=== PATIENT | male | born 1965 | race Caucasian/White ===

== ENCOUNTER 2017-03-01 12:35 | Inpatient (IN) | payer MEDICAID, OTHER ==
[~2017-03-01] VITALS: Ht 175.3 cm; Wt 88.2 kg
[~2017-03-01 12:35] MED LIST: ATOR10TA84 PO; DIVA250T25 PO; GABA-531 PO; PANT40TA25 PO; PARO20TA24 PO
[2017-03-01 13:52] LABS: BASOPHILS % (AUTO) 0.2 % (0.0-2.0); EOSINOPHILS % (AUTO) 0.4 % (1.0-6.0); HEMATOCRIT 42.4 % (41-53); HEMOGLOBIN 14.6 g/dL (13.5-17.5); LYMPHOCYTES # (AUTO) 1.6 K/uL (1.0-4.8); MEAN CORPUSCULAR HEMOGLOBIN 31.4 pg (26.0-34.0); MEAN CORPUSCULAR HGB CONC 34.4 G/dL (31.0-37.0); MEAN CORPUSCULAR VOLUME 91 fL (80-100); MONOCYTES % (AUTO) 6.2 % (2.0-9.0); NEUTROPHILS # (AUTO) 13.4 K/uL (1.8-7.7); NEUTROPHILS % (AUTO) 83.2 % (40.0-70.0); PLATELET COUNT (AUTO) 265 K/uL (150-450); RED BLOOD CELL COUNT(AUTO) 4.64 MIL/uL (4.50-5.90); RED CELL DISTRIBUTION WIDTH 15.1 % (11.5-14.5); WHITE BLOOD COUNT (AUTO) 16.1 K/uL (4.5-11.0)
[2017-03-01 13:55] LABS: ANION GAP 11 mmol/L (8-16); CALCIUM, TOTAL 9.6 mg/dL (8.8-10.5); CARBON DIOXIDE 24 mmol/L (22-29); CHLORIDE 102 mmol/L (98-107); CREATININE 0.81 mg/dL (0.60-1.30); GLOMERULAR FILTR. RATE CALC > 60 mL/min (>60); SODIUM SERUM 137 mmol/L (136-145); UREA NITROGEN, BLOOD 9 mg/dL (7-18)
[2017-03-01 14:01] LABS: ALANINE AMINOTRANSFERASE 73 U/L (12-78); ALBUMIN 3.4 g/dL (3.4-5.0); ASPARTATE AMINOTRANSFERASE 59 U/L (15-37); BILIRUBIN,TOTAL 0.4 mg/dL (0.1-1.0); TOTAL PROTEIN, SERUM 7.3 g/dL (6.4-8.2)
[2017-03-01 14:02] LABS: VALPROIC ACID < 3 mcg/mL (50-100)
[2017-03-01] MEDS ORDERED: LORazepam 2 MG TABLET PO ONE (15:15)
[2017-03-01] MEDS ORDERED: CYANOCOBALAMIN 1,000 MCG/ML VIAL IM ONE (15:30)
[2017-03-01] MEDS ORDERED: LOPERAMIDE HCL 2 MG CAPSULE PO PRN (15:30)
[2017-03-01] MEDS ORDERED: GuaiFENesin/D-METHORPHAN [SUGAR-FREE] 200-20MG/10 ML SYRUP UDCUP PO PRN (15:30)
[2017-03-01] MEDS: THIAMINE HCL 100 MG TABLET PO SCH (16:20)
[2017-03-01] MEDS: HydrOXYzine PAMOATE 50 MG CAPSULE PO PRN (17:23)
[2017-03-01] MEDS: LORazepam 2 MG TABLET PO PRN ×2 (17:23→22:38)
[2017-03-01 17:24] VITALS: BP 127/57
[2017-03-01 17:33] VITALS: BP 127/57
[2017-03-01 18:24] VITALS: BP 125/64
[2017-03-01] MEDS ORDERED: PNEUMOCOCCAL VACCINE POLYVALENT 0.5 ML VIAL [PPSV23] IM ONE (18:45)
[2017-03-01 19:24] VITALS: BP 120/66
[2017-03-01 20:24] VITALS: BP 125/75
[2017-03-01 21:18] VITALS: BP 121/68
[2017-03-01] MEDS: ATORVASTATIN CALCIUM 10 MG TABLET PO SCH (22:35)
[2017-03-02] VITALS (8 sets, daily range): BP systolic 124–140; BP diastolic 70–83
[2017-03-02] MEDS: PANTOPRAZOLE SODIUM 40 MG DR TABLET PO SCH (08:15)
[2017-03-02] MEDS: FOLIC ACID 1 MG TABLET PO SCH (08:16)
[2017-03-02] MEDS: THIAMINE HCL 100 MG TABLET PO SCH ×2 (08:16→16:24)
[2017-03-02] MEDS: LORazepam 2 MG TABLET PO SCH ×4 (08:16→21:05)
[2017-03-02] MEDS: MULTIVITAMINS WITH MINERALS, THERAPEUTIC TABLET PO SCH (08:16)
[2017-03-02] MEDS: NAPROXEN 500 MG TABLET PO SCH ×2 (08:16→16:23)
[2017-03-02] MEDS: NICOTINE 21 MG/24 HOUR PATCH TD SCH ×2 (08:19→08:22)
[2017-03-02 08:31] LABS: CHOL/HDL RATIO 1.8 (4.2-7.3)
[2017-03-02] MEDS ORDERED: GABA-533 PO (12:54)
[2017-03-02] MEDS ORDERED: DIVA500T35 PO (12:54)
[2017-03-02] MEDS: GABAPENTIN 400 MG CAPSULE PO SCH ×2 (13:00→16:24)
[2017-03-02] MEDS: DIVALPROEX SODIUM 500 MG DR TABLET PO SCH (16:24)
[2017-03-02] MEDS: ATORVASTATIN CALCIUM 10 MG TABLET PO SCH (20:13)
[2017-03-02] MEDS: MIRTAZAPINE 15 MG TABLET PO SCH (21:13)
[2017-03-03] MEDS: LORazepam 2 MG TABLET PO PRN ×4 (00:52→19:21)
[2017-03-03 04:25] VITALS: BP 145/80
[2017-03-03] MEDS: NAPROXEN 500 MG TABLET PO SCH ×2 (06:46→16:19)
[2017-03-03] MEDS: NICOTINE 21 MG/24 HOUR PATCH TD SCH (08:23)
[2017-03-03] MEDS: MULTIVITAMINS WITH MINERALS, THERAPEUTIC TABLET PO SCH (08:23)
[2017-03-03] MEDS: DIVALPROEX SODIUM 500 MG DR TABLET PO SCH ×2 (08:23→16:19)
[2017-03-03] MEDS: FOLIC ACID 1 MG TABLET PO SCH (08:24)
[2017-03-03] MEDS: PANTOPRAZOLE SODIUM 40 MG DR TABLET PO SCH (08:24)
[2017-03-03] MEDS: LORazepam 2 MG TABLET PO SCH ×4 (08:24→21:37)
[2017-03-03] MEDS: THIAMINE HCL 100 MG TABLET PO SCH ×2 (08:24→16:19)
[2017-03-03] MEDS: GABAPENTIN 400 MG CAPSULE PO SCH ×3 (08:24→16:19)
[2017-03-03 08:45] VITALS: BP 137/85
[2017-03-03 08:49] VITALS: BP 137/85
[2017-03-03 16:00] VITALS: BP 137/89
[2017-03-03] MEDS: HydrOXYzine PAMOATE 50 MG CAPSULE PO PRN (19:21)
[2017-03-03] MEDS: ATORVASTATIN CALCIUM 10 MG TABLET PO SCH (21:37)
[2017-03-03] MEDS: MIRTAZAPINE 15 MG TABLET PO SCH (21:37)
[2017-03-04 00:45] VITALS: BP 120/77
[2017-03-04] MEDS: LORazepam 2 MG TABLET PO PRN (01:54)
[2017-03-04] MEDS ORDERED: ACETAMINOPHEN 325 MG TABLET PO PRN (05:45)
[2017-03-04 05:50] VITALS: BP 120/70
[2017-03-04] MEDS: NAPROXEN 500 MG TABLET PO SCH ×2 (06:53→16:33)
[2017-03-04] MEDS: LORazepam 1 MG TABLET PO SCH ×4 (08:00→20:22)
[2017-03-04] MEDS: GABAPENTIN 400 MG CAPSULE PO SCH ×3 (08:00→16:33)
[2017-03-04] MEDS: FOLIC ACID 1 MG TABLET PO SCH (08:00)
[2017-03-04] MEDS: MULTIVITAMINS WITH MINERALS, THERAPEUTIC TABLET PO SCH (08:00)
[2017-03-04] MEDS: PANTOPRAZOLE SODIUM 40 MG DR TABLET PO SCH (08:00)
[2017-03-04] MEDS: THIAMINE HCL 100 MG TABLET PO SCH ×2 (08:01→16:33)
[2017-03-04] MEDS: DIVALPROEX SODIUM 500 MG DR TABLET PO SCH ×2 (08:01→16:33)
[2017-03-04] MEDS: NICOTINE 21 MG/24 HOUR PATCH TD SCH (08:01)
[2017-03-04 09:23] VITALS: BP 130/87
[2017-03-04 09:24] VITALS: BP 130/87
[2017-03-04] MEDS: LORazepam 1 MG TABLET PO PRN ×3 (10:28→19:08)
[2017-03-04 16:14] VITALS: BP 135/88
[2017-03-04 17:30] VITALS: BP 126/75
[2017-03-04] MEDS: ATORVASTATIN CALCIUM 10 MG TABLET PO SCH (20:22)
[2017-03-04] MEDS: MIRTAZAPINE 15 MG TABLET PO SCH (20:22)
[2017-03-05 00:09] VITALS: BP 140/77
[2017-03-05] MEDS: LORazepam 1 MG TABLET PO PRN ×2 (00:11→05:08)
[2017-03-05 05:04] VITALS: BP 130/90
[2017-03-05] MEDS: NAPROXEN 500 MG TABLET PO SCH (06:46)
[2017-03-05] MEDS ORDERED: LORazepam 1 MG TABLET PO PRN (07:00)
[2017-03-05 07:35] LABS: BASOPHILS % (AUTO) 0.4 % (0.0-2.0); EOSINOPHILS % (AUTO) 2.3 % (1.0-6.0); HEMATOCRIT 39.9 % (41-53); HEMOGLOBIN 13.7 g/dL (13.5-17.5); LYMPHOCYTES # (AUTO) 1.6 K/uL (1.0-4.8); LYMPHOCYTES % (AUTO) 19.1 % (22.0-44.0); MEAN CORPUSCULAR HEMOGLOBIN 31.8 pg (26.0-34.0); MEAN CORPUSCULAR HGB CONC 34.4 G/dL (31.0-37.0); MEAN CORPUSCULAR VOLUME 92 fL (80-100); MONOCYTES # (AUTO) 0.7 K/uL (0.1-1.0); MONOCYTES % (AUTO) 7.9 % (2.0-9.0); NEUTROPHILS # (AUTO) 5.9 K/uL (1.8-7.7); NEUTROPHILS % (AUTO) 70.3 % (40.0-70.0); PLATELET COUNT (AUTO) 295 K/uL (150-450); RED BLOOD CELL COUNT(AUTO) 4.32 MIL/uL (4.50-5.90); RED CELL DISTRIBUTION WIDTH 15.6 % (11.5-14.5); WHITE BLOOD COUNT (AUTO) 8.5 K/uL (4.5-11.0)
[2017-03-05] MEDS: GABAPENTIN 400 MG CAPSULE PO SCH ×2 (08:27→12:24)
[2017-03-05] MEDS: NICOTINE 21 MG/24 HOUR PATCH TD SCH (08:27)
[2017-03-05] MEDS: DIVALPROEX SODIUM 500 MG DR TABLET PO SCH (08:27)
[2017-03-05] MEDS: MULTIVITAMINS WITH MINERALS, THERAPEUTIC TABLET PO SCH (08:27)
[2017-03-05] MEDS: FOLIC ACID 1 MG TABLET PO SCH (08:28)
[2017-03-05] MEDS: PANTOPRAZOLE SODIUM 40 MG DR TABLET PO SCH (08:28)
[2017-03-05] MEDS: THIAMINE HCL 100 MG TABLET PO SCH (08:28)
[2017-03-05 08:37] VITALS: BP 133/85
[2017-03-05] MEDS ORDERED: MIRT15 PO (11:42)
[2017-03-05] MEDS ORDERED: THIA100 PO (11:42)
[2017-03-05] MEDS ORDERED: FOLI1 PO (11:42)
[2017-03-05] MEDS ORDERED: MULT-71 PO (11:42)
[2017-03-05] MEDS ORDERED: NAPR-58 PO (11:42)
== END 2017-03-05 14:29 | disposition home or self-care (01) | DRG 750 ==
LOC: EMS 12:36 → B3A 15:57 → B2S 03-02 12:41
PROVIDERS: ADMIT Psychiatry & Neurology Psychiatry; ATTEND Psychiatry & Neurology Psychiatry
PROC: HZ2ZZZZ Detoxification Services for Substance Abuse Treatment (ICD-10-PCS; principal; 2017-03-01)
DX: F25.0 Schizoaffective disorder, bipolar type (principal); F15.20 Other stimulant dependence, uncomplicated; R45.851 Suicidal ideations; F10.229 Alcohol dependence with intoxication, unspecified; Y90.7 Blood alcohol level of 200-239 mg/100 ml; Z23 Encounter for immunization; M54.9 Dorsalgia, unspecified; Z59.0 Homelessness; Z88.0 Allergy status to penicillin; M19.90 Unspecified osteoarthritis, unspecified site; M41.9 Scoliosis, unspecified; Z72.0 Tobacco use; D72.829 Elevated white blood cell count, unspecified
CPT/HCPCS: 90471; 96372; 99285; G0480; J3420

== ENCOUNTER 2017-03-17 01:41 | Inpatient (IN) | payer MEDICAID, OTHER ==
[~2017-03-17] VITALS: Ht 172.7 cm; Wt 87.1 kg
[~2017-03-17 01:41] MED LIST changes: +BACL10TA PO; +BUPR-93 PO; +BUPR100T5 PO; +CARB100 PO; +CITA20TA9 PO; +CITA40TA14 PO; +DIPH25 PO; +DIVA500T35 PO; +DIVA500T52 PO; +FISH1CAP49 PO; +FOLI1 PO; +GABA-533 PO; +HYDR-4031 PO; +IBUP-1547 PO; +METO50 PO; +METR500 PO; +MIRT15 PO; +MULT-71 PO; +MUPI1OIN4 NS; +NAPR-58 PO; +NAPR500T3 PO; +NOCURR; +OMEP20 PO; +QUET200T PO; +QUET400T PO; +SERT50TA12 PO; +THERAGRAN M1 TA1; +THIA100 PO; +TRAZ-144 PO; +TRAZ-147 PO; +TRAZ150T85 PO; +VIST50 PO
[2017-03-17 03:04] LABS: EOSINOPHILS % (AUTO) 0.9 % (1.0-6.0); HEMATOCRIT 38.5 % (41-53); HEMOGLOBIN 13.5 g/dL (13.5-17.5); LYMPHOCYTES % (AUTO) 21.3 % (22.0-44.0); MEAN CORPUSCULAR HEMOGLOBIN 31.9 pg (26.0-34.0); MEAN CORPUSCULAR HGB CONC 35.2 G/dL (31.0-37.0); MEAN CORPUSCULAR VOLUME 91 fL (80-100); MONOCYTES # (AUTO) 0.9 K/uL (0.1-1.0); MONOCYTES % (AUTO) 9.5 % (2.0-9.0); NEUTROPHILS # (AUTO) 6.2 K/uL (1.8-7.7); NEUTROPHILS % (AUTO) 67.3 % (40.0-70.0); PLATELET COUNT (AUTO) 364 K/uL (150-450); RED BLOOD CELL COUNT(AUTO) 4.24 MIL/uL (4.50-5.90); RED CELL DISTRIBUTION WIDTH 15.6 % (11.5-14.5); WHITE BLOOD COUNT (AUTO) 9.2 K/uL (4.5-11.0)
[2017-03-17 03:15] LABS: ANION GAP 10 mmol/L (8-16); CARBON DIOXIDE 24 mmol/L (22-29); CHLORIDE 96 mmol/L (98-107); CREATININE 0.67 mg/dL (0.60-1.30); GLOMERULAR FILTR. RATE CALC > 60 mL/min (>60); POTASSIUM 3.7 mmol/L (3.5-5.1); SODIUM SERUM 130 mmol/L (136-145); UREA NITROGEN, BLOOD 5 mg/dL (7-18)
[2017-03-17 03:22] LABS: ALANINE AMINOTRANSFERASE 20 U/L (12-78); ALBUMIN 3.4 g/dL (3.4-5.0); ASPARTATE AMINOTRANSFERASE 21 U/L (15-37); BILIRUBIN,TOTAL 0.2 mg/dL (0.1-1.0); TOTAL PROTEIN, SERUM 7.1 g/dL (6.4-8.2)
[2017-03-17] MEDS: LORazepam 2 MG TABLET PO PRN ×4 (04:40→18:00)
[2017-03-17 05:17] VITALS: BP 120/70
[2017-03-17 10:04] VITALS: BP 126/63
[2017-03-17] MEDS: HALOPERIDOL 5 MG TABLET PO PRN ×2 (13:57→18:00)
[2017-03-17] MEDS: DIVALPROEX SODIUM 500 MG DR TABLET PO SCH (16:10)
[2017-03-17] MEDS: GABAPENTIN 400 MG CAPSULE PO SCH (16:10)
[2017-03-17 17:05] VITALS: BP 121/81
[2017-03-17] MEDS: ZOLPIDEM TARTRATE 10 MG TABLET PO PRN (22:01)
[2017-03-17] MEDS: SERTRALINE HCL 50 MG TABLET PO SCH (22:01)
[2017-03-18 00:25] VITALS: BP 133/75
[2017-03-18] MEDS: LORazepam 2 MG TABLET PO PRN ×4 (00:33→16:40)
[2017-03-18 05:30] VITALS: BP 125/69
[2017-03-18 08:00] VITALS: BP 117/61
[2017-03-18] MEDS: DIVALPROEX SODIUM 500 MG DR TABLET PO SCH ×2 (08:02→16:28)
[2017-03-18] MEDS: GABAPENTIN 400 MG CAPSULE PO SCH ×3 (08:02→16:28)
[2017-03-18 09:08] LABS: APPEARANCE,URINE CLEAR (CLEAR); GLUCOSE, URINE (UA) NEGATIVE (NEGATIVE); KETONES,URINE NEGATIVE (NEGATIVE); LEUKOCYTE ESTERASE ,URINE NEGATIVE (NEGATIVE); OCCULT BLOOD,URINE NEGATIVE (NEGATIVE); PH,URINE 6.5 (5.0-8.0); PROTEIN,URINE NEGATIVE (NEGATIVE)
[2017-03-18 09:29] LABS: ADD UA MICROSCOPIC NO
[2017-03-18] MEDS: NICOTINE 21 MG/24 HOUR PATCH TD SCH (13:15)
[2017-03-18 16:30] VITALS: BP 145/87
[2017-03-18] MEDS: SERTRALINE HCL 50 MG TABLET PO SCH (20:38)
[2017-03-18] MEDS: ZOLPIDEM TARTRATE 10 MG TABLET PO PRN (20:38)
[2017-03-18] MEDS: HALOPERIDOL 5 MG TABLET PO PRN (22:26)
[2017-03-19] MEDS: LORazepam 2 MG TABLET PO PRN ×2 (05:06→09:10)
[2017-03-19 05:16] VITALS: BP 116/84
[2017-03-19 07:19] LABS: CHOL/HDL RATIO 3.5 (4.2-7.3)
[2017-03-19] MEDS: GABAPENTIN 400 MG CAPSULE PO SCH ×2 (08:13→12:39)
[2017-03-19] MEDS: DIVALPROEX SODIUM 500 MG DR TABLET PO SCH (08:13)
[2017-03-19] MEDS: NICOTINE 21 MG/24 HOUR PATCH TD SCH (08:13)
[2017-03-19 08:26] VITALS: BP 120/81
[2017-03-19] MEDS: HALOPERIDOL 5 MG TABLET PO PRN (09:10)
== END 2017-03-19 15:15 | disposition home or self-care (01) | DRG 750 ==
LOC: EMS 01:45 → 3EI 04:14
PROVIDERS: ADMIT Psychiatry & Neurology Psychiatry; ATTEND Psychiatry & Neurology Psychiatry
DX: F25.0 Schizoaffective disorder, bipolar type (principal); E87.1 Hypo-osmolality and hyponatremia; F15.20 Other stimulant dependence, uncomplicated; F22 Delusional disorders; M41.9 Scoliosis, unspecified; R45.851 Suicidal ideations; I10 Essential (primary) hypertension; F10.20 Alcohol dependence, uncomplicated; D64.9 Anemia, unspecified; K21.9 Gastro-esophageal reflux disease without esophagitis; F41.9 Anxiety disorder, unspecified; F17.210 Nicotine dependence, cigarettes, uncomplicated; D72.828 Other elevated white blood cell count; F32.9 Major depressive disorder, single episode, unspecified; Y90.6 Blood alcohol level of 120-199 mg/100 ml; Z79.899 Other long term (current) drug therapy; Z82.49 Family history of ischemic heart disease and other diseases of the circulatory system; Z80.3 Family history of malignant neoplasm of breast; Z88.0 Allergy status to penicillin
CPT/HCPCS: 80307; 87081; 99285; G0480

== ENCOUNTER 2018-02-01 07:42 | Inpatient (IN) | payer MEDICAID, OTHER ==
[~2018-02-01] VITALS: Ht 172.7 cm; Wt 89.6 kg
[~2018-02-01 07:42] MED LIST changes: -ATOR10TA84 PO; -BACL10TA PO; -BUPR-93 PO; -BUPR100T5 PO; -CARB100 PO; -CITA20TA9 PO; -CITA40TA14 PO; -DIPH25 PO; -DIVA250T25 PO; -DIVA500T52 PO; -FISH1CAP49 PO; -FOLI1 PO; -GABA-531 PO; -HYDR-4031 PO; -IBUP-1547 PO; -METO50 PO; -METR500 PO; -MIRT15 PO; -MULT-71 PO; -MUPI1OIN4 NS; -NAPR-58 PO; -NAPR500T3 PO; -NOCURR; -OMEP20 PO; -PANT40TA25 PO; -PARO20TA24 PO; -QUET200T PO; -QUET400T PO; -THERAGRAN M1 TA1; -THIA100 PO; -TRAZ-144 PO; -TRAZ-147 PO; -TRAZ150T85 PO; -VIST50 PO
[2018-02-01] MEDS ORDERED: GABA-531 PO (08:00)
[2018-02-01] MEDS ORDERED: NAPR-58 PO (08:00)
[2018-02-01 08:50] LABS: EOSINOPHILS % (AUTO) 0.2 % (1.0-6.0); HEMATOCRIT 38.3 % (41-53); HEMOGLOBIN 13.5 g/dL (13.5-17.5); LYMPHOCYTES # (AUTO) 1.7 K/uL (1.0-4.8); LYMPHOCYTES % (AUTO) 12.8 % (22.0-44.0); MEAN CORPUSCULAR HEMOGLOBIN 31.6 pg (26.0-34.0); MEAN CORPUSCULAR HGB CONC 35.2 G/dL (31.0-37.0); MEAN CORPUSCULAR VOLUME 90 fL (80-100); MONOCYTES # (AUTO) 0.9 K/uL (0.1-1.0); MONOCYTES % (AUTO) 6.9 % (2.0-9.0); NEUTROPHILS # (AUTO) 10.6 K/uL (1.8-7.7); NEUTROPHILS % (AUTO) 79.1 % (40.0-70.0); PLATELET COUNT (AUTO) 301 K/uL (150-450); RED BLOOD CELL COUNT(AUTO) 4.26 MIL/uL (4.50-5.90); RED CELL DISTRIBUTION WIDTH 14.3 % (11.5-14.5)
[2018-02-01] MEDS ORDERED: LORazepam 1 MG TABLET PO ONE ×2 (09:00→12:15)
[2018-02-01 09:12] LABS: AMPHET/METH SCREEN,URINE POSITIVE (NEGATIVE); BARBITURATE SCREEN, URINE NEGATIVE (NEGATIVE); BENZODIAZEPINES SCREEN,URINE POSITIVE (NEGATIVE); CANNABINOID SCREEN,URINE NEGATIVE (NEGATIVE); COCAINE SCREEN,URINE NEGATIVE (NEGATIVE); METHADONE SCREEN, URINE NEGATIVE (NEGATIVE); OPIATE SCREEN,URINE NEGATIVE (NEGATIVE)
[2018-02-01 09:20] LABS: PHENCYCLIDINE SCREEN,URINE NEGATIVE (NEGATIVE)
[2018-02-01 09:27] LABS: ANION GAP 13 mmol/L (8-16); CARBON DIOXIDE 23 mmol/L (22-29); CHLORIDE 104 mmol/L (98-107); CREATININE 0.77 mg/dL (0.60-1.30); GLOMERULAR FILTR. RATE CALC > 60 mL/min (>60); GLUCOSE,RANDOM 78 mg/dL (70-110); POTASSIUM 3.9 mmol/L (3.5-5.1); SODIUM SERUM 140 mmol/L (136-145); UREA NITROGEN, BLOOD 9 mg/dL (7-18)
[2018-02-01 09:38] LABS: ALANINE AMINOTRANSFERASE 102 U/L (12-78); ALBUMIN 3.3 g/dL (3.4-5.0); ALKALINE PHOSPHATASE 91 U/L (46-116); ASPARTATE AMINOTRANSFERASE 76 U/L (15-37); BILIRUBIN,TOTAL 0.1 mg/dL (0.1-1.0); TOTAL PROTEIN, SERUM 7.2 g/dL (6.4-8.2)
[2018-02-01 13:00] VITALS: BP 145/89
[2018-02-01] MEDS: LORazepam 2 MG TABLET PO PRN ×2 (14:12→20:03)
[2018-02-01 14:17] VITALS: BP 147/91
[2018-02-01] MEDS: GABAPENTIN 300 MG CAPSULE PO SCH ×2 (14:50→20:03)
[2018-02-01] MEDS: MULTIVITAMINS WITH MINERALS, THERAPEUTIC TABLET PO SCH (14:50)
[2018-02-01] MEDS: NICOTINE 21 MG/24 HOUR PATCH TD SCH (14:51)
[2018-02-01 15:00] VITALS: BP 140/89
[2018-02-01 16:00] VITALS: BP 127/74
[2018-02-01 16:10] VITALS: BP 127/74
[2018-02-01 20:00] VITALS: BP 127/83
[2018-02-01] MEDS: ATORVASTATIN CALCIUM 20 MG TABLET PO SCH (20:03)
[2018-02-01] MEDS: NAPROXEN 500 MG TABLET PO SCH (21:36)
[2018-02-02 00:30] VITALS: BP 130/75
[2018-02-02 04:31] VITALS: BP 138/86
[2018-02-02] MEDS: LORazepam 2 MG TABLET PO PRN (06:09)
[2018-02-02] MEDS: NAPROXEN 500 MG TABLET PO SCH ×2 (07:09→16:24)
[2018-02-02 08:00] VITALS: BP 112/68
[2018-02-02 08:33] LABS: BASOPHILS % (AUTO) 0.7 % (0.0-2.0); EOSINOPHILS % (AUTO) 4.7 % (1.0-6.0); HEMATOCRIT 38.8 % (41-53); HEMOGLOBIN 13.6 g/dL (13.5-17.5); LYMPHOCYTES # (AUTO) 1.6 K/uL (1.0-4.8); LYMPHOCYTES % (AUTO) 15.8 % (22.0-44.0); MEAN CORPUSCULAR HEMOGLOBIN 31.9 pg (26.0-34.0); MEAN CORPUSCULAR HGB CONC 35.1 G/dL (31.0-37.0); MEAN CORPUSCULAR VOLUME 91 fL (80-100); MONOCYTES % (AUTO) 9.6 % (2.0-9.0); NEUTROPHILS % (AUTO) 69.2 % (40.0-70.0); PLATELET COUNT (AUTO) 287 K/uL (150-450); RED BLOOD CELL COUNT(AUTO) 4.27 MIL/uL (4.50-5.90); RED CELL DISTRIBUTION WIDTH 14.3 % (11.5-14.5)
[2018-02-02] MEDS: FOLIC ACID 1 MG TABLET PO SCH (09:08)
[2018-02-02] MEDS: MULTIVITAMINS, THERAPEUTIC TABLET PO SCH (09:08)
[2018-02-02] MEDS: GABAPENTIN 300 MG CAPSULE PO SCH ×3 (09:08→16:23)
[2018-02-02] MEDS: NICOTINE 21 MG/24 HOUR PATCH TD SCH (09:08)
[2018-02-02] MEDS: MULTIVITAMINS WITH MINERALS, THERAPEUTIC TABLET PO SCH (09:08)
[2018-02-02] MEDS: THIAMINE HCL 100 MG TABLET PO SCH (09:08)
[2018-02-02] MEDS: LORazepam 2 MG TABLET PO SCH ×4 (09:09→20:08)
[2018-02-02 09:12] LABS: CHOL/HDL RATIO 4.6 (4.2-7.3)
[2018-02-02] MEDS: SERTRALINE HCL 50 MG TABLET PO SCH (10:14)
[2018-02-02 12:55] VITALS: BP 123/88
[2018-02-02 16:00] VITALS: BP 140/88
[2018-02-02 16:11] VITALS: BP 140/88
[2018-02-02] MEDS: ATORVASTATIN CALCIUM 20 MG TABLET PO SCH (20:08)
[2018-02-02] MEDS: OLANZapine 10 MG TABLET PO SCH (20:09)
[2018-02-03 03:11] VITALS: BP 125/90
[2018-02-03] MEDS: LORazepam 2 MG TABLET PO PRN (05:38)
[2018-02-03] MEDS: NICOTINE POLACRILEX 4 MG LOZENGE PO PRN ×4 (05:38→20:16)
[2018-02-03] MEDS: NAPROXEN 500 MG TABLET PO SCH ×2 (06:38→16:13)
[2018-02-03 08:22] VITALS: BP 138/80
[2018-02-03] MEDS: GABAPENTIN 300 MG CAPSULE PO SCH ×3 (08:36→16:13)
[2018-02-03] MEDS: MULTIVITAMINS, THERAPEUTIC TABLET PO SCH (08:36)
[2018-02-03] MEDS: SERTRALINE HCL 50 MG TABLET PO SCH (08:36)
[2018-02-03] MEDS: FOLIC ACID 1 MG TABLET PO SCH (08:36)
[2018-02-03] MEDS: LORazepam 2 MG TABLET PO SCH ×4 (08:36→20:13)
[2018-02-03] MEDS: NICOTINE 21 MG/24 HOUR PATCH TD SCH (08:37)
[2018-02-03] MEDS: THIAMINE HCL 100 MG TABLET PO SCH (08:37)
[2018-02-03 12:20] VITALS: BP 116/71
[2018-02-03 16:44] VITALS: BP 136/79
[2018-02-03] MEDS: OLANZapine 10 MG TABLET PO SCH (20:13)
[2018-02-03] MEDS: ATORVASTATIN CALCIUM 20 MG TABLET PO SCH (20:13)
[2018-02-03] MEDS: TraZODone HCL 50 MG TABLET PO PRN (20:57)
[2018-02-04 04:30] VITALS: BP 138/98
[2018-02-04 04:32] VITALS: BP 136/98
[2018-02-04] MEDS: LORazepam 2 MG TABLET PO PRN (04:32)
[2018-02-04] MEDS: NICOTINE POLACRILEX 4 MG LOZENGE PO PRN ×4 (04:32→21:39)
[2018-02-04] MEDS: NAPROXEN 500 MG TABLET PO SCH ×2 (06:48→16:23)
[2018-02-04] MEDS ORDERED: LORazepam 1 MG TABLET PO PRN (07:00)
[2018-02-04] MEDS: SERTRALINE HCL 50 MG TABLET PO SCH (08:03)
[2018-02-04] MEDS: NICOTINE 21 MG/24 HOUR PATCH TD SCH (08:03)
[2018-02-04] MEDS: THIAMINE HCL 100 MG TABLET PO SCH (08:04)
[2018-02-04] MEDS: GABAPENTIN 300 MG CAPSULE PO SCH ×3 (08:04→16:23)
[2018-02-04] MEDS: FOLIC ACID 1 MG TABLET PO SCH (08:04)
[2018-02-04] MEDS: MULTIVITAMINS, THERAPEUTIC TABLET PO SCH (08:04)
[2018-02-04] MEDS: LORazepam 1 MG TABLET PO SCH ×4 (08:07→20:36)
[2018-02-04 09:24] VITALS: BP 128/93
[2018-02-04 14:25] VITALS: BP 116/68
[2018-02-04 17:00] VITALS: BP 115/79
[2018-02-04] MEDS: OLANZapine 10 MG TABLET PO SCH (20:36)
[2018-02-04] MEDS: ATORVASTATIN CALCIUM 20 MG TABLET PO SCH (20:36)
[2018-02-04] MEDS: TraZODone HCL 50 MG TABLET PO PRN (20:41)
[2018-02-05 01:29] VITALS: BP 121/82
[2018-02-05 04:44] VITALS: BP 122/78
[2018-02-05] MEDS: NICOTINE POLACRILEX 4 MG LOZENGE PO PRN ×4 (04:48→18:12)
[2018-02-05] MEDS: NAPROXEN 500 MG TABLET PO SCH ×2 (06:32→16:33)
[2018-02-05 08:18] VITALS: BP 120/81
[2018-02-05 08:19] VITALS: BP 120/81
[2018-02-05] MEDS: LORazepam 1 MG TABLET PO PRN ×4 (08:58→22:34)
[2018-02-05] MEDS: GABAPENTIN 300 MG CAPSULE PO SCH ×3 (08:58→16:33)
[2018-02-05] MEDS: MULTIVITAMINS, THERAPEUTIC TABLET PO SCH (08:58)
[2018-02-05] MEDS: SERTRALINE HCL 50 MG TABLET PO SCH (08:58)
[2018-02-05] MEDS: FOLIC ACID 1 MG TABLET PO SCH (08:58)
[2018-02-05] MEDS: THIAMINE HCL 100 MG TABLET PO SCH (08:58)
[2018-02-05] MEDS: NICOTINE 21 MG/24 HOUR PATCH TD SCH (08:59)
[2018-02-05] MEDS ORDERED: ACETAMINOPHEN 325 MG TABLET PO PRN (10:00)
[2018-02-05 16:00] VITALS: BP 124/75
[2018-02-05] MEDS: OLANZapine 10 MG TABLET PO SCH (20:18)
[2018-02-05] MEDS: ATORVASTATIN CALCIUM 20 MG TABLET PO SCH (20:18)
[2018-02-06 02:00] VITALS: BP 123/79
[2018-02-06] MEDS: NICOTINE POLACRILEX 4 MG LOZENGE PO PRN ×3 (05:49→18:05)
[2018-02-06] MEDS: LORazepam 1 MG TABLET PO PRN (05:49)
[2018-02-06] MEDS: NAPROXEN 500 MG TABLET PO SCH ×2 (06:22→16:57)
[2018-02-06 08:21] VITALS: BP 111/68
[2018-02-06] MEDS: MULTIVITAMINS, THERAPEUTIC TABLET PO SCH (08:33)
[2018-02-06] MEDS: SERTRALINE HCL 50 MG TABLET PO SCH (08:33)
[2018-02-06] MEDS: GABAPENTIN 300 MG CAPSULE PO SCH ×3 (08:33→16:57)
[2018-02-06] MEDS: FOLIC ACID 1 MG TABLET PO SCH (08:33)
[2018-02-06] MEDS: THIAMINE HCL 100 MG TABLET PO SCH (08:33)
[2018-02-06] MEDS: NICOTINE 21 MG/24 HOUR PATCH TD SCH (08:34)
[2018-02-06 16:07] VITALS: BP 125/75
[2018-02-06] MEDS: HydrOXYzine PAMOATE 50 MG CAPSULE PO PRN (18:40)
[2018-02-06] MEDS: OLANZapine 10 MG TABLET PO SCH (20:10)
[2018-02-06] MEDS: ATORVASTATIN CALCIUM 20 MG TABLET PO SCH (20:10)
[2018-02-06] MEDS: TraZODone HCL 50 MG TABLET PO PRN (21:04)
[2018-02-07 06:21] VITALS: BP 137/84
[2018-02-07] MEDS: NAPROXEN 500 MG TABLET PO SCH ×2 (07:10→17:21)
[2018-02-07 07:53] VITALS: BP 112/73
[2018-02-07 08:02] VITALS: BP 112/73
[2018-02-07] MEDS: GABAPENTIN 300 MG CAPSULE PO SCH ×3 (09:14→17:21)
[2018-02-07] MEDS: SERTRALINE HCL 50 MG TABLET PO SCH (09:15)
[2018-02-07] MEDS: THIAMINE HCL 100 MG TABLET PO SCH (09:15)
[2018-02-07] MEDS: MULTIVITAMINS, THERAPEUTIC TABLET PO SCH (09:15)
[2018-02-07] MEDS: NICOTINE 21 MG/24 HOUR PATCH TD SCH (09:16)
[2018-02-07] MEDS: FOLIC ACID 1 MG TABLET PO SCH (09:16)
[2018-02-07] MEDS: NICOTINE POLACRILEX 4 MG LOZENGE PO PRN ×2 (11:02→15:10)
[2018-02-07] MEDS: HydrOXYzine PAMOATE 50 MG CAPSULE PO PRN ×2 (15:57→21:26)
[2018-02-07 16:02] VITALS: BP 124/87
[2018-02-07] MEDS: ATORVASTATIN CALCIUM 20 MG TABLET PO SCH (21:23)
[2018-02-07] MEDS: OLANZapine 10 MG TABLET PO SCH (21:23)
[2018-02-07 22:09] VITALS: BP 117/85
[2018-02-07] MEDS: IBUPROFEN 600 MG TABLET PO PRN (22:09)
[2018-02-08 05:36] VITALS: BP 119/85
[2018-02-08] MEDS: NAPROXEN 500 MG TABLET PO SCH (07:04)
[2018-02-08] MEDS: NICOTINE POLACRILEX 4 MG LOZENGE PO PRN ×2 (07:05→11:14)
[2018-02-08] MEDS: HydrOXYzine PAMOATE 50 MG CAPSULE PO PRN (07:05)
[2018-02-08 08:02] VITALS: BP 123/79
[2018-02-08] MEDS: THIAMINE HCL 100 MG TABLET PO SCH (08:09)
[2018-02-08] MEDS: NICOTINE 21 MG/24 HOUR PATCH TD SCH (08:09)
[2018-02-08] MEDS: GABAPENTIN 300 MG CAPSULE PO SCH ×2 (08:09→12:21)
[2018-02-08] MEDS: FOLIC ACID 1 MG TABLET PO SCH (08:09)
[2018-02-08] MEDS: MULTIVITAMINS, THERAPEUTIC TABLET PO SCH (08:09)
[2018-02-08] MEDS: SERTRALINE HCL 50 MG TABLET PO SCH (08:09)
[2018-02-08] MEDS ORDERED: OLAN10TA3 PO (10:01)
[2018-02-08] MEDS ORDERED: NICO-704 TD (10:01)
[2018-02-08] MEDS ORDERED: OLAN10TA20 PO (10:49)
[2018-02-08] MEDS ORDERED: SERT50TA12 PO (10:49)
[2018-02-08] MEDS: IBUPROFEN 600 MG TABLET PO PRN (13:06)
== END 2018-02-08 14:01 | disposition home or self-care (01) | DRG 750 ==
LOC: EMS 07:43 → B2S 11:38
DX: F25.1 Schizoaffective disorder, depressive type (principal); R45.851 Suicidal ideations; F15.20 Other stimulant dependence, uncomplicated; M41.9 Scoliosis, unspecified; Z59.0 Homelessness; G62.9 Polyneuropathy, unspecified; F41.0 Panic disorder [episodic paroxysmal anxiety]; G89.29 Other chronic pain; K21.9 Gastro-esophageal reflux disease without esophagitis; M19.90 Unspecified osteoarthritis, unspecified site; F10.20 Alcohol dependence, uncomplicated; E78.5 Hyperlipidemia, unspecified; Y90.5 Blood alcohol level of 100-119 mg/100 ml; D35.00 Benign neoplasm of unspecified adrenal gland; M54.9 Dorsalgia, unspecified; F17.210 Nicotine dependence, cigarettes, uncomplicated; F41.9 Anxiety disorder, unspecified; L40.9 Psoriasis, unspecified; Z76.5 Malingerer [conscious simulation]; Z79.899 Other long term (current) drug therapy; Z88.0 Allergy status to penicillin; Z83.3 Family history of diabetes mellitus; Z82.49 Family history of ischemic heart disease and other diseases of the circulatory system; Z82.3 Family history of stroke; Z80.9 Family history of malignant neoplasm, unspecified; Z71.6 Tobacco abuse counseling; Z71.51 Drug abuse counseling and surveillance of drug abuser; Z71.41 Alcohol abuse counseling and surveillance of alcoholic
CPT/HCPCS: 99285; G0480

== ENCOUNTER 2018-08-27 20:11 | Inpatient (IN) | payer MEDICAID, OTHER ==
[~2018-08-27] VITALS: Ht 177.8 cm; Wt 87.0 kg
[~2018-08-27 20:11] MED LIST changes: -DIVA500T35 PO; +GABA-531 PO; -GABA-533 PO; +NAPR-58 PO; +NICO-704 TD; +OLAN10TA20 PO; +OLAN10TA3 PO
[2018-08-27] MEDS ORDERED: OXCA300T29 PO (21:07)
[2018-08-27] MEDS ORDERED: DIVA-78 PO (21:07)
[2018-08-27] MEDS ORDERED: HYDR50CA10 PO (21:07)
[2018-08-27] MEDS ORDERED: SERT100T12 PO (21:07)
[2018-08-27] MEDS ORDERED: LORA1TAB3 PO (21:07)
[2018-08-27 21:27] LABS: BASOPHILS % (AUTO) 0.7 % (0.0-2.0); EOSINOPHILS % (AUTO) 1.3 % (1.0-6.0); HEMATOCRIT 43.1 % (41-53); HEMOGLOBIN 14.7 g/dL (13.5-17.5); LYMPHOCYTES # (AUTO) 1.9 K/uL (1.0-4.8); LYMPHOCYTES % (AUTO) 14.3 % (22.0-44.0); MEAN CORPUSCULAR HEMOGLOBIN 32.3 pg (26.0-34.0); MEAN CORPUSCULAR HGB CONC 34.2 G/dL (31.0-37.0); MEAN CORPUSCULAR VOLUME 95 fL (80-100); MONOCYTES # (AUTO) 0.8 K/uL (0.1-1.0); MONOCYTES % (AUTO) 6.3 % (2.0-9.0); NEUTROPHILS # (AUTO) 10.3 K/uL (1.8-7.7); NEUTROPHILS % (AUTO) 77.4 % (40.0-70.0); PLATELET COUNT (AUTO) 376 K/uL (150-450); RED BLOOD CELL COUNT(AUTO) 4.56 MIL/uL (4.50-5.90); RED CELL DISTRIBUTION WIDTH 14.6 % (11.5-14.5)
[2018-08-27 21:44] LABS: ANION GAP 11 mmol/L (8-16); CALCIUM, TOTAL 9.3 mg/dL (8.8-10.5); CARBON DIOXIDE 25 mmol/L (22-29); CHLORIDE 103 mmol/L (98-107); CREATININE 0.78 mg/dL (0.60-1.30); GLOMERULAR FILTR. RATE CALC > 60 mL/min (>60); GLUCOSE,RANDOM 94 mg/dL (70-110); POTASSIUM 3.7 mmol/L (3.5-5.1); SODIUM SERUM 139 mmol/L (136-145); UREA NITROGEN, BLOOD 15 mg/dL (7-18)
[2018-08-27 21:50] LABS: ALANINE AMINOTRANSFERASE 28 U/L (12-78); ALBUMIN 3.5 g/dL (3.4-5.0); ALKALINE PHOSPHATASE 110 U/L (46-116); ASPARTATE AMINOTRANSFERASE 46 U/L (15-37); BILIRUBIN,TOTAL 0.2 mg/dL (0.1-1.0); TOTAL PROTEIN, SERUM 7.3 g/dL (6.4-8.2)
[2018-08-27 21:59] LABS: AMPHET/METH SCREEN,URINE NEGATIVE (NEGATIVE); BARBITURATE SCREEN, URINE NEGATIVE (NEGATIVE); BENZODIAZEPINES SCREEN,URINE POSITIVE (NEGATIVE); CANNABINOID SCREEN,URINE NEGATIVE (NEGATIVE); COCAINE SCREEN,URINE NEGATIVE (NEGATIVE); METHADONE SCREEN, URINE NEGATIVE (NEGATIVE); OPIATE SCREEN,URINE NEGATIVE (NEGATIVE)
[2018-08-27 22:00] LABS: PHENCYCLIDINE SCREEN,URINE NEGATIVE (NEGATIVE)
[2018-08-27 22:04] LABS: VALPROIC ACID < 3 mcg/mL (50-100)
[2018-08-27] MEDS ORDERED: DiphenhydrAMINE HCL 50 MG/ML VIAL IM ONE (22:15)
[2018-08-27] MEDS ORDERED: LORazepam 2 MG/ML VIAL IM ONE (22:15)
[2018-08-27] MEDS ORDERED: HALOPERIDOL LACTATE 5 MG/ML VIAL IM ONE (22:15)
[2018-08-28] VITALS (9 sets, daily range): BP systolic 121–142; BP diastolic 73–93
[2018-08-28] MEDS ORDERED: ZOLPIDEM TARTRATE 10 MG TABLET PO PRN (01:00)
[2018-08-28] MEDS ORDERED: HALOPERIDOL 5 MG TABLET PO PRN (01:00)
[2018-08-28 01:58] LABS: APPEARANCE,URINE CLEAR (CLEAR); BILIRUBIN,URINE NEGATIVE (NEGATIVE); GLUCOSE, URINE (UA) NEGATIVE (NEGATIVE); KETONES,URINE NEGATIVE (NEGATIVE); LEUKOCYTE ESTERASE ,URINE NEGATIVE (NEGATIVE); NITRATE,URINE NEGATIVE (NEGATIVE); OCCULT BLOOD,URINE NEGATIVE (NEGATIVE); PH,URINE 5.5 (5.0-8.0); PROTEIN,URINE NEGATIVE (NEGATIVE); UROBILINOGEN,URINE 0.2 mg/dL (<=1.0)
[2018-08-28] MEDS: LORazepam 2 MG TABLET PO PRN ×4 (06:54→22:13)
[2018-08-28] MEDS ORDERED: CYANOCOBALAMIN 1,000 MCG/ML VIAL IM ONE (08:30)
[2018-08-28] MEDS ORDERED: LOPERAMIDE HCL 2 MG CAPSULE PO PRN ×2 (08:30→10:15)
[2018-08-28] MEDS ORDERED: GuaiFENesin/D-METHORPHAN [SUGAR-FREE] 200-20MG/10 ML SYRUP UDCUP PO PRN ×2 (08:30→10:15)
[2018-08-28] MEDS ORDERED: HydrOXYzine PAMOATE 50 MG CAPSULE PO PRN (08:30)
[2018-08-28] MEDS: FOLIC ACID 1 MG TABLET PO SCH (09:53)
[2018-08-28] MEDS: MULTIVITAMINS WITH MINERALS, THERAPEUTIC TABLET PO SCH (09:53)
[2018-08-28] MEDS: THIAMINE HCL 100 MG TABLET PO SCH ×2 (09:53→15:56)
[2018-08-28] MEDS ORDERED: CloNIDine HCL 0.1 MG TABLET PO PRN (10:15)
[2018-08-28] MEDS ORDERED: MAG HYDROX/AL HYDROX/SIMETH ES 30 ML SUSPENSION UDCUP PO PRN (10:15)
[2018-08-28] MEDS ORDERED: NICOTINE 14 MG/24 HOUR PATCH TD PRN (10:15)
[2018-08-28] MEDS ORDERED: PETROLATUM,WHITE 71 GM JELLY TP PRN (10:15)
[2018-08-28] MEDS ORDERED: ACETAMINOPHEN 325 MG TABLET PO PRN (10:15)
[2018-08-28] MEDS ORDERED: DOCUSATE SODIUM 100 MG CAPSULE PO PRN (10:15)
[2018-08-28] MEDS ORDERED: ALBUTEROL SULFATE HFA 90 MCG/PUFF 8 GM INHALER IH PRN (10:15)
[2018-08-28] MEDS ORDERED: GABAPENTIN 300 MG CAPSULE PO SCH (10:15)
[2018-08-28] MEDS ORDERED: MAGNESIUM HYDROXIDE SUSPENSION 30 ML UDCUP PO PRN (10:15)
[2018-08-28] MEDS ORDERED: ONDANSETRON HCL 4 MG TABLET PO PRN (10:15)
[2018-08-28] MEDS: IBUPROFEN 400 MG TABLET PO PRN (10:21)
[2018-08-28] MEDS: SERTRALINE HCL 100 MG TABLET PO SCH (10:22)
[2018-08-28] MEDS: GABAPENTIN 300 MG CAPSULE PO SCH ×2 (12:07→15:56)
[2018-08-28] MEDS: NICOTINE 21 MG/24 HOUR PATCH TD SCH (12:13)
[2018-08-29] VITALS (7 sets, daily range): BP systolic 122–135; BP diastolic 74–88
[2018-08-29] MEDS: IBUPROFEN 400 MG TABLET PO PRN (03:54)
[2018-08-29] MEDS: LORazepam 2 MG TABLET PO PRN (05:05)
[2018-08-29] MEDS ORDERED: LORazepam 2 MG TABLET PO PRN (07:00)
[2018-08-29 07:52] LABS: CHOL/HDL RATIO 3.3 (4.2-7.3); THYROID STIMULATING HORMONE 1.38 uIU/mL (0.36-3.74)
[2018-08-29] MEDS: MULTIVITAMINS WITH MINERALS, THERAPEUTIC TABLET PO SCH (08:01)
[2018-08-29] MEDS: THIAMINE HCL 100 MG TABLET PO SCH ×2 (08:02→16:42)
[2018-08-29] MEDS: GABAPENTIN 300 MG CAPSULE PO SCH ×3 (08:02→16:41)
[2018-08-29] MEDS: FOLIC ACID 1 MG TABLET PO SCH (08:02)
[2018-08-29] MEDS: SERTRALINE HCL 100 MG TABLET PO SCH (08:08)
[2018-08-29] MEDS: NICOTINE 21 MG/24 HOUR PATCH TD SCH (08:39)
[2018-08-29] MEDS: LORazepam 2 MG TABLET PO SCH ×4 (09:37→20:33)
[2018-08-30 00:35] VITALS: BP 121/80
[2018-08-30] MEDS: IBUPROFEN 400 MG TABLET PO PRN (00:37)
[2018-08-30] MEDS: LORazepam 2 MG TABLET PO PRN (06:17)
[2018-08-30 06:35] LABS: BASOPHILS % (AUTO) 0.8 % (0.0-2.0); EOSINOPHILS % (AUTO) 2.8 % (1.0-6.0); HEMATOCRIT 41.9 % (41-53); HEMOGLOBIN 14.3 g/dL (13.5-17.5); LYMPHOCYTES # (AUTO) 1.5 K/uL (1.0-4.8); LYMPHOCYTES % (AUTO) 18.4 % (22.0-44.0); MEAN CORPUSCULAR HEMOGLOBIN 32.7 pg (26.0-34.0); MEAN CORPUSCULAR HGB CONC 34.1 G/dL (31.0-37.0); MEAN CORPUSCULAR VOLUME 96 fL (80-100); MONOCYTES # (AUTO) 0.7 K/uL (0.1-1.0); NEUTROPHILS # (AUTO) 5.8 K/uL (1.8-7.7); PLATELET COUNT (AUTO) 323 K/uL (150-450); RED BLOOD CELL COUNT(AUTO) 4.37 MIL/uL (4.50-5.90)
[2018-08-30] MEDS ORDERED: ACETAMINOPHEN 325 MG TABLET ONE (07:07)
[2018-08-30] MEDS ORDERED: IBUPROFEN 400 MG TABLET PO PRN ×2 (07:30→10:15)
[2018-08-30] MEDS: NICOTINE 21 MG/24 HOUR PATCH TD SCH (09:15)
[2018-08-30] MEDS: FOLIC ACID 1 MG TABLET PO SCH (09:15)
[2018-08-30] MEDS: MULTIVITAMINS WITH MINERALS, THERAPEUTIC TABLET PO SCH (09:15)
[2018-08-30] MEDS: SERTRALINE HCL 100 MG TABLET PO SCH (09:16)
[2018-08-30] MEDS: LORazepam 2 MG TABLET PO SCH ×4 (09:16→20:53)
[2018-08-30] MEDS: GABAPENTIN 300 MG CAPSULE PO SCH ×3 (09:16→16:25)
[2018-08-30] MEDS: THIAMINE HCL 100 MG TABLET PO SCH ×2 (09:16→16:25)
[2018-08-30] MEDS ORDERED: ACETAMINOPHEN 325 MG TABLET PO PRN (10:15)
[2018-08-30] MEDS ORDERED: ACETAMINOPHEN 500 MG TABLET PO PRN (13:00)
[2018-08-30] MEDS: IBUPROFEN 600 MG TABLET PO PRN ×2 (13:30→19:13)
[2018-08-31 02:40] VITALS: BP 139/79
[2018-08-31] MEDS: IBUPROFEN 600 MG TABLET PO PRN (02:45)
[2018-08-31] MEDS: LORazepam 2 MG TABLET PO PRN (02:45)
[2018-08-31] MEDS ORDERED: LORazepam 1 MG TABLET PO PRN (07:00)
[2018-08-31] MEDS: MULTIVITAMINS WITH MINERALS, THERAPEUTIC TABLET PO SCH (08:26)
[2018-08-31] MEDS: FOLIC ACID 1 MG TABLET PO SCH (08:26)
[2018-08-31] MEDS: GABAPENTIN 300 MG CAPSULE PO SCH ×3 (08:27→16:02)
[2018-08-31] MEDS: THIAMINE HCL 100 MG TABLET PO SCH ×2 (08:27→16:02)
[2018-08-31] MEDS: NICOTINE 21 MG/24 HOUR PATCH TD SCH (08:29)
[2018-08-31] MEDS: SERTRALINE HCL 100 MG TABLET PO SCH (08:29)
[2018-08-31 08:32] VITALS: BP 132/69
[2018-08-31] MEDS: LORazepam 1 MG TABLET PO SCH ×3 (09:21→16:02)
[2018-09-01] MEDS ORDERED: LORazepam 1 MG TABLET PO PRN (07:00)
== END 2018-08-31 17:30 | disposition home or self-care (01) | DRG 751 ==
LOC: EMS 20:13 → 3EI 08-28 02:00
DX: F33.2 Major depressive disorder, recurrent severe without psychotic features (principal); M41.9 Scoliosis, unspecified; E11.9 Type 2 diabetes mellitus without complications; D72.829 Elevated white blood cell count, unspecified; F10.20 Alcohol dependence, uncomplicated; F17.210 Nicotine dependence, cigarettes, uncomplicated; F12.10 Cannabis abuse, uncomplicated; G40.909 Epilepsy, unspecified, not intractable, without status epilepticus; I10 Essential (primary) hypertension; J44.9 Chronic obstructive pulmonary disease, unspecified; K21.9 Gastro-esophageal reflux disease without esophagitis; M54.9 Dorsalgia, unspecified; M19.90 Unspecified osteoarthritis, unspecified site; Y90.6 Blood alcohol level of 120-199 mg/100 ml; Z59.0 Homelessness; Z79.899 Other long term (current) drug therapy; Z91.5 Personal history of self-harm; Z88.0 Allergy status to penicillin; Z71.6 Tobacco abuse counseling; Z71.51 Drug abuse counseling and surveillance of drug abuser
CPT/HCPCS: 83036; 84443; 96372; G0480; J1200; J1630; J2060; J3420

== ENCOUNTER 2019-01-29 16:34 | Inpatient (IN) | payer MEDICAID, OTHER ==
[~2019-01-29] VITALS: Ht 172.7 cm; Wt 93.0 kg
[~2019-01-29 16:34] MED LIST changes: -NAPR-58 PO; -NICO-704 TD; -OLAN10TA20 PO; -OLAN10TA3 PO; +SERT100T12 PO; -SERT50TA12 PO
[2019-01-29] MEDS ORDERED: ESCI20TA PO (17:12)
[2019-01-29 18:03] LABS: BASOPHILS % (AUTO) 0.7 % (0.0-2.0); EOSINOPHILS % (AUTO) 3.3 % (1.0-6.0); HEMATOCRIT 40.2 % (41-53); HEMOGLOBIN 13.6 g/dL (13.5-17.5); LYMPHOCYTES # (AUTO) 1.7 K/uL (1.0-4.8); LYMPHOCYTES % (AUTO) 14.8 % (22.0-44.0); MEAN CORPUSCULAR HEMOGLOBIN 32.1 pg (26.0-34.0); MEAN CORPUSCULAR HGB CONC 33.8 G/dL (31.0-37.0); MEAN CORPUSCULAR VOLUME 95 fL (80-100); MONOCYTES % (AUTO) 8.4 % (2.0-9.0); NEUTROPHILS # (AUTO) 8.4 K/uL (1.8-7.7); NEUTROPHILS % (AUTO) 72.8 % (40.0-70.0); PLATELET COUNT (AUTO) 293 K/uL (150-450); RED BLOOD CELL COUNT(AUTO) 4.22 MIL/uL (4.50-5.90); RED CELL DISTRIBUTION WIDTH 13.7 % (11.5-14.5)
[2019-01-29 18:14] LABS: ANION GAP 16 mmol/L (8-16); CARBON DIOXIDE 19 mmol/L (22-29); CHLORIDE 103 mmol/L (98-107); CREATININE 0.83 mg/dL (0.60-1.30); GLOMERULAR FILTR. RATE CALC > 60 mL/min (>60); GLUCOSE,RANDOM 90 mg/dL (70-110); POTASSIUM 3.8 mmol/L (3.5-5.1); SODIUM SERUM 138 mmol/L (136-145); UREA NITROGEN, BLOOD 17 mg/dL (7-18)
[2019-01-29 18:21] LABS: ALANINE AMINOTRANSFERASE 55 U/L (12-78); ALBUMIN 3.7 g/dL (3.4-5.0); ALKALINE PHOSPHATASE 75 U/L (46-116); ASPARTATE AMINOTRANSFERASE 100 U/L (15-37); BILIRUBIN,TOTAL 0.3 mg/dL (0.1-1.0); TOTAL PROTEIN, SERUM 6.9 g/dL (6.4-8.2)
[2019-01-29] MEDS ORDERED: LORazepam 2 MG/ML VIAL ONE (20:13)
[2019-01-29] MEDS ORDERED: DiphenhydrAMINE HCL 50 MG/ML VIAL ONE (20:14)
[2019-01-29] MEDS ORDERED: HALOPERIDOL LACTATE 5 MG/ML VIAL ONE (20:14)
[2019-01-29] MEDS ORDERED: ZOLPIDEM TARTRATE 10 MG TABLET PO PRN (20:45)
[2019-01-29] MEDS ORDERED: HALOPERIDOL 5 MG TABLET PO PRN (20:45)
[2019-01-30 05:38] LABS: CHOL/HDL RATIO 2.6 (4.2-7.3); CHOLESTEROL 103 mg/dL (131-200); FREE T4 (FREE THYROXINE) 1.36 ng/dL (0.76-1.46); HDL CHOLESTEROL 40 mg/dL (40-60); LDL CHOL (CALC.) 45 mg/dL (0-130); THYROID STIMULATING HORMONE 0.71 uIU/mL (0.36-3.74); TRIGLYCERIDES 89 mg/dL (15-150)
[2019-01-30 13:55] VITALS: BP 138/90
[2019-01-30] MEDS ORDERED: ALBUTEROL SULFATE HFA 90 MCG/PUFF 8 GM INHALER IH PRN (14:45)
[2019-01-30] MEDS ORDERED: DOCUSATE SODIUM 100 MG CAPSULE PO PRN (14:45)
[2019-01-30] MEDS ORDERED: LOPERAMIDE HCL 2 MG CAPSULE PO PRN (14:45)
[2019-01-30] MEDS ORDERED: MAG HYDROX/AL HYDROX/SIMETH ES 30 ML SUSPENSION UDCUP PO PRN (14:45)
[2019-01-30] MEDS ORDERED: GuaiFENesin/D-METHORPHAN [SUGAR-FREE] 200-20MG/10 ML SYRUP UDCUP PO PRN (14:45)
[2019-01-30] MEDS ORDERED: ACETAMINOPHEN 325 MG TABLET PO PRN (14:45)
[2019-01-30] MEDS ORDERED: CloNIDine HCL 0.1 MG TABLET PO PRN (14:45)
[2019-01-30] MEDS ORDERED: PETROLATUM,WHITE 28 GM JELLY TP PRN (14:45)
[2019-01-30] MEDS ORDERED: ONDANSETRON HCL 4 MG TABLET PO PRN (14:45)
[2019-01-30] MEDS ORDERED: MAGNESIUM HYDROXIDE SUSPENSION 30 ML UDCUP PO PRN (14:45)
[2019-01-30 15:00] VITALS: BP 134/74
[2019-01-30 16:00] VITALS: BP 136/86
[2019-01-30 17:00] VITALS: BP 123/76
[2019-01-30 21:00] VITALS: BP 121/68
[2019-01-31] VITALS (9 sets, daily range): BP systolic 118–126; BP diastolic 64–80
[2019-01-31] MEDS: LORazepam 2 MG TABLET PO PRN ×2 (09:41→15:52)
[2019-01-31] MEDS ORDERED: LORazepam 2 MG TABLET PO PRN (10:45)
[2019-01-31] MEDS: GABAPENTIN 400 MG CAPSULE PO SCH ×2 (13:20→16:26)
[2019-01-31] MEDS: SERTRALINE HCL 100 MG TABLET PO SCH (20:38)
[2019-02-01] MEDS: LORazepam 2 MG TABLET PO PRN (07:11)
[2019-02-01 08:11] VITALS: BP 142/74
[2019-02-01 08:12] LABS: BASOPHILS % (AUTO) 0.9 % (0.0-2.0); EOSINOPHILS % (AUTO) 5.5 % (1.0-6.0); HEMATOCRIT 43.8 % (41-53); LYMPHOCYTES # (AUTO) 1.3 K/uL (1.0-4.8); LYMPHOCYTES % (AUTO) 16.3 % (22.0-44.0); MEAN CORPUSCULAR HEMOGLOBIN 32.4 pg (26.0-34.0); MEAN CORPUSCULAR HGB CONC 34.1 G/dL (31.0-37.0); MEAN CORPUSCULAR VOLUME 95 fL (80-100); MONOCYTES # (AUTO) 0.7 K/uL (0.1-1.0); MONOCYTES % (AUTO) 8.8 % (2.0-9.0); NEUTROPHILS # (AUTO) 5.4 K/uL (1.8-7.7); NEUTROPHILS % (AUTO) 68.5 % (40.0-70.0); PLATELET COUNT (AUTO) 312 K/uL (150-450); RED BLOOD CELL COUNT(AUTO) 4.62 MIL/uL (4.50-5.90); RED CELL DISTRIBUTION WIDTH 13.4 % (11.5-14.5)
[2019-02-01] MEDS: GABAPENTIN 400 MG CAPSULE PO SCH ×3 (08:17→16:05)
[2019-02-01] MEDS: LORazepam 2 MG TABLET PO SCH ×4 (08:17→20:30)
[2019-02-01 08:45] LABS: HEMOGLOBIN A1C 4.8 % (4.5-6.2)
[2019-02-01 09:11] LABS: ALANINE AMINOTRANSFERASE 69 U/L (12-78); ALBUMIN 3.1 g/dL (3.4-5.0); ALKALINE PHOSPHATASE 87 U/L (46-116); ANION GAP 8 mmol/L (8-16); ASPARTATE AMINOTRANSFERASE 68 U/L (15-37); BILIRUBIN,TOTAL 0.3 mg/dL (0.1-1.0); CALCIUM, TOTAL 9.2 mg/dL (8.8-10.5); CARBON DIOXIDE 27 mmol/L (22-29); CHLORIDE 105 mmol/L (98-107); CHOL/HDL RATIO 2.6 (4.2-7.3); CHOLESTEROL 108 mg/dL (131-200); CREATININE 0.81 mg/dL (0.60-1.30); GLOMERULAR FILTR. RATE CALC > 60 mL/min (>60); GLUCOSE,RANDOM 90 mg/dL (70-110); HDL CHOLESTEROL 42 mg/dL (40-60); LDL CHOL (CALC.) 47 mg/dL (0-130); POTASSIUM 4.4 mmol/L (3.5-5.1); SODIUM SERUM 140 mmol/L (136-145); THYROID STIMULATING HORMONE 0.27 uIU/mL (0.36-3.74); TOTAL PROTEIN, SERUM 6.9 g/dL (6.4-8.2); TRIGLYCERIDES 97 mg/dL (15-150)
[2019-02-01 09:29] LABS: UREA NITROGEN, BLOOD 11 mg/dL (7-18)
[2019-02-01 10:00] VITALS: BP 112/72
[2019-02-01] MEDS: IBUPROFEN 400 MG TABLET PO PRN (12:54)
[2019-02-01 14:04] VITALS: BP 129/76
[2019-02-01 16:12] VITALS: BP 124/72
[2019-02-01] MEDS: ATORVASTATIN CALCIUM 20 MG TABLET PO SCH (20:30)
[2019-02-01] MEDS: SERTRALINE HCL 100 MG TABLET PO SCH (20:31)
[2019-02-02 06:03] VITALS: BP 137/65
[2019-02-02] MEDS: LORazepam 2 MG TABLET PO SCH ×4 (07:56→20:00)
[2019-02-02] MEDS: GABAPENTIN 400 MG CAPSULE PO SCH ×3 (07:56→16:47)
[2019-02-02 08:00] VITALS: BP 131/87
[2019-02-02 08:06] VITALS: BP 131/87
[2019-02-02] MEDS: IBUPROFEN 400 MG TABLET PO PRN (10:28)
[2019-02-02] MEDS: NICOTINE 14 MG/24 HOUR PATCH TD PRN (10:29)
[2019-02-02] MEDS: LORazepam 2 MG TABLET PO PRN (10:29)
[2019-02-02 16:08] VITALS: BP 118/74
[2019-02-02] MEDS: ATORVASTATIN CALCIUM 20 MG TABLET PO SCH (20:00)
[2019-02-02] MEDS: SERTRALINE HCL 100 MG TABLET PO SCH (20:00)
[2019-02-03] MEDS: LORazepam 2 MG TABLET PO PRN ×3 (00:07→19:08)
[2019-02-03 00:15] VITALS: BP 112/70
[2019-02-03] MEDS ORDERED: LORazepam 1 MG TABLET PO PRN (07:00)
[2019-02-03 07:54] LABS: AMPHET/METH SCREEN,URINE NEGATIVE (NEGATIVE); BARBITURATE SCREEN, URINE NEGATIVE (NEGATIVE); BENZODIAZEPINES SCREEN,URINE POSITIVE (NEGATIVE); CANNABINOID SCREEN,URINE NEGATIVE (NEGATIVE); COCAINE SCREEN,URINE NEGATIVE (NEGATIVE); METHADONE SCREEN, URINE NEGATIVE (NEGATIVE); OPIATE SCREEN,URINE NEGATIVE (NEGATIVE)
[2019-02-03 07:57] LABS: PHENCYCLIDINE SCREEN,URINE NEGATIVE (NEGATIVE)
[2019-02-03 08:08] LABS: APPEARANCE,URINE CLEAR (CLEAR); BILIRUBIN,URINE NEGATIVE (NEGATIVE); GLUCOSE, URINE (UA) NEGATIVE (NEGATIVE); KETONES,URINE NEGATIVE (NEGATIVE); LEUKOCYTE ESTERASE ,URINE NEGATIVE (NEGATIVE); NITRATE,URINE NEGATIVE (NEGATIVE); OCCULT BLOOD,URINE NEGATIVE (NEGATIVE); PH,URINE 7.5 (5.0-8.0); PROTEIN,URINE NEGATIVE (NEGATIVE); UROBILINOGEN,URINE 0.2 mg/dL (<=1.0)
[2019-02-03 08:41] VITALS: BP 121/82
[2019-02-03] MEDS: LORazepam 1 MG TABLET PO SCH ×4 (09:09→21:11)
[2019-02-03] MEDS: GABAPENTIN 400 MG CAPSULE PO SCH ×3 (09:10→16:18)
[2019-02-03] MEDS: NICOTINE 14 MG/24 HOUR PATCH TD PRN (09:17)
[2019-02-03 16:00] VITALS: BP 118/78
[2019-02-03 16:14] VITALS: BP 118/73
[2019-02-03] MEDS: ATORVASTATIN CALCIUM 20 MG TABLET PO SCH (21:11)
[2019-02-03] MEDS: SERTRALINE HCL 100 MG TABLET PO SCH (21:11)
[2019-02-04 00:32] VITALS: BP 120/81
[2019-02-04] MEDS: LORazepam 2 MG TABLET PO PRN ×3 (05:52→14:12)
[2019-02-04] MEDS: IBUPROFEN 400 MG TABLET PO PRN (06:36)
[2019-02-04] MEDS ORDERED: LORazepam 1 MG TABLET PO PRN (07:00)
[2019-02-04] MEDS: GABAPENTIN 400 MG CAPSULE PO SCH ×3 (08:08→16:41)
[2019-02-04] MEDS: NICOTINE 14 MG/24 HOUR PATCH TD PRN (08:09)
[2019-02-04 08:24] VITALS: BP 127/78
[2019-02-04 16:00] VITALS: BP 113/74
[2019-02-04 16:25] VITALS: BP 113/74
[2019-02-04] MEDS: ATORVASTATIN CALCIUM 20 MG TABLET PO SCH (20:33)
[2019-02-04] MEDS: SERTRALINE HCL 100 MG TABLET PO SCH (20:33)
[2019-02-05] VITALS (7 sets, daily range): BP systolic 111–133; BP diastolic 63–85
[2019-02-05] MEDS: LORazepam 2 MG TABLET PO PRN ×3 (04:46→14:46)
[2019-02-05] MEDS: IBUPROFEN 400 MG TABLET PO PRN (06:32)
[2019-02-05] MEDS: GABAPENTIN 400 MG CAPSULE PO SCH ×3 (08:26→16:48)
[2019-02-05] MEDS: NICOTINE 14 MG/24 HOUR PATCH TD PRN (08:35)
[2019-02-05] MEDS: BuPROPion HCL XL 150 MG ER TABLET PO SCH (10:08)
[2019-02-05] MEDS: NAPROXEN 500 MG TABLET PO PRN (12:29)
[2019-02-05] MEDS: SERTRALINE HCL 100 MG TABLET PO SCH (20:22)
[2019-02-05] MEDS: ATORVASTATIN CALCIUM 20 MG TABLET PO SCH (20:22)
[2019-02-06] VITALS: BP 113/64
[2019-02-06 00:04] VITALS: BP 130/81
[2019-02-06] MEDS: LORazepam 2 MG TABLET PO PRN ×4 (00:04→19:14)
[2019-02-06 08:19] VITALS: BP 117/70
[2019-02-06] MEDS: GABAPENTIN 400 MG CAPSULE PO SCH ×3 (08:22→16:24)
[2019-02-06] MEDS: BuPROPion HCL XL 150 MG ER TABLET PO SCH (08:22)
[2019-02-06] MEDS: NICOTINE 14 MG/24 HOUR PATCH TD PRN (08:23)
[2019-02-06] MEDS: NAPROXEN 500 MG TABLET PO PRN ×2 (08:24→16:25)
[2019-02-06] MEDS: MAGNESIUM SULFATE 454 GM BOX TP SCH ×3 (09:00→10:57)
[2019-02-06 09:24] VITALS: BP 115/70
[2019-02-06 16:07] VITALS: BP 124/70
[2019-02-06 17:25] VITALS: BP 123/70
[2019-02-06] MEDS: SERTRALINE HCL 100 MG TABLET PO SCH (20:25)
[2019-02-06] MEDS: ATORVASTATIN CALCIUM 20 MG TABLET PO SCH (20:25)
[2019-02-07 06:12] VITALS: BP 125/87
[2019-02-07] MEDS: LORazepam 2 MG TABLET PO PRN ×3 (06:22→16:35)
[2019-02-07] MEDS: NAPROXEN 500 MG TABLET PO PRN ×2 (06:22→16:34)
[2019-02-07 08:05] VITALS: BP 120/79
[2019-02-07] MEDS: GABAPENTIN 400 MG CAPSULE PO SCH ×3 (08:34→16:09)
[2019-02-07] MEDS: BuPROPion HCL XL 150 MG ER TABLET PO SCH (08:34)
[2019-02-07] MEDS: MAGNESIUM SULFATE 454 GM BOX TP SCH (09:00)
[2019-02-07 16:21] VITALS: BP 138/86
[2019-02-07] MEDS: ATORVASTATIN CALCIUM 20 MG TABLET PO SCH (20:04)
[2019-02-07] MEDS: SERTRALINE HCL 100 MG TABLET PO SCH (20:04)
[2019-02-08 01:01] VITALS: BP 126/70
[2019-02-08] MEDS: LORazepam 2 MG TABLET PO PRN ×4 (01:04→17:36)
[2019-02-08] MEDS: NAPROXEN 500 MG TABLET PO PRN (06:38)
[2019-02-08 08:06] VITALS: BP 116/71
[2019-02-08] MEDS: GABAPENTIN 400 MG CAPSULE PO SCH ×3 (08:15→16:21)
[2019-02-08] MEDS: BuPROPion HCL XL 150 MG ER TABLET PO SCH (08:15)
[2019-02-08] MEDS: MAGNESIUM SULFATE 454 GM BOX TP SCH (08:17)
[2019-02-08] MEDS: NICOTINE 14 MG/24 HOUR PATCH TD PRN (08:36)
[2019-02-08 16:06] VITALS: BP 120/72
[2019-02-08] MEDS: ATORVASTATIN CALCIUM 20 MG TABLET PO SCH (20:06)
[2019-02-08] MEDS: SERTRALINE HCL 100 MG TABLET PO SCH (20:06)
[2019-02-09 05:33] VITALS: BP 118/62
[2019-02-09] MEDS: NAPROXEN 500 MG TABLET PO PRN (05:33)
[2019-02-09] MEDS: LORazepam 2 MG TABLET PO PRN ×2 (05:33→11:51)
[2019-02-09 08:12] VITALS: BP 126/85
[2019-02-09] MEDS: NICOTINE 14 MG/24 HOUR PATCH TD PRN (08:19)
[2019-02-09] MEDS: GABAPENTIN 400 MG CAPSULE PO SCH ×3 (08:19→16:16)
[2019-02-09] MEDS: BuPROPion HCL XL 150 MG ER TABLET PO SCH (08:19)
[2019-02-09] MEDS: MAGNESIUM SULFATE 454 GM BOX TP SCH (08:22)
[2019-02-09] MEDS ORDERED: SERT100T12 PO (14:40)
[2019-02-09] MEDS ORDERED: GABA-533 PO (14:40)
[2019-02-09] MEDS ORDERED: ATOR20TA86 PO (14:41)
[2019-02-09] MEDS ORDERED: BUPR-93 PO (14:41)
[2019-02-09 16:14] VITALS: BP 120/73
== END 2019-02-09 16:40 | disposition home or self-care (01) | DRG 750 ==
LOC: EMS 16:36 → B3A 01-30 11:45 → B2X 01-30 14:11
PROVIDERS: ADMIT Psychiatry & Neurology Psychiatry; ATTEND Psychiatry & Neurology Psychiatry
DX: F25.1 Schizoaffective disorder, depressive type (principal); R56.9 Unspecified convulsions; R45.851 Suicidal ideations; E11.9 Type 2 diabetes mellitus without complications; M41.9 Scoliosis, unspecified; Z59.0 Homelessness; F10.229 Alcohol dependence with intoxication, unspecified; D72.829 Elevated white blood cell count, unspecified; F12.90 Cannabis use, unspecified, uncomplicated; F17.210 Nicotine dependence, cigarettes, uncomplicated; Y90.6 Blood alcohol level of 120-199 mg/100 ml; F19.10 Other psychoactive substance abuse, uncomplicated; M19.90 Unspecified osteoarthritis, unspecified site; J44.9 Chronic obstructive pulmonary disease, unspecified; K21.9 Gastro-esophageal reflux disease without esophagitis; F15.90 Other stimulant use, unspecified, uncomplicated; I10 Essential (primary) hypertension; M54.9 Dorsalgia, unspecified; R45.87 Impulsiveness; R41.843 Psychomotor deficit; Z71.6 Tobacco abuse counseling; Z71.41 Alcohol abuse counseling and surveillance of alcoholic; Z71.51 Drug abuse counseling and surveillance of drug abuser; Z81.8 Family history of other mental and behavioral disorders; Z91.14 Patient's other noncompliance with medication regimen; Z88.0 Allergy status to penicillin; Z91.5 Personal history of self-harm
CPT/HCPCS: 80307; 83036; 84439; 84443; G0480; J1200; J1630; J2060

== ENCOUNTER 2019-03-09 13:36 | Inpatient (IN) | payer MEDICAID, OTHER ==
[~2019-03-09] VITALS: Ht 172.7 cm; Wt 91.9 kg
[~2019-03-09 13:36] MED LIST changes: +ATOR20TA86 PO; +BUPR-93 PO; -GABA-531 PO; +GABA-533 PO
[2019-03-09] MEDS ORDERED: ESCI10TA PO (13:46)
[2019-03-09 15:53] LABS: BASOPHILS % (AUTO) 0.8 % (0.0-2.0); EOSINOPHILS % (AUTO) 4.2 % (1.0-6.0); HEMATOCRIT 40.6 % (41-53); HEMOGLOBIN 13.7 g/dL (13.5-17.5); LYMPHOCYTES # (AUTO) 1.7 K/uL (1.0-4.8); LYMPHOCYTES % (AUTO) 22.6 % (22.0-44.0); MEAN CORPUSCULAR HEMOGLOBIN 31.8 pg (26.0-34.0); MEAN CORPUSCULAR HGB CONC 33.6 G/dL (31.0-37.0); MEAN CORPUSCULAR VOLUME 95 fL (80-100); MONOCYTES # (AUTO) 0.7 K/uL (0.1-1.0); MONOCYTES % (AUTO) 9.1 % (2.0-9.0); NEUTROPHILS # (AUTO) 4.9 K/uL (1.8-7.7); NEUTROPHILS % (AUTO) 63.3 % (40.0-70.0); PLATELET COUNT (AUTO) 255 K/uL (150-450); RED BLOOD CELL COUNT(AUTO) 4.29 MIL/uL (4.50-5.90); RED CELL DISTRIBUTION WIDTH 13.2 % (11.5-14.5)
[2019-03-09 16:02] LABS: ANION GAP 9 mmol/L (8-16); CALCIUM, TOTAL 9.5 mg/dL (8.8-10.5); CARBON DIOXIDE 24 mmol/L (22-29); CHLORIDE 100 mmol/L (98-107); CREATININE 0.81 mg/dL (0.60-1.30); GLOMERULAR FILTR. RATE CALC > 60 mL/min (>60); GLUCOSE,RANDOM 80 mg/dL (70-110); POTASSIUM 4.3 mmol/L (3.5-5.1); SODIUM SERUM 133 mmol/L (136-145); UREA NITROGEN, BLOOD 14 mg/dL (7-18)
[2019-03-09 16:08] LABS: ALANINE AMINOTRANSFERASE 26 U/L (12-78); ALBUMIN 3.6 g/dL (3.4-5.0); ALKALINE PHOSPHATASE 88 U/L (46-116); ASPARTATE AMINOTRANSFERASE 38 U/L (15-37); BILIRUBIN,TOTAL 0.3 mg/dL (0.1-1.0); TOTAL PROTEIN, SERUM 6.7 g/dL (6.4-8.2)
[2019-03-09] MEDS ORDERED: ZOLPIDEM TARTRATE 10 MG TABLET PO PRN (18:15)
[2019-03-09] MEDS ORDERED: LORazepam 2 MG TABLET PO PRN (18:15)
[2019-03-09 23:09] LABS: AMPHET/METH SCREEN,URINE POSITIVE (NEGATIVE); BARBITURATE SCREEN, URINE NEGATIVE (NEGATIVE); BENZODIAZEPINES SCREEN,URINE NEGATIVE (NEGATIVE); CANNABINOID SCREEN,URINE POSITIVE (NEGATIVE); COCAINE SCREEN,URINE NEGATIVE (NEGATIVE); METHADONE SCREEN, URINE NEGATIVE (NEGATIVE); OPIATE SCREEN,URINE NEGATIVE (NEGATIVE)
[2019-03-09 23:10] LABS: PHENCYCLIDINE SCREEN,URINE NEGATIVE (NEGATIVE)
[2019-03-10] VITALS (9 sets, daily range): BP systolic 111–139; BP diastolic 67–82
[2019-03-10] MEDS ORDERED: LORazepam 2 MG TABLET PO PRN (07:00)
[2019-03-10] MEDS ORDERED: CYANOCOBALAMIN 1,000 MCG/ML VIAL IM ONE (09:00)
[2019-03-10] MEDS: FOLIC ACID 1 MG TABLET PO SCH (09:30)
[2019-03-10] MEDS: THIAMINE HCL 100 MG TABLET PO SCH ×2 (09:30→16:39)
[2019-03-10] MEDS: LORazepam 2 MG TABLET PO SCH ×4 (09:31→20:37)
[2019-03-10] MEDS ORDERED: ALBUTEROL SULFATE HFA 90 MCG/PUFF 8 GM INHALER IH PRN (11:30)
[2019-03-10] MEDS ORDERED: GuaiFENesin/D-METHORPHAN [SUGAR-FREE] 200-20MG/10 ML SYRUP UDCUP PO PRN (11:30)
[2019-03-10] MEDS ORDERED: LOPERAMIDE HCL 2 MG CAPSULE PO PRN (11:30)
[2019-03-10] MEDS ORDERED: MAGNESIUM HYDROXIDE SUSPENSION 30 ML UDCUP PO PRN (11:30)
[2019-03-10] MEDS ORDERED: DOCUSATE SODIUM 100 MG CAPSULE PO PRN (11:30)
[2019-03-10] MEDS ORDERED: MAG HYDROX/AL HYDROX/SIMETH ES 30 ML SUSPENSION UDCUP PO PRN (11:30)
[2019-03-10] MEDS ORDERED: ONDANSETRON HCL 4 MG TABLET PO PRN (11:30)
[2019-03-10] MEDS ORDERED: PETROLATUM,WHITE 28 GM JELLY TP PRN (11:30)
[2019-03-10] MEDS ORDERED: CloNIDine HCL 0.1 MG TABLET PO PRN (11:30)
[2019-03-10] MEDS ORDERED: NICOTINE 14 MG/24 HOUR PATCH TD PRN (11:30)
[2019-03-10] MEDS ORDERED: ACETAMINOPHEN 325 MG TABLET PO PRN (11:30)
[2019-03-10] MEDS: GABAPENTIN 400 MG CAPSULE PO SCH (16:39)
[2019-03-11] VITALS (7 sets, daily range): BP systolic 114–136; BP diastolic 74–88
[2019-03-11 06:18] LABS: BASOPHILS % (AUTO) 1.1 % (0.0-2.0); EOSINOPHILS % (AUTO) 2.3 % (1.0-6.0); HEMATOCRIT 45.5 % (41-53); HEMOGLOBIN 15.3 g/dL (13.5-17.5); LYMPHOCYTES # (AUTO) 1.3 K/uL (1.0-4.8); LYMPHOCYTES % (AUTO) 20.9 % (22.0-44.0); MEAN CORPUSCULAR HEMOGLOBIN 32.1 pg (26.0-34.0); MEAN CORPUSCULAR HGB CONC 33.7 G/dL (31.0-37.0); MEAN CORPUSCULAR VOLUME 96 fL (80-100); MONOCYTES # (AUTO) 0.7 K/uL (0.1-1.0); NEUTROPHILS # (AUTO) 4.2 K/uL (1.8-7.7); NEUTROPHILS % (AUTO) 64.7 % (40.0-70.0); PLATELET COUNT (AUTO) 274 K/uL (150-450); RED BLOOD CELL COUNT(AUTO) 4.76 MIL/uL (4.50-5.90); RED CELL DISTRIBUTION WIDTH 13.6 % (11.5-14.5)
[2019-03-11 06:46] LABS: ALANINE AMINOTRANSFERASE 36 U/L (12-78); ALBUMIN 3.4 g/dL (3.4-5.0); ALKALINE PHOSPHATASE 84 U/L (46-116); ANION GAP 9 mmol/L (8-16); ASPARTATE AMINOTRANSFERASE 29 U/L (15-37); BILIRUBIN,TOTAL 0.3 mg/dL (0.1-1.0); CARBON DIOXIDE 27 mmol/L (22-29); CHLORIDE 103 mmol/L (98-107); CHOL/HDL RATIO 3.5 (4.2-7.3); CHOLESTEROL 166 mg/dL (131-200); CREATININE 0.74 mg/dL (0.60-1.30); GLOMERULAR FILTR. RATE CALC > 60 mL/min (>60); GLUCOSE,RANDOM 84 mg/dL (70-110); HDL CHOLESTEROL 47 mg/dL (40-60); LDL CHOL (CALC.) 97 mg/dL (0-130); POTASSIUM 4.9 mmol/L (3.5-5.1); SODIUM SERUM 139 mmol/L (136-145); THYROID STIMULATING HORMONE 0.22 uIU/mL (0.36-3.74); TOTAL PROTEIN, SERUM 6.5 g/dL (6.4-8.2); TRIGLYCERIDES 112 mg/dL (15-150); UREA NITROGEN, BLOOD 15 mg/dL (7-18)
[2019-03-11 07:38] LABS: HEMOGLOBIN A1C 5.3 % (4.5-6.2)
[2019-03-11] MEDS: THIAMINE HCL 100 MG TABLET PO SCH ×2 (08:56→17:00)
[2019-03-11] MEDS: BuPROPion HCL XL 150 MG ER TABLET PO SCH (08:56)
[2019-03-11] MEDS: FOLIC ACID 1 MG TABLET PO SCH (08:56)
[2019-03-11] MEDS: LORazepam 2 MG TABLET PO SCH ×4 (08:56→20:52)
[2019-03-11] MEDS: GABAPENTIN 400 MG CAPSULE PO SCH ×3 (08:56→17:00)
[2019-03-11] MEDS: SERTRALINE HCL 100 MG TABLET PO SCH (08:57)
[2019-03-11] MEDS ORDERED: LORazepam 2 MG/ML VIAL IM ONE (09:30)
[2019-03-11] MEDS ORDERED: DiphenhydrAMINE HCL 50 MG/ML VIAL IM ONE (09:30)
[2019-03-11] MEDS ORDERED: HALOPERIDOL LACTATE 5 MG/ML VIAL IM ONE (09:30)
[2019-03-12 06:00] VITALS: BP 125/81
[2019-03-12] MEDS ORDERED: LORazepam 1 MG TABLET PO PRN (07:00)
[2019-03-12] MEDS: SERTRALINE HCL 100 MG TABLET PO SCH (08:53)
[2019-03-12] MEDS: GABAPENTIN 400 MG CAPSULE PO SCH ×3 (08:53→16:10)
[2019-03-12] MEDS: FOLIC ACID 1 MG TABLET PO SCH (08:54)
[2019-03-12] MEDS: NICOTINE 14 MG/24 HOUR PATCH TD SCH (08:54)
[2019-03-12] MEDS: BuPROPion HCL XL 150 MG ER TABLET PO SCH (08:54)
[2019-03-12] MEDS: THIAMINE HCL 100 MG TABLET PO SCH ×2 (08:54→16:10)
[2019-03-12] MEDS: LORazepam 1 MG TABLET PO SCH ×4 (08:57→20:52)
[2019-03-12 09:53] VITALS: BP 120/73
[2019-03-12] MEDS: LORazepam 2 MG TABLET PO PRN (09:53)
[2019-03-12] MEDS: IBUPROFEN 400 MG TABLET PO PRN (09:53)
[2019-03-12 11:29] VITALS: BP 121/78
[2019-03-12 16:00] VITALS: BP 119/70
[2019-03-13 06:07] VITALS: BP 125/64
[2019-03-13] MEDS: LORazepam 1 MG TABLET PO PRN ×3 (06:08→14:15)
[2019-03-13] MEDS: GABAPENTIN 400 MG CAPSULE PO SCH ×3 (08:16→16:05)
[2019-03-13] MEDS: FOLIC ACID 1 MG TABLET PO SCH (08:16)
[2019-03-13] MEDS: BuPROPion HCL XL 150 MG ER TABLET PO SCH (08:17)
[2019-03-13] MEDS: THIAMINE HCL 100 MG TABLET PO SCH ×2 (08:17→16:05)
[2019-03-13] MEDS: SERTRALINE HCL 100 MG TABLET PO SCH (08:17)
[2019-03-13] MEDS: NICOTINE 14 MG/24 HOUR PATCH TD SCH (08:48)
[2019-03-13 09:43] VITALS: BP_SYST 114; BP_SYST 119; BP_DIAS 71; BP_DIAS 78
[2019-03-13 16:00] VITALS: BP 110/66
[2019-03-13] MEDS: LORazepam 2 MG TABLET PO PRN (16:15)
[2019-03-14] MEDS: LORazepam 1 MG TABLET PO PRN (05:57)
[2019-03-14] MEDS: IBUPROFEN 400 MG TABLET PO PRN (06:33)
[2019-03-14] MEDS: GABAPENTIN 400 MG CAPSULE PO SCH ×3 (08:05→16:28)
[2019-03-14] MEDS: BuPROPion HCL XL 150 MG ER TABLET PO SCH (08:05)
[2019-03-14] MEDS: LORazepam 2 MG TABLET PO PRN ×3 (08:06→19:39)
[2019-03-14] MEDS: FOLIC ACID 1 MG TABLET PO SCH (08:06)
[2019-03-14] MEDS: THIAMINE HCL 100 MG TABLET PO SCH ×2 (08:06→16:28)
[2019-03-14] MEDS: SERTRALINE HCL 100 MG TABLET PO SCH (08:06)
[2019-03-14] MEDS: NICOTINE 14 MG/24 HOUR PATCH TD SCH (08:13)
[2019-03-14 09:33] VITALS: BP 118/66
[2019-03-14 09:35] VITALS: BP 118/68
[2019-03-14 16:54] VITALS: BP 113/67
[2019-03-14 16:55] VITALS: BP 113/67
[2019-03-15] MEDS: LORazepam 2 MG TABLET PO PRN ×3 (01:00→11:13)
[2019-03-15] MEDS: IBUPROFEN 400 MG TABLET PO PRN (04:45)
[2019-03-15] MEDS ORDERED: SERT100T12 PO (06:31)
[2019-03-15] MEDS: THIAMINE HCL 100 MG TABLET PO SCH (08:06)
[2019-03-15] MEDS: GABAPENTIN 400 MG CAPSULE PO SCH ×2 (08:06→12:33)
[2019-03-15] MEDS: BuPROPion HCL XL 150 MG ER TABLET PO SCH (08:06)
[2019-03-15] MEDS: SERTRALINE HCL 100 MG TABLET PO SCH (08:07)
[2019-03-15] MEDS: FOLIC ACID 1 MG TABLET PO SCH (08:07)
[2019-03-15] MEDS: NICOTINE 14 MG/24 HOUR PATCH TD SCH (08:07)
[2019-03-15 09:19] VITALS: BP 106/66
[2019-03-15 10:19] VITALS: BP 119/64
== END 2019-03-15 13:30 | disposition home or self-care (01) | DRG 750 ==
LOC: EMS 13:38 → 3EX 03-10 09:49 → EMS 03-10 10:57
PROVIDERS: ATTEND Psychiatry & Neurology Psychiatry
DX: F25.1 Schizoaffective disorder, depressive type (principal); R56.9 Unspecified convulsions; F15.20 Other stimulant dependence, uncomplicated; E11.9 Type 2 diabetes mellitus without complications; M41.9 Scoliosis, unspecified; R45.851 Suicidal ideations; F41.9 Anxiety disorder, unspecified; I10 Essential (primary) hypertension; J44.9 Chronic obstructive pulmonary disease, unspecified; K21.9 Gastro-esophageal reflux disease without esophagitis; M19.90 Unspecified osteoarthritis, unspecified site; F17.210 Nicotine dependence, cigarettes, uncomplicated; F12.90 Cannabis use, unspecified, uncomplicated; F10.129 Alcohol abuse with intoxication, unspecified; Z59.0 Homelessness; Z81.8 Family history of other mental and behavioral disorders; Z88.0 Allergy status to penicillin; Z91.5 Personal history of self-harm
CPT/HCPCS: 83036; 84439; 84443; 87081; 96372; G0378; G0480; J1200; J1630; J2060; J3420

== ENCOUNTER 2019-05-31 05:22 | Inpatient (IN) | payer MEDICAID, OTHER ==
[2019-05-31] VITALS (7 sets, daily range): BP systolic 120–139; BP diastolic 72–89
[~2019-05-31] VITALS: Ht 175.3 cm; Wt 89.0 kg
[~2019-05-31 05:22] MED LIST changes: -ATOR20TA86 PO; +BENZ0.5T44 PO; +BUSP10TA23 PO; +MELA5TAB3 PO; +NEOM1OIN8 TP; +TRAZ-220 PO; +ZIPR40CA2 PO
[2019-05-31 06:52] LABS: BASOPHILS % (AUTO) 0.8 % (0.0-2.0); EOSINOPHILS % (AUTO) 1.2 % (1.0-6.0); HEMATOCRIT 38.8 % (41-53); HEMOGLOBIN 12.9 g/dL (13.5-17.5); LYMPHOCYTES # (AUTO) 1.2 K/uL (1.0-4.8); MEAN CORPUSCULAR HEMOGLOBIN 31.9 pg (26.0-34.0); MEAN CORPUSCULAR HGB CONC 33.3 G/dL (31.0-37.0); MEAN CORPUSCULAR VOLUME 96 fL (80-100); MONOCYTES # (AUTO) 0.9 K/uL (0.1-1.0); MONOCYTES % (AUTO) 8.3 % (2.0-9.0); NEUTROPHILS # (AUTO) 8.3 K/uL (1.8-7.7); NEUTROPHILS % (AUTO) 78.7 % (40.0-70.0); PLATELET COUNT (AUTO) 280 K/uL (150-450); RED BLOOD CELL COUNT(AUTO) 4.05 MIL/uL (4.50-5.90); RED CELL DISTRIBUTION WIDTH 15.6 % (11.5-14.5)
[2019-05-31 07:02] LABS: ANION GAP 12 mmol/L (8-16); CALCIUM, TOTAL 8.9 mg/dL (8.8-10.5); CARBON DIOXIDE 22 mmol/L (22-29); CHLORIDE 104 mmol/L (98-107); CREATININE 0.81 mg/dL (0.60-1.30); GLOMERULAR FILTR. RATE CALC > 60 mL/min (>60); GLUCOSE,RANDOM 73 mg/dL (70-110); SODIUM SERUM 138 mmol/L (136-145); UREA NITROGEN, BLOOD 9 mg/dL (7-18)
[2019-05-31 07:08] LABS: ALANINE AMINOTRANSFERASE 34 U/L (12-78); ALBUMIN 2.9 g/dL (3.4-5.0); ALKALINE PHOSPHATASE 84 U/L (46-116); ASPARTATE AMINOTRANSFERASE 26 U/L (15-37); BILIRUBIN,TOTAL 0.2 mg/dL (0.1-1.0); TOTAL PROTEIN, SERUM 6.4 g/dL (6.4-8.2)
[2019-05-31 08:59] LABS: AMPHET/METH SCREEN,URINE POSITIVE (NEGATIVE); BARBITURATE SCREEN, URINE NEGATIVE (NEGATIVE); BENZODIAZEPINES SCREEN,URINE POSITIVE (NEGATIVE); CANNABINOID SCREEN,URINE NEGATIVE (NEGATIVE); COCAINE SCREEN,URINE NEGATIVE (NEGATIVE); METHADONE SCREEN, URINE NEGATIVE (NEGATIVE); OPIATE SCREEN,URINE NEGATIVE (NEGATIVE)
[2019-05-31] MEDS ORDERED: HydrOXYzine PAMOATE 50 MG CAPSULE PO PRN (09:00)
[2019-05-31] MEDS ORDERED: HALOPERIDOL 5 MG TABLET PO PRN (09:00)
[2019-05-31] MEDS ORDERED: CYANOCOBALAMIN 1,000 MCG/ML VIAL IM ONE (09:00)
[2019-05-31] MEDS ORDERED: GuaiFENesin/D-METHORPHAN [SUGAR-FREE] 200-20MG/10 ML SYRUP UDCUP PO PRN ×2 (09:00→10:00)
[2019-05-31] MEDS ORDERED: LOPERAMIDE HCL 2 MG CAPSULE PO PRN ×2 (09:00→10:00)
[2019-05-31 09:01] LABS: PHENCYCLIDINE SCREEN,URINE NEGATIVE (NEGATIVE)
[2019-05-31] MEDS: LORazepam 2 MG TABLET PO PRN ×3 (09:26→21:00)
[2019-05-31] MEDS: MULTIVITAMINS WITH MINERALS, THERAPEUTIC TABLET PO SCH (09:38)
[2019-05-31] MEDS: FOLIC ACID 1 MG TABLET PO SCH (09:39)
[2019-05-31] MEDS: THIAMINE HCL 100 MG TABLET PO SCH ×2 (09:39→16:21)
[2019-05-31] MEDS ORDERED: CloNIDine HCL 0.1 MG TABLET PO PRN (10:00)
[2019-05-31] MEDS ORDERED: MAGNESIUM HYDROXIDE SUSPENSION 30 ML UDCUP PO PRN (10:00)
[2019-05-31] MEDS ORDERED: ACETAMINOPHEN 325 MG TABLET PO PRN (10:00)
[2019-05-31] MEDS ORDERED: MAG HYDROX/AL HYDROX/SIMETH ES 30 ML SUSPENSION UDCUP PO PRN (10:00)
[2019-05-31] MEDS ORDERED: DOCUSATE SODIUM 100 MG CAPSULE PO PRN (10:00)
[2019-05-31] MEDS ORDERED: ONDANSETRON HCL 4 MG TABLET PO PRN (10:00)
[2019-05-31] MEDS ORDERED: PETROLATUM,WHITE 28 GM JELLY TP PRN (10:00)
[2019-05-31] MEDS ORDERED: ALBUTEROL SULFATE HFA 90 MCG/PUFF 8 GM INHALER IH PRN (10:00)
[2019-05-31] MEDS: SERTRALINE HCL 100 MG TABLET PO SCH (12:10)
[2019-05-31] MEDS: BuPROPion HCL XL 150 MG ER TABLET PO SCH (12:11)
[2019-05-31] MEDS: BusPIRone HCL 10 MG TABLET PO SCH ×2 (13:24→16:23)
[2019-05-31] MEDS: GABAPENTIN 400 MG CAPSULE PO SCH ×2 (13:25→16:21)
[2019-05-31] MEDS: BENZTROPINE MESYLATE 0.5 MG TABLET PO SCH (16:21)
[2019-05-31] MEDS: ZIPRASIDONE HCL 40 MG CAPSULE PO SCH (19:53)
[2019-05-31] MEDS: TraZODone HCL 100 MG TABLET PO SCH (21:00)
[2019-06-01 02:00] VITALS: BP 128/67
[2019-06-01] MEDS: LORazepam 2 MG TABLET PO PRN ×2 (02:21→06:40)
[2019-06-01] MEDS: IBUPROFEN 400 MG TABLET PO PRN ×2 (02:22→13:08)
[2019-06-01 06:00] VITALS: BP 136/79
[2019-06-01] MEDS: ZIPRASIDONE HCL 40 MG CAPSULE PO SCH ×2 (06:56→17:32)
[2019-06-01 08:00] VITALS: BP 121/71
[2019-06-01] MEDS: THIAMINE HCL 100 MG TABLET PO SCH ×2 (08:48→16:04)
[2019-06-01] MEDS: BuPROPion HCL XL 150 MG ER TABLET PO SCH (08:48)
[2019-06-01] MEDS: SERTRALINE HCL 100 MG TABLET PO SCH (08:48)
[2019-06-01] MEDS: BENZTROPINE MESYLATE 0.5 MG TABLET PO SCH ×2 (08:48→16:04)
[2019-06-01] MEDS: FOLIC ACID 1 MG TABLET PO SCH (08:48)
[2019-06-01] MEDS: BusPIRone HCL 10 MG TABLET PO SCH ×3 (08:48→16:04)
[2019-06-01] MEDS: GABAPENTIN 400 MG CAPSULE PO SCH ×3 (08:48→16:04)
[2019-06-01] MEDS: LORazepam 2 MG TABLET PO SCH ×4 (08:50→22:07)
[2019-06-01] MEDS: MULTIVITAMINS WITH MINERALS, THERAPEUTIC TABLET PO SCH (08:50)
[2019-06-01] MEDS: NICOTINE 14 MG/24 HOUR PATCH TD PRN (09:23)
[2019-06-01 10:00] VITALS: BP 130/74
[2019-06-01 20:40] VITALS: BP 111/73
[2019-06-01] MEDS: TraZODone HCL 100 MG TABLET PO SCH (21:00)
[2019-06-02 04:24] VITALS: BP 136/97
[2019-06-02] MEDS: LORazepam 2 MG TABLET PO PRN (05:44)
[2019-06-02] MEDS: IBUPROFEN 400 MG TABLET PO PRN (05:44)
[2019-06-02] MEDS: ZIPRASIDONE HCL 40 MG CAPSULE PO SCH ×2 (06:38→16:30)
[2019-06-02] MEDS: LORazepam 2 MG TABLET PO SCH ×4 (08:00→20:16)
[2019-06-02] MEDS: GABAPENTIN 400 MG CAPSULE PO SCH ×3 (08:01→16:30)
[2019-06-02] MEDS: BusPIRone HCL 10 MG TABLET PO SCH ×3 (08:01→16:30)
[2019-06-02] MEDS: BENZTROPINE MESYLATE 0.5 MG TABLET PO SCH ×2 (08:01→16:30)
[2019-06-02] MEDS: BuPROPion HCL XL 150 MG ER TABLET PO SCH (08:01)
[2019-06-02] MEDS: MULTIVITAMINS WITH MINERALS, THERAPEUTIC TABLET PO SCH (08:01)
[2019-06-02] MEDS: FOLIC ACID 1 MG TABLET PO SCH (08:01)
[2019-06-02] MEDS: NICOTINE 14 MG/24 HOUR PATCH TD PRN (08:04)
[2019-06-02] MEDS: SERTRALINE HCL 100 MG TABLET PO SCH (08:31)
[2019-06-02] MEDS: THIAMINE HCL 100 MG TABLET PO SCH ×2 (08:31→16:30)
[2019-06-02 08:40] VITALS: BP 137/77
[2019-06-02 08:42] VITALS: BP 137/77
[2019-06-02 16:30] VITALS: BP 135/90
[2019-06-02 18:49] VITALS: BP 130/84
[2019-06-02] MEDS: TraZODone HCL 100 MG TABLET PO SCH (20:16)
[2019-06-03 03:10] VITALS: BP 133/89
[2019-06-03] MEDS: IBUPROFEN 400 MG TABLET PO PRN (03:10)
[2019-06-03] MEDS: LORazepam 2 MG TABLET PO PRN (03:10)
[2019-06-03] MEDS: ZIPRASIDONE HCL 40 MG CAPSULE PO SCH ×2 (06:56→16:18)
[2019-06-03] MEDS: FOLIC ACID 1 MG TABLET PO SCH (07:50)
[2019-06-03] MEDS: MULTIVITAMINS WITH MINERALS, THERAPEUTIC TABLET PO SCH (07:50)
[2019-06-03] MEDS: GABAPENTIN 400 MG CAPSULE PO SCH ×3 (07:50→16:17)
[2019-06-03] MEDS: LORazepam 1 MG TABLET PO SCH ×4 (07:50→20:30)
[2019-06-03] MEDS: BuPROPion HCL XL 150 MG ER TABLET PO SCH (07:50)
[2019-06-03] MEDS: SERTRALINE HCL 100 MG TABLET PO SCH (07:50)
[2019-06-03] MEDS: THIAMINE HCL 100 MG TABLET PO SCH ×2 (07:50→16:18)
[2019-06-03] MEDS: BENZTROPINE MESYLATE 0.5 MG TABLET PO SCH ×2 (07:51→16:18)
[2019-06-03] MEDS: BusPIRone HCL 10 MG TABLET PO SCH ×3 (07:51→16:17)
[2019-06-03] MEDS: NICOTINE 14 MG/24 HOUR PATCH TD PRN (07:55)
[2019-06-03 09:31] VITALS: BP 126/96
[2019-06-03] MEDS: LORazepam 1 MG TABLET PO PRN (09:35)
[2019-06-03 09:58] VITALS: BP 125/90
[2019-06-03 18:00] VITALS: BP 134/86
[2019-06-03 18:47] VITALS: BP 137/92
[2019-06-03] MEDS: TraZODone HCL 100 MG TABLET PO SCH (20:30)
[2019-06-04] MEDS: IBUPROFEN 400 MG TABLET PO PRN ×2 (02:43→13:13)
[2019-06-04] MEDS: LORazepam 1 MG TABLET PO PRN ×4 (02:43→17:48)
[2019-06-04 02:57] VITALS: BP 121/68
[2019-06-04 03:02] VITALS: BP 121/68
[2019-06-04] MEDS: ZIPRASIDONE HCL 40 MG CAPSULE PO SCH ×2 (06:47→16:49)
[2019-06-04] MEDS: FOLIC ACID 1 MG TABLET PO SCH (08:04)
[2019-06-04] MEDS: MULTIVITAMINS WITH MINERALS, THERAPEUTIC TABLET PO SCH (08:04)
[2019-06-04] MEDS: BuPROPion HCL XL 150 MG ER TABLET PO SCH (08:04)
[2019-06-04] MEDS: THIAMINE HCL 100 MG TABLET PO SCH ×2 (08:04→16:49)
[2019-06-04] MEDS: GABAPENTIN 400 MG CAPSULE PO SCH ×3 (08:04→16:49)
[2019-06-04] MEDS: SERTRALINE HCL 100 MG TABLET PO SCH (08:05)
[2019-06-04] MEDS: BENZTROPINE MESYLATE 0.5 MG TABLET PO SCH ×2 (08:05→16:49)
[2019-06-04] MEDS: BusPIRone HCL 10 MG TABLET PO SCH ×3 (08:05→16:49)
[2019-06-04] MEDS: NICOTINE 14 MG/24 HOUR PATCH TD PRN (09:37)
[2019-06-04 10:01] VITALS: BP 115/60
[2019-06-04 10:10] VITALS: BP 115/76
[2019-06-04] MEDS ORDERED: THIA100T67 PO (12:53)
[2019-06-04] MEDS ORDERED: FOLI1 PO (12:53)
[2019-06-04] MEDS ORDERED: MULT-1239 PO (12:53)
[2019-06-04 19:00] VITALS: BP 129/76
[2019-06-04 19:32] VITALS: BP 129/76
[2019-06-04] MEDS: TraZODone HCL 100 MG TABLET PO SCH (20:39)
[2019-06-05 01:45] VITALS: BP 126/79
[2019-06-05] MEDS: LORazepam 1 MG TABLET PO PRN ×2 (01:55→06:41)
[2019-06-05] MEDS: IBUPROFEN 400 MG TABLET PO PRN (01:55)
[2019-06-05] MEDS: ZIPRASIDONE HCL 40 MG CAPSULE PO SCH (06:43)
[2019-06-05 09:00] VITALS: BP 122/72
[2019-06-05] MEDS: BusPIRone HCL 10 MG TABLET PO SCH (09:00)
[2019-06-05] MEDS: NICOTINE 14 MG/24 HOUR PATCH TD PRN (09:00)
[2019-06-05] MEDS: FOLIC ACID 1 MG TABLET PO SCH (09:00)
[2019-06-05] MEDS: GABAPENTIN 400 MG CAPSULE PO SCH (09:00)
[2019-06-05] MEDS: THIAMINE HCL 100 MG TABLET PO SCH (09:00)
[2019-06-05] MEDS: MULTIVITAMINS WITH MINERALS, THERAPEUTIC TABLET PO SCH (09:00)
[2019-06-05] MEDS: BuPROPion HCL XL 150 MG ER TABLET PO SCH (09:00)
[2019-06-05] MEDS: SERTRALINE HCL 100 MG TABLET PO SCH (09:00)
[2019-06-05] MEDS: BENZTROPINE MESYLATE 0.5 MG TABLET PO SCH (09:00)
[2019-06-05] MEDS ORDERED: NICO-703 TD (09:47)
[2019-06-05 10:49] VITALS: BP 118/58
== END 2019-06-05 10:30 | disposition home or self-care (01) | DRG 750 ==
LOC: EMS 05:22 → 3EI 09:50
PROVIDERS: ADMIT Psychiatry & Neurology Child & Adolescent Psychiatry; ATTEND Psychiatry & Neurology Child & Adolescent Psychiatry
DX: F25.1 Schizoaffective disorder, depressive type (principal); G40.909 Epilepsy, unspecified, not intractable, without status epilepticus; R45.851 Suicidal ideations; D64.9 Anemia, unspecified; F41.9 Anxiety disorder, unspecified; J44.9 Chronic obstructive pulmonary disease, unspecified; F15.10 Other stimulant abuse, uncomplicated; F10.239 Alcohol dependence with withdrawal, unspecified; K21.9 Gastro-esophageal reflux disease without esophagitis; F12.90 Cannabis use, unspecified, uncomplicated; F17.210 Nicotine dependence, cigarettes, uncomplicated; F32.9 Major depressive disorder, single episode, unspecified; Z59.0 Homelessness; Z79.899 Other long term (current) drug therapy; Z71.41 Alcohol abuse counseling and surveillance of alcoholic; Z71.6 Tobacco abuse counseling
CPT/HCPCS: G0480; J3420

== ENCOUNTER 2019-06-09 18:25 | Emergency (ER) | payer MEDICAID, OTHER ==
[~2019-06-09] VITALS: Ht 175.3 cm; Wt 90.9 kg
[~2019-06-09 18:25] MED LIST changes: +FOLI1 PO; -MELA5TAB3 PO; -NEOM1OIN8 TP; +NICO-703 TD
[2019-06-09 19:05] VITALS: BP 120/76
== END 2019-06-09 19:40 | disposition home or self-care (01) ==
LOC: EMS 18:27
DX: F31.9 Bipolar disorder, unspecified (principal); F20.9 Schizophrenia, unspecified; K21.9 Gastro-esophageal reflux disease without esophagitis; F12.90 Cannabis use, unspecified, uncomplicated; F15.90 Other stimulant use, unspecified, uncomplicated; F17.210 Nicotine dependence, cigarettes, uncomplicated; Z76.5 Malingerer [conscious simulation]; Z79.899 Other long term (current) drug therapy
CPT/HCPCS: 99406

== ENCOUNTER 2019-06-13 08:14 | Emergency (ER) | payer OTHER ==
[~2019-06-13] VITALS: Ht 175.3 cm; Wt 95.5 kg
[2019-06-13] MEDS ORDERED: NAPR-1025 PO (09:41)
[2019-06-13] MEDS ORDERED: KETOROLAC TROMETHAMINE 30 MG/ML VIAL IVP ONE (09:45)
[2019-06-13] MEDS ORDERED: SULFAMETHOX/TRIMETH DS 800-160 MG/TABLET PO ONE (09:45)
[2019-06-13] MEDS ORDERED: LIDOCAINE 1%/EPI 1:200,000/PF 10 ML VIAL INJ ONE (09:45)
[2019-06-13] MEDS ORDERED: CeFAZolin 2 GM/DEXTROSE 50 ML IV ONE (09:45)
[2019-06-13] MEDS ORDERED: KETOROLAC TROMETHAMINE 60 MG/2 ML VIAL IM ONE (10:30)
[2019-06-13 10:41] LABS: BASOPHILS % (AUTO) 0.6 % (0.0-2.0); EOSINOPHILS % (AUTO) 1.6 % (1.0-6.0); HEMATOCRIT 36.6 % (41-53); HEMOGLOBIN 12.5 g/dL (13.5-17.5); LYMPHOCYTES # (AUTO) 1.3 K/uL (1.0-4.8); LYMPHOCYTES % (AUTO) 9.9 % (22.0-44.0); MEAN CORPUSCULAR HGB CONC 34.1 G/dL (31.0-37.0); MEAN CORPUSCULAR VOLUME 94 fL (80-100); MONOCYTES # (AUTO) 0.9 K/uL (0.1-1.0); MONOCYTES % (AUTO) 6.7 % (2.0-9.0); NEUTROPHILS # (AUTO) 10.9 K/uL (1.8-7.7); NEUTROPHILS % (AUTO) 81.2 % (40.0-70.0); PLATELET COUNT (AUTO) 303 K/uL (150-450); RED CELL DISTRIBUTION WIDTH 15.8 % (11.5-14.5)
[2019-06-13 10:51] LABS: ANION GAP 10 mmol/L (8-16); CALCIUM, TOTAL 9.4 mg/dL (8.8-10.5); CARBON DIOXIDE 24 mmol/L (22-29); CHLORIDE 105 mmol/L (98-107); CREATININE 0.85 mg/dL (0.60-1.30); GLOMERULAR FILTR. RATE CALC > 60 mL/min (>60); GLUCOSE,RANDOM 96 mg/dL (70-110); POTASSIUM 3.9 mmol/L (3.5-5.1); SODIUM SERUM 139 mmol/L (136-145); UREA NITROGEN, BLOOD 12 mg/dL (7-18)
[2019-06-13 10:57] LABS: ALANINE AMINOTRANSFERASE 8 U/L (12-78); ALBUMIN 3.4 g/dL (3.4-5.0); ALKALINE PHOSPHATASE 77 U/L (46-116); ASPARTATE AMINOTRANSFERASE 12 U/L (15-37); BILIRUBIN,TOTAL 0.3 mg/dL (0.1-1.0)
[2019-06-13 11:00] LABS: LACTIC ACID 0.8 mmol/L (0.4-2.0)
[2019-06-13 11:06] LABS: B-TYPE NATRIURETIC PEPTIDE 52 pg/mL (0-100)
[2019-06-13 14:00] VITALS: BP 119/79
== END 2019-06-13 14:48 | disposition home or self-care (01) ==
LOC: EMS 08:17
DX: L02.412 Cutaneous abscess of left axilla (principal); L73.2 Hidradenitis suppurativa; G40.909 Epilepsy, unspecified, not intractable, without status epilepticus; K21.9 Gastro-esophageal reflux disease without esophagitis; F10.20 Alcohol dependence, uncomplicated; F31.9 Bipolar disorder, unspecified; F20.9 Schizophrenia, unspecified; F12.90 Cannabis use, unspecified, uncomplicated; Z98.890 Other specified postprocedural states; Z79.899 Other long term (current) drug therapy
CPT/HCPCS: 10060; 36415; 80053; 83605; 83880; 85025; 87040; 96372; 99284; J0690 ×2; J1885; J3490

== ENCOUNTER 2020-04-29 02:47 | Inpatient (IN) | payer MEDICAID, OTHER ==
[~2020-04-29] VITALS: Ht 167.6 cm; Wt 98.9 kg
[2020-04-29] VITALS (7 sets, daily range): BP systolic 100–142; BP diastolic 67–82
[~2020-04-29 02:47] MED LIST changes: +FOLI-130 PO; -FOLI1 PO; +GABA-1201 PO; -GABA-533 PO; +NAPR-1025 PO; -TRAZ-220 PO; +TRAZ-257 PO
[2020-04-29 03:25] LABS: BASOPHILS % (AUTO) 0.5 % (0.0-2.0); EOSINOPHILS % (AUTO) 5.5 % (1.0-6.0); HEMATOCRIT 39.9 % (41-53); HEMOGLOBIN 13.3 g/dL (13.5-17.5); LYMPHOCYTES # (AUTO) 1.8 K/uL (1.0-4.8); LYMPHOCYTES % (AUTO) 21.2 % (22.0-44.0); MEAN CORPUSCULAR HEMOGLOBIN 31.7 pg (26.0-34.0); MEAN CORPUSCULAR HGB CONC 33.3 G/dL (31.0-37.0); MEAN CORPUSCULAR VOLUME 95 fL (80-100); MONOCYTES # (AUTO) 0.9 K/uL (0.1-1.0); MONOCYTES % (AUTO) 10.5 % (2.0-9.0); NEUTROPHILS # (AUTO) 5.4 K/uL (1.8-7.7); NEUTROPHILS % (AUTO) 62.3 % (40.0-70.0); PLATELET COUNT (AUTO) 340 K/uL (150-450); RED CELL DISTRIBUTION WIDTH 13.6 % (11.5-14.5)
[2020-04-29 03:30] LABS: ANION GAP 11 mmol/L (8-16); CALCIUM, TOTAL 9.5 mg/dL (8.8-10.5); CARBON DIOXIDE 24 mmol/L (22-29); CHLORIDE 101 mmol/L (98-107); GLOMERULAR FILTR. RATE CALC > 60 mL/min (>60); GLUCOSE,RANDOM 89 mg/dL (70-110); POTASSIUM 3.9 mmol/L (3.5-5.1); SODIUM SERUM 136 mmol/L (136-145); UREA NITROGEN, BLOOD 6 mg/dL (7-18)
[2020-04-29 03:36] LABS: ALANINE AMINOTRANSFERASE 28 U/L (12-78); ALBUMIN 3.8 g/dL (3.4-5.0); ALKALINE PHOSPHATASE 41 U/L (46-116); ASPARTATE AMINOTRANSFERASE 27 U/L (15-37); BILIRUBIN,TOTAL 0.2 mg/dL (0.1-1.0); TOTAL PROTEIN, SERUM 7.1 g/dL (6.4-8.2)
[2020-04-29 03:37] LABS: SALICYLATE 4.5 mg/dL (2.8-20.0)
[2020-04-29 03:38] LABS: ACETAMINOPHEN < 2 mcg/mL (10-30)
[2020-04-29 07:44] LABS: AMPHET/METH SCREEN,URINE POSITIVE (NEGATIVE); BARBITURATE SCREEN, URINE NEGATIVE (NEGATIVE); BENZODIAZEPINES SCREEN,URINE NEGATIVE (NEGATIVE); CANNABINOID SCREEN,URINE NEGATIVE (NEGATIVE); COCAINE SCREEN,URINE NEGATIVE (NEGATIVE); METHADONE SCREEN, URINE NEGATIVE (NEGATIVE); OPIATE SCREEN,URINE NEGATIVE (NEGATIVE)
[2020-04-29 07:45] LABS: PHENCYCLIDINE SCREEN,URINE NEGATIVE (NEGATIVE)
[2020-04-29] MEDS ORDERED: ZOLPIDEM TARTRATE 10 MG TABLET PO PRN (09:15)
[2020-04-29] MEDS ORDERED: HALOPERIDOL 5 MG TABLET PO PRN (09:15)
[2020-04-29] MEDS ORDERED: CYANOCOBALAMIN 1,000 MCG/ML VIAL IM ONE (09:15)
[2020-04-29] MEDS ORDERED: SODIUM CHLORIDE 0.9% 1,000 ML IV ONE (10:00)
[2020-04-29] MEDS: ChlordiazePOXIDE HCL 25 MG CAPSULE PO PRN ×3 (10:08→16:18)
[2020-04-29 10:17] LABS: APPEARANCE,URINE CLEAR (CLEAR); BILIRUBIN,URINE NEGATIVE (NEGATIVE); GLUCOSE, URINE (UA) NEGATIVE (NEGATIVE); KETONES,URINE NEGATIVE (NEGATIVE); LEUKOCYTE ESTERASE ,URINE NEGATIVE (NEGATIVE); NITRATE,URINE NEGATIVE (NEGATIVE); OCCULT BLOOD,URINE NEGATIVE (NEGATIVE); PH,URINE 6.5 (5.0-8.0); PROTEIN,URINE NEGATIVE (NEGATIVE); UROBILINOGEN,URINE 0.2 mg/dL (<=1.0)
[2020-04-29 10:18] LABS: BACTERIA,URINE None Seen /HPF (None Seen); RBC,URINE None Seen /HPF (0-2); WBC,URINE None Seen /HPF (0-5)
[2020-04-29] MEDS: BuPROPion HCL XL 150 MG ER TABLET PO SCH (14:29)
[2020-04-29] MEDS: SERTRALINE HCL 100 MG TABLET PO SCH (14:29)
[2020-04-29] MEDS: THIAMINE 100 MG TABLET PO SCH (15:57)
[2020-04-29] MEDS: GABAPENTIN 300 MG CAPSULE PO SCH (15:57)
[2020-04-29] MEDS: BusPIRone HCL 10 MG TABLET PO SCH (16:00)
[2020-04-29] MEDS: ZIPRASIDONE HCL 40 MG CAPSULE PO SCH (17:43)
[2020-04-30] MEDS: ZIPRASIDONE HCL 40 MG CAPSULE PO SCH ×2 (07:09→16:45)
[2020-04-30] MEDS: ChlordiazePOXIDE HCL 25 MG CAPSULE PO PRN (07:10)
[2020-04-30 07:35] LABS: CHOL/HDL RATIO 2.6 (4.2-7.3)
[2020-04-30] MEDS ORDERED: PETROLATUM,WHITE 28 GM JELLY TP PRN (08:15)
[2020-04-30] MEDS ORDERED: CloNIDine HCL 0.1 MG TABLET PO PRN (08:15)
[2020-04-30] MEDS ORDERED: DOCUSATE SODIUM 100 MG CAPSULE PO PRN (08:15)
[2020-04-30] MEDS ORDERED: MAG HYDROX/AL HYDROX/SIMETH ES 30 ML SUSPENSION UDCUP PO PRN (08:15)
[2020-04-30] MEDS ORDERED: ACETAMINOPHEN 325 MG TABLET PO PRN (08:15)
[2020-04-30] MEDS ORDERED: ALBUTEROL SULFATE HFA 90 MCG/PUFF 8 GM INHALER IH PRN (08:15)
[2020-04-30] MEDS ORDERED: ONDANSETRON HCL 4 MG TABLET PO PRN (08:15)
[2020-04-30] MEDS ORDERED: GuaiFENesin/D-METHORPHAN [SUGAR-FREE] 200-20MG/10 ML SYRUP UDCUP PO PRN (08:15)
[2020-04-30] MEDS ORDERED: MAGNESIUM HYDROXIDE SUSPENSION 30 ML UDCUP PO PRN (08:15)
[2020-04-30] MEDS ORDERED: LOPERAMIDE HCL 2 MG CAPSULE PO PRN (08:15)
[2020-04-30 08:26] VITALS: BP 138/72
[2020-04-30 08:27] VITALS: BP 138/72
[2020-04-30] MEDS: SERTRALINE HCL 100 MG TABLET PO SCH (08:48)
[2020-04-30] MEDS: ChlordiazePOXIDE HCL 25 MG CAPSULE PO SCH ×4 (08:49→20:01)
[2020-04-30] MEDS: MULTIVITAMINS WITH MINERALS, THERAPEUTIC TABLET PO SCH (08:49)
[2020-04-30] MEDS: THIAMINE 100 MG TABLET PO SCH ×2 (08:49→16:45)
[2020-04-30] MEDS: GABAPENTIN 300 MG CAPSULE PO SCH ×3 (08:50→16:45)
[2020-04-30] MEDS: BuPROPion HCL XL 150 MG ER TABLET PO SCH (08:50)
[2020-04-30] MEDS: BusPIRone HCL 10 MG TABLET PO SCH ×3 (08:50→16:45)
[2020-04-30] MEDS: FOLIC ACID 1 MG TABLET PO SCH (08:50)
[2020-04-30] MEDS ORDERED: FOLIC ACID 1 MG TABLET PO SCH (09:00)
[2020-04-30 12:15] VITALS: BP 108/73
[2020-04-30 16:55] VITALS: BP 126/85
[2020-05-01] MEDS: ChlordiazePOXIDE HCL 25 MG CAPSULE PO PRN (06:30)
[2020-05-01] MEDS: ZIPRASIDONE HCL 40 MG CAPSULE PO SCH ×2 (06:55→17:44)
[2020-05-01 08:00] VITALS: BP 125/72
[2020-05-01 08:05] VITALS: BP 125/72
[2020-05-01] MEDS: MULTIVITAMINS WITH MINERALS, THERAPEUTIC TABLET PO SCH (08:14)
[2020-05-01] MEDS: GABAPENTIN 300 MG CAPSULE PO SCH ×3 (08:14→16:33)
[2020-05-01] MEDS: ChlordiazePOXIDE HCL 25 MG CAPSULE PO SCH ×5 (08:14→20:29)
[2020-05-01] MEDS: BuPROPion HCL XL 150 MG ER TABLET PO SCH (08:15)
[2020-05-01] MEDS: BusPIRone HCL 10 MG TABLET PO SCH ×3 (08:15→16:33)
[2020-05-01] MEDS: FOLIC ACID 1 MG TABLET PO SCH (08:15)
[2020-05-01] MEDS: THIAMINE 100 MG TABLET PO SCH ×2 (08:15→16:33)
[2020-05-01] MEDS: SERTRALINE HCL 100 MG TABLET PO SCH (08:15)
[2020-05-01 16:00] VITALS: BP 121/69
[2020-05-01 16:01] VITALS: BP 121/69
[2020-05-02] MEDS: ChlordiazePOXIDE HCL 25 MG CAPSULE PO PRN (06:56)
[2020-05-02] MEDS: ZIPRASIDONE HCL 40 MG CAPSULE PO SCH ×2 (06:57→17:41)
[2020-05-02] MEDS ORDERED: ChlordiazePOXIDE HCL 10 MG CAPSULE PO PRN (07:00)
[2020-05-02 08:10] VITALS: BP 122/71
[2020-05-02] MEDS: SERTRALINE HCL 100 MG TABLET PO SCH (08:52)
[2020-05-02] MEDS: GABAPENTIN 300 MG CAPSULE PO SCH ×3 (08:52→16:17)
[2020-05-02] MEDS: THIAMINE 100 MG TABLET PO SCH ×2 (08:52→16:18)
[2020-05-02] MEDS: BuPROPion HCL XL 150 MG ER TABLET PO SCH (08:52)
[2020-05-02] MEDS: BusPIRone HCL 10 MG TABLET PO SCH ×3 (08:52→16:18)
[2020-05-02] MEDS: FOLIC ACID 1 MG TABLET PO SCH (08:52)
[2020-05-02] MEDS: MULTIVITAMINS WITH MINERALS, THERAPEUTIC TABLET PO SCH (08:52)
[2020-05-02] MEDS: ChlordiazePOXIDE HCL 10 MG CAPSULE PO SCH ×5 (08:57→20:31)
[2020-05-02] MEDS: NICOTINE 14 MG/24 HOUR PATCH TD PRN (09:20)
[2020-05-02 16:25] VITALS: BP 108/71
[2020-05-02 16:35] VITALS: BP 108/71
[2020-05-03 00:48] VITALS: BP 111/52
[2020-05-03 00:50] VITALS: BP 111/52
[2020-05-03] MEDS: ZIPRASIDONE HCL 40 MG CAPSULE PO SCH ×2 (07:00→16:07)
[2020-05-03] MEDS: BusPIRone HCL 10 MG TABLET PO SCH ×3 (08:05→16:07)
[2020-05-03] MEDS: ChlordiazePOXIDE HCL 10 MG CAPSULE PO PRN ×2 (08:05→17:58)
[2020-05-03] MEDS: FOLIC ACID 1 MG TABLET PO SCH (08:05)
[2020-05-03] MEDS: THIAMINE 100 MG TABLET PO SCH ×2 (08:05→16:07)
[2020-05-03] MEDS: GABAPENTIN 300 MG CAPSULE PO SCH ×3 (08:05→16:07)
[2020-05-03] MEDS: MULTIVITAMINS WITH MINERALS, THERAPEUTIC TABLET PO SCH (08:05)
[2020-05-03] MEDS: SERTRALINE HCL 100 MG TABLET PO SCH (08:05)
[2020-05-03] MEDS: BuPROPion HCL XL 150 MG ER TABLET PO SCH (08:06)
[2020-05-03 10:58] VITALS: BP 147/83
[2020-05-03 17:59] VITALS: BP 122/75
[2020-05-04 05:15] VITALS: BP 122/60
[2020-05-04] MEDS: IBUPROFEN 400 MG TABLET PO PRN (05:48)
[2020-05-04] MEDS: ZIPRASIDONE HCL 40 MG CAPSULE PO SCH ×2 (06:52→16:45)
[2020-05-04] MEDS: GABAPENTIN 300 MG CAPSULE PO SCH ×3 (08:05→16:45)
[2020-05-04] MEDS: FOLIC ACID 1 MG TABLET PO SCH (08:05)
[2020-05-04] MEDS: THIAMINE 100 MG TABLET PO SCH ×2 (08:05→16:45)
[2020-05-04] MEDS: MULTIVITAMINS WITH MINERALS, THERAPEUTIC TABLET PO SCH (08:05)
[2020-05-04] MEDS: SERTRALINE HCL 100 MG TABLET PO SCH (08:05)
[2020-05-04] MEDS: BuPROPion HCL XL 150 MG ER TABLET PO SCH (08:05)
[2020-05-04 08:49] VITALS: BP 116/70
[2020-05-04] MEDS: BusPIRone HCL 10 MG TABLET PO SCH ×3 (09:04→16:45)
[2020-05-04 16:46] VITALS: BP 122/67
[2020-05-05] MEDS: NICOTINE 14 MG/24 HOUR PATCH TD PRN (06:48)
[2020-05-05] MEDS: ZIPRASIDONE HCL 40 MG CAPSULE PO SCH ×2 (06:51→16:44)
[2020-05-05 09:00] VITALS: BP 120/65
[2020-05-05] MEDS: SERTRALINE HCL 100 MG TABLET PO SCH (09:15)
[2020-05-05] MEDS: THIAMINE 100 MG TABLET PO SCH ×2 (09:15→16:45)
[2020-05-05] MEDS: BusPIRone HCL 10 MG TABLET PO SCH ×3 (09:15→16:44)
[2020-05-05] MEDS: BuPROPion HCL XL 150 MG ER TABLET PO SCH (09:15)
[2020-05-05] MEDS: MULTIVITAMINS WITH MINERALS, THERAPEUTIC TABLET PO SCH (09:15)
[2020-05-05] MEDS: GABAPENTIN 300 MG CAPSULE PO SCH ×3 (09:15→16:44)
[2020-05-05] MEDS: FOLIC ACID 1 MG TABLET PO SCH (09:15)
[2020-05-05 16:40] VITALS: BP 130/82
[2020-05-06] MEDS: ZIPRASIDONE HCL 40 MG CAPSULE PO SCH ×2 (06:47→16:28)
[2020-05-06] MEDS: FOLIC ACID 1 MG TABLET PO SCH (08:27)
[2020-05-06] MEDS: SERTRALINE HCL 100 MG TABLET PO SCH (08:27)
[2020-05-06] MEDS: BuPROPion HCL XL 150 MG ER TABLET PO SCH (08:27)
[2020-05-06] MEDS: BusPIRone HCL 10 MG TABLET PO SCH ×3 (08:27→16:28)
[2020-05-06] MEDS: GABAPENTIN 300 MG CAPSULE PO SCH ×3 (08:28→16:29)
[2020-05-06] MEDS: MULTIVITAMINS WITH MINERALS, THERAPEUTIC TABLET PO SCH (08:28)
[2020-05-06] MEDS: THIAMINE 100 MG TABLET PO SCH ×2 (08:28→16:29)
[2020-05-06] MEDS: NICOTINE 14 MG/24 HOUR PATCH TD PRN (08:30)
[2020-05-06 10:05] VITALS: BP 131/73
[2020-05-07] MEDS: ZIPRASIDONE HCL 40 MG CAPSULE PO SCH ×2 (06:56→17:41)
[2020-05-07 08:40] VITALS: BP 146/77
[2020-05-07] MEDS: THIAMINE 100 MG TABLET PO SCH ×2 (09:02→16:34)
[2020-05-07] MEDS: BusPIRone HCL 10 MG TABLET PO SCH ×3 (09:02→16:34)
[2020-05-07] MEDS: BuPROPion HCL XL 150 MG ER TABLET PO SCH (09:02)
[2020-05-07] MEDS: GABAPENTIN 300 MG CAPSULE PO SCH ×3 (09:02→16:34)
[2020-05-07] MEDS: MULTIVITAMINS WITH MINERALS, THERAPEUTIC TABLET PO SCH (09:02)
[2020-05-07] MEDS: FOLIC ACID 1 MG TABLET PO SCH (09:02)
[2020-05-07] MEDS: SERTRALINE HCL 100 MG TABLET PO SCH (09:02)
[2020-05-07] MEDS: NICOTINE 14 MG/24 HOUR PATCH TD PRN (09:24)
[2020-05-07 16:00] VITALS: BP 108/61
[2020-05-08] MEDS: ZIPRASIDONE HCL 40 MG CAPSULE PO SCH ×2 (06:55→16:38)
[2020-05-08] MEDS: BuPROPion HCL XL 150 MG ER TABLET PO SCH (08:08)
[2020-05-08] MEDS: MULTIVITAMINS WITH MINERALS, THERAPEUTIC TABLET PO SCH (08:08)
[2020-05-08] MEDS: GABAPENTIN 300 MG CAPSULE PO SCH ×3 (08:08→16:38)
[2020-05-08] MEDS: SERTRALINE HCL 100 MG TABLET PO SCH (08:08)
[2020-05-08] MEDS: THIAMINE 100 MG TABLET PO SCH ×2 (08:08→16:38)
[2020-05-08] MEDS: BusPIRone HCL 10 MG TABLET PO SCH ×3 (08:08→16:38)
[2020-05-08] MEDS: FOLIC ACID 1 MG TABLET PO SCH (08:08)
[2020-05-08 08:42] VITALS: BP 126/78
[2020-05-08] MEDS: NICOTINE 14 MG/24 HOUR PATCH TD PRN (09:48)
[2020-05-08 16:48] VITALS: BP 108/71
[2020-05-08 17:57] VITALS: BP 116/76
[2020-05-09] MEDS: ZIPRASIDONE HCL 40 MG CAPSULE PO SCH ×2 (06:57→16:33)
[2020-05-09 08:00] VITALS: BP 133/80
[2020-05-09] MEDS: FOLIC ACID 1 MG TABLET PO SCH (08:22)
[2020-05-09] MEDS: MULTIVITAMINS WITH MINERALS, THERAPEUTIC TABLET PO SCH (08:22)
[2020-05-09] MEDS: GABAPENTIN 300 MG CAPSULE PO SCH ×3 (08:22→16:34)
[2020-05-09] MEDS: BusPIRone HCL 10 MG TABLET PO SCH ×3 (08:22→16:34)
[2020-05-09] MEDS: SERTRALINE HCL 100 MG TABLET PO SCH (08:22)
[2020-05-09] MEDS: THIAMINE 100 MG TABLET PO SCH ×2 (08:22→16:34)
[2020-05-09] MEDS: BuPROPion HCL XL 150 MG ER TABLET PO SCH (08:22)
[2020-05-09] MEDS: NICOTINE 14 MG/24 HOUR PATCH TD PRN (12:16)
[2020-05-09 17:02] VITALS: BP 124/81
[2020-05-09] MEDS: IBUPROFEN 400 MG TABLET PO PRN (18:10)
[2020-05-10] MEDS: ZIPRASIDONE HCL 40 MG CAPSULE PO SCH ×2 (06:55→17:02)
[2020-05-10] MEDS: GABAPENTIN 300 MG CAPSULE PO SCH ×3 (08:01→15:52)
[2020-05-10] MEDS: BusPIRone HCL 10 MG TABLET PO SCH ×3 (08:01→15:52)
[2020-05-10] MEDS: MULTIVITAMINS WITH MINERALS, THERAPEUTIC TABLET PO SCH (08:02)
[2020-05-10] MEDS: BuPROPion HCL XL 150 MG ER TABLET PO SCH (08:02)
[2020-05-10] MEDS: SERTRALINE HCL 100 MG TABLET PO SCH (08:02)
[2020-05-10 08:04] VITALS: BP 136/72
[2020-05-10] MEDS: IBUPROFEN 400 MG TABLET PO PRN ×2 (08:04→16:04)
[2020-05-10 08:22] VITALS: BP 136/72
[2020-05-10] MEDS: NICOTINE 14 MG/24 HOUR PATCH TD PRN (09:02)
[2020-05-10 16:04] VITALS: BP 131/76
[2020-05-11] MEDS: ZIPRASIDONE HCL 40 MG CAPSULE PO SCH (06:58)
[2020-05-11 07:00] VITALS: BP 115/69
[2020-05-11] MEDS: IBUPROFEN 400 MG TABLET PO PRN (07:03)
[2020-05-11 08:02] VITALS: BP 134/81
[2020-05-11] MEDS: BusPIRone HCL 10 MG TABLET PO SCH (08:26)
[2020-05-11] MEDS: SERTRALINE HCL 100 MG TABLET PO SCH (08:26)
[2020-05-11] MEDS: GABAPENTIN 300 MG CAPSULE PO SCH (08:26)
[2020-05-11] MEDS: BuPROPion HCL XL 150 MG ER TABLET PO SCH (08:26)
[2020-05-11] MEDS: MULTIVITAMINS WITH MINERALS, THERAPEUTIC TABLET PO SCH (08:26)
[2020-05-11] MEDS: NICOTINE 14 MG/24 HOUR PATCH TD PRN (09:05)
== END 2020-05-11 10:30 | disposition home or self-care (01) | DRG 753 ==
LOC: EMS 02:47 → 3EC 09:07
PROVIDERS: ADMIT Psychiatry & Neurology Child & Adolescent Psychiatry; ATTEND Psychiatry & Neurology Child & Adolescent Psychiatry
DX: F31.4 Bipolar disorder, current episode depressed, severe, without psychotic features (principal); R45.851 Suicidal ideations; Z59.0 Homelessness; K21.9 Gastro-esophageal reflux disease without esophagitis; D64.9 Anemia, unspecified; F12.90 Cannabis use, unspecified, uncomplicated; F41.9 Anxiety disorder, unspecified; F17.200 Nicotine dependence, unspecified, uncomplicated; R56.9 Unspecified convulsions; S02.30XA Fracture of orbital floor, unspecified side, initial encounter for closed fracture; Z91.19 Patient's noncompliance with other medical treatment and regimen; Y90.8 Blood alcohol level of 240 mg/100 ml or more; F10.10 Alcohol abuse, uncomplicated; F19.10 Other psychoactive substance abuse, uncomplicated; X58.XXXA Exposure to other specified factors, initial encounter; Y93.89 Activity, other specified; Y92.89 Other specified places as the place of occurrence of the external cause; Y99.8 Other external cause status
CPT/HCPCS: 83036; G0480; G0481; J3420; J7030

== ENCOUNTER 2020-05-12 02:59 | Inpatient (IN) | payer MEDICAID, OTHER ==
[~2020-05-12] VITALS: Ht 175.3 cm; Wt 98.1 kg
[~2020-05-12 02:59] MED LIST changes: -BENZ0.5T44 PO; -FOLI-130 PO; -NAPR-1025 PO; -NICO-703 TD; -TRAZ-257 PO
[2020-05-12] MEDS ORDERED: OLANZapine 5 MG TABLET PO PRN (04:30)
[2020-05-12] MEDS ORDERED: ZOLPIDEM TARTRATE 10 MG TABLET PO PRN (04:30)
[2020-05-12 04:43] LABS: BASOPHILS % (AUTO) 0.8 % (0.0-2.0); EOSINOPHILS % (AUTO) 1.3 % (1.0-6.0); HEMATOCRIT 39.1 % (41-53); HEMOGLOBIN 13.4 g/dL (13.5-17.5); LYMPHOCYTES # (AUTO) 1.3 K/uL (1.0-4.8); LYMPHOCYTES % (AUTO) 12.4 % (22.0-44.0); MEAN CORPUSCULAR HEMOGLOBIN 31.7 pg (26.0-34.0); MEAN CORPUSCULAR HGB CONC 34.3 G/dL (31.0-37.0); MEAN CORPUSCULAR VOLUME 92 fL (80-100); MONOCYTES # (AUTO) 1.3 K/uL (0.1-1.0); NEUTROPHILS % (AUTO) 73.5 % (40.0-70.0); PLATELET COUNT (AUTO) 341 K/uL (150-450); RED BLOOD CELL COUNT(AUTO) 4.23 MIL/uL (4.50-5.90); RED CELL DISTRIBUTION WIDTH 13.5 % (11.5-14.5)
[2020-05-12 04:47] LABS: ANION GAP 8 mmol/L (8-16); CALCIUM, TOTAL 9.7 mg/dL (8.8-10.5); CARBON DIOXIDE 23 mmol/L (22-29); CHLORIDE 101 mmol/L (98-107); CREATININE 0.98 mg/dL (0.60-1.30); GLOMERULAR FILTR. RATE CALC > 60 mL/min (>60); GLUCOSE,RANDOM 102 mg/dL (70-110); POTASSIUM 3.9 mmol/L (3.5-5.1); SODIUM SERUM 132 mmol/L (136-145); UREA NITROGEN, BLOOD 8 mg/dL (7-18)
[2020-05-12 04:53] LABS: ALANINE AMINOTRANSFERASE 36 U/L (12-78); ALBUMIN 3.6 g/dL (3.4-5.0); ALKALINE PHOSPHATASE 51 U/L (46-116); ASPARTATE AMINOTRANSFERASE 30 U/L (15-37); BILIRUBIN,TOTAL 0.3 mg/dL (0.1-1.0); TOTAL PROTEIN, SERUM 7.3 g/dL (6.4-8.2)
[2020-05-12] MEDS: LORazepam 2 MG TABLET PO PRN ×2 (06:36→13:04)
[2020-05-12] MEDS ORDERED: ACETAMINOPHEN 325 MG TABLET PO PRN (08:15)
[2020-05-12] MEDS ORDERED: MAG HYDROX/AL HYDROX/SIMETH ES 30 ML SUSPENSION UDCUP PO PRN (08:15)
[2020-05-12] MEDS ORDERED: IBUPROFEN 400 MG TABLET PO PRN (08:15)
[2020-05-12] MEDS ORDERED: GuaiFENesin/D-METHORPHAN [SUGAR-FREE] 200-20MG/10 ML SYRUP UDCUP PO PRN (08:15)
[2020-05-12] MEDS ORDERED: NICOTINE 14 MG/24 HOUR PATCH TD PRN (08:15)
[2020-05-12] MEDS ORDERED: ONDANSETRON HCL 4 MG TABLET PO PRN (08:15)
[2020-05-12] MEDS ORDERED: ALBUTEROL SULFATE HFA 90 MCG/PUFF 8 GM INHALER IH PRN (08:15)
[2020-05-12] MEDS ORDERED: CloNIDine HCL 0.1 MG TABLET PO PRN (08:15)
[2020-05-12] MEDS ORDERED: DOCUSATE SODIUM 100 MG CAPSULE PO PRN (08:15)
[2020-05-12] MEDS ORDERED: PETROLATUM,WHITE 28 GM JELLY TP PRN (08:15)
[2020-05-12] MEDS ORDERED: MAGNESIUM HYDROXIDE SUSPENSION 30 ML UDCUP PO PRN (08:15)
[2020-05-12] MEDS ORDERED: LOPERAMIDE HCL 2 MG CAPSULE PO PRN (08:15)
[2020-05-12] MEDS ORDERED: GABAPENTIN 400 MG CAPSULE PO SCH (09:00)
[2020-05-12] MEDS: GABAPENTIN 300 MG CAPSULE PO SCH ×3 (09:14→16:12)
[2020-05-12 09:50] VITALS: BP 127/71
[2020-05-12 13:07] VITALS: BP 115/78
[2020-05-12 16:09] VITALS: BP 127/83
[2020-05-12] MEDS: ZIPRASIDONE HCL 40 MG CAPSULE PO SCH (16:12)
[2020-05-12] MEDS: BusPIRone HCL 10 MG TABLET PO SCH (16:12)
[2020-05-13] MEDS: LORazepam 2 MG TABLET PO PRN ×3 (03:12→13:35)
[2020-05-13 03:17] VITALS: BP 121/68
[2020-05-13] MEDS: ZIPRASIDONE HCL 40 MG CAPSULE PO SCH ×2 (06:13→16:10)
[2020-05-13] MEDS: GABAPENTIN 300 MG CAPSULE PO SCH ×3 (08:17→16:10)
[2020-05-13] MEDS: BusPIRone HCL 10 MG TABLET PO SCH ×3 (08:17→16:10)
[2020-05-13 08:41] LABS: CHOL/HDL RATIO 9.6 (4.2-7.3); CHOLESTEROL 289 mg/dL (131-200); HDL CHOLESTEROL 30 mg/dL (40-60); TRIGLYCERIDES 512 mg/dL (15-150)
[2020-05-13 08:44] VITALS: BP 132/69
[2020-05-13] MEDS ORDERED: SERTRALINE HCL 100 MG TABLET PO SCH (09:00)
[2020-05-13] MEDS ORDERED: NICOTINE 14 MG/24 HOUR PATCH TD SCH (09:00)
[2020-05-13] MEDS ORDERED: BuPROPion HCL XL 150 MG ER TABLET PO SCH (09:00)
[2020-05-13 16:12] VITALS: BP 132/63
[2020-05-14] MEDS ORDERED: GABA-1181 PO (20:02)
== END 2020-05-13 17:15 | disposition home or self-care (01) | DRG 750 ==
LOC: EMS 02:59 → B2S 04:30
PROVIDERS: ADMIT Psychiatry & Neurology Child & Adolescent Psychiatry; ATTEND Psychiatry & Neurology Child & Adolescent Psychiatry
DX: F25.1 Schizoaffective disorder, depressive type (principal); E78.5 Hyperlipidemia, unspecified; E87.1 Hypo-osmolality and hyponatremia; F12.90 Cannabis use, unspecified, uncomplicated; F17.210 Nicotine dependence, cigarettes, uncomplicated; G40.909 Epilepsy, unspecified, not intractable, without status epilepticus; J44.9 Chronic obstructive pulmonary disease, unspecified; K21.9 Gastro-esophageal reflux disease without esophagitis; M19.90 Unspecified osteoarthritis, unspecified site; M41.9 Scoliosis, unspecified; R45.851 Suicidal ideations; Z91.5 Personal history of self-harm
CPT/HCPCS: 87081; G0480

== ENCOUNTER 2020-05-14 18:41 | Emergency (ER) | payer MEDICAID, OTHER ==
[~2020-05-14] VITALS: Ht 175.3 cm; Wt 100.9 kg
[2020-05-14 19:51] LABS: BASOPHILS % (AUTO) 0.8 % (0.0-2.0); EOSINOPHILS % (AUTO) 0.8 % (1.0-6.0); HEMATOCRIT 40.9 % (41-53); HEMOGLOBIN 13.7 g/dL (13.5-17.5); LYMPHOCYTES # (AUTO) 1.8 K/uL (1.0-4.8); LYMPHOCYTES % (AUTO) 12.6 % (22.0-44.0); MEAN CORPUSCULAR HEMOGLOBIN 31.5 pg (26.0-34.0); MEAN CORPUSCULAR HGB CONC 33.6 G/dL (31.0-37.0); MEAN CORPUSCULAR VOLUME 94 fL (80-100); MONOCYTES # (AUTO) 1.2 K/uL (0.1-1.0); MONOCYTES % (AUTO) 8.3 % (2.0-9.0); NEUTROPHILS # (AUTO) 10.9 K/uL (1.8-7.7); NEUTROPHILS % (AUTO) 77.5 % (40.0-70.0); RED BLOOD CELL COUNT(AUTO) 4.35 MIL/uL (4.50-5.90); RED CELL DISTRIBUTION WIDTH 13.6 % (11.5-14.5)
[2020-05-14 19:55] LABS: AMPHET/METH SCREEN,URINE POSITIVE (NEGATIVE); BARBITURATE SCREEN, URINE NEGATIVE (NEGATIVE); BENZODIAZEPINES SCREEN,URINE POSITIVE (NEGATIVE); CANNABINOID SCREEN,URINE NEGATIVE (NEGATIVE); COCAINE SCREEN,URINE NEGATIVE (NEGATIVE); METHADONE SCREEN, URINE NEGATIVE (NEGATIVE); OPIATE SCREEN,URINE NEGATIVE (NEGATIVE)
[2020-05-14 19:56] LABS: PHENCYCLIDINE SCREEN,URINE NEGATIVE (NEGATIVE)
[2020-05-14 19:57] LABS: ANION GAP 13 mmol/L (8-16); CALCIUM, TOTAL 9.8 mg/dL (8.8-10.5); CARBON DIOXIDE 21 mmol/L (22-29); CHLORIDE 101 mmol/L (98-107); GLOMERULAR FILTR. RATE CALC > 60 mL/min (>60); GLUCOSE,RANDOM 97 mg/dL (70-110); SODIUM SERUM 135 mmol/L (136-145); UREA NITROGEN, BLOOD 9 mg/dL (7-18)
[2020-05-14] MEDS ORDERED: GABAPENTIN 100 MG CAPSULE PO ONE (20:00)
[2020-05-14] MEDS ORDERED: GABA-1181 PO (20:02)
[2020-05-14 20:03] LABS: ALANINE AMINOTRANSFERASE 44 U/L (12-78); ALKALINE PHOSPHATASE 73 U/L (46-116); ASPARTATE AMINOTRANSFERASE 35 U/L (15-37); BILIRUBIN,TOTAL 0.3 mg/dL (0.1-1.0)
[2020-05-14 20:10] LABS: PLATELET COUNT (AUTO) 379 K/uL (150-450)
[2020-05-14 20:11] LABS: PLATELET MORPHOLOGY COMMENT GIANT PLTS PRESENT
[2020-05-14 20:17] VITALS: BP 143/89
== END 2020-05-14 20:28 | disposition home or self-care (01) ==
LOC: EMS 18:41
DX: F20.9 Schizophrenia, unspecified (principal); F41.9 Anxiety disorder, unspecified; F31.9 Bipolar disorder, unspecified; K21.9 Gastro-esophageal reflux disease without esophagitis; F17.210 Nicotine dependence, cigarettes, uncomplicated; F12.90 Cannabis use, unspecified, uncomplicated; F19.90 Other psychoactive substance use, unspecified, uncomplicated; Z79.899 Other long term (current) drug therapy
CPT/HCPCS: 36415; 80053; 80307; 85025; 99284; G0480

== ENCOUNTER 2020-05-15 04:09 | Emergency (ER) | payer OTHER ==
[~2020-05-15] VITALS: Ht 170.2 cm; Wt 100.0 kg
[~2020-05-15 04:09] MED LIST changes: +GABA-1181 PO
[2020-05-15 05:48] LABS: AMPHET/METH SCREEN,URINE POSITIVE (NEGATIVE); BARBITURATE SCREEN, URINE NEGATIVE (NEGATIVE); BENZODIAZEPINES SCREEN,URINE NEGATIVE (NEGATIVE); CANNABINOID SCREEN,URINE NEGATIVE (NEGATIVE); COCAINE SCREEN,URINE NEGATIVE (NEGATIVE); METHADONE SCREEN, URINE NEGATIVE (NEGATIVE); OPIATE SCREEN,URINE NEGATIVE (NEGATIVE)
[2020-05-15 05:48] LABS: BASOPHILS % (AUTO) 0.7 % (0.0-2.0); EOSINOPHILS % (AUTO) 0.7 % (1.0-6.0); HEMATOCRIT 38.5 % (41-53); HEMOGLOBIN 13.4 g/dL (13.5-17.5); LYMPHOCYTES # (AUTO) 2.3 K/uL (1.0-4.8); LYMPHOCYTES % (AUTO) 15.4 % (22.0-44.0); MEAN CORPUSCULAR HEMOGLOBIN 32.4 pg (26.0-34.0); MEAN CORPUSCULAR HGB CONC 34.9 G/dL (31.0-37.0); MEAN CORPUSCULAR VOLUME 93 fL (80-100); MONOCYTES # (AUTO) 1.7 K/uL (0.1-1.0); MONOCYTES % (AUTO) 11.1 % (2.0-9.0); NEUTROPHILS # (AUTO) 10.8 K/uL (1.8-7.7); NEUTROPHILS % (AUTO) 72.1 % (40.0-70.0); PLATELET COUNT (AUTO) 368 K/uL (150-450); RED BLOOD CELL COUNT(AUTO) 4.14 MIL/uL (4.50-5.90); RED CELL DISTRIBUTION WIDTH 13.8 % (11.5-14.5)
[2020-05-15 05:51] LABS: PHENCYCLIDINE SCREEN,URINE NEGATIVE (NEGATIVE)
[2020-05-15 05:58] LABS: ANION GAP 17 mmol/L (8-16); CALCIUM, TOTAL 9.6 mg/dL (8.8-10.5); CARBON DIOXIDE 19 mmol/L (22-29); CHLORIDE 102 mmol/L (98-107); CREATININE 1.07 mg/dL (0.60-1.30); GLOMERULAR FILTR. RATE CALC > 60 mL/min (>60); GLUCOSE,RANDOM 79 mg/dL (70-110); POTASSIUM 3.9 mmol/L (3.5-5.1); SODIUM SERUM 138 mmol/L (136-145); UREA NITROGEN, BLOOD 12 mg/dL (7-18)
[2020-05-15 06:04] LABS: ALANINE AMINOTRANSFERASE 43 U/L (12-78); ALBUMIN 4.1 g/dL (3.4-5.0); ALKALINE PHOSPHATASE 76 U/L (46-116); ASPARTATE AMINOTRANSFERASE 46 U/L (15-37); BILIRUBIN,TOTAL 0.3 mg/dL (0.1-1.0); TOTAL PROTEIN, SERUM 8.3 g/dL (6.4-8.2)
[2020-05-15] MEDS ORDERED: ACETAMINOPHEN 325 MG TABLET PO ONE (06:45)
[2020-05-15] MEDS ORDERED: LORazepam 1 MG TABLET PO ONE ×2 (07:00→09:30)
[2020-05-15 11:24] VITALS: BP 126/68
== END 2020-05-15 11:37 | disposition home or self-care (01) ==
LOC: EMS 04:09
DX: F25.9 Schizoaffective disorder, unspecified (principal); F32.9 Major depressive disorder, single episode, unspecified; F10.129 Alcohol abuse with intoxication, unspecified; K21.9 Gastro-esophageal reflux disease without esophagitis; F12.90 Cannabis use, unspecified, uncomplicated; F19.90 Other psychoactive substance use, unspecified, uncomplicated; Y90.5 Blood alcohol level of 100-119 mg/100 ml
CPT/HCPCS: 36415; 80053; 80307; 85025; 99285; G0480

== ENCOUNTER 2020-05-16 03:10 | Inpatient (IN) | payer MEDICAID, OTHER ==
[2020-05-16] VITALS (15 sets, daily range): BP systolic 122–142; BP diastolic 7–79
[~2020-05-16] VITALS: Ht 170.2 cm; Wt 97.6 kg
[~2020-05-16 03:10] MED LIST changes: -GABA-1201 PO
[2020-05-16 03:35] LABS: BASOPHILS % (AUTO) 0.8 % (0.0-2.0); EOSINOPHILS % (AUTO) 1.8 % (1.0-6.0); HEMOGLOBIN 13.3 g/dL (13.5-17.5); LYMPHOCYTES # (AUTO) 2.4 K/uL (1.0-4.8); LYMPHOCYTES % (AUTO) 20.7 % (22.0-44.0); MEAN CORPUSCULAR HGB CONC 34.1 G/dL (31.0-37.0); MEAN CORPUSCULAR VOLUME 94 fL (80-100); MONOCYTES # (AUTO) 1.3 K/uL (0.1-1.0); MONOCYTES % (AUTO) 10.9 % (2.0-9.0); NEUTROPHILS # (AUTO) 7.7 K/uL (1.8-7.7); NEUTROPHILS % (AUTO) 65.8 % (40.0-70.0); PLATELET COUNT (AUTO) 378 K/uL (150-450); RED BLOOD CELL COUNT(AUTO) 4.15 MIL/uL (4.50-5.90); RED CELL DISTRIBUTION WIDTH 13.7 % (11.5-14.5)
[2020-05-16 03:45] LABS: ANION GAP 15 mmol/L (8-16); CALCIUM, TOTAL 9.5 mg/dL (8.8-10.5); CARBON DIOXIDE 20 mmol/L (22-29); CHLORIDE 102 mmol/L (98-107); CREATININE 1.19 mg/dL (0.60-1.30); GLOMERULAR FILTR. RATE CALC > 60 mL/min (>60); GLUCOSE,RANDOM 98 mg/dL (70-110); POTASSIUM 3.9 mmol/L (3.5-5.1); SODIUM SERUM 137 mmol/L (136-145); UREA NITROGEN, BLOOD 10 mg/dL (7-18)
[2020-05-16 03:50] LABS: ALANINE AMINOTRANSFERASE 41 U/L (12-78); ALBUMIN 3.8 g/dL (3.4-5.0); ALKALINE PHOSPHATASE 85 U/L (46-116); ASPARTATE AMINOTRANSFERASE 47 U/L (15-37); BILIRUBIN,TOTAL 0.3 mg/dL (0.1-1.0); TOTAL PROTEIN, SERUM 7.7 g/dL (6.4-8.2)
[2020-05-16] MEDS ORDERED: ACETAMINOPHEN 500 MG TABLET PO ONE (05:30)
[2020-05-16] MEDS ORDERED: LORazepam 2 MG TABLET PO PRN (06:30)
[2020-05-16] MEDS ORDERED: HALOPERIDOL 5 MG TABLET PO PRN (06:30)
[2020-05-16] MEDS ORDERED: MAG HYDROX/AL HYDROX/SIMETH ES 30 ML SUSPENSION UDCUP PO PRN (07:30)
[2020-05-16] MEDS ORDERED: DOCUSATE SODIUM 100 MG CAPSULE PO PRN (07:30)
[2020-05-16] MEDS ORDERED: CloNIDine HCL 0.1 MG TABLET PO PRN (07:30)
[2020-05-16] MEDS ORDERED: ONDANSETRON HCL 4 MG TABLET PO PRN (07:30)
[2020-05-16] MEDS ORDERED: GuaiFENesin/D-METHORPHAN [SUGAR-FREE] 200-20MG/10 ML SYRUP UDCUP PO PRN ×2 (07:30→10:45)
[2020-05-16] MEDS ORDERED: MAGNESIUM HYDROXIDE SUSPENSION 30 ML UDCUP PO PRN (07:30)
[2020-05-16] MEDS ORDERED: PETROLATUM,WHITE 28 GM JELLY TP PRN (07:30)
[2020-05-16] MEDS ORDERED: ALBUTEROL SULFATE HFA 90 MCG/PUFF 8 GM INHALER IH PRN (07:30)
[2020-05-16] MEDS ORDERED: LOPERAMIDE HCL 2 MG CAPSULE PO PRN ×2 (07:30→10:45)
[2020-05-16] MEDS: BuPROPion HCL XL 150 MG ER TABLET PO SCH (10:22)
[2020-05-16] MEDS: SERTRALINE HCL 100 MG TABLET PO SCH (10:22)
[2020-05-16] MEDS ORDERED: CYANOCOBALAMIN 1,000 MCG/ML VIAL IM ONE (10:45)
[2020-05-16] MEDS ORDERED: HydrOXYzine PAMOATE 50 MG CAPSULE PO PRN (10:45)
[2020-05-16] MEDS: MULTIVITAMINS WITH MINERALS, THERAPEUTIC TABLET PO SCH (11:06)
[2020-05-16] MEDS: THIAMINE 100 MG TABLET PO SCH ×2 (11:06→16:07)
[2020-05-16] MEDS: FOLIC ACID 1 MG TABLET PO SCH (11:06)
[2020-05-16] MEDS: ChlordiazePOXIDE HCL 25 MG CAPSULE PO PRN ×2 (11:07→16:08)
[2020-05-16] MEDS: BusPIRone HCL 10 MG TABLET PO SCH ×2 (12:35→16:07)
[2020-05-16] MEDS: GABAPENTIN 300 MG CAPSULE PO SCH ×2 (12:35→16:07)
[2020-05-16] MEDS ORDERED: GABAPENTIN 300 MG CAPSULE PO SCH (13:00)
[2020-05-16] MEDS: ZIPRASIDONE HCL 40 MG CAPSULE PO SCH (16:07)
[2020-05-17 00:30] VITALS: BP 138/76
[2020-05-17] MEDS: ChlordiazePOXIDE HCL 25 MG CAPSULE PO PRN ×2 (01:28→06:49)
[2020-05-17 01:31] VITALS: BP 128/68
[2020-05-17] MEDS: ZIPRASIDONE HCL 40 MG CAPSULE PO SCH ×2 (06:48→16:11)
[2020-05-17 08:19] VITALS: BP 123/66
[2020-05-17 08:40] LABS: CHOL/HDL RATIO 6.6 (4.2-7.3); CHOLESTEROL 232 mg/dL (131-200); HDL CHOLESTEROL 35 mg/dL (40-60); TRIGLYCERIDES 412 mg/dL (15-150)
[2020-05-17] MEDS: MULTIVITAMINS WITH MINERALS, THERAPEUTIC TABLET PO SCH (08:40)
[2020-05-17] MEDS: BusPIRone HCL 10 MG TABLET PO SCH ×3 (08:40→16:11)
[2020-05-17] MEDS: ChlordiazePOXIDE HCL 25 MG CAPSULE PO SCH ×4 (08:41→19:55)
[2020-05-17] MEDS: FOLIC ACID 1 MG TABLET PO SCH (08:41)
[2020-05-17] MEDS: SERTRALINE HCL 100 MG TABLET PO SCH (08:41)
[2020-05-17] MEDS: BuPROPion HCL XL 150 MG ER TABLET PO SCH (08:41)
[2020-05-17] MEDS: GABAPENTIN 300 MG CAPSULE PO SCH ×3 (08:41→16:15)
[2020-05-17] MEDS: THIAMINE 100 MG TABLET PO SCH ×2 (08:42→16:18)
[2020-05-17 09:13] VITALS: BP 123/66
[2020-05-17] MEDS: IBUPROFEN 400 MG TABLET PO PRN ×2 (10:16→18:09)
[2020-05-17] MEDS: NICOTINE 14 MG/24 HOUR PATCH TD PRN (11:31)
[2020-05-17] MEDS: ACETAMINOPHEN 325 MG TABLET PO PRN (15:31)
[2020-05-17 16:22] VITALS: BP 131/73
[2020-05-17 16:33] VITALS: BP 131/73
[2020-05-18 02:03] VITALS: BP 123/76
[2020-05-18 02:06] VITALS: BP 123/76
[2020-05-18] MEDS: IBUPROFEN 400 MG TABLET PO PRN ×3 (02:19→17:06)
[2020-05-18] MEDS: ChlordiazePOXIDE HCL 25 MG CAPSULE PO PRN ×4 (02:20→17:20)
[2020-05-18 05:30] VITALS: BP 110/71
[2020-05-18] MEDS: ACETAMINOPHEN 325 MG TABLET PO PRN ×2 (05:36→22:56)
[2020-05-18] MEDS: ZIPRASIDONE HCL 40 MG CAPSULE PO SCH ×2 (06:48→16:13)
[2020-05-18 08:15] VITALS: BP 136/70
[2020-05-18] MEDS: THIAMINE 100 MG TABLET PO SCH ×2 (09:31→16:13)
[2020-05-18] MEDS: SERTRALINE HCL 100 MG TABLET PO SCH (09:32)
[2020-05-18] MEDS: MULTIVITAMINS WITH MINERALS, THERAPEUTIC TABLET PO SCH (09:32)
[2020-05-18] MEDS: GABAPENTIN 300 MG CAPSULE PO SCH ×3 (09:32→16:12)
[2020-05-18] MEDS: BuPROPion HCL XL 150 MG ER TABLET PO SCH (09:32)
[2020-05-18] MEDS: ChlordiazePOXIDE HCL 25 MG CAPSULE PO SCH ×4 (09:32→20:01)
[2020-05-18] MEDS: BusPIRone HCL 10 MG TABLET PO SCH ×3 (09:32→17:06)
[2020-05-18] MEDS: FOLIC ACID 1 MG TABLET PO SCH (09:32)
[2020-05-18 13:13] VITALS: BP 125/78
[2020-05-18 16:00] VITALS: BP 139/86
[2020-05-18] MEDS: ZOLPIDEM TARTRATE 10 MG TABLET PO PRN (23:59)
[2020-05-19] MEDS: ChlordiazePOXIDE HCL 25 MG CAPSULE PO PRN ×3 (00:06→06:54)
[2020-05-19 00:20] VITALS: BP 124/75
[2020-05-19 02:07] VITALS: BP 124/75
[2020-05-19] MEDS: IBUPROFEN 400 MG TABLET PO PRN ×2 (03:16→13:41)
[2020-05-19] MEDS: ZIPRASIDONE HCL 40 MG CAPSULE PO SCH ×2 (07:03→16:11)
[2020-05-19] MEDS: BusPIRone HCL 10 MG TABLET PO SCH ×3 (08:39→16:11)
[2020-05-19] MEDS: SERTRALINE HCL 100 MG TABLET PO SCH (08:39)
[2020-05-19] MEDS: THIAMINE 100 MG TABLET PO SCH ×2 (08:39→16:11)
[2020-05-19] MEDS: MULTIVITAMINS WITH MINERALS, THERAPEUTIC TABLET PO SCH (08:39)
[2020-05-19] MEDS: GABAPENTIN 300 MG CAPSULE PO SCH ×3 (08:39→16:11)
[2020-05-19] MEDS: ChlordiazePOXIDE HCL 10 MG CAPSULE PO SCH ×4 (08:39→20:54)
[2020-05-19] MEDS: BuPROPion HCL XL 150 MG ER TABLET PO SCH (08:39)
[2020-05-19] MEDS: FOLIC ACID 1 MG TABLET PO SCH (08:39)
[2020-05-19 08:56] VITALS: BP 119/90
[2020-05-19] MEDS: ChlordiazePOXIDE HCL 10 MG CAPSULE PO PRN (10:53)
[2020-05-19 14:56] VITALS: BP 112/68
[2020-05-19 16:19] VITALS: BP 127/90
[2020-05-19] MEDS: ACETAMINOPHEN 325 MG TABLET PO PRN (16:22)
[2020-05-19 19:12] VITALS: BP 127/90
[2020-05-20 03:30] VITALS: BP 116/67
[2020-05-20] MEDS: ChlordiazePOXIDE HCL 10 MG CAPSULE PO PRN ×4 (03:34→16:38)
[2020-05-20] MEDS: IBUPROFEN 400 MG TABLET PO PRN ×2 (03:35→17:35)
[2020-05-20 03:58] VITALS: BP 116/67
[2020-05-20] MEDS: ZIPRASIDONE HCL 40 MG CAPSULE PO SCH ×2 (06:10→16:37)
[2020-05-20] MEDS: THIAMINE 100 MG TABLET PO SCH ×2 (08:32→16:38)
[2020-05-20] MEDS: FOLIC ACID 1 MG TABLET PO SCH (08:32)
[2020-05-20] MEDS: GABAPENTIN 300 MG CAPSULE PO SCH ×3 (08:32→16:37)
[2020-05-20] MEDS: BusPIRone HCL 10 MG TABLET PO SCH ×3 (08:33→16:37)
[2020-05-20] MEDS: MULTIVITAMINS WITH MINERALS, THERAPEUTIC TABLET PO SCH (08:33)
[2020-05-20] MEDS: BuPROPion HCL XL 150 MG ER TABLET PO SCH (08:33)
[2020-05-20] MEDS: SERTRALINE HCL 100 MG TABLET PO SCH (08:33)
[2020-05-20] MEDS: NICOTINE 14 MG/24 HOUR PATCH TD PRN (08:36)
[2020-05-20 08:53] VITALS: BP 146/74
[2020-05-20 14:53] VITALS: BP 137/82
[2020-05-20 16:00] VITALS: BP 128/65
[2020-05-20 16:32] VITALS: BP 128/65
[2020-05-21 00:57] VITALS: BP 134/81
[2020-05-21 01:20] VITALS: BP 126/72
[2020-05-21] MEDS: ChlordiazePOXIDE HCL 10 MG CAPSULE PO PRN (01:26)
[2020-05-21 05:00] VITALS: BP 132/76
[2020-05-21] MEDS ORDERED: PNEUMOCOCCAL VACCINE POLYVALENT 0.5 ML VIAL [PPSV23] IM ONE (05:00)
[2020-05-21] MEDS: IBUPROFEN 400 MG TABLET PO PRN ×2 (05:12→17:12)
[2020-05-21] MEDS: ZIPRASIDONE HCL 40 MG CAPSULE PO SCH ×2 (07:00→17:10)
[2020-05-21] MEDS: MULTIVITAMINS WITH MINERALS, THERAPEUTIC TABLET PO SCH (08:19)
[2020-05-21] MEDS: SERTRALINE HCL 100 MG TABLET PO SCH (08:19)
[2020-05-21] MEDS: GABAPENTIN 300 MG CAPSULE PO SCH ×3 (08:19→17:10)
[2020-05-21] MEDS: BusPIRone HCL 10 MG TABLET PO SCH ×3 (08:19→17:10)
[2020-05-21] MEDS: BuPROPion HCL XL 150 MG ER TABLET PO SCH (08:19)
[2020-05-21] MEDS: THIAMINE 100 MG TABLET PO SCH ×2 (08:19→17:10)
[2020-05-21] MEDS: FOLIC ACID 1 MG TABLET PO SCH (08:19)
[2020-05-21] MEDS: NICOTINE 14 MG/24 HOUR PATCH TD PRN (08:22)
[2020-05-21] MEDS: ACETAMINOPHEN 325 MG TABLET PO PRN ×2 (09:41→17:56)
[2020-05-21 10:47] VITALS: BP 140/79
[2020-05-21 17:58] VITALS: BP 127/78
[2020-05-21] MEDS: ZOLPIDEM TARTRATE 10 MG TABLET PO PRN (21:30)
[2020-05-22 01:28] VITALS: BP 134/64
[2020-05-22 04:35] VITALS: BP 138/68
[2020-05-22] MEDS: IBUPROFEN 400 MG TABLET PO PRN (04:39)
[2020-05-22] MEDS: ZIPRASIDONE HCL 40 MG CAPSULE PO SCH (06:07)
[2020-05-22] MEDS: GABAPENTIN 300 MG CAPSULE PO SCH ×2 (09:15→12:28)
[2020-05-22] MEDS: BusPIRone HCL 10 MG TABLET PO SCH ×2 (09:15→12:28)
[2020-05-22] MEDS: FOLIC ACID 1 MG TABLET PO SCH (09:15)
[2020-05-22] MEDS: BuPROPion HCL XL 150 MG ER TABLET PO SCH (09:15)
[2020-05-22] MEDS: THIAMINE 100 MG TABLET PO SCH (09:15)
[2020-05-22] MEDS: MULTIVITAMINS WITH MINERALS, THERAPEUTIC TABLET PO SCH (09:15)
[2020-05-22] MEDS: SERTRALINE HCL 100 MG TABLET PO SCH (09:15)
[2020-05-22] MEDS: NICOTINE 14 MG/24 HOUR PATCH TD PRN (09:17)
[2020-05-22 09:36] VITALS: BP 136/87
[2020-05-22 10:29] LABS: GLUCOMETER DEV NAME(LOC) BV2S.; GLUCOSE,POINT OF CARE 86 MG/DL (70-110)
== END 2020-05-22 15:30 | disposition home or self-care (01) | DRG 750 ==
LOC: EMS 03:10 → B2S 06:16
PROVIDERS: ADMIT Psychiatry & Neurology Child & Adolescent Psychiatry; ATTEND Psychiatry & Neurology Child & Adolescent Psychiatry
DX: F25.1 Schizoaffective disorder, depressive type (principal); R45.851 Suicidal ideations; M41.9 Scoliosis, unspecified; M19.90 Unspecified osteoarthritis, unspecified site; K21.9 Gastro-esophageal reflux disease without esophagitis; J44.9 Chronic obstructive pulmonary disease, unspecified; G40.909 Epilepsy, unspecified, not intractable, without status epilepticus; F17.200 Nicotine dependence, unspecified, uncomplicated; F10.129 Alcohol abuse with intoxication, unspecified; E78.5 Hyperlipidemia, unspecified; Y90.7 Blood alcohol level of 200-239 mg/100 ml; Z59.0 Homelessness; Z91.5 Personal history of self-harm; E11.9 Type 2 diabetes mellitus without complications; D64.9 Anemia, unspecified; F12.90 Cannabis use, unspecified, uncomplicated
CPT/HCPCS: 87081; G0480; J3420

== ENCOUNTER 2020-06-07 18:07 | Inpatient (IN) | payer MEDICAID, OTHER ==
[~2020-06-07] VITALS: Ht 175.3 cm; Wt 97.5 kg
[2020-06-07 21:38] LABS: BASOPHILS % (AUTO) 0.9 % (0.0-2.0); EOSINOPHILS % (AUTO) 2.1 % (1.0-6.0); HEMOGLOBIN 14.5 g/dL (13.5-17.5); LYMPHOCYTES # (AUTO) 1.5 K/uL (1.0-4.8); LYMPHOCYTES % (AUTO) 15.4 % (22.0-44.0); MEAN CORPUSCULAR HEMOGLOBIN 32.7 pg (26.0-34.0); MEAN CORPUSCULAR HGB CONC 34.5 G/dL (31.0-37.0); MEAN CORPUSCULAR VOLUME 95 fL (80-100); MONOCYTES # (AUTO) 0.8 K/uL (0.1-1.0); MONOCYTES % (AUTO) 7.9 % (2.0-9.0); NEUTROPHILS # (AUTO) 7.1 K/uL (1.8-7.7); NEUTROPHILS % (AUTO) 73.7 % (40.0-70.0); PLATELET COUNT (AUTO) 305 K/uL (150-450); RED BLOOD CELL COUNT(AUTO) 4.42 MIL/uL (4.50-5.90); RED CELL DISTRIBUTION WIDTH 14.3 % (11.5-14.5)
[2020-06-07 21:48] LABS: ANION GAP 10 mmol/L (8-16); CALCIUM, TOTAL 10.1 mg/dL (8.8-10.5); CARBON DIOXIDE 26 mmol/L (22-29); CHLORIDE 103 mmol/L (98-107); CREATININE 0.91 mg/dL (0.60-1.30); GLOMERULAR FILTR. RATE CALC > 60 mL/min (>60); GLUCOSE,RANDOM 94 mg/dL (70-110); SODIUM SERUM 139 mmol/L (136-145); UREA NITROGEN, BLOOD 9 mg/dL (7-18)
[2020-06-07 21:54] LABS: ALANINE AMINOTRANSFERASE 31 U/L (12-78); ALBUMIN 3.7 g/dL (3.4-5.0); ALKALINE PHOSPHATASE 72 U/L (46-116); ASPARTATE AMINOTRANSFERASE 30 U/L (15-37); BILIRUBIN,TOTAL 0.2 mg/dL (0.1-1.0); TOTAL PROTEIN, SERUM 6.7 g/dL (6.4-8.2)
[2020-06-07 21:55] LABS: SALICYLATE 2.8 mg/dL (2.8-20.0)
[2020-06-07 22:13] LABS: ACETAMINOPHEN < 2 mcg/mL (10-30)
[2020-06-07 22:20] LABS: AMPHET/METH SCREEN,URINE NEGATIVE (NEGATIVE); BARBITURATE SCREEN, URINE NEGATIVE (NEGATIVE); BENZODIAZEPINES SCREEN,URINE NEGATIVE (NEGATIVE); CANNABINOID SCREEN,URINE NEGATIVE (NEGATIVE); COCAINE SCREEN,URINE NEGATIVE (NEGATIVE); METHADONE SCREEN, URINE NEGATIVE (NEGATIVE); OPIATE SCREEN,URINE NEGATIVE (NEGATIVE); PHENCYCLIDINE SCREEN,URINE NEGATIVE (NEGATIVE)
[2020-06-08] MEDS ORDERED: LORazepam 2 MG/ML VIAL IM ONE (02:00)
[2020-06-08 05:27] LABS: COVID AG,FIA SOURCE NASOPHARYNGEAL
[2020-06-08] MEDS: LORazepam 2 MG TABLET PO PRN ×4 (09:02→22:05)
[2020-06-08 09:25] VITALS: BP 132/72
[2020-06-08] MEDS ORDERED: NICOTINE 14 MG/24 HOUR PATCH TD PRN ×2 (09:30→16:15)
[2020-06-08] MEDS: BusPIRone HCL 10 MG TABLET PO SCH ×2 (13:48→16:09)
[2020-06-08] MEDS: GABAPENTIN 300 MG CAPSULE PO SCH ×2 (13:48→16:09)
[2020-06-08] MEDS: ZIPRASIDONE HCL 40 MG CAPSULE PO SCH (16:09)
[2020-06-08] MEDS ORDERED: DOCUSATE SODIUM 100 MG CAPSULE PO PRN (16:15)
[2020-06-08] MEDS ORDERED: LOPERAMIDE HCL 2 MG CAPSULE PO PRN (16:15)
[2020-06-08] MEDS ORDERED: CloNIDine HCL 0.1 MG TABLET PO PRN (16:15)
[2020-06-08] MEDS ORDERED: MAG HYDROX/AL HYDROX/SIMETH ES 30 ML SUSPENSION UDCUP PO PRN (16:15)
[2020-06-08] MEDS ORDERED: ACETAMINOPHEN 325 MG TABLET PO PRN (16:15)
[2020-06-08] MEDS ORDERED: ONDANSETRON HCL 4 MG TABLET PO PRN (16:15)
[2020-06-08] MEDS ORDERED: PETROLATUM,WHITE 28 GM JELLY TP PRN (16:15)
[2020-06-08] MEDS ORDERED: IBUPROFEN 400 MG TABLET PO PRN (16:15)
[2020-06-08] MEDS ORDERED: MAGNESIUM HYDROXIDE SUSPENSION 30 ML UDCUP PO PRN (16:15)
[2020-06-08] MEDS ORDERED: GuaiFENesin/D-METHORPHAN [SUGAR-FREE] 200-20MG/10 ML SYRUP UDCUP PO PRN (16:15)
[2020-06-08] MEDS ORDERED: ALBUTEROL SULFATE HFA 90 MCG/PUFF 8 GM INHALER IH PRN (16:15)
[2020-06-08 16:22] VITALS: BP 137/83
[2020-06-08] MEDS: ZOLPIDEM TARTRATE 10 MG TABLET PO PRN (20:38)
[2020-06-09] MEDS: HALOPERIDOL 5 MG TABLET PO PRN ×3 (02:56→20:29)
[2020-06-09] MEDS: LORazepam 2 MG TABLET PO PRN ×4 (03:09→20:29)
[2020-06-09 04:55] VITALS: BP 135/79
[2020-06-09 05:40] VITALS: BP 128/76
[2020-06-09] MEDS ORDERED: DiphenhydrAMINE HCL 50 MG/ML VIAL ONE (05:59)
[2020-06-09] MEDS ORDERED: HALOPERIDOL LACTATE 5 MG/ML VIAL ONE (05:59)
[2020-06-09] MEDS ORDERED: HALOPERIDOL LACTATE 5 MG/ML VIAL IM ONE (06:15)
[2020-06-09] MEDS ORDERED: DiphenhydrAMINE HCL 50 MG/ML VIAL IM ONE (06:15)
[2020-06-09] MEDS: ZIPRASIDONE HCL 40 MG CAPSULE PO SCH ×2 (07:00→16:07)
[2020-06-09 08:38] VITALS: BP 128/84
[2020-06-09] MEDS: SERTRALINE HCL 100 MG TABLET PO SCH (09:01)
[2020-06-09] MEDS: BuPROPion HCL XL 150 MG ER TABLET PO SCH (09:01)
[2020-06-09] MEDS: BusPIRone HCL 10 MG TABLET PO SCH ×3 (09:01→16:07)
[2020-06-09] MEDS: GABAPENTIN 300 MG CAPSULE PO SCH ×3 (09:02→16:07)
[2020-06-09 16:15] VITALS: BP 128/91
[2020-06-09] MEDS: ZOLPIDEM TARTRATE 10 MG TABLET PO PRN (23:39)
[2020-06-10 00:12] VITALS: BP 130/83
[2020-06-10] MEDS: LORazepam 2 MG TABLET PO PRN ×2 (01:07→08:28)
[2020-06-10] MEDS: ZIPRASIDONE HCL 40 MG CAPSULE PO SCH (06:49)
[2020-06-10 08:15] LABS: EOSINOPHILS % (AUTO) 3.5 % (1.0-6.0); HEMATOCRIT 43.4 % (41-53); HEMOGLOBIN 15.1 g/dL (13.5-17.5); LYMPHOCYTES # (AUTO) 1.8 K/uL (1.0-4.8); MEAN CORPUSCULAR HEMOGLOBIN 33.3 pg (26.0-34.0); MEAN CORPUSCULAR HGB CONC 34.7 G/dL (31.0-37.0); MEAN CORPUSCULAR VOLUME 96 fL (80-100); MONOCYTES # (AUTO) 0.9 K/uL (0.1-1.0); MONOCYTES % (AUTO) 10.7 % (2.0-9.0); NEUTROPHILS # (AUTO) 5.6 K/uL (1.8-7.7); NEUTROPHILS % (AUTO) 63.8 % (40.0-70.0); PLATELET COUNT (AUTO) 266 K/uL (150-450); RED BLOOD CELL COUNT(AUTO) 4.52 MIL/uL (4.50-5.90); RED CELL DISTRIBUTION WIDTH 14.6 % (11.5-14.5)
[2020-06-10] MEDS: BusPIRone HCL 10 MG TABLET PO SCH ×2 (08:28→12:02)
[2020-06-10] MEDS: BuPROPion HCL XL 150 MG ER TABLET PO SCH (08:28)
[2020-06-10] MEDS: SERTRALINE HCL 100 MG TABLET PO SCH (08:29)
[2020-06-10] MEDS: GABAPENTIN 300 MG CAPSULE PO SCH ×2 (08:29→12:02)
[2020-06-10 08:33] LABS: HEMOGLOBIN A1C 5.1 % (3.8-5.6)
[2020-06-10 08:41] LABS: ALANINE AMINOTRANSFERASE 43 U/L (12-78); ALBUMIN 3.3 g/dL (3.4-5.0); ALKALINE PHOSPHATASE 56 U/L (46-116); ANION GAP 8 mmol/L (8-16); ASPARTATE AMINOTRANSFERASE 35 U/L (15-37); BILIRUBIN,TOTAL 0.3 mg/dL (0.1-1.0); CALCIUM, TOTAL 9.2 mg/dL (8.8-10.5); CARBON DIOXIDE 26 mmol/L (22-29); CHLORIDE 103 mmol/L (98-107); CREATININE 0.94 mg/dL (0.60-1.30); GLOMERULAR FILTR. RATE CALC > 60 mL/min (>60); GLUCOSE,RANDOM 88 mg/dL (70-110); POTASSIUM 4.1 mmol/L (3.5-5.1); SODIUM SERUM 137 mmol/L (136-145); TOTAL PROTEIN, SERUM 6.3 g/dL (6.4-8.2); UREA NITROGEN, BLOOD 13 mg/dL (7-18)
[2020-06-10 09:00] VITALS: BP 139/82
== END 2020-06-10 13:00 | disposition home or self-care (01) | DRG 750 ==
LOC: EMS 18:07 → B3A 06-08 04:59 → UNDOADMIN 06-08 04:59 → B3A 06-08 08:29
PROVIDERS: ADMIT Psychiatry & Neurology Child & Adolescent Psychiatry; ATTEND Psychiatry & Neurology Child & Adolescent Psychiatry
DX: F25.0 Schizoaffective disorder, bipolar type (principal); E11.9 Type 2 diabetes mellitus without complications; F10.239 Alcohol dependence with withdrawal, unspecified; F17.200 Nicotine dependence, unspecified, uncomplicated; F19.90 Other psychoactive substance use, unspecified, uncomplicated; G40.909 Epilepsy, unspecified, not intractable, without status epilepticus; I10 Essential (primary) hypertension; J44.9 Chronic obstructive pulmonary disease, unspecified; K21.9 Gastro-esophageal reflux disease without esophagitis; M41.9 Scoliosis, unspecified; T50.911A Poisoning by multiple unspecified drugs, medicaments and biological substances, accidental (unintentional), initial encounter; Y92.89 Other specified places as the place of occurrence of the external cause
CPT/HCPCS: 83036; 86592; 87426; 93005; G0480; G0481; J1200; J1630; J2060

== ENCOUNTER 2020-06-18 01:31 | Inpatient (IN) | payer MEDICAID, OTHER ==
[~2020-06-18] VITALS: Ht 170.2 cm; Wt 95.8 kg
[2020-06-18 01:58] LABS: GLUCOSE,POINT OF CARE 94 MG/DL (70-110)
[2020-06-18 02:17] LABS: BASOPHILS % (AUTO) 0.9 % (0.0-2.0); EOSINOPHILS % (AUTO) 1.5 % (1.0-6.0); HEMATOCRIT 37.4 % (41-53); HEMOGLOBIN 12.7 g/dL (13.5-17.5); LYMPHOCYTES # (AUTO) 1.8 K/uL (1.0-4.8); LYMPHOCYTES % (AUTO) 15.3 % (22.0-44.0); MEAN CORPUSCULAR HEMOGLOBIN 32.8 pg (26.0-34.0); MEAN CORPUSCULAR HGB CONC 33.9 G/dL (31.0-37.0); MEAN CORPUSCULAR VOLUME 97 fL (80-100); MONOCYTES # (AUTO) 1.3 K/uL (0.1-1.0); MONOCYTES % (AUTO) 10.4 % (2.0-9.0); NEUTROPHILS # (AUTO) 8.7 K/uL (1.8-7.7); NEUTROPHILS % (AUTO) 71.9 % (40.0-70.0); PLATELET COUNT (AUTO) 326 K/uL (150-450); RED BLOOD CELL COUNT(AUTO) 3.86 MIL/uL (4.50-5.90); RED CELL DISTRIBUTION WIDTH 15.1 % (11.5-14.5)
[2020-06-18 02:22] LABS: ANION GAP 10 mmol/L (8-16); CALCIUM, TOTAL 9.3 mg/dL (8.8-10.5); CARBON DIOXIDE 25 mmol/L (22-29); CHLORIDE 108 mmol/L (98-107); CREATININE 0.93 mg/dL (0.60-1.30); GLOMERULAR FILTR. RATE CALC > 60 mL/min (>60); GLUCOSE,RANDOM 90 mg/dL (70-110); SODIUM SERUM 143 mmol/L (136-145); UREA NITROGEN, BLOOD 5 mg/dL (7-18)
[2020-06-18 02:27] LABS: ALANINE AMINOTRANSFERASE 27 U/L (12-78); ALBUMIN 3.3 g/dL (3.4-5.0); ALKALINE PHOSPHATASE 84 U/L (46-116); ASPARTATE AMINOTRANSFERASE 39 U/L (15-37); BILIRUBIN,TOTAL 0.1 mg/dL (0.1-1.0); TOTAL PROTEIN, SERUM 6.4 g/dL (6.4-8.2)
[2020-06-18] MEDS ORDERED: ChlordiazePOXIDE HCL 25 MG CAPSULE PO PRN (11:15)
[2020-06-18 12:14] LABS: COVID AG,FIA SOURCE NASAL SWAB
[2020-06-18] MEDS ORDERED: LORazepam 2 MG TABLET PO PRN (16:30)
[2020-06-18] MEDS ORDERED: IBUPROFEN 400 MG TABLET PO PRN (17:45)
[2020-06-18] MEDS ORDERED: ACETAMINOPHEN 325 MG TABLET PO PRN (17:45)
[2020-06-18] MEDS ORDERED: GuaiFENesin/D-METHORPHAN [SUGAR-FREE] 200-20MG/10 ML SYRUP UDCUP PO PRN (17:45)
[2020-06-18] MEDS ORDERED: ALBUTEROL SULFATE HFA 90 MCG/PUFF 8 GM INHALER IH PRN (17:45)
[2020-06-18] MEDS ORDERED: DOCUSATE SODIUM 100 MG CAPSULE PO PRN (17:45)
[2020-06-18] MEDS ORDERED: ONDANSETRON HCL 4 MG TABLET PO PRN (17:45)
[2020-06-18] MEDS ORDERED: PETROLATUM,WHITE 28 GM JELLY TP PRN (17:45)
[2020-06-18] MEDS ORDERED: CloNIDine HCL 0.1 MG TABLET PO PRN (17:45)
[2020-06-18] MEDS ORDERED: MAGNESIUM HYDROXIDE SUSPENSION 30 ML UDCUP PO PRN (17:45)
[2020-06-18 18:10] VITALS: BP 159/60
[2020-06-18] MEDS: ChlordiazePOXIDE HCL 25 MG CAPSULE PO PRN ×2 (18:21→20:33)
[2020-06-18] MEDS: LOPERAMIDE HCL 2 MG CAPSULE PO PRN (18:38)
[2020-06-18 18:46] VITALS: BP 161/80
[2020-06-18 20:10] VITALS: BP 150/89
[2020-06-18] MEDS: ZOLPIDEM TARTRATE 10 MG TABLET PO PRN (20:33)
[2020-06-18 21:02] VITALS: BP 150/89
[2020-06-18 21:10] VITALS: BP 148/90
[2020-06-19] VITALS (9 sets, daily range): BP systolic 126–141; BP diastolic 70–102
[2020-06-19] MEDS: ChlordiazePOXIDE HCL 25 MG CAPSULE PO PRN ×3 (00:37→23:05)
[2020-06-19] MEDS: LOPERAMIDE HCL 2 MG CAPSULE PO PRN ×2 (06:57→23:04)
[2020-06-19] MEDS ORDERED: ChlordiazePOXIDE HCL 25 MG CAPSULE PO PRN (07:00)
[2020-06-19] MEDS ORDERED: ChlordiazePOXIDE HCL 25 MG CAPSULE PO SCH (09:00)
[2020-06-19] MEDS: BusPIRone HCL 10 MG TABLET PO SCH ×3 (09:29→16:23)
[2020-06-19] MEDS: GABAPENTIN 300 MG CAPSULE PO SCH ×3 (09:31→16:23)
[2020-06-19] MEDS: BuPROPion HCL XL 150 MG ER TABLET PO SCH (09:31)
[2020-06-19] MEDS: SERTRALINE HCL 100 MG TABLET PO SCH (09:31)
[2020-06-19] MEDS: ChlordiazePOXIDE HCL 25 MG CAPSULE PO SCH ×4 (09:31→20:27)
[2020-06-19] MEDS ORDERED: DiphenhydrAMINE HCL 50 MG/ML VIAL ONE (14:30)
[2020-06-19] MEDS ORDERED: DiphenhydrAMINE HCL 50 MG/ML VIAL IM ONE (14:30)
[2020-06-19] MEDS ORDERED: ChlorproMAZINE HCL 50 MG/2 ML AMP IM ONE (14:30)
[2020-06-19] MEDS ORDERED: ChlorproMAZINE HCL 50 MG/2 ML AMP ONE (14:30)
[2020-06-19] MEDS: NICOTINE 14 MG/24 HOUR PATCH TD PRN (14:40)
[2020-06-19] MEDS: ZIPRASIDONE HCL 40 MG CAPSULE PO SCH (16:23)
[2020-06-19] MEDS: ZOLPIDEM TARTRATE 10 MG TABLET PO PRN (20:27)
[2020-06-20 00:11] VITALS: BP 124/78
[2020-06-20] MEDS: MAG HYDROX/AL HYDROX/SIMETH ES 30 ML SUSPENSION UDCUP PO PRN (01:04)
[2020-06-20] MEDS: ChlordiazePOXIDE HCL 25 MG CAPSULE PO PRN ×3 (01:21→06:52)
[2020-06-20] MEDS: NAPROXEN 500 MG TABLET PO PRN ×2 (06:52→17:35)
[2020-06-20] MEDS: ZIPRASIDONE HCL 40 MG CAPSULE PO SCH ×2 (06:52→16:01)
[2020-06-20 08:24] VITALS: BP 144/87
[2020-06-20] MEDS: SERTRALINE HCL 100 MG TABLET PO SCH (08:29)
[2020-06-20] MEDS: BuPROPion HCL XL 150 MG ER TABLET PO SCH (08:29)
[2020-06-20] MEDS: GABAPENTIN 300 MG CAPSULE PO SCH ×3 (08:29→16:01)
[2020-06-20] MEDS: LOPERAMIDE HCL 2 MG CAPSULE PO PRN (08:29)
[2020-06-20] MEDS: ChlordiazePOXIDE HCL 25 MG CAPSULE PO SCH ×4 (08:29→20:57)
[2020-06-20] MEDS: BusPIRone HCL 10 MG TABLET PO SCH ×3 (08:30→16:01)
[2020-06-20] MEDS: HALOPERIDOL 5 MG TABLET PO PRN (16:01)
[2020-06-20 16:16] VITALS: BP 140/72
[2020-06-20 16:18] VITALS: BP 140/72
[2020-06-21] MEDS: ChlordiazePOXIDE HCL 25 MG CAPSULE PO PRN ×2 (00:52→05:54)
[2020-06-21] MEDS: ZOLPIDEM TARTRATE 10 MG TABLET PO PRN ×2 (01:07→21:24)
[2020-06-21 01:29] VITALS: BP 136/75
[2020-06-21] MEDS: NAPROXEN 500 MG TABLET PO PRN (05:54)
[2020-06-21] MEDS: ZIPRASIDONE HCL 40 MG CAPSULE PO SCH ×2 (06:09→16:06)
[2020-06-21] MEDS ORDERED: ChlordiazePOXIDE HCL 10 MG CAPSULE PO PRN (07:00)
[2020-06-21 08:36] VITALS: BP 119/79
[2020-06-21] MEDS: BuPROPion HCL XL 150 MG ER TABLET PO SCH (08:52)
[2020-06-21] MEDS: SERTRALINE HCL 100 MG TABLET PO SCH (08:52)
[2020-06-21] MEDS: BusPIRone HCL 10 MG TABLET PO SCH ×3 (08:53→16:06)
[2020-06-21] MEDS: ChlordiazePOXIDE HCL 10 MG CAPSULE PO SCH ×4 (08:53→20:13)
[2020-06-21] MEDS: GABAPENTIN 300 MG CAPSULE PO SCH ×3 (08:53→16:06)
[2020-06-21] MEDS ORDERED: ChlordiazePOXIDE HCL 10 MG CAPSULE PO SCH (09:00)
[2020-06-21] MEDS ORDERED: ASPIRIN 81 MG CHEWABLE TABLET PO SCH (09:00)
[2020-06-21 09:02] VITALS: BP 128/77
[2020-06-21] MEDS: MAG HYDROX/AL HYDROX/SIMETH ES 30 ML SUSPENSION UDCUP PO PRN (09:09)
[2020-06-21] MEDS: ASPIRIN 325 MG TABLET PO SCH (09:17)
[2020-06-21] MEDS: LOPERAMIDE HCL 2 MG CAPSULE PO PRN ×3 (10:07→14:40)
[2020-06-21 16:17] VITALS: BP 132/88
[2020-06-22 00:36] VITALS: BP 130/84
[2020-06-22 00:40] VITALS: BP 130/84
[2020-06-22] MEDS: HALOPERIDOL 5 MG TABLET PO PRN (00:44)
[2020-06-22] MEDS: ChlordiazePOXIDE HCL 10 MG CAPSULE PO PRN ×6 (00:45→20:30)
[2020-06-22] MEDS: ZIPRASIDONE HCL 40 MG CAPSULE PO SCH ×2 (06:39→16:14)
[2020-06-22] MEDS ORDERED: ChlordiazePOXIDE HCL 10 MG CAPSULE PO PRN (07:00)
[2020-06-22] MEDS: ASPIRIN 325 MG TABLET PO SCH (08:00)
[2020-06-22] MEDS: SERTRALINE HCL 100 MG TABLET PO SCH (08:01)
[2020-06-22] MEDS: GABAPENTIN 300 MG CAPSULE PO SCH ×3 (08:01→16:14)
[2020-06-22] MEDS: BusPIRone HCL 10 MG TABLET PO SCH ×3 (08:01→16:14)
[2020-06-22] MEDS: BuPROPion HCL XL 150 MG ER TABLET PO SCH (08:01)
[2020-06-22] MEDS: NICOTINE 14 MG/24 HOUR PATCH TD PRN (08:02)
[2020-06-22 10:29] VITALS: BP 127/92
[2020-06-22] MEDS: NAPROXEN 500 MG TABLET PO PRN (10:29)
[2020-06-22] MEDS ORDERED: HydrOXYzine PAMOATE 50 MG CAPSULE PO SCH (21:00)
[2020-06-23 00:51] VITALS: BP 147/87
[2020-06-23] MEDS: ChlordiazePOXIDE HCL 10 MG CAPSULE PO PRN ×2 (00:58→06:47)
[2020-06-23 08:00] VITALS: BP 139/88
[2020-06-23] MEDS: NAPROXEN 500 MG TABLET PO PRN (08:25)
[2020-06-23] MEDS: SERTRALINE HCL 100 MG TABLET PO SCH (09:36)
[2020-06-23] MEDS: NICOTINE 14 MG/24 HOUR PATCH TD PRN (09:36)
[2020-06-23] MEDS: GABAPENTIN 300 MG CAPSULE PO SCH ×3 (09:39→16:09)
[2020-06-23] MEDS: BusPIRone HCL 10 MG TABLET PO SCH ×3 (09:40→16:09)
[2020-06-23] MEDS: BuPROPion HCL XL 150 MG ER TABLET PO SCH (09:40)
[2020-06-23] MEDS: ASPIRIN 325 MG TABLET PO SCH (09:41)
[2020-06-23] MEDS: MAG HYDROX/AL HYDROX/SIMETH ES 30 ML SUSPENSION UDCUP PO PRN (10:23)
[2020-06-23] MEDS: ZIPRASIDONE HCL 40 MG CAPSULE PO SCH (16:09)
[2020-06-23] MEDS ORDERED: ASPI-989 PO (16:55)
[2020-06-23] MEDS ORDERED: HYDR50CA9 PO (16:55)
== END 2020-06-23 17:39 | disposition home or self-care (01) | DRG 750 ==
LOC: EMS 01:31 → B2S 15:47 → B3A 06-19 19:26
PROVIDERS: ADMIT Psychiatry & Neurology Child & Adolescent Psychiatry; ATTEND Psychiatry & Neurology Child & Adolescent Psychiatry
DX: F25.0 Schizoaffective disorder, bipolar type (principal); R45.851 Suicidal ideations; K21.9 Gastro-esophageal reflux disease without esophagitis; G40.909 Epilepsy, unspecified, not intractable, without status epilepticus; D64.9 Anemia, unspecified; D72.829 Elevated white blood cell count, unspecified; Y90.6 Blood alcohol level of 120-199 mg/100 ml; Z20.828 Contact with and (suspected) exposure to other viral communicable diseases; F10.129 Alcohol abuse with intoxication, unspecified; F41.9 Anxiety disorder, unspecified; Z87.891 Personal history of nicotine dependence; Z91.14 Patient's other noncompliance with medication regimen
CPT/HCPCS: 87426; G0480; J1200; J3230

== ENCOUNTER 2021-01-28 18:49 | Inpatient (IN) | payer MEDICAID, OTHER ==
[~2021-01-28] VITALS: Ht 175.3 cm; Wt 91.3 kg
[~2021-01-28 18:49] MED LIST changes: +ASPI-989 PO; +OXCA300T57 PO; -SERT100T12 PO; +TAMS-13 PO; -ZIPR40CA2 PO
[2021-01-28 19:45] LABS: BASOPHILS % (AUTO) 0.4 % (0.0-2.0); EOSINOPHILS % (AUTO) 1.7 % (1.0-6.0); HEMATOCRIT 41.8 % (41-53); HEMOGLOBIN 14.3 g/dL (13.5-17.5); LYMPHOCYTES # (AUTO) 0.9 K/uL (1.0-4.8); MEAN CORPUSCULAR HGB CONC 34.2 G/dL (31.0-37.0); MEAN CORPUSCULAR VOLUME 97 fL (80-100); MONOCYTES # (AUTO) 0.8 K/uL (0.1-1.0); MONOCYTES % (AUTO) 9.5 % (2.0-9.0); NEUTROPHILS # (AUTO) 6.9 K/uL (1.8-7.7); NEUTROPHILS % (AUTO) 78.4 % (40.0-70.0); PLATELET COUNT (AUTO) 321 K/uL (150-450); RED BLOOD CELL COUNT(AUTO) 4.32 MIL/uL (4.50-5.90); RED CELL DISTRIBUTION WIDTH 14.2 % (11.5-14.5)
[2021-01-28 19:53] LABS: ANION GAP 11 mmol/L (8-16); CALCIUM, TOTAL 9.6 mg/dL (8.8-10.5); CARBON DIOXIDE 25 mmol/L (22-29); CHLORIDE 102 mmol/L (98-107); CREATININE 0.84 mg/dL (0.60-1.30); GLOMERULAR FILTR. RATE CALC > 60 mL/min (>60); GLUCOSE,RANDOM 105 mg/dL (70-110); POTASSIUM 3.8 mmol/L (3.5-5.1); SODIUM SERUM 138 mmol/L (136-145); UREA NITROGEN, BLOOD 7 mg/dL (7-18)
[2021-01-28 19:59] LABS: ALANINE AMINOTRANSFERASE 33 U/L (12-78); ALBUMIN 3.3 g/dL (3.4-5.0); ALKALINE PHOSPHATASE 79 U/L (46-116); ASPARTATE AMINOTRANSFERASE 26 U/L (15-37); BILIRUBIN,TOTAL 0.4 mg/dL (0.1-1.0); TOTAL PROTEIN, SERUM 6.5 g/dL (6.4-8.2)
[2021-01-28 20:08] LABS: COVID AG,FIA SOURCE NASOPHARYNGEAL
[2021-01-28 20:12] LABS: AMPHET/METH SCREEN,URINE POSITIVE (NEGATIVE); BARBITURATE SCREEN, URINE NEGATIVE (NEGATIVE); BENZODIAZEPINES SCREEN,URINE NEGATIVE (NEGATIVE); CANNABINOID SCREEN,URINE POSITIVE (NEGATIVE); COCAINE SCREEN,URINE NEGATIVE (NEGATIVE); METHADONE SCREEN, URINE NEGATIVE (NEGATIVE); OPIATE SCREEN,URINE NEGATIVE (NEGATIVE)
[2021-01-28 20:14] LABS: PHENCYCLIDINE SCREEN,URINE NEGATIVE (NEGATIVE)
[2021-01-28] MEDS ORDERED: IBUPROFEN 600 MG TABLET ONE (20:59)
[2021-01-28] MEDS ORDERED: ChlordiazePOXIDE HCL 25 MG CAPSULE PO ONE (21:00)
[2021-01-28] MEDS ORDERED: IBUPROFEN 600 MG TABLET PO ONE (21:00)
[2021-01-28] MEDS: LORazepam 2 MG TABLET PO PRN (21:04)
[2021-01-28] MEDS ORDERED: NICOTINE 21 MG/24 HOUR PATCH TD ONE (22:15)
[2021-01-29 00:33] VITALS: BP 143/96
[2021-01-29] MEDS: LORazepam 2 MG TABLET PO PRN ×4 (03:08→19:10)
[2021-01-29 08:23] LABS: CHOL/HDL RATIO 2.3 (4.2-7.3)
[2021-01-29] MEDS: TAMSULOSIN HCL 0.4 MG CAPSULE PO SCH (08:32)
[2021-01-29] MEDS: FOLIC ACID 1 MG TABLET PO SCH (08:33)
[2021-01-29] MEDS: GABAPENTIN 300 MG CAPSULE PO SCH ×3 (08:33→16:59)
[2021-01-29] MEDS ORDERED: NICOTINE 14 MG/24 HOUR PATCH TD ONE (09:00)
[2021-01-29] MEDS ORDERED: ASPIRIN 325 MG TABLET PO ONE (09:00)
[2021-01-29 09:10] VITALS: BP 152/93
[2021-01-29] MEDS ORDERED: ONDANSETRON HCL 4 MG TABLET PO PRN (10:15)
[2021-01-29] MEDS ORDERED: ALBUTEROL SULFATE HFA 90 MCG/PUFF 8 GM INHALER IH PRN (10:15)
[2021-01-29] MEDS ORDERED: LOPERAMIDE HCL 2 MG CAPSULE PO PRN (10:15)
[2021-01-29] MEDS ORDERED: MAG HYDROX/AL HYDROX/SIMETH ES 30 ML SUSPENSION UDCUP PO PRN (10:15)
[2021-01-29] MEDS ORDERED: MAGNESIUM HYDROXIDE SUSPENSION 30 ML UDCUP PO PRN (10:15)
[2021-01-29] MEDS ORDERED: CloNIDine HCL 0.1 MG TABLET PO PRN (10:15)
[2021-01-29] MEDS ORDERED: PETROLATUM,WHITE 28 GM JELLY TP PRN (10:15)
[2021-01-29] MEDS ORDERED: ACETAMINOPHEN 325 MG TABLET PO PRN (10:15)
[2021-01-29] MEDS ORDERED: GuaiFENesin/D-METHORPHAN [SUGAR-FREE] 200-20MG/10 ML SYRUP UDCUP PO PRN (10:15)
[2021-01-29] MEDS ORDERED: DOCUSATE SODIUM 100 MG CAPSULE PO PRN (10:15)
[2021-01-29] MEDS: BuPROPion HCL XL 150 MG ER TABLET PO SCH (12:57)
[2021-01-29] MEDS: BusPIRone HCL 10 MG TABLET PO SCH ×2 (12:57→16:59)
[2021-01-29] MEDS: IBUPROFEN 400 MG TABLET PO PRN (13:16)
[2021-01-29 13:40] VITALS: BP 140/75
[2021-01-29 16:08] VITALS: BP 147/82
[2021-01-29] MEDS: HALOPERIDOL 5 MG TABLET PO PRN (17:17)
[2021-01-30] MEDS: LORazepam 2 MG TABLET PO PRN ×3 (03:07→18:01)
[2021-01-30 05:43] VITALS: BP 111/71
[2021-01-30 07:26] LABS: FREE T4 (FREE THYROXINE) 0.63 ng/dL (0.76-1.46)
[2021-01-30 08:29] VITALS: BP 151/84
[2021-01-30] MEDS ORDERED: TAMSULOSIN HCL 0.4 MG CAPSULE PO SCH (09:00)
[2021-01-30] MEDS: TAMSULOSIN HCL 0.4 MG CAPSULE PO SCH (09:55)
[2021-01-30] MEDS: GABAPENTIN 300 MG CAPSULE PO SCH ×3 (09:56→16:46)
[2021-01-30] MEDS: FOLIC ACID 1 MG TABLET PO SCH (09:56)
[2021-01-30] MEDS: BusPIRone HCL 10 MG TABLET PO SCH ×3 (09:56→16:46)
[2021-01-30] MEDS: BuPROPion HCL XL 150 MG ER TABLET PO SCH (09:56)
[2021-01-30] MEDS: NICOTINE 14 MG/24 HOUR PATCH TD PRN (13:13)
[2021-01-30 16:30] VITALS: BP 132/82
[2021-01-30] MEDS: HALOPERIDOL 5 MG TABLET PO PRN (17:27)
[2021-01-30] MEDS: ZOLPIDEM TARTRATE 10 MG TABLET PO PRN (21:06)
[2021-01-31] MEDS: LORazepam 2 MG TABLET PO PRN ×5 (00:18→22:57)
[2021-01-31] MEDS: IBUPROFEN 400 MG TABLET PO PRN ×2 (00:19→13:41)
[2021-01-31 01:45] VITALS: BP_SYST 105; BP_SYST 147; BP_DIAS 69; BP_DIAS 98
[2021-01-31] MEDS: FOLIC ACID 1 MG TABLET PO SCH ×2 (08:06→09:00)
[2021-01-31] MEDS: BuPROPion HCL XL 150 MG ER TABLET PO SCH ×2 (08:06→09:00)
[2021-01-31] MEDS: TAMSULOSIN HCL 0.4 MG CAPSULE PO SCH ×2 (08:06→09:00)
[2021-01-31] MEDS: HALOPERIDOL 5 MG TABLET PO PRN ×2 (08:06→16:27)
[2021-01-31] MEDS: GABAPENTIN 300 MG CAPSULE PO SCH ×4 (08:06→16:17)
[2021-01-31] MEDS: BusPIRone HCL 10 MG TABLET PO SCH ×4 (08:06→16:17)
[2021-01-31 08:21] VITALS: BP 139/99
[2021-01-31 16:10] VITALS: BP 140/82
[2021-02-01 00:06] VITALS: BP 135/91
[2021-02-01] MEDS: ZOLPIDEM TARTRATE 10 MG TABLET PO PRN (00:11)
[2021-02-01] MEDS: HALOPERIDOL 5 MG TABLET PO PRN ×3 (04:10→21:17)
[2021-02-01] MEDS: BusPIRone HCL 10 MG TABLET PO SCH ×3 (08:33→16:04)
[2021-02-01] MEDS: TAMSULOSIN HCL 0.4 MG CAPSULE PO SCH (08:33)
[2021-02-01] MEDS: FOLIC ACID 1 MG TABLET PO SCH (08:33)
[2021-02-01] MEDS: BuPROPion HCL XL 150 MG ER TABLET PO SCH (08:33)
[2021-02-01] MEDS: GABAPENTIN 300 MG CAPSULE PO SCH ×3 (08:33→16:04)
[2021-02-01 11:20] VITALS: BP 133/90
[2021-02-01] MEDS: LORazepam 2 MG TABLET PO PRN ×3 (11:21→21:17)
[2021-02-01] MEDS: IBUPROFEN 400 MG TABLET PO PRN (13:33)
[2021-02-01] MEDS: NICOTINE 14 MG/24 HOUR PATCH TD PRN (15:54)
[2021-02-01 16:13] VITALS: BP 141/73
[2021-02-02 00:36] VITALS: BP 134/79
[2021-02-02] MEDS: LORazepam 2 MG TABLET PO PRN ×4 (01:39→17:24)
[2021-02-02] MEDS: HALOPERIDOL 5 MG TABLET PO PRN ×5 (01:39→23:47)
[2021-02-02] MEDS: ZOLPIDEM TARTRATE 10 MG TABLET PO PRN ×2 (02:27→21:12)
[2021-02-02] MEDS: TAMSULOSIN HCL 0.4 MG CAPSULE PO SCH (08:00)
[2021-02-02] MEDS: FOLIC ACID 1 MG TABLET PO SCH (08:00)
[2021-02-02] MEDS: BuPROPion HCL XL 150 MG ER TABLET PO SCH (08:01)
[2021-02-02] MEDS: BusPIRone HCL 10 MG TABLET PO SCH ×3 (08:01→16:09)
[2021-02-02] MEDS: GABAPENTIN 300 MG CAPSULE PO SCH ×3 (08:01→16:09)
[2021-02-02 08:28] VITALS: BP 130/70
[2021-02-02 16:03] VITALS: BP 121/72
[2021-02-03] MEDS: NICOTINE 14 MG/24 HOUR PATCH TD PRN ×2 (00:46→14:04)
[2021-02-03 01:22] VITALS: BP 116/80
[2021-02-03] MEDS: LORazepam 2 MG TABLET PO PRN ×4 (01:39→19:30)
[2021-02-03] MEDS: IBUPROFEN 400 MG TABLET PO PRN (01:54)
[2021-02-03] MEDS: HALOPERIDOL 5 MG TABLET PO PRN ×4 (06:20→23:16)
[2021-02-03 08:15] LABS: APPEARANCE,URINE CLEAR (CLEAR); BILIRUBIN,URINE NEGATIVE (NEGATIVE); GLUCOSE, URINE (UA) NEGATIVE (NEGATIVE); KETONES,URINE NEGATIVE (NEGATIVE); LEUKOCYTE ESTERASE ,URINE NEGATIVE (NEGATIVE); NITRATE,URINE NEGATIVE (NEGATIVE); OCCULT BLOOD,URINE NEGATIVE (NEGATIVE); PROTEIN,URINE NEGATIVE (NEGATIVE); UROBILINOGEN,URINE 0.2 mg/dL (<=1.0)
[2021-02-03 08:25] VITALS: BP 141/75
[2021-02-03] MEDS: TAMSULOSIN HCL 0.4 MG CAPSULE PO SCH (08:25)
[2021-02-03] MEDS: BuPROPion HCL XL 150 MG ER TABLET PO SCH (08:26)
[2021-02-03] MEDS: BusPIRone HCL 10 MG TABLET PO SCH ×3 (08:26→16:12)
[2021-02-03] MEDS: FOLIC ACID 1 MG TABLET PO SCH (08:26)
[2021-02-03] MEDS: GABAPENTIN 300 MG CAPSULE PO SCH ×3 (08:26→16:13)
[2021-02-03 16:09] VITALS: BP 120/80
[2021-02-03] MEDS: ZOLPIDEM TARTRATE 10 MG TABLET PO PRN (20:40)
[2021-02-04] VITALS: BP 126/78
[2021-02-04] MEDS: LORazepam 2 MG TABLET PO PRN ×3 (06:53→20:51)
[2021-02-04 08:01] LABS: COVID AG,FIA SOURCE NASOPHARYNGEAL
[2021-02-04] MEDS: TAMSULOSIN HCL 0.4 MG CAPSULE PO SCH (08:04)
[2021-02-04] MEDS: GABAPENTIN 300 MG CAPSULE PO SCH ×3 (08:04→16:26)
[2021-02-04] MEDS: FOLIC ACID 1 MG TABLET PO SCH (08:04)
[2021-02-04] MEDS: BuPROPion HCL XL 150 MG ER TABLET PO SCH (08:07)
[2021-02-04] MEDS: BusPIRone HCL 10 MG TABLET PO SCH ×3 (08:10→16:26)
[2021-02-04 08:56] VITALS: BP 134/71
[2021-02-04] MEDS: HALOPERIDOL 5 MG TABLET PO PRN ×3 (10:35→20:52)
[2021-02-04] MEDS: NICOTINE 14 MG/24 HOUR PATCH TD PRN (15:02)
[2021-02-04 16:29] VITALS: BP 121/86
[2021-02-04] MEDS ORDERED: DiphenhydrAMINE HCL 25 MG CAPSULE PO SCH (21:00)
[2021-02-05 01:16] VITALS: BP 129/76
[2021-02-05] MEDS: ZOLPIDEM TARTRATE 10 MG TABLET PO PRN (01:18)
[2021-02-05] MEDS: LORazepam 2 MG TABLET PO PRN (06:38)
[2021-02-05 08:31] VITALS: BP 130/73
[2021-02-05] MEDS ORDERED: MULTIVITAMINS, THERAPEUTIC TABLET PO SCH (09:00)
[2021-02-05] MEDS ORDERED: THIAMINE 100 MG TABLET PO SCH (09:00)
[2021-02-05] MEDS: GABAPENTIN 300 MG CAPSULE PO SCH ×2 (09:42→12:26)
[2021-02-05] MEDS: BusPIRone HCL 10 MG TABLET PO SCH ×2 (09:42→12:26)
[2021-02-05] MEDS: FOLIC ACID 1 MG TABLET PO SCH (09:42)
[2021-02-05] MEDS: TAMSULOSIN HCL 0.4 MG CAPSULE PO SCH (09:42)
[2021-02-05] MEDS: BuPROPion HCL XL 150 MG ER TABLET PO SCH (09:43)
[2021-02-05] MEDS: HALOPERIDOL 5 MG TABLET PO PRN (10:56)
[2021-02-05] MEDS: IBUPROFEN 400 MG TABLET PO PRN (11:01)
[2021-02-05] MEDS: NICOTINE 14 MG/24 HOUR PATCH TD PRN (11:25)
== END 2021-02-05 13:59 | disposition home or self-care (01) | DRG 750 ==
LOC: EMS 18:49 → B2S 20:12
DX: F25.0 Schizoaffective disorder, bipolar type (principal); R45.851 Suicidal ideations; M41.9 Scoliosis, unspecified; K21.9 Gastro-esophageal reflux disease without esophagitis; F17.210 Nicotine dependence, cigarettes, uncomplicated; F12.90 Cannabis use, unspecified, uncomplicated; F10.20 Alcohol dependence, uncomplicated; F15.10 Other stimulant abuse, uncomplicated; J44.9 Chronic obstructive pulmonary disease, unspecified; N40.0 Benign prostatic hyperplasia without lower urinary tract symptoms; M19.90 Unspecified osteoarthritis, unspecified site; G40.909 Epilepsy, unspecified, not intractable, without status epilepticus; Z20.822 Contact with and (suspected) exposure to COVID-19
CPT/HCPCS: 80053; 80061; 81003; 83036; 84439; 84443; 85025; 87426; 99285; G0480

== ENCOUNTER 2021-02-06 16:08 | Inpatient (IN) | payer MEDICAID, OTHER ==
[~2021-02-06] VITALS: Ht 175.3 cm; Wt 90.0 kg
[~2021-02-06 16:08] MED LIST changes: -ASPI-989 PO; -OXCA300T57 PO
[2021-02-06 17:13] LABS: BASOPHILS % (AUTO) 0.3 % (0.0-2.0); EOSINOPHILS % (AUTO) 0.9 % (1.0-6.0); HEMATOCRIT 43.6 % (41-53); HEMOGLOBIN 14.8 g/dL (13.5-17.5); LYMPHOCYTES # (AUTO) 0.7 K/uL (1.0-4.8); LYMPHOCYTES % (AUTO) 6.2 % (22.0-44.0); MEAN CORPUSCULAR HEMOGLOBIN 32.3 pg (26.0-34.0); MEAN CORPUSCULAR HGB CONC 33.9 G/dL (31.0-37.0); MEAN CORPUSCULAR VOLUME 95 fL (80-100); MONOCYTES % (AUTO) 9.3 % (2.0-9.0); NEUTROPHILS # (AUTO) 9.1 K/uL (1.8-7.7); NEUTROPHILS % (AUTO) 83.3 % (40.0-70.0); PLATELET COUNT (AUTO) 311 K/uL (150-450); RED BLOOD CELL COUNT(AUTO) 4.57 MIL/uL (4.50-5.90); RED CELL DISTRIBUTION WIDTH 13.9 % (11.5-14.5)
[2021-02-06 17:25] LABS: ANION GAP 7 mmol/L (8-16); CALCIUM, TOTAL 9.5 mg/dL (8.8-10.5); CARBON DIOXIDE 26 mmol/L (22-29); CHLORIDE 102 mmol/L (98-107); CREATININE 0.82 mg/dL (0.60-1.30); GLOMERULAR FILTR. RATE CALC > 60 mL/min (>60); GLUCOSE,RANDOM 104 mg/dL (70-110); POTASSIUM 4.3 mmol/L (3.5-5.1); SODIUM SERUM 135 mmol/L (136-145); UREA NITROGEN, BLOOD 9 mg/dL (7-18)
[2021-02-06 17:31] LABS: ALANINE AMINOTRANSFERASE 30 U/L (12-78); ALBUMIN 3.6 g/dL (3.4-5.0); ALKALINE PHOSPHATASE 86 U/L (46-116); ASPARTATE AMINOTRANSFERASE 20 U/L (15-37); BILIRUBIN,TOTAL 0.3 mg/dL (0.1-1.0); TOTAL PROTEIN, SERUM 6.6 g/dL (6.4-8.2)
[2021-02-06 17:50] LABS: AMPHET/METH SCREEN,URINE NEGATIVE (NEGATIVE); BARBITURATE SCREEN, URINE NEGATIVE (NEGATIVE); BENZODIAZEPINES SCREEN,URINE NEGATIVE (NEGATIVE); CANNABINOID SCREEN,URINE NEGATIVE (NEGATIVE); COCAINE SCREEN,URINE NEGATIVE (NEGATIVE); METHADONE SCREEN, URINE NEGATIVE (NEGATIVE); OPIATE SCREEN,URINE NEGATIVE (NEGATIVE)
[2021-02-06 17:51] LABS: PHENCYCLIDINE SCREEN,URINE NEGATIVE (NEGATIVE)
[2021-02-06] MEDS ORDERED: LORazepam 1 MG TABLET PO ONE (18:30)
[2021-02-06] MEDS ORDERED: DiphenhydrAMINE HCL 25 MG CAPSULE PO ONE (18:30)
[2021-02-06] MEDS ORDERED: HALOPERIDOL 5 MG TABLET PO ONE (18:30)
[2021-02-06] MEDS ORDERED: IBUPROFEN 600 MG TABLET PO ONE (19:30)
[2021-02-06 19:42] LABS: COVID AG,FIA SOURCE NASOPHARYNGEAL
[2021-02-06 22:05] VITALS: BP 131/92
[2021-02-06] MEDS: LORazepam 2 MG TABLET PO PRN (23:02)
[2021-02-07] MEDS: ZOLPIDEM TARTRATE 10 MG TABLET PO PRN (00:34)
[2021-02-07 00:47] VITALS: BP 155/88
[2021-02-07] MEDS: NICOTINE 21 MG/24 HOUR PATCH TD SCH (07:56)
[2021-02-07] MEDS: QUEtiapine FUMARATE 100 MG TABLET PO PRN ×2 (07:56→20:05)
[2021-02-07] MEDS: LORazepam 2 MG TABLET PO PRN ×4 (07:56→22:41)
[2021-02-07 08:07] LABS: CHOL/HDL RATIO 5.2 (4.2-7.3)
[2021-02-07 08:10] VITALS: BP 140/72
[2021-02-07] MEDS ORDERED: BuPROPion HCL XL 150 MG ER TABLET PO SCH (09:15)
[2021-02-07] MEDS: BusPIRone HCL 10 MG TABLET PO SCH ×2 (11:26→16:32)
[2021-02-07] MEDS: GABAPENTIN 300 MG CAPSULE PO SCH ×2 (11:28→16:32)
[2021-02-07] MEDS ORDERED: GuaiFENesin/D-METHORPHAN [SUGAR-FREE] 200-20MG/10 ML SYRUP UDCUP PO PRN (14:15)
[2021-02-07] MEDS ORDERED: NICOTINE 14 MG/24 HOUR PATCH TD PRN (14:15)
[2021-02-07] MEDS ORDERED: CloNIDine HCL 0.1 MG TABLET PO PRN (14:15)
[2021-02-07] MEDS ORDERED: ONDANSETRON HCL 4 MG TABLET PO PRN (14:15)
[2021-02-07] MEDS ORDERED: ALBUTEROL SULFATE HFA 90 MCG/PUFF 8 GM INHALER IH PRN (14:15)
[2021-02-07] MEDS ORDERED: PETROLATUM,WHITE 28 GM JELLY TP PRN (14:15)
[2021-02-07] MEDS ORDERED: DOCUSATE SODIUM 100 MG CAPSULE PO PRN (14:15)
[2021-02-07] MEDS ORDERED: LOPERAMIDE HCL 2 MG CAPSULE PO PRN (14:15)
[2021-02-07] MEDS ORDERED: MAGNESIUM HYDROXIDE SUSPENSION 30 ML UDCUP PO PRN (14:15)
[2021-02-07] MEDS ORDERED: MAG HYDROX/AL HYDROX/SIMETH ES 30 ML SUSPENSION UDCUP PO PRN (14:15)
[2021-02-07] MEDS: IBUPROFEN 400 MG TABLET PO PRN (15:04)
[2021-02-07 16:19] VITALS: BP 113/68
[2021-02-08 06:22] VITALS: BP 141/80
[2021-02-08 08:10] VITALS: BP 138/92
[2021-02-08] MEDS: LORazepam 2 MG TABLET PO PRN ×4 (08:13→20:39)
[2021-02-08] MEDS: NICOTINE 21 MG/24 HOUR PATCH TD SCH (08:58)
[2021-02-08] MEDS: BuPROPion HCL XL 150 MG ER TABLET PO SCH (08:58)
[2021-02-08] MEDS: BusPIRone HCL 10 MG TABLET PO SCH ×3 (08:58→16:36)
[2021-02-08] MEDS: TAMSULOSIN HCL 0.4 MG CAPSULE PO SCH (08:58)
[2021-02-08] MEDS: GABAPENTIN 300 MG CAPSULE PO SCH ×3 (08:58→16:37)
[2021-02-08] MEDS: IBUPROFEN 400 MG TABLET PO PRN ×2 (09:35→17:56)
[2021-02-08 16:22] VITALS: BP 140/76
[2021-02-08] MEDS: QUEtiapine FUMARATE 100 MG TABLET PO PRN (19:29)
[2021-02-09 00:50] VITALS: BP 143/79
[2021-02-09] MEDS: ZOLPIDEM TARTRATE 10 MG TABLET PO PRN (01:29)
[2021-02-09] MEDS: NICOTINE 21 MG/24 HOUR PATCH TD SCH (08:06)
[2021-02-09] MEDS: BuPROPion HCL XL 150 MG ER TABLET PO SCH (08:06)
[2021-02-09] MEDS: BusPIRone HCL 10 MG TABLET PO SCH ×3 (08:06→16:14)
[2021-02-09] MEDS: TAMSULOSIN HCL 0.4 MG CAPSULE PO SCH (08:06)
[2021-02-09] MEDS: GABAPENTIN 300 MG CAPSULE PO SCH ×3 (08:06→16:14)
[2021-02-09] MEDS: LORazepam 2 MG TABLET PO PRN ×4 (08:08→21:53)
[2021-02-09 09:14] VITALS: BP 145/82
[2021-02-09] MEDS: IBUPROFEN 400 MG TABLET PO PRN (11:25)
[2021-02-09 16:06] VITALS: BP 124/79
[2021-02-09] MEDS: OLANZapine 5 MG TABLET PO PRN (16:14)
[2021-02-09] MEDS: ACETAMINOPHEN 325 MG TABLET PO PRN (17:56)
[2021-02-09] MEDS: IBUPROFEN 600 MG TABLET PO PRN (18:45)
[2021-02-10 00:50] VITALS: BP 122/78
[2021-02-10] MEDS: ZOLPIDEM TARTRATE 10 MG TABLET PO PRN ×2 (01:04→22:43)
[2021-02-10] MEDS: IBUPROFEN 600 MG TABLET PO PRN ×3 (01:05→13:13)
[2021-02-10 01:07] VITALS: BP 142/79
[2021-02-10 08:01] VITALS: BP 139/86
[2021-02-10] MEDS: TAMSULOSIN HCL 0.4 MG CAPSULE PO SCH (08:09)
[2021-02-10] MEDS: LORazepam 2 MG TABLET PO PRN ×3 (08:09→20:05)
[2021-02-10] MEDS: BuPROPion HCL XL 150 MG ER TABLET PO SCH (08:09)
[2021-02-10] MEDS: NICOTINE 21 MG/24 HOUR PATCH TD SCH (08:09)
[2021-02-10] MEDS: GABAPENTIN 300 MG CAPSULE PO SCH ×3 (08:09→16:40)
[2021-02-10] MEDS: BusPIRone HCL 10 MG TABLET PO SCH ×3 (08:09→16:40)
[2021-02-10 08:24] VITALS: BP 139/86
[2021-02-10 16:02] VITALS: BP 121/75
[2021-02-11 05:06] VITALS: BP 128/81
[2021-02-11] MEDS: LORazepam 2 MG TABLET PO PRN ×3 (05:54→18:21)
[2021-02-11] MEDS: IBUPROFEN 600 MG TABLET PO PRN ×3 (07:12→19:24)
[2021-02-11] MEDS: TAMSULOSIN HCL 0.4 MG CAPSULE PO SCH (08:10)
[2021-02-11] MEDS: BusPIRone HCL 10 MG TABLET PO SCH ×3 (08:10→16:15)
[2021-02-11] MEDS: NICOTINE 21 MG/24 HOUR PATCH TD SCH (08:10)
[2021-02-11] MEDS: GABAPENTIN 300 MG CAPSULE PO SCH ×3 (08:10→16:15)
[2021-02-11] MEDS: BuPROPion HCL XL 150 MG ER TABLET PO SCH (08:10)
[2021-02-11 08:25] VITALS: BP 121/69
[2021-02-11] MEDS ORDERED: HALOPERIDOL LACTATE 5 MG/ML VIAL IM ONE (16:15)
[2021-02-11] MEDS ORDERED: DiphenhydrAMINE HCL 50 MG/ML VIAL IM ONE (16:15)
[2021-02-11 16:17] VITALS: BP 120/74
[2021-02-11] MEDS: ZOLPIDEM TARTRATE 10 MG TABLET PO PRN (22:26)
[2021-02-12 01:26] VITALS: BP 130/85
[2021-02-12] MEDS: IBUPROFEN 600 MG TABLET PO PRN ×3 (01:34→15:13)
[2021-02-12] MEDS: LORazepam 2 MG TABLET PO PRN ×2 (01:34→07:57)
[2021-02-12] MEDS: BusPIRone HCL 10 MG TABLET PO SCH ×3 (07:56→17:01)
[2021-02-12] MEDS: GABAPENTIN 300 MG CAPSULE PO SCH ×3 (07:56→17:01)
[2021-02-12] MEDS: BuPROPion HCL XL 150 MG ER TABLET PO SCH (07:56)
[2021-02-12] MEDS: TAMSULOSIN HCL 0.4 MG CAPSULE PO SCH (07:56)
[2021-02-12] MEDS: NICOTINE 21 MG/24 HOUR PATCH TD SCH (07:57)
[2021-02-12] MEDS: OMEGA-3/DHA/EPA/FISH OIL 500 MG CAPSULE PO SCH (07:57)
[2021-02-12 08:25] VITALS: BP 126/75
[2021-02-12] MEDS: LORazepam 1 MG TABLET PO PRN ×2 (13:14→19:34)
[2021-02-12 16:03] VITALS: BP 129/78
[2021-02-12] MEDS: ACETAMINOPHEN 325 MG TABLET PO PRN (18:35)
[2021-02-12] MEDS: OLANZapine 5 MG TABLET PO PRN (20:13)
[2021-02-12] MEDS: ZOLPIDEM TARTRATE 10 MG TABLET PO PRN (21:02)
[2021-02-13 01:18] VITALS: BP 137/95
[2021-02-13] MEDS: LORazepam 1 MG TABLET PO PRN ×4 (01:22→19:35)
[2021-02-13] MEDS: IBUPROFEN 600 MG TABLET PO PRN ×3 (01:22→15:20)
[2021-02-13] MEDS: BusPIRone HCL 10 MG TABLET PO SCH ×3 (08:09→16:59)
[2021-02-13] MEDS: TAMSULOSIN HCL 0.4 MG CAPSULE PO SCH (08:09)
[2021-02-13] MEDS: OMEGA-3/DHA/EPA/FISH OIL 500 MG CAPSULE PO SCH (08:09)
[2021-02-13] MEDS: BuPROPion HCL XL 150 MG ER TABLET PO SCH (08:09)
[2021-02-13] MEDS: GABAPENTIN 300 MG CAPSULE PO SCH ×3 (08:09→16:59)
[2021-02-13] MEDS: NICOTINE 21 MG/24 HOUR PATCH TD SCH (08:10)
[2021-02-13 08:26] VITALS: BP 123/68
[2021-02-13] MEDS: TraMADol HCL 50 MG TABLET PO PRN (11:19)
[2021-02-13 16:05] VITALS: BP 134/85
[2021-02-13] MEDS: OLANZapine 5 MG TABLET PO PRN (21:47)
[2021-02-13] MEDS: ZOLPIDEM TARTRATE 10 MG TABLET PO PRN (21:48)
[2021-02-14 00:10] VITALS: BP 133/87
[2021-02-14] MEDS: IBUPROFEN 600 MG TABLET PO PRN ×2 (00:18→06:22)
[2021-02-14] MEDS: TraMADol HCL 50 MG TABLET PO PRN (04:11)
[2021-02-14] MEDS: LORazepam 1 MG TABLET PO PRN (04:11)
[2021-02-14 08:00] VITALS: BP 110/63
[2021-02-14] MEDS: BusPIRone HCL 10 MG TABLET PO SCH ×2 (08:05→12:42)
[2021-02-14] MEDS: TAMSULOSIN HCL 0.4 MG CAPSULE PO SCH (08:05)
[2021-02-14] MEDS: GABAPENTIN 300 MG CAPSULE PO SCH ×2 (08:05→12:42)
[2021-02-14] MEDS: NICOTINE 21 MG/24 HOUR PATCH TD SCH (08:05)
[2021-02-14] MEDS: BuPROPion HCL XL 150 MG ER TABLET PO SCH (08:05)
[2021-02-14] MEDS: OMEGA-3/DHA/EPA/FISH OIL 500 MG CAPSULE PO SCH (08:05)
[2021-02-14] MEDS ORDERED: BUPR-93 PO (10:40)
[2021-02-14] MEDS ORDERED: OMEG-135 PO (10:41)
[2021-02-14] MEDS ORDERED: OMEG-50 PO (10:43)
== END 2021-02-14 14:52 | disposition home or self-care (01) | DRG 750 ==
LOC: EMS 16:10 → B2S 18:49 → B3A 02-09 08:23
DX: F25.0 Schizoaffective disorder, bipolar type (principal); R45.851 Suicidal ideations; E87.1 Hypo-osmolality and hyponatremia; M41.9 Scoliosis, unspecified; G40.909 Epilepsy, unspecified, not intractable, without status epilepticus; F15.10 Other stimulant abuse, uncomplicated; K21.9 Gastro-esophageal reflux disease without esophagitis; F17.210 Nicotine dependence, cigarettes, uncomplicated; F12.90 Cannabis use, unspecified, uncomplicated; F10.239 Alcohol dependence with withdrawal, unspecified; J44.9 Chronic obstructive pulmonary disease, unspecified; N40.0 Benign prostatic hyperplasia without lower urinary tract symptoms; M19.90 Unspecified osteoarthritis, unspecified site; Z20.822 Contact with and (suspected) exposure to COVID-19
CPT/HCPCS: 80053; 80061; 85025; 87081; 99285; G0480; J1200; J1630

== ENCOUNTER 2021-02-20 08:42 | Emergency (ER) | payer MEDICAID ==
[~2021-02-20 08:42] MED LIST changes: +OMEG-50 PO
== END 2021-02-20 09:47 | disposition left against medical advice (07) ==
LOC: EMS 08:49
DX: F10.129 Alcohol abuse with intoxication, unspecified (principal); Z53.21 Procedure and treatment not carried out due to patient leaving prior to being seen by health care provider

== ENCOUNTER 2021-02-20 12:35 | Inpatient (IN) | payer MEDICAID, OTHER ==
[~2021-02-20] VITALS: Ht 175.3 cm; Wt 88.5 kg
[2021-02-20] MEDS ORDERED: HALOPERIDOL 5 MG TABLET PO ONE (14:30)
[2021-02-20] MEDS ORDERED: LORazepam 1 MG TABLET PO ONE (14:30)
[2021-02-20 15:28] LABS: ANION GAP 16 mmol/L (8-16); CARBON DIOXIDE 21 mmol/L (22-29); CHLORIDE 96 mmol/L (98-107); CREATININE 0.85 mg/dL (0.60-1.30); GLOMERULAR FILTR. RATE CALC > 60 mL/min (>60); GLUCOSE,RANDOM 79 mg/dL (70-110); SODIUM SERUM 133 mmol/L (136-145); UREA NITROGEN, BLOOD 5 mg/dL (7-18)
[2021-02-20 15:29] LABS: CALCIUM, TOTAL 10.7 mg/dL (8.8-10.5)
[2021-02-20 15:31] LABS: ALANINE AMINOTRANSFERASE 69 U/L (12-78); ALBUMIN 4.4 g/dL (3.4-5.0); ALKALINE PHOSPHATASE 126 U/L (46-116); ASPARTATE AMINOTRANSFERASE 79 U/L (15-37); BILIRUBIN,TOTAL 0.5 mg/dL (0.1-1.0); TOTAL PROTEIN, SERUM 7.9 g/dL (6.4-8.2)
[2021-02-20 15:32] LABS: BARBITURATE SCREEN, URINE NEGATIVE (NEGATIVE)
[2021-02-20 15:33] LABS: AMPHET/METH SCREEN,URINE POSITIVE (NEGATIVE); BENZODIAZEPINES SCREEN,URINE NEGATIVE (NEGATIVE); CANNABINOID SCREEN,URINE NEGATIVE (NEGATIVE); COCAINE SCREEN,URINE NEGATIVE (NEGATIVE); METHADONE SCREEN, URINE NEGATIVE (NEGATIVE); OPIATE SCREEN,URINE NEGATIVE (NEGATIVE); PHENCYCLIDINE SCREEN,URINE NEGATIVE (NEGATIVE)
[2021-02-20 15:50] LABS: BASOPHILS % (AUTO) 0.9 % (0.0-2.0); EOSINOPHILS % (AUTO) 0.8 % (1.0-6.0); HEMATOCRIT 44.9 % (41-53); HEMOGLOBIN 15.3 g/dL (13.5-17.5); LYMPHOCYTES # (AUTO) 1.7 K/uL (1.0-4.8); LYMPHOCYTES % (AUTO) 15.6 % (22.0-44.0); MEAN CORPUSCULAR HEMOGLOBIN 32.4 pg (26.0-34.0); MEAN CORPUSCULAR HGB CONC 34.1 G/dL (31.0-37.0); MEAN CORPUSCULAR VOLUME 95 fL (80-100); MONOCYTES # (AUTO) 0.8 K/uL (0.1-1.0); MONOCYTES % (AUTO) 7.1 % (2.0-9.0); NEUTROPHILS % (AUTO) 75.6 % (40.0-70.0); PLATELET COUNT (AUTO) 351 K/uL (150-450); RED BLOOD CELL COUNT(AUTO) 4.71 MIL/uL (4.50-5.90); RED CELL DISTRIBUTION WIDTH 13.9 % (11.5-14.5)
[2021-02-20 17:59] LABS: COVID AG,FIA SOURCE NASOPHARYNGEAL
[2021-02-20] MEDS: LORazepam 2 MG TABLET PO PRN (18:53)
[2021-02-21] VITALS (10 sets, daily range): BP systolic 128–157; BP diastolic 77–100
[2021-02-21] MEDS: LORazepam 2 MG TABLET PO PRN ×5 (01:52→21:26)
[2021-02-21] MEDS: HALOPERIDOL 5 MG TABLET PO PRN (06:01)
[2021-02-21] MEDS: ACETAMINOPHEN 325 MG TABLET PO PRN (07:04)
[2021-02-21] MEDS ORDERED: ALBUTEROL SULFATE HFA 90 MCG/PUFF 8 GM INHALER IH PRN (07:30)
[2021-02-21] MEDS ORDERED: GuaiFENesin/D-METHORPHAN [SUGAR-FREE] 200-20MG/10 ML SYRUP UDCUP PO PRN (07:30)
[2021-02-21] MEDS ORDERED: LOPERAMIDE HCL 2 MG CAPSULE PO PRN (07:30)
[2021-02-21] MEDS ORDERED: MAG HYDROX/AL HYDROX/SIMETH ES 30 ML SUSPENSION UDCUP PO PRN (07:30)
[2021-02-21] MEDS ORDERED: MAGNESIUM HYDROXIDE SUSPENSION 30 ML UDCUP PO PRN (07:30)
[2021-02-21] MEDS ORDERED: CloNIDine HCL 0.1 MG TABLET PO PRN (07:30)
[2021-02-21] MEDS ORDERED: ONDANSETRON HCL 4 MG TABLET PO PRN (07:30)
[2021-02-21] MEDS ORDERED: DOCUSATE SODIUM 100 MG CAPSULE PO PRN (07:30)
[2021-02-21] MEDS ORDERED: PETROLATUM,WHITE 28 GM JELLY TP PRN (07:30)
[2021-02-21] MEDS: TAMSULOSIN HCL 0.4 MG CAPSULE PO SCH (08:43)
[2021-02-21] MEDS: GABAPENTIN 300 MG CAPSULE PO SCH ×3 (08:43→16:36)
[2021-02-21] MEDS: IBUPROFEN 400 MG TABLET PO PRN (08:43)
[2021-02-21] MEDS: BusPIRone HCL 10 MG TABLET PO SCH (16:36)
[2021-02-22] VITALS (9 sets, daily range): BP systolic 132–148; BP diastolic 83–97
[2021-02-22] MEDS: IBUPROFEN 400 MG TABLET PO PRN (00:30)
[2021-02-22] MEDS: ACETAMINOPHEN 325 MG TABLET PO PRN (03:47)
[2021-02-22] MEDS: HALOPERIDOL 5 MG TABLET PO PRN ×2 (03:52→07:58)
[2021-02-22] MEDS: LORazepam 2 MG TABLET PO PRN ×3 (05:16→20:15)
[2021-02-22] MEDS: NICOTINE 14 MG/24 HOUR PATCH TD PRN (05:20)
[2021-02-22] MEDS: GABAPENTIN 300 MG CAPSULE PO SCH ×3 (07:57→16:42)
[2021-02-22] MEDS: BuPROPion HCL XL 150 MG ER TABLET PO SCH (07:58)
[2021-02-22] MEDS: BusPIRone HCL 10 MG TABLET PO SCH ×3 (07:58→16:42)
[2021-02-22] MEDS: TAMSULOSIN HCL 0.4 MG CAPSULE PO SCH (07:59)
[2021-02-22] MEDS ORDERED: QUEtiapine FUMARATE 100 MG TABLET PO PRN (18:15)
[2021-02-23 01:25] VITALS: BP 147/90
[2021-02-23 03:25] VITALS: BP 144/88
[2021-02-23] MEDS: LORazepam 2 MG TABLET PO PRN ×4 (03:49→20:01)
[2021-02-23] MEDS: IBUPROFEN 400 MG TABLET PO PRN ×2 (03:49→16:10)
[2021-02-23] MEDS: ACETAMINOPHEN 325 MG TABLET PO PRN (06:06)
[2021-02-23] MEDS: TAMSULOSIN HCL 0.4 MG CAPSULE PO SCH (08:09)
[2021-02-23] MEDS: BusPIRone HCL 10 MG TABLET PO SCH ×3 (08:09→17:05)
[2021-02-23] MEDS: BuPROPion HCL XL 150 MG ER TABLET PO SCH (08:09)
[2021-02-23] MEDS: GABAPENTIN 300 MG CAPSULE PO SCH ×3 (08:09→17:05)
[2021-02-23 08:50] VITALS: BP 140/97
[2021-02-23 09:25] VITALS: BP 140/97
[2021-02-23 16:00] VITALS: BP 133/80
[2021-02-23 16:08] VITALS: BP 133/80
[2021-02-23] MEDS: TraMADol HCL 50 MG TABLET PO PRN (19:05)
[2021-02-23] MEDS ORDERED: QUEtiapine FUMARATE 100 MG TABLET PO SCH (21:00)
[2021-02-24] MEDS: ZOLPIDEM TARTRATE 10 MG TABLET PO PRN (00:49)
[2021-02-24 00:53] VITALS: BP 145/98
[2021-02-24 04:50] VITALS: BP 148/84
[2021-02-24] MEDS: LORazepam 2 MG TABLET PO PRN ×3 (05:07→17:37)
[2021-02-24] MEDS: TraMADol HCL 50 MG TABLET PO PRN ×2 (07:07→19:05)
[2021-02-24] MEDS: GABAPENTIN 300 MG CAPSULE PO SCH ×3 (08:07→16:09)
[2021-02-24] MEDS: BusPIRone HCL 10 MG TABLET PO SCH ×3 (08:07→16:09)
[2021-02-24] MEDS: BuPROPion HCL XL 150 MG ER TABLET PO SCH (08:07)
[2021-02-24] MEDS: TAMSULOSIN HCL 0.4 MG CAPSULE PO SCH (08:07)
[2021-02-24] MEDS: NICOTINE 14 MG/24 HOUR PATCH TD PRN (08:08)
[2021-02-24 08:20] VITALS: BP 145/94
[2021-02-24 09:43] VITALS: BP 145/94
[2021-02-24] MEDS: ARIPiprazole 10 MG TABLET PO SCH (10:00)
[2021-02-24] MEDS: IBUPROFEN 400 MG TABLET PO PRN (13:29)
[2021-02-24 16:43] VITALS: BP 135/89
[2021-02-24] MEDS: HydrOXYzine PAMOATE 50 MG CAPSULE PO SCH (20:25)
[2021-02-25] MEDS: LORazepam 2 MG TABLET PO PRN ×2 (01:35→07:55)
[2021-02-25] MEDS: IBUPROFEN 400 MG TABLET PO PRN ×2 (05:11→13:11)
[2021-02-25 05:14] VITALS: BP 134/83
[2021-02-25] MEDS: TraMADol HCL 50 MG TABLET PO PRN ×2 (06:45→18:57)
[2021-02-25] MEDS: NICOTINE 14 MG/24 HOUR PATCH TD PRN (07:55)
[2021-02-25] MEDS: ARIPiprazole 10 MG TABLET PO SCH (08:18)
[2021-02-25] MEDS: BuPROPion HCL XL 150 MG ER TABLET PO SCH (08:19)
[2021-02-25] MEDS: GABAPENTIN 300 MG CAPSULE PO SCH ×3 (08:19→16:06)
[2021-02-25] MEDS: TAMSULOSIN HCL 0.4 MG CAPSULE PO SCH (08:19)
[2021-02-25] MEDS: BusPIRone HCL 10 MG TABLET PO SCH ×3 (08:19→16:06)
[2021-02-25 09:01] VITALS: BP 125/77
[2021-02-25 09:10] VITALS: BP 124/72
[2021-02-25] MEDS: DIVALPROEX SODIUM 250 MG DR TABLET PO SCH ×2 (09:19→20:56)
[2021-02-25] MEDS: LORazepam 1 MG TABLET PO PRN ×3 (12:15→23:48)
[2021-02-25 17:03] VITALS: BP 112/77
[2021-02-25 17:59] VITALS: BP 112/77
[2021-02-25] MEDS: HydrOXYzine PAMOATE 50 MG CAPSULE PO SCH (20:52)
[2021-02-26] MEDS: IBUPROFEN 400 MG TABLET PO PRN ×2 (02:29→14:31)
[2021-02-26 02:30] VITALS: BP 125/77
[2021-02-26] MEDS: ACETAMINOPHEN 325 MG TABLET PO PRN (03:59)
[2021-02-26] MEDS: LORazepam 1 MG TABLET PO PRN ×5 (04:12→22:53)
[2021-02-26] MEDS: TraMADol HCL 50 MG TABLET PO PRN ×2 (06:44→19:03)
[2021-02-26] MEDS: TAMSULOSIN HCL 0.4 MG CAPSULE PO SCH (08:16)
[2021-02-26] MEDS: BuPROPion HCL XL 150 MG ER TABLET PO SCH (08:16)
[2021-02-26] MEDS: BusPIRone HCL 10 MG TABLET PO SCH ×3 (08:16→16:33)
[2021-02-26] MEDS: GABAPENTIN 300 MG CAPSULE PO SCH ×3 (08:16→16:33)
[2021-02-26] MEDS: DIVALPROEX SODIUM 250 MG DR TABLET PO SCH ×2 (08:16→20:42)
[2021-02-26] MEDS: THIAMINE 100 MG TABLET PO SCH (08:17)
[2021-02-26] MEDS: FOLIC ACID 1 MG TABLET PO SCH (08:17)
[2021-02-26] MEDS: NICOTINE 14 MG/24 HOUR PATCH TD PRN (08:26)
[2021-02-26 09:01] VITALS: BP 136/79
[2021-02-26 16:17] VITALS: BP 144/89
[2021-02-26] MEDS: HydrOXYzine PAMOATE 50 MG CAPSULE PO SCH (20:42)
[2021-02-27 01:52] VITALS: BP 132/78
[2021-02-27] MEDS: IBUPROFEN 400 MG TABLET PO PRN ×3 (01:55→23:52)
[2021-02-27] MEDS: LORazepam 1 MG TABLET PO PRN ×6 (02:57→21:49)
[2021-02-27] MEDS: ACETAMINOPHEN 325 MG TABLET PO PRN (05:56)
[2021-02-27] MEDS: TraMADol HCL 50 MG TABLET PO PRN ×2 (06:36→18:38)
[2021-02-27] MEDS: THIAMINE 100 MG TABLET PO SCH (07:36)
[2021-02-27] MEDS: BusPIRone HCL 10 MG TABLET PO SCH ×3 (07:36→16:48)
[2021-02-27] MEDS: TAMSULOSIN HCL 0.4 MG CAPSULE PO SCH (07:36)
[2021-02-27] MEDS: BuPROPion HCL XL 150 MG ER TABLET PO SCH (07:36)
[2021-02-27] MEDS: GABAPENTIN 300 MG CAPSULE PO SCH ×3 (07:36→16:48)
[2021-02-27] MEDS: FOLIC ACID 1 MG TABLET PO SCH (07:36)
[2021-02-27] MEDS: NICOTINE 14 MG/24 HOUR PATCH TD PRN (07:49)
[2021-02-27 08:08] VITALS: BP 127/70
[2021-02-27] MEDS: DIVALPROEX SODIUM 250 MG DR TABLET PO SCH (08:48)
[2021-02-27 16:22] VITALS: BP 140/83
[2021-02-27] MEDS: HydrOXYzine PAMOATE 50 MG CAPSULE PO SCH (21:16)
[2021-02-27] MEDS: DIVALPROEX SODIUM 500 MG DR TABLET PO SCH (21:17)
[2021-02-27 23:49] VITALS: BP 147/73
[2021-02-28] MEDS: ACETAMINOPHEN 325 MG TABLET PO PRN ×2 (02:50→15:11)
[2021-02-28] MEDS: LORazepam 1 MG TABLET PO PRN ×3 (03:28→16:20)
[2021-02-28] MEDS: TraMADol HCL 50 MG TABLET PO PRN ×2 (06:33→17:32)
[2021-02-28] MEDS: FOLIC ACID 1 MG TABLET PO SCH (08:16)
[2021-02-28] MEDS: BuPROPion HCL XL 150 MG ER TABLET PO SCH (08:16)
[2021-02-28] MEDS: THIAMINE 100 MG TABLET PO SCH (08:16)
[2021-02-28] MEDS: TAMSULOSIN HCL 0.4 MG CAPSULE PO SCH (08:17)
[2021-02-28] MEDS: GABAPENTIN 300 MG CAPSULE PO SCH ×2 (08:17→16:19)
[2021-02-28] MEDS: BusPIRone HCL 10 MG TABLET PO SCH ×3 (08:17→16:19)
[2021-02-28] MEDS: NICOTINE 14 MG/24 HOUR PATCH TD PRN (08:30)
[2021-02-28 11:07] VITALS: BP 129/82
[2021-02-28] MEDS ORDERED: GABAPENTIN 300 MG CAPSULE PO ONE (12:00)
[2021-02-28] MEDS: IBUPROFEN 400 MG TABLET PO PRN (13:15)
[2021-02-28 16:20] VITALS: BP 128/80
[2021-02-28] MEDS ORDERED: GABAPENTIN 300 MG CAPSULE PO SCH (17:00)
[2021-02-28] MEDS: DIVALPROEX SODIUM 500 MG DR TABLET PO SCH (20:45)
[2021-02-28] MEDS: HydrOXYzine PAMOATE 50 MG CAPSULE PO SCH (20:45)
[2021-02-28] MEDS: ZOLPIDEM TARTRATE 10 MG TABLET PO PRN (22:24)
[2021-03-01] MEDS: LORazepam 1 MG TABLET PO PRN ×3 (02:25→18:23)
[2021-03-01] MEDS: IBUPROFEN 400 MG TABLET PO PRN ×3 (04:20→23:58)
[2021-03-01 04:21] VITALS: BP 123/78
[2021-03-01 05:31] VITALS: BP 128/81
[2021-03-01] MEDS: GABAPENTIN 300 MG CAPSULE PO SCH ×3 (06:02→16:32)
[2021-03-01] MEDS: TraMADol HCL 50 MG TABLET PO PRN ×2 (06:03→19:04)
[2021-03-01] MEDS: TAMSULOSIN HCL 0.4 MG CAPSULE PO SCH (09:00)
[2021-03-01] MEDS: THIAMINE 100 MG TABLET PO SCH (09:00)
[2021-03-01] MEDS: BusPIRone HCL 10 MG TABLET PO SCH ×3 (09:00→16:32)
[2021-03-01] MEDS: FOLIC ACID 1 MG TABLET PO SCH (09:00)
[2021-03-01] MEDS: BuPROPion HCL XL 150 MG ER TABLET PO SCH (09:01)
[2021-03-01] MEDS: NICOTINE 14 MG/24 HOUR PATCH TD PRN (10:10)
[2021-03-01] MEDS ORDERED: GABAPENTIN 300 MG CAPSULE PO SCH (11:00)
[2021-03-01 13:49] VITALS: BP 116/65
[2021-03-01 16:09] VITALS: BP 123/78
[2021-03-01] MEDS: ACETAMINOPHEN 325 MG TABLET PO PRN (17:00)
[2021-03-01 19:04] VITALS: BP 119/68
[2021-03-01] MEDS: DIVALPROEX SODIUM 500 MG DR TABLET PO SCH (20:30)
[2021-03-01] MEDS: HydrOXYzine PAMOATE 50 MG CAPSULE PO SCH (20:30)
[2021-03-01] MEDS: ZOLPIDEM TARTRATE 10 MG TABLET PO PRN (23:57)
[2021-03-02] VITALS: BP 119/69
[2021-03-02 00:01] VITALS: BP 119/69
[2021-03-02] MEDS: LORazepam 1 MG TABLET PO PRN (03:27)
[2021-03-02] MEDS: ACETAMINOPHEN 325 MG TABLET PO PRN (04:43)
[2021-03-02 04:45] VITALS: BP 131/85
[2021-03-02] MEDS: GABAPENTIN 300 MG CAPSULE PO SCH ×3 (06:06→16:11)
[2021-03-02 06:40] VITALS: BP 119/84
[2021-03-02] MEDS: TraMADol HCL 50 MG TABLET PO PRN ×2 (06:42→18:53)
[2021-03-02 08:06] VITALS: BP 129/80
[2021-03-02 08:26] LABS: COVID AG,FIA SOURCE NASOPHARYNGEAL
[2021-03-02] MEDS: THIAMINE 100 MG TABLET PO SCH (08:31)
[2021-03-02] MEDS: BusPIRone HCL 10 MG TABLET PO SCH ×3 (08:32→16:12)
[2021-03-02] MEDS: FOLIC ACID 1 MG TABLET PO SCH (08:32)
[2021-03-02] MEDS: BuPROPion HCL XL 150 MG ER TABLET PO SCH (08:32)
[2021-03-02] MEDS: TAMSULOSIN HCL 0.4 MG CAPSULE PO SCH (08:32)
[2021-03-02] MEDS: NICOTINE 14 MG/24 HOUR PATCH TD PRN (08:38)
[2021-03-02] MEDS: IBUPROFEN 400 MG TABLET PO PRN (11:47)
[2021-03-02 16:07] VITALS: BP 123/78
[2021-03-02] MEDS: HydrOXYzine PAMOATE 50 MG CAPSULE PO SCH (20:42)
[2021-03-02] MEDS: DIVALPROEX SODIUM 500 MG DR TABLET PO SCH (20:42)
[2021-03-02] MEDS: ZOLPIDEM TARTRATE 10 MG TABLET PO PRN (23:10)
[2021-03-03] MEDS: IBUPROFEN 400 MG TABLET PO PRN ×3 (02:18→23:38)
[2021-03-03 03:58] VITALS: BP 122/74
[2021-03-03] MEDS: ACETAMINOPHEN 325 MG TABLET PO PRN (04:49)
[2021-03-03] MEDS: GABAPENTIN 300 MG CAPSULE PO SCH ×3 (05:42→16:30)
[2021-03-03] MEDS: TraMADol HCL 50 MG TABLET PO PRN ×2 (07:06→16:31)
[2021-03-03 08:04] VITALS: BP 131/71
[2021-03-03] MEDS: TAMSULOSIN HCL 0.4 MG CAPSULE PO SCH (08:06)
[2021-03-03] MEDS: FOLIC ACID 1 MG TABLET PO SCH (08:06)
[2021-03-03] MEDS: BusPIRone HCL 10 MG TABLET PO SCH ×3 (08:06→16:30)
[2021-03-03] MEDS: BuPROPion HCL XL 150 MG ER TABLET PO SCH (08:06)
[2021-03-03] MEDS: LORazepam 1 MG TABLET PO PRN (08:06)
[2021-03-03] MEDS: THIAMINE 100 MG TABLET PO SCH (08:06)
[2021-03-03] MEDS: NICOTINE 14 MG/24 HOUR PATCH TD PRN (08:19)
[2021-03-03 16:05] VITALS: BP 122/86
[2021-03-03] MEDS: HydrOXYzine PAMOATE 50 MG CAPSULE PO SCH (20:44)
[2021-03-03] MEDS: DIVALPROEX SODIUM 500 MG DR TABLET PO SCH (20:44)
[2021-03-03] MEDS: ZOLPIDEM TARTRATE 10 MG TABLET PO PRN (23:38)
[2021-03-04] VITALS: BP 110/70
[2021-03-04] MEDS: GABAPENTIN 300 MG CAPSULE PO SCH ×3 (06:19→16:16)
[2021-03-04 08:04] VITALS: BP 135/84
[2021-03-04] MEDS: FOLIC ACID 1 MG TABLET PO SCH (08:41)
[2021-03-04] MEDS: BuPROPion HCL XL 150 MG ER TABLET PO SCH ×2 (08:41→10:15)
[2021-03-04] MEDS: THIAMINE 100 MG TABLET PO SCH (08:41)
[2021-03-04] MEDS: LORazepam 1 MG TABLET PO PRN (08:41)
[2021-03-04] MEDS: NICOTINE 14 MG/24 HOUR PATCH TD PRN (10:13)
[2021-03-04] MEDS: TAMSULOSIN HCL 0.4 MG CAPSULE PO SCH (10:14)
[2021-03-04] MEDS: BusPIRone HCL 10 MG TABLET PO SCH ×3 (10:20→16:16)
[2021-03-04 10:50] VITALS: BP 101/62
[2021-03-04] MEDS: TraMADol HCL 50 MG TABLET PO PRN ×2 (10:50→17:33)
[2021-03-04] MEDS: IBUPROFEN 400 MG TABLET PO PRN ×2 (11:17→19:45)
[2021-03-04 16:06] VITALS: BP 139/88
[2021-03-04] MEDS: ACETAMINOPHEN 325 MG TABLET PO PRN (16:15)
[2021-03-04] MEDS: HydrOXYzine PAMOATE 50 MG CAPSULE PO SCH (20:52)
[2021-03-04] MEDS: DIVALPROEX SODIUM 500 MG DR TABLET PO SCH (20:53)
[2021-03-05 00:05] VITALS: BP 125/71
[2021-03-05 03:09] VITALS: BP 145/82
[2021-03-05] MEDS: ACETAMINOPHEN 325 MG TABLET PO PRN (03:09)
[2021-03-05] MEDS: GABAPENTIN 300 MG CAPSULE PO SCH ×2 (06:13→11:04)
[2021-03-05] MEDS: IBUPROFEN 400 MG TABLET PO PRN (06:18)
[2021-03-05 06:28] VITALS: BP 147/85
[2021-03-05 08:13] VITALS: BP 135/78
[2021-03-05] MEDS: FOLIC ACID 1 MG TABLET PO SCH (08:17)
[2021-03-05] MEDS: BusPIRone HCL 10 MG TABLET PO SCH ×2 (08:17→12:54)
[2021-03-05] MEDS: TAMSULOSIN HCL 0.4 MG CAPSULE PO SCH (08:17)
[2021-03-05] MEDS: THIAMINE 100 MG TABLET PO SCH (08:17)
[2021-03-05] MEDS: NICOTINE 14 MG/24 HOUR PATCH TD PRN (08:23)
[2021-03-05] MEDS: LORazepam 1 MG TABLET PO PRN (08:35)
[2021-03-05] MEDS ORDERED: DIVA-112 PO (10:39)
[2021-03-05] MEDS ORDERED: BuPROPion HCL XL 150 MG ER TABLET PO SCH (10:44)
[2021-03-05] MEDS ORDERED: BuPROPion HCL XL 150 MG ER TABLET PO ONE (10:45)
== END 2021-03-05 13:15 | disposition home or self-care (01) | DRG 750 ==
LOC: EMS 12:38 → B2S 21:20 → EMS 22:52 → B3A 02-23 19:59 → B2S 03-01 08:25
DX: F25.0 Schizoaffective disorder, bipolar type (principal); E87.1 Hypo-osmolality and hyponatremia; R45.851 Suicidal ideations; M41.9 Scoliosis, unspecified; G40.909 Epilepsy, unspecified, not intractable, without status epilepticus; F41.9 Anxiety disorder, unspecified; K21.9 Gastro-esophageal reflux disease without esophagitis; Z87.891 Personal history of nicotine dependence; J44.9 Chronic obstructive pulmonary disease, unspecified; N40.0 Benign prostatic hyperplasia without lower urinary tract symptoms; Z20.822 Contact with and (suspected) exposure to COVID-19; I10 Essential (primary) hypertension; M19.90 Unspecified osteoarthritis, unspecified site; F10.239 Alcohol dependence with withdrawal, unspecified; F15.10 Other stimulant abuse, uncomplicated; Z59.0 Homelessness; Z79.899 Other long term (current) drug therapy
CPT/HCPCS: 80053; 85025; 87081; 99285; G0480

== ENCOUNTER 2021-09-26 01:22 | Inpatient (IN) | payer MEDICAID, OTHER ==
[~2021-09-26] VITALS: Ht 175.3 cm; Wt 72.0 kg
[~2021-09-26 01:22] MED LIST changes: +DIVA-112 PO; -OMEG-50 PO; -TAMS-13 PO
[2021-09-26 02:03] LABS: BASOPHILS % (AUTO) 0.5 % (0.0-2.0); EOSINOPHILS % (AUTO) 1.1 % (1.0-6.0); HEMATOCRIT 43.3 % (41-53); HEMOGLOBIN 15.1 g/dL (13.5-17.5); LYMPHOCYTES % (AUTO) 9.8 % (22.0-44.0); MEAN CORPUSCULAR HGB CONC 34.9 G/dL (31.0-37.0); MEAN CORPUSCULAR VOLUME 91 fL (80-100); MONOCYTES # (AUTO) 0.7 K/uL (0.1-1.0); MONOCYTES % (AUTO) 6.9 % (2.0-9.0); NEUTROPHILS # (AUTO) 8.4 K/uL (1.8-7.7); NEUTROPHILS % (AUTO) 81.7 % (40.0-70.0); PLATELET COUNT (AUTO) 338 K/uL (150-450); RED BLOOD CELL COUNT(AUTO) 4.74 MIL/uL (4.50-5.90); RED CELL DISTRIBUTION WIDTH 14.6 % (11.5-14.5)
[2021-09-26 02:12] LABS: ANION GAP 10 mmol/L (8-16); CALCIUM, TOTAL 9.7 mg/dL (8.8-10.5); CARBON DIOXIDE 25 mmol/L (22-29); CHLORIDE 103 mmol/L (98-107); CREATININE 0.68 mg/dL (0.60-1.30); GLOMERULAR FILTR. RATE CALC > 60 mL/min (>60); GLUCOSE,RANDOM 84 mg/dL (70-110); POTASSIUM 3.7 mmol/L (3.5-5.1); SODIUM SERUM 138 mmol/L (136-145); UREA NITROGEN, BLOOD 6 mg/dL (7-18)
[2021-09-26 02:19] LABS: ALANINE AMINOTRANSFERASE 24 U/L (12-78); ALBUMIN 3.4 g/dL (3.4-5.0); ALKALINE PHOSPHATASE 97 U/L (46-116); ASPARTATE AMINOTRANSFERASE 29 U/L (15-37); BILIRUBIN,TOTAL 0.3 mg/dL (0.1-1.0)
[2021-09-26] MEDS ORDERED: LORazepam 2 MG/ML VIAL IM ONE (03:15)
[2021-09-26] MEDS ORDERED: HALOPERIDOL LACTATE 5 MG/ML VIAL IM ONE (03:15)
[2021-09-26] MEDS ORDERED: DiphenhydrAMINE HCL 50 MG/ML VIAL IM ONE (03:15)
[2021-09-26 03:16] LABS: COVID AG,FIA SOURCE NASOPHARYNGEAL
[2021-09-26 03:24] LABS: AMPHET/METH SCREEN,URINE POSITIVE (NEGATIVE); BARBITURATE SCREEN, URINE NEGATIVE (NEGATIVE); BENZODIAZEPINES SCREEN,URINE NEGATIVE (NEGATIVE); CANNABINOID SCREEN,URINE POSITIVE (NEGATIVE); COCAINE SCREEN,URINE NEGATIVE (NEGATIVE); METHADONE SCREEN, URINE NEGATIVE (NEGATIVE); OPIATE SCREEN,URINE NEGATIVE (NEGATIVE)
[2021-09-26 03:28] LABS: PHENCYCLIDINE SCREEN,URINE NEGATIVE (NEGATIVE)
[2021-09-26] MEDS ORDERED: LORazepam 2 MG TABLET PO PRN (04:15)
[2021-09-26] MEDS ORDERED: ZOLPIDEM TARTRATE 10 MG TABLET PO PRN ×2 (04:15→05:30)
[2021-09-26] MEDS ORDERED: QUEtiapine FUMARATE 100 MG TABLET PO PRN (04:15)
[2021-09-26 04:23] LABS: APPEARANCE,URINE CLEAR (CLEAR); BILIRUBIN,URINE NEGATIVE (NEGATIVE); GLUCOSE, URINE (UA) NEGATIVE (NEGATIVE); KETONES,URINE NEGATIVE (NEGATIVE); LEUKOCYTE ESTERASE ,URINE NEGATIVE (NEGATIVE); NITRATE,URINE NEGATIVE (NEGATIVE); OCCULT BLOOD,URINE NEGATIVE (NEGATIVE); PH,URINE 6.5 (5.0-8.0); PROTEIN,URINE NEGATIVE (NEGATIVE); UROBILINOGEN,URINE 0.2 mg/dL (<=1.0)
[2021-09-26] MEDS: LORazepam 2 MG TABLET PO PRN ×2 (13:15→22:52)
[2021-09-26] MEDS: HALOPERIDOL 5 MG TABLET PO PRN ×2 (15:57→22:52)
[2021-09-27 03:36] VITALS: BP 151/98
[2021-09-27] MEDS ORDERED: INFLUENZA VIRUS VACCINE QVS 2021-22 (6MO+)/PF 60 MCG/0.5 ML SYRINGE IM. ONE (04:15)
[2021-09-27] MEDS ORDERED: -PHARMACY VACCINE NOTE- MISC ONE (04:15)
[2021-09-27] MEDS ORDERED: BACITRACIN 28 GM OINTMENT TP PRN (07:00)
[2021-09-27] MEDS ORDERED: MAG HYDROX/AL HYDROX/SIMETH ES 30 ML SUSPENSION UDCUP PO PRN (07:00)
[2021-09-27] MEDS ORDERED: MAGNESIUM HYDROXIDE SUSPENSION 30 ML UDCUP PO PRN (07:00)
[2021-09-27] MEDS ORDERED: ACETAMINOPHEN 325 MG TABLET PO PRN (07:00)
[2021-09-27] MEDS ORDERED: ALBUTEROL SULFATE HFA 90 MCG/PUFF 8 GM INHALER IH PRN (07:00)
[2021-09-27] MEDS ORDERED: PETROLATUM,WHITE 28 GM JELLY TP PRN (07:00)
[2021-09-27] MEDS ORDERED: ONDANSETRON HCL 4 MG TABLET PO PRN (07:00)
[2021-09-27] MEDS ORDERED: OMEPRAZOLE 20 MG CAPSULE PO PRN (07:00)
[2021-09-27] MEDS ORDERED: BENZOCAINE/MENTHOL LOZENGE PO PRN (07:00)
[2021-09-27] MEDS ORDERED: LOPERAMIDE HCL 2 MG CAPSULE PO PRN (07:00)
[2021-09-27] MEDS ORDERED: DOCUSATE SODIUM 100 MG CAPSULE PO PRN (07:00)
[2021-09-27] MEDS ORDERED: CloNIDine HCL 0.1 MG TABLET PO PRN (07:00)
[2021-09-27] MEDS ORDERED: IBUPROFEN 600 MG TABLET PO PRN (07:00)
[2021-09-27] MEDS: GABAPENTIN 300 MG CAPSULE PO SCH ×3 (10:18→16:40)
[2021-09-27 11:50] VITALS: BP 148/102
[2021-09-27] MEDS: LORazepam 2 MG TABLET PO PRN (12:08)
[2021-09-27] MEDS: BuPROPion HCL XL 150 MG ER TABLET PO SCH (12:09)
[2021-09-27] MEDS: BusPIRone HCL 10 MG TABLET PO SCH ×2 (12:09→16:40)
[2021-09-27] MEDS: DIVALPROEX SODIUM 500 MG DR TABLET PO SCH (16:40)
[2021-09-27 16:45] VITALS: BP 148/100
[2021-09-27] MEDS: QUEtiapine FUMARATE 200 MG TABLET PO SCH (20:27)
[2021-09-28 05:35] VITALS: BP 133/95
[2021-09-28] MEDS: GABAPENTIN 300 MG CAPSULE PO SCH ×3 (07:58→17:30)
[2021-09-28] MEDS: BuPROPion HCL XL 150 MG ER TABLET PO SCH (07:58)
[2021-09-28] MEDS: BusPIRone HCL 10 MG TABLET PO SCH ×3 (07:58→16:28)
[2021-09-28] MEDS: DIVALPROEX SODIUM 500 MG DR TABLET PO SCH ×2 (07:58→17:30)
[2021-09-28] MEDS: HALOPERIDOL 5 MG TABLET PO PRN (08:01)
[2021-09-28] MEDS: LORazepam 2 MG TABLET PO PRN ×2 (08:01→16:28)
[2021-09-28 08:30] VITALS: BP 117/61
[2021-09-28 17:55] VITALS: BP 136/81
[2021-09-28] MEDS: QUEtiapine FUMARATE 200 MG TABLET PO SCH (21:00)
[2021-09-29 04:05] VITALS: BP 137/94
[2021-09-29 08:09] VITALS: BP 139/84
[2021-09-29] MEDS: GABAPENTIN 300 MG CAPSULE PO SCH ×3 (08:35→16:09)
[2021-09-29] MEDS: DIVALPROEX SODIUM 500 MG DR TABLET PO SCH ×2 (08:35→16:10)
[2021-09-29] MEDS: BusPIRone HCL 10 MG TABLET PO SCH ×3 (08:36→16:09)
[2021-09-29] MEDS: BuPROPion HCL XL 150 MG ER TABLET PO SCH (08:36)
[2021-09-29] MEDS: LORazepam 2 MG TABLET PO PRN ×2 (08:39→12:51)
[2021-09-29] MEDS ORDERED: NICOTINE 21 MG/24 HOUR PATCH TD SCH (15:00)
[2021-09-29] MEDS ORDERED: DIVA-112 PO (16:47)
[2021-09-29] MEDS ORDERED: BUPR-93 PO (17:14)
[2021-09-29] MEDS ORDERED: QUET200T PO (17:14)
[2021-09-29] MEDS ORDERED: BUSP10TA23 PO (17:15)
== END 2021-09-29 17:25 | disposition home or self-care (01) | DRG 750 ==
LOC: EMS 01:22 → 3EX 20:00
PROVIDERS: ADMIT Psychiatry & Neurology Psychiatry; ATTEND Psychiatry & Neurology Psychiatry
DX: F25.0 Schizoaffective disorder, bipolar type (principal); R45.851 Suicidal ideations; Z91.14 Patient's other noncompliance with medication regimen; E03.9 Hypothyroidism, unspecified; F41.9 Anxiety disorder, unspecified; G47.00 Insomnia, unspecified; I10 Essential (primary) hypertension; J44.9 Chronic obstructive pulmonary disease, unspecified; Z20.822 Contact with and (suspected) exposure to COVID-19; K59.00 Constipation, unspecified; Z87.891 Personal history of nicotine dependence; Z79.899 Other long term (current) drug therapy
CPT/HCPCS: 80053; 81003; 85025; 87081; 99285; G0378; G0480; J2060

== ENCOUNTER 2022-06-01 10:16 | Emergency (ER) | payer MEDICAID, OTHER ==
[~2022-06-01] VITALS: Ht 177.8 cm; Wt 84.0 kg
[~2022-06-01 10:16] MED LIST changes: +BUPR-50 PO; -BUPR-93 PO; +QUET200T PO
[2022-06-01 11:55] LABS: BASOPHILS % (AUTO) 0.8 % (0.0-2.0); EOSINOPHILS % (AUTO) 2.5 % (1.0-6.0); HEMATOCRIT 44.1 % (41-53); HEMOGLOBIN 14.8 g/dL (13.5-17.5); LYMPHOCYTES # (AUTO) 1.3 K/uL (1.0-4.8); LYMPHOCYTES % (AUTO) 14.6 % (22.0-44.0); MEAN CORPUSCULAR HEMOGLOBIN 33.8 pg (26.0-34.0); MEAN CORPUSCULAR HGB CONC 33.5 G/dL (31.0-37.0); MEAN CORPUSCULAR VOLUME 101 fL (80-100); MONOCYTES # (AUTO) 1.1 K/uL (0.1-1.0); MONOCYTES % (AUTO) 11.7 % (2.0-9.0); NEUTROPHILS # (AUTO) 6.4 K/uL (1.8-7.7); NEUTROPHILS % (AUTO) 70.4 % (40.0-70.0); PLATELET COUNT (AUTO) 256 K/uL (150-450); RED BLOOD CELL COUNT(AUTO) 4.37 MIL/uL (4.50-5.90); RED CELL DISTRIBUTION WIDTH 14.2 % (11.5-14.5)
[2022-06-01 12:08] LABS: ANION GAP 10 mmol/L (8-16); CARBON DIOXIDE 24 mmol/L (22-29); CHLORIDE 103 mmol/L (98-107); CREATININE 0.69 mg/dL (0.60-1.30); GLOMERULAR FILTR. RATE CALC > 60 mL/min (>60); GLUCOSE,RANDOM 73 mg/dL (70-110); POTASSIUM 3.7 mmol/L (3.5-5.1); SODIUM SERUM 137 mmol/L (136-145); UREA NITROGEN, BLOOD 10 mg/dL (7-18)
[2022-06-01 12:13] LABS: ALANINE AMINOTRANSFERASE 168 U/L (12-78); ALBUMIN 3.1 g/dL (3.4-5.0); ALKALINE PHOSPHATASE 81 U/L (46-116); ASPARTATE AMINOTRANSFERASE 165 U/L (15-37); BILIRUBIN,TOTAL 0.3 mg/dL (0.1-1.0); TOTAL PROTEIN, SERUM 6.8 g/dL (6.4-8.2)
[2022-06-01] MEDS ORDERED: LORazepam 1 MG TABLET PO ONE (13:45)
[2022-06-01] MEDS ORDERED: SODIUM CHLORIDE 0.9% 1,000 ML IV ONE (14:00)
[2022-06-01 15:25] VITALS: BP 129/85
== END 2022-06-01 15:39 | disposition home or self-care (01) ==
LOC: EMS 10:20
DX: F10.129 Alcohol abuse with intoxication, unspecified (principal); F20.9 Schizophrenia, unspecified; F31.9 Bipolar disorder, unspecified; F12.90 Cannabis use, unspecified, uncomplicated; F15.10 Other stimulant abuse, uncomplicated; F17.210 Nicotine dependence, cigarettes, uncomplicated; K21.9 Gastro-esophageal reflux disease without esophagitis
CPT/HCPCS: 99283; 80053; 85025; 36415; G0480

== ENCOUNTER 2022-06-02 07:30 | Inpatient (IN) | payer MEDICAID, OTHER ==
[~2022-06-02] VITALS: Ht 177.8 cm; Wt 81.1 kg
[2022-06-02 07:56] LABS: COVID AG,FIA SOURCE NASOPHARYNGEAL
[2022-06-02 07:58] LABS: BASOPHILS % (AUTO) 0.8 % (0.0-2.0); EOSINOPHILS % (AUTO) 1.6 % (1.0-6.0); HEMOGLOBIN 15.5 g/dL (13.5-17.5); LYMPHOCYTES # (AUTO) 0.8 K/uL (1.0-4.8); LYMPHOCYTES % (AUTO) 8.4 % (22.0-44.0); MEAN CORPUSCULAR HGB CONC 33.8 G/dL (31.0-37.0); MEAN CORPUSCULAR VOLUME 101 fL (80-100); MONOCYTES % (AUTO) 10.2 % (2.0-9.0); NEUTROPHILS # (AUTO) 7.5 K/uL (1.8-7.7); PLATELET COUNT (AUTO) 216 K/uL (150-450); RED BLOOD CELL COUNT(AUTO) 4.56 MIL/uL (4.50-5.90)
[2022-06-02 08:14] LABS: ANION GAP 7 mmol/L (8-16); CALCIUM, TOTAL 9.4 mg/dL (8.8-10.5); CARBON DIOXIDE 28 mmol/L (22-29); CHLORIDE 100 mmol/L (98-107); CREATININE 0.71 mg/dL (0.60-1.30); GLOMERULAR FILTR. RATE CALC > 60 mL/min (>60); GLUCOSE,RANDOM 68 mg/dL (70-110); POTASSIUM 3.9 mmol/L (3.5-5.1); SODIUM SERUM 135 mmol/L (136-145); UREA NITROGEN, BLOOD 13 mg/dL (7-18)
[2022-06-02 08:19] LABS: ALANINE AMINOTRANSFERASE 168 U/L (12-78); ALBUMIN 3.2 g/dL (3.4-5.0); ALKALINE PHOSPHATASE 83 U/L (46-116); ASPARTATE AMINOTRANSFERASE 161 U/L (15-37); BILIRUBIN,TOTAL 0.7 mg/dL (0.1-1.0); TOTAL PROTEIN, SERUM 6.9 g/dL (6.4-8.2)
[2022-06-02] MEDS: HALOPERIDOL 5 MG TABLET PO PRN ×2 (12:24→23:30)
[2022-06-02] MEDS: LORazepam 2 MG TABLET PO PRN ×2 (12:24→23:30)
[2022-06-02 12:33] LABS: APPEARANCE,URINE CLEAR (CLEAR); BILIRUBIN,URINE NEGATIVE (NEGATIVE); GLUCOSE, URINE (UA) NEGATIVE (NEGATIVE); LEUKOCYTE ESTERASE ,URINE NEGATIVE (NEGATIVE); NITRATE,URINE NEGATIVE (NEGATIVE); OCCULT BLOOD,URINE NEGATIVE (NEGATIVE); PROTEIN,URINE NEGATIVE (NEGATIVE); SPECIFIC GRAVITIY, URINE 1.011 (1.003-1.030); UROBILINOGEN,URINE <=1.0 mg/dL (<=1.0)
[2022-06-02 12:48] LABS: AMPHET/METH SCREEN,URINE POSITIVE (NEGATIVE); BARBITURATE SCREEN, URINE NEGATIVE (NEGATIVE); BENZODIAZEPINES SCREEN,URINE NEGATIVE (NEGATIVE); CANNABINOID SCREEN,URINE POSITIVE (NEGATIVE); COCAINE SCREEN,URINE NEGATIVE (NEGATIVE); METHADONE SCREEN, URINE NEGATIVE (NEGATIVE); OPIATE SCREEN,URINE NEGATIVE (NEGATIVE)
[2022-06-02 12:53] LABS: PHENCYCLIDINE SCREEN,URINE NEGATIVE (NEGATIVE)
[2022-06-02 13:01] LABS: GLUCOMETER DEV NAME(LOC) ERT.5; GLUCOSE,POINT OF CARE 131 MG/DL (70-110)
[2022-06-02 23:30] VITALS: BP 165/101
[2022-06-03 06:08] VITALS: BP 152/101
[2022-06-03] MEDS ORDERED: MAG HYDROX/AL HYDROX/SIMETH ES 30 ML SUSPENSION UDCUP PO PRN (06:30)
[2022-06-03] MEDS ORDERED: ACETAMINOPHEN 325 MG TABLET PO PRN (06:30)
[2022-06-03] MEDS ORDERED: LOPERAMIDE HCL 2 MG CAPSULE PO PRN (06:30)
[2022-06-03] MEDS ORDERED: DOCUSATE SODIUM 100 MG CAPSULE PO PRN (06:30)
[2022-06-03] MEDS ORDERED: ONDANSETRON HCL 4 MG TABLET PO PRN (06:30)
[2022-06-03] MEDS ORDERED: MAGNESIUM HYDROXIDE SUSPENSION 30 ML UDCUP PO PRN (06:30)
[2022-06-03] MEDS ORDERED: BACITRACIN 28 GM OINTMENT TP PRN (06:30)
[2022-06-03] MEDS ORDERED: OMEPRAZOLE 20 MG CAPSULE PO PRN (06:30)
[2022-06-03] MEDS ORDERED: ALBUTEROL SULFATE HFA 90 MCG/PUFF 8 GM INHALER IH PRN (06:30)
[2022-06-03] MEDS ORDERED: CloNIDine HCL 0.1 MG TABLET PO PRN (06:30)
[2022-06-03] MEDS ORDERED: PETROLATUM,WHITE 28 GM JELLY TP PRN (06:30)
[2022-06-03] MEDS ORDERED: BENZOCAINE/MENTHOL LOZENGE PO PRN (06:30)
[2022-06-03 08:00] VITALS: BP 154/85
[2022-06-03] MEDS: NICOTINE 14 MG/24 HOUR PATCH TD SCH (09:49)
[2022-06-03] MEDS: LISINOPRIL 10 MG TABLET PO SCH (09:49)
[2022-06-03] MEDS: GABAPENTIN 300 MG CAPSULE PO SCH ×3 (09:49→16:18)
[2022-06-03 11:55] VITALS: BP 145/78
[2022-06-03 16:00] VITALS: BP 121/81
[2022-06-03] MEDS: LORazepam 2 MG TABLET PO PRN ×2 (16:33→21:06)
[2022-06-03] MEDS: HALOPERIDOL 5 MG TABLET PO PRN (21:06)
[2022-06-04] MEDS: NICOTINE 14 MG/24 HOUR PATCH TD SCH (09:00)
[2022-06-04 09:03] VITALS: BP 119/73
[2022-06-04] MEDS: LORazepam 2 MG TABLET PO PRN (10:13)
[2022-06-04] MEDS: GABAPENTIN 300 MG CAPSULE PO SCH ×3 (10:13→18:24)
[2022-06-04] MEDS: HALOPERIDOL 5 MG TABLET PO PRN (10:13)
[2022-06-04] MEDS: LISINOPRIL 10 MG TABLET PO SCH (10:14)
[2022-06-04 17:04] VITALS: BP 102/62
[2022-06-04] MEDS: BusPIRone HCL 10 MG TABLET PO SCH (18:24)
[2022-06-04] MEDS: BuPROPion HCL XL 150 MG ER TABLET PO SCH (18:25)
[2022-06-04] MEDS: DIVALPROEX SODIUM 500 MG DR TABLET PO SCH (18:26)
[2022-06-05 06:56] VITALS: BP 110/64
[2022-06-05] MEDS: IBUPROFEN 600 MG TABLET PO PRN ×2 (06:56→16:12)
[2022-06-05] MEDS: LORazepam 2 MG TABLET PO PRN ×3 (06:59→21:20)
[2022-06-05 07:56] VITALS: BP 104/70
[2022-06-05] MEDS: NICOTINE 14 MG/24 HOUR PATCH TD SCH ×2 (09:00→09:12)
[2022-06-05] MEDS: DIVALPROEX SODIUM 500 MG DR TABLET PO SCH ×2 (09:11→16:14)
[2022-06-05] MEDS: GABAPENTIN 300 MG CAPSULE PO SCH ×3 (09:11→16:14)
[2022-06-05] MEDS: BuPROPion HCL XL 150 MG ER TABLET PO SCH (09:11)
[2022-06-05] MEDS: LISINOPRIL 10 MG TABLET PO SCH (09:12)
[2022-06-05] MEDS: BusPIRone HCL 10 MG TABLET PO SCH ×3 (09:12→16:12)
[2022-06-05 16:10] VITALS: BP 103/67
[2022-06-05 16:33] VITALS: BP 103/67
[2022-06-05] MEDS: HALOPERIDOL 5 MG TABLET PO PRN (22:18)
[2022-06-05] MEDS: ZOLPIDEM TARTRATE 10 MG TABLET PO PRN (23:01)
[2022-06-06] MEDS: LORazepam 2 MG TABLET PO PRN ×4 (05:57→23:07)
[2022-06-06 05:59] VITALS: BP 104/74
[2022-06-06 07:07] LABS: ANION GAP 8 mmol/L (8-16); CALCIUM, TOTAL 9.3 mg/dL (8.8-10.5); CARBON DIOXIDE 24 mmol/L (22-29); CHLORIDE 102 mmol/L (98-107); CREATININE 0.69 mg/dL (0.60-1.30); GLUCOSE,RANDOM 84 mg/dL (70-110); POTASSIUM 4.3 mmol/L (3.5-5.1); SODIUM SERUM 134 mmol/L (136-145); UREA NITROGEN, BLOOD 14 mg/dL (7-18)
[2022-06-06 07:11] LABS: GLOMERULAR FILTR. RATE CALC > 60 mL/min (>60)
[2022-06-06] MEDS: NICOTINE 14 MG/24 HOUR PATCH TD SCH (09:00)
[2022-06-06] MEDS: LISINOPRIL 10 MG TABLET PO SCH (09:00)
[2022-06-06] MEDS: GABAPENTIN 300 MG CAPSULE PO SCH ×3 (09:00→17:25)
[2022-06-06] MEDS: BusPIRone HCL 10 MG TABLET PO SCH ×3 (09:00→17:26)
[2022-06-06] MEDS: BuPROPion HCL XL 150 MG ER TABLET PO SCH (09:00)
[2022-06-06] MEDS: DIVALPROEX SODIUM 500 MG DR TABLET PO SCH ×2 (09:00→17:25)
[2022-06-06 13:14] VITALS: BP 118/77
[2022-06-06] MEDS: IBUPROFEN 600 MG TABLET PO PRN (13:17)
[2022-06-06 16:21] VITALS: BP 120/76
[2022-06-06] MEDS: RisperiDONE 1 MG TABLET PO SCH (17:25)
[2022-06-07] MEDS: ZOLPIDEM TARTRATE 10 MG TABLET PO PRN ×2 (02:10→20:55)
[2022-06-07] MEDS: LORazepam 2 MG TABLET PO PRN ×3 (07:50→17:57)
[2022-06-07 08:00] VITALS: BP 102/66
[2022-06-07] MEDS: GABAPENTIN 300 MG CAPSULE PO SCH ×3 (08:50→16:14)
[2022-06-07] MEDS: LISINOPRIL 10 MG TABLET PO SCH (08:50)
[2022-06-07] MEDS: DIVALPROEX SODIUM 500 MG DR TABLET PO SCH ×2 (08:50→16:14)
[2022-06-07] MEDS: BuPROPion HCL XL 150 MG ER TABLET PO SCH (08:50)
[2022-06-07] MEDS: NICOTINE 14 MG/24 HOUR PATCH TD SCH ×2 (08:51→09:00)
[2022-06-07] MEDS: RisperiDONE 1 MG TABLET PO SCH ×2 (08:51→16:14)
[2022-06-07] MEDS: BusPIRone HCL 10 MG TABLET PO SCH ×3 (08:51→16:14)
[2022-06-07 16:05] VITALS: BP 106/68
[2022-06-07 17:55] VITALS: BP 113/74
[2022-06-07] MEDS: HALOPERIDOL 5 MG TABLET PO PRN (23:20)
[2022-06-08 06:46] LABS: COVID AG,FIA SOURCE NASAL SWAB
[2022-06-08] MEDS: GABAPENTIN 300 MG CAPSULE PO SCH ×2 (08:46→12:03)
[2022-06-08] MEDS: RisperiDONE 1 MG TABLET PO SCH (08:46)
[2022-06-08] MEDS: DIVALPROEX SODIUM 500 MG DR TABLET PO SCH (08:46)
[2022-06-08] MEDS: BuPROPion HCL XL 150 MG ER TABLET PO SCH (08:47)
[2022-06-08] MEDS: LISINOPRIL 10 MG TABLET PO SCH (08:48)
[2022-06-08] MEDS: BusPIRone HCL 10 MG TABLET PO SCH ×2 (08:49→12:03)
[2022-06-08] MEDS: NICOTINE 14 MG/24 HOUR PATCH TD SCH (08:52)
[2022-06-08 11:03] VITALS: BP 113/67
[2022-06-08] MEDS: IBUPROFEN 600 MG TABLET PO PRN (12:22)
[2022-06-08] MEDS ORDERED: RISP0.5T39 PO (12:35)
[2022-06-08] MEDS ORDERED: LISI-893 PO (12:35)
== END 2022-06-08 13:00 | disposition home or self-care (01) | DRG 750 ==
LOC: EMS 07:34 → 3EI 20:02
PROVIDERS: ADMIT Psychiatry & Neurology Psychiatry; ATTEND Psychiatry & Neurology Psychiatry
DX: F25.1 Schizoaffective disorder, depressive type (principal); R45.851 Suicidal ideations; E03.9 Hypothyroidism, unspecified; Z20.822 Contact with and (suspected) exposure to COVID-19; F15.90 Other stimulant use, unspecified, uncomplicated; F41.9 Anxiety disorder, unspecified; G47.00 Insomnia, unspecified; I10 Essential (primary) hypertension; J44.9 Chronic obstructive pulmonary disease, unspecified; K59.00 Constipation, unspecified; K21.9 Gastro-esophageal reflux disease without esophagitis; R74.01 Elevation of levels of liver transaminase levels; Z79.899 Other long term (current) drug therapy; Z87.891 Personal history of nicotine dependence
CPT/HCPCS: 80048; 80053; 81003; 82962; 85025; 99285; G0480

== ENCOUNTER 2022-06-28 10:45 | Emergency (ER) | payer MEDICAID, OTHER ==
[~2022-06-28] VITALS: Ht 165.1 cm; Wt 75.0 kg
[~2022-06-28 10:45] MED LIST changes: +LISI-893 PO; -QUET200T PO; +RISP0.5T39 PO
[2022-06-28 12:02] LABS: BASOPHILS % (AUTO) 0.8 % (0.0-2.0); EOSINOPHILS % (AUTO) 6.7 % (1.0-6.0); HEMATOCRIT 38.8 % (41-53); HEMOGLOBIN 13.3 g/dL (13.5-17.5); LYMPHOCYTES % (AUTO) 13.5 % (22.0-44.0); MEAN CORPUSCULAR HEMOGLOBIN 34.3 pg (26.0-34.0); MEAN CORPUSCULAR HGB CONC 34.2 G/dL (31.0-37.0); MEAN CORPUSCULAR VOLUME 100 fL (80-100); MONOCYTES # (AUTO) 0.9 K/uL (0.1-1.0); MONOCYTES % (AUTO) 11.4 % (2.0-9.0); NEUTROPHILS # (AUTO) 5.2 K/uL (1.8-7.7); NEUTROPHILS % (AUTO) 67.6 % (40.0-70.0); PLATELET COUNT (AUTO) 264 K/uL (150-450); RED BLOOD CELL COUNT(AUTO) 3.87 MIL/uL (4.50-5.90); RED CELL DISTRIBUTION WIDTH 14.3 % (11.5-14.5)
[2022-06-28 12:11] LABS: COVID AG,FIA SOURCE NASOPHARYNGEAL
[2022-06-28 12:16] LABS: ANION GAP 7 mmol/L (8-16); CALCIUM, TOTAL 9.2 mg/dL (8.8-10.5); CARBON DIOXIDE 27 mmol/L (22-29); CHLORIDE 103 mmol/L (98-107); GLUCOSE,RANDOM 146 mg/dL (70-110); POTASSIUM 3.7 mmol/L (3.5-5.1); SODIUM SERUM 137 mmol/L (136-145); UREA NITROGEN, BLOOD 14 mg/dL (7-18)
[2022-06-28 12:17] LABS: GLOMERULAR FILTR. RATE CALC > 60 mL/min (>60)
[2022-06-28 12:24] LABS: ALANINE AMINOTRANSFERASE 29 U/L (12-78); ALBUMIN 3.1 g/dL (3.4-5.0); ALKALINE PHOSPHATASE 98 U/L (46-116); ASPARTATE AMINOTRANSFERASE 40 U/L (15-37); BILIRUBIN,TOTAL 0.2 mg/dL (0.1-1.0); TOTAL PROTEIN, SERUM 6.4 g/dL (6.4-8.2); VALPROIC ACID 44 mcg/mL (50-100)
[2022-06-28 15:27] VITALS: BP 128/73
== END 2022-06-28 16:29 | disposition home or self-care (01) ==
LOC: EMS 10:49
DX: R45.1 Restlessness and agitation (principal); F10.20 Alcohol dependence, uncomplicated; F32.9 Major depressive disorder, single episode, unspecified; F20.9 Schizophrenia, unspecified; F17.210 Nicotine dependence, cigarettes, uncomplicated; F12.90 Cannabis use, unspecified, uncomplicated; F15.90 Other stimulant use, unspecified, uncomplicated; Z87.19 Personal history of other diseases of the digestive system; Z86.69 Personal history of other diseases of the nervous system and sense organs; Z98.890 Other specified postprocedural states; Z20.822 Contact with and (suspected) exposure to COVID-19; Y90.0 Blood alcohol level of less than 20 mg/100 ml
CPT/HCPCS: 99285; 87426; 80053; 80164; 85025; 36415; G0480

== ENCOUNTER 2022-07-17 16:00 | Inpatient (IN) | payer MEDICAID, OTHER ==
[~2022-07-17] VITALS: Ht 177.8 cm; Wt 80.6 kg
[2022-07-17 16:37] LABS: BASOPHILS % (AUTO) 0.8 % (0.0-2.0); EOSINOPHILS % (AUTO) 0.1 % (1.0-6.0); HEMATOCRIT 48.7 % (41-53); HEMOGLOBIN 16.5 g/dL (13.5-17.5); LYMPHOCYTES # (AUTO) 1.7 K/uL (1.0-4.8); LYMPHOCYTES % (AUTO) 17.1 % (22.0-44.0); MEAN CORPUSCULAR HEMOGLOBIN 33.4 pg (26.0-34.0); MEAN CORPUSCULAR HGB CONC 33.9 G/dL (31.0-37.0); MEAN CORPUSCULAR VOLUME 99 fL (80-100); MONOCYTES % (AUTO) 9.9 % (2.0-9.0); NEUTROPHILS # (AUTO) 7.1 K/uL (1.8-7.7); NEUTROPHILS % (AUTO) 72.1 % (40.0-70.0); PLATELET COUNT (AUTO) 359 K/uL (150-450); RED BLOOD CELL COUNT(AUTO) 4.93 MIL/uL (4.50-5.90); RED CELL DISTRIBUTION WIDTH 13.9 % (11.5-14.5)
[2022-07-17 16:57] LABS: ANION GAP 13 mmol/L (8-16); CALCIUM, TOTAL 9.2 mg/dL (8.8-10.5); CARBON DIOXIDE 21 mmol/L (22-29); CHLORIDE 97 mmol/L (98-107); CREATININE 0.98 mg/dL (0.60-1.30); GLUCOSE,RANDOM 111 mg/dL (70-110); POTASSIUM 4.5 mmol/L (3.5-5.1); SODIUM SERUM 131 mmol/L (136-145); UREA NITROGEN, BLOOD 12 mg/dL (7-18)
[2022-07-17 16:59] LABS: GLOMERULAR FILTR. RATE CALC > 60 mL/min (>60)
[2022-07-17] MEDS ORDERED: LORazepam 2 MG/ML VIAL IM ONE (17:00)
[2022-07-17] MEDS ORDERED: DiphenhydrAMINE HCL 50 MG/ML VIAL IM ONE (17:00)
[2022-07-17] MEDS ORDERED: HALOPERIDOL LACTATE 5 MG/ML VIAL IM ONE (17:00)
[2022-07-17 17:03] LABS: ALANINE AMINOTRANSFERASE 75 U/L (12-78); ALBUMIN 3.1 g/dL (3.4-5.0); ALKALINE PHOSPHATASE 81 U/L (46-116); ASPARTATE AMINOTRANSFERASE 86 U/L (15-37); BILIRUBIN,TOTAL 0.2 mg/dL (0.1-1.0); TOTAL PROTEIN, SERUM 6.7 g/dL (6.4-8.2)
[2022-07-17] MEDS ORDERED: OLANZapine 5 MG RAPDIS TABLET PO PRN (17:15)
[2022-07-17] MEDS ORDERED: LORazepam 2 MG TABLET PO PRN (17:15)
[2022-07-17 18:40] LABS: COVID AG,FIA SOURCE NASAL SWAB
[2022-07-17 18:47] LABS: APPEARANCE,URINE CLEAR (CLEAR); BILIRUBIN,URINE NEGATIVE (NEGATIVE); GLUCOSE, URINE (UA) NEGATIVE (NEGATIVE); LEUKOCYTE ESTERASE ,URINE NEGATIVE (NEGATIVE); NITRATE,URINE NEGATIVE (NEGATIVE); OCCULT BLOOD,URINE NEGATIVE (NEGATIVE); PROTEIN,URINE NEGATIVE (NEGATIVE); SPECIFIC GRAVITIY, URINE 1.005 (1.003-1.030); UROBILINOGEN,URINE <=1.0 mg/dL (<=1.0)
[2022-07-17 18:53] LABS: AMPHET/METH SCREEN,URINE POSITIVE (NEGATIVE); BARBITURATE SCREEN, URINE NEGATIVE (NEGATIVE); BENZODIAZEPINES SCREEN,URINE NEGATIVE (NEGATIVE); CANNABINOID SCREEN,URINE NEGATIVE (NEGATIVE); COCAINE SCREEN,URINE NEGATIVE (NEGATIVE); METHADONE SCREEN, URINE NEGATIVE (NEGATIVE); OPIATE SCREEN,URINE NEGATIVE (NEGATIVE)
[2022-07-17 18:54] LABS: PHENCYCLIDINE SCREEN,URINE NEGATIVE (NEGATIVE)
[2022-07-17 19:45] VITALS: BP 131/75
[2022-07-17 20:25] VITALS: BP 131/75
[2022-07-17 20:45] VITALS: BP 127/71
[2022-07-17] MEDS ORDERED: INFLUENZA VIRUS VACCINE QVS 2022-23 (6MO+)/PF 60 MCG/0.5 ML SYRINGE IM. ONE (20:45)
[2022-07-17] MEDS ORDERED: PROMETHAZINE HCL 25 MG TABLET PO PRN (21:00)
[2022-07-17] MEDS ORDERED: DIAZEPAM 10 MG TABLET PO ONE (21:00)
[2022-07-17] MEDS ORDERED: MAG HYDROX/AL HYDROX/SIMETH ES 30 ML SUSPENSION UDCUP PO PRN (21:00)
[2022-07-17] MEDS ORDERED: DIAZEPAM 10 MG TABLET PO PRN (21:00)
[2022-07-17] MEDS ORDERED: DIVALPROEX SODIUM 500 MG ER TABLET PO ONE (21:00)
[2022-07-17] MEDS: MELATONIN 5 MG TABLET PO SCH (21:00)
[2022-07-17] MEDS ORDERED: TUBERCULIN, PURIFIED PROTEIN DERIVATIVE 5 TU/0.1 ML SYRINGE ID ONE (21:00)
[2022-07-17] MEDS ORDERED: LOPERAMIDE HCL 2 MG CAPSULE PO PRN ×2 (21:00)
[2022-07-17] MEDS ORDERED: CYANOCOBALAMIN 1,000 MCG/ML VIAL IM ONE (21:00)
[2022-07-17] MEDS ORDERED: MAGNESIUM HYDROXIDE SUSPENSION 30 ML UDCUP PO PRN (21:00)
[2022-07-17] MEDS: GABAPENTIN 300 MG CAPSULE PO SCH (21:00)
[2022-07-17] MEDS ORDERED: OLANZapine 5 MG RAPDIS TABLET PO SCH (21:00)
[2022-07-17] MEDS ORDERED: GuaiFENesin/D-METHORPHAN [SUGAR-FREE] 200-20MG/10 ML SYRUP UDCUP PO PRN (21:00)
[2022-07-17 21:45] VITALS: BP 130/75
[2022-07-17 22:45] VITALS: BP 131/77
[2022-07-17 23:45] VITALS: BP 129/78
[2022-07-18] VITALS (7 sets, daily range): BP systolic 131–148; BP diastolic 72–82
[2022-07-18] MEDS ORDERED: DIAZEPAM 10 MG TABLET PO PRN (07:00)
[2022-07-18 07:52] LABS: HEMOGLOBIN A1C 4.9 % (3.8-5.6)
[2022-07-18 08:03] LABS: CHOL/HDL RATIO 1.8 (4.2-7.3); FREE T4 (FREE THYROXINE) 0.7 ng/dL (0.76-1.46); THYROID STIMULATING HORMONE 0.6 uIU/mL (0.36-3.74)
[2022-07-18] MEDS: FOLIC ACID 1 MG TABLET PO SCH (08:08)
[2022-07-18] MEDS: NALTREXONE HCL 50 MG TABLET PO SCH (08:08)
[2022-07-18] MEDS: OMEGA-3/DHA/EPA/FISH OIL 1,000 MG CAPSULE PO SCH (08:08)
[2022-07-18] MEDS: DIVALPROEX SODIUM 500 MG ER TABLET PO SCH ×3 (08:08→17:26)
[2022-07-18] MEDS: GABAPENTIN 300 MG CAPSULE PO SCH ×4 (08:08→20:16)
[2022-07-18] MEDS: THIAMINE 100 MG TABLET PO SCH ×2 (08:08→17:26)
[2022-07-18] MEDS: DIAZEPAM 10 MG TABLET PO SCH ×4 (08:08→20:16)
[2022-07-18] MEDS: MULTIVITAMINS WITH MINERALS, THERAPEUTIC TABLET PO SCH (08:08)
[2022-07-18] MEDS: MELATONIN 5 MG TABLET PO SCH (20:16)
[2022-07-18] MEDS: OLANZapine 10 MG RAPDIS TABLET PO SCH (20:16)
[2022-07-19 08:10] VITALS: BP 152/83
[2022-07-19] MEDS: NALTREXONE HCL 50 MG TABLET PO SCH (08:22)
[2022-07-19] MEDS: MULTIVITAMINS WITH MINERALS, THERAPEUTIC TABLET PO SCH (08:22)
[2022-07-19] MEDS: OMEGA-3/DHA/EPA/FISH OIL 1,000 MG CAPSULE PO SCH (08:22)
[2022-07-19] MEDS: DIAZEPAM 10 MG TABLET PO SCH ×4 (08:22→20:02)
[2022-07-19] MEDS: GABAPENTIN 300 MG CAPSULE PO SCH ×4 (08:23→20:02)
[2022-07-19] MEDS: DIVALPROEX SODIUM 500 MG ER TABLET PO SCH ×3 (08:23→16:50)
[2022-07-19] MEDS: FOLIC ACID 1 MG TABLET PO SCH (08:23)
[2022-07-19] MEDS: THIAMINE 100 MG TABLET PO SCH ×2 (08:23→17:16)
[2022-07-19 09:29] VITALS: BP 151/93
[2022-07-19] MEDS: OLANZapine 10 MG RAPDIS TABLET PO SCH (20:02)
[2022-07-19 20:05] VITALS: BP 144/82
[2022-07-19] MEDS: MELATONIN 5 MG TABLET PO SCH (20:12)
[2022-07-19 21:09] VITALS: BP 134/86
[2022-07-20] MEDS ORDERED: DIAZEPAM 5 MG TABLET PO PRN (07:00)
[2022-07-20 08:12] VITALS: BP 140/93
[2022-07-20] MEDS: GABAPENTIN 300 MG CAPSULE PO SCH ×4 (08:17→20:18)
[2022-07-20] MEDS: DIAZEPAM 5 MG TABLET PO SCH ×4 (08:17→20:19)
[2022-07-20] MEDS: OMEGA-3/DHA/EPA/FISH OIL 1,000 MG CAPSULE PO SCH (08:17)
[2022-07-20] MEDS: THIAMINE 100 MG TABLET PO SCH ×2 (08:17→16:21)
[2022-07-20] MEDS: FOLIC ACID 1 MG TABLET PO SCH (08:17)
[2022-07-20] MEDS: DIVALPROEX SODIUM 500 MG ER TABLET PO SCH ×3 (08:17→16:21)
[2022-07-20] MEDS: MULTIVITAMINS WITH MINERALS, THERAPEUTIC TABLET PO SCH (08:17)
[2022-07-20] MEDS: NALTREXONE HCL 50 MG TABLET PO SCH (08:17)
[2022-07-20] MEDS: ACETAMINOPHEN 325 MG TABLET PO PRN (08:40)
[2022-07-20] MEDS: HydrOXYzine PAMOATE 50 MG CAPSULE PO PRN (17:08)
[2022-07-20] MEDS: IBUPROFEN 600 MG TABLET PO PRN (17:09)
[2022-07-20 20:15] VITALS: BP 132/84
[2022-07-20] MEDS: MELATONIN 5 MG TABLET PO SCH (20:19)
[2022-07-20] MEDS: ZOLPIDEM TARTRATE 10 MG TABLET PO PRN (20:19)
[2022-07-20] MEDS: OLANZapine 10 MG RAPDIS TABLET PO SCH (20:19)
[2022-07-21] MEDS: FOLIC ACID 1 MG TABLET PO SCH (08:20)
[2022-07-21] MEDS: DIVALPROEX SODIUM 500 MG ER TABLET PO SCH ×3 (08:20→16:32)
[2022-07-21] MEDS: NALTREXONE HCL 50 MG TABLET PO SCH (08:20)
[2022-07-21] MEDS: THIAMINE 100 MG TABLET PO SCH ×2 (08:20→16:32)
[2022-07-21] MEDS: GABAPENTIN 300 MG CAPSULE PO SCH ×4 (08:20→20:27)
[2022-07-21] MEDS: MULTIVITAMINS WITH MINERALS, THERAPEUTIC TABLET PO SCH (08:21)
[2022-07-21] MEDS: OMEGA-3/DHA/EPA/FISH OIL 1,000 MG CAPSULE PO SCH (08:21)
[2022-07-21 08:45] VITALS: BP 117/73
[2022-07-21 09:57] VITALS: BP 141/80
[2022-07-21] MEDS: IBUPROFEN 600 MG TABLET PO PRN (14:49)
[2022-07-21] MEDS: DIAZEPAM 5 MG TABLET PO PRN ×2 (16:33→21:56)
[2022-07-21] MEDS: ACETAMINOPHEN 325 MG TABLET PO PRN (16:46)
[2022-07-21 20:15] VITALS: BP 132/84
[2022-07-21] MEDS: OLANZapine 10 MG RAPDIS TABLET PO SCH (20:27)
[2022-07-21] MEDS: MELATONIN 5 MG TABLET PO SCH (20:27)
[2022-07-22] MEDS: DIAZEPAM 5 MG TABLET PO PRN (04:25)
[2022-07-22] MEDS: MULTIVITAMINS WITH MINERALS, THERAPEUTIC TABLET PO SCH (08:02)
[2022-07-22] MEDS: DIVALPROEX SODIUM 500 MG ER TABLET PO SCH ×3 (08:02→16:47)
[2022-07-22] MEDS: FOLIC ACID 1 MG TABLET PO SCH (08:02)
[2022-07-22] MEDS: GABAPENTIN 300 MG CAPSULE PO SCH ×4 (08:02→20:04)
[2022-07-22] MEDS: NALTREXONE HCL 50 MG TABLET PO SCH (08:03)
[2022-07-22] MEDS: HydrOXYzine PAMOATE 50 MG CAPSULE PO PRN ×2 (08:03→19:52)
[2022-07-22] MEDS: OMEGA-3/DHA/EPA/FISH OIL 1,000 MG CAPSULE PO SCH (08:03)
[2022-07-22] MEDS: THIAMINE 100 MG TABLET PO SCH ×2 (08:03→16:47)
[2022-07-22 08:19] VITALS: BP 127/76
[2022-07-22 09:18] VITALS: BP 142/78
[2022-07-22] MEDS: LORazepam 1 MG TABLET PO PRN ×3 (09:45→17:47)
[2022-07-22] MEDS: MELATONIN 5 MG TABLET PO SCH (20:04)
[2022-07-22] MEDS: OLANZapine 10 MG RAPDIS TABLET PO SCH (20:04)
[2022-07-22] MEDS: ZOLPIDEM TARTRATE 10 MG TABLET PO PRN (20:04)
[2022-07-22 20:07] VITALS: BP 130/82
[2022-07-23] MEDS: LORazepam 0.5 MG TABLET PO PRN ×4 (01:44→17:27)
[2022-07-23] MEDS: GABAPENTIN 300 MG CAPSULE PO SCH ×4 (08:02→20:17)
[2022-07-23] MEDS: OMEGA-3/DHA/EPA/FISH OIL 1,000 MG CAPSULE PO SCH (08:02)
[2022-07-23] MEDS: THIAMINE 100 MG TABLET PO SCH ×2 (08:02→17:27)
[2022-07-23] MEDS: NALTREXONE HCL 50 MG TABLET PO SCH (08:02)
[2022-07-23] MEDS: DIVALPROEX SODIUM 500 MG ER TABLET PO SCH ×3 (08:02→17:27)
[2022-07-23] MEDS: MULTIVITAMINS WITH MINERALS, THERAPEUTIC TABLET PO SCH (08:02)
[2022-07-23] MEDS: FOLIC ACID 1 MG TABLET PO SCH (08:03)
[2022-07-23 08:11] VITALS: BP 111/67
[2022-07-23] MEDS: CARBAMIDE PEROXIDE 6.5% 15 ML OTIC SOLUTION AU SCH (17:28)
[2022-07-23 20:11] VITALS: BP 108/64
[2022-07-23] MEDS: OLANZapine 10 MG RAPDIS TABLET PO SCH (20:17)
[2022-07-23] MEDS: ZOLPIDEM TARTRATE 10 MG TABLET PO PRN (20:17)
[2022-07-23] MEDS: MELATONIN 5 MG TABLET PO SCH (20:17)
[2022-07-24 04:52] VITALS: BP 112/72
[2022-07-24] MEDS: LORazepam 0.5 MG TABLET PO PRN ×3 (05:14→14:15)
[2022-07-24 08:15] VITALS: BP 118/73
[2022-07-24] MEDS: MULTIVITAMINS WITH MINERALS, THERAPEUTIC TABLET PO SCH (08:16)
[2022-07-24] MEDS: CARBAMIDE PEROXIDE 6.5% 15 ML OTIC SOLUTION AU SCH ×2 (08:27→16:16)
[2022-07-24] MEDS: THIAMINE 100 MG TABLET PO SCH ×2 (08:28→16:15)
[2022-07-24] MEDS: NALTREXONE HCL 50 MG TABLET PO SCH (08:28)
[2022-07-24] MEDS: OMEGA-3/DHA/EPA/FISH OIL 1,000 MG CAPSULE PO SCH (08:29)
[2022-07-24] MEDS: GABAPENTIN 300 MG CAPSULE PO SCH ×3 (08:29→16:15)
[2022-07-24] MEDS: FOLIC ACID 1 MG TABLET PO SCH (08:30)
[2022-07-24] MEDS: DIVALPROEX SODIUM 500 MG ER TABLET PO SCH ×3 (08:30→16:15)
[2022-07-24] MEDS ORDERED: MELA5TAB40 PO (14:14)
[2022-07-24] MEDS ORDERED: DIVA-80 PO (14:14)
[2022-07-24] MEDS ORDERED: NALT50TA PO (14:14)
[2022-07-24] MEDS ORDERED: GABA-1181 PO (14:14)
[2022-07-24] MEDS ORDERED: OLAN10TA26 PO (14:14)
[2022-07-24] MEDS ORDERED: OMEG-135 PO (14:14)
[2022-07-24] MEDS ORDERED: NICOTINE 14 MG/24 HOUR PATCH TD SCH (15:45)
== END 2022-07-24 17:18 | disposition home or self-care (01) | DRG 750 ==
LOC: EMS 16:00 → B3A 18:16
PROVIDERS: ADMIT Psychiatry & Neurology Psychiatry; ATTEND Psychiatry & Neurology Psychiatry
DX: F25.0 Schizoaffective disorder, bipolar type (principal); R45.851 Suicidal ideations; Z91.199 Patient's noncompliance with other medical treatment and regimen due to unspecified reason; E03.9 Hypothyroidism, unspecified; K21.9 Gastro-esophageal reflux disease without esophagitis; Z20.822 Contact with and (suspected) exposure to COVID-19; F41.1 Generalized anxiety disorder; F15.90 Other stimulant use, unspecified, uncomplicated; F12.90 Cannabis use, unspecified, uncomplicated; F17.210 Nicotine dependence, cigarettes, uncomplicated; I10 Essential (primary) hypertension; J44.9 Chronic obstructive pulmonary disease, unspecified; Z55.9 Problems related to education and literacy, unspecified; Z59.9 Problem related to housing and economic circumstances, unspecified; Z63.9 Problem related to primary support group, unspecified; Z65.3 Problems related to other legal circumstances; Z28.21 Immunization not carried out because of patient refusal; Z79.899 Other long term (current) drug therapy
CPT/HCPCS: 80053; 80061; 80164; 81003; 83036; 84439; 84443; 85025; 86592; G0480; J1200; J1630; J2060; Q9967

== ENCOUNTER 2022-08-08 17:54 | Emergency (ER) | payer MEDICAID, OTHER ==
[~2022-08-08] VITALS: Ht 177.8 cm; Wt 9.1 kg
[~2022-08-08 17:54] MED LIST changes: -BUPR-50 PO; -BUSP10TA23 PO; -DIVA-112 PO; +DIVA-80 PO; -LISI-893 PO; +MELA5TAB40 PO; +NALT50TA PO; +OLAN10TA26 PO; +OMEG-135 PO; -RISP0.5T39 PO
[2022-08-08 18:41] VITALS: BP 123/81
[2022-08-09] MEDS ORDERED: BUSP10TA23 PO (13:42)
== END 2022-08-08 22:32 | disposition home or self-care (01) ==
LOC: EMS 17:58
DX: F25.9 Schizoaffective disorder, unspecified (principal); F31.9 Bipolar disorder, unspecified; F10.10 Alcohol abuse, uncomplicated; F15.10 Other stimulant abuse, uncomplicated; F12.90 Cannabis use, unspecified, uncomplicated; F17.210 Nicotine dependence, cigarettes, uncomplicated; K21.9 Gastro-esophageal reflux disease without esophagitis
CPT/HCPCS: 99283; Z7502

== ENCOUNTER 2022-08-09 12:55 | Inpatient (IN) | payer MEDICAID, OTHER ==
[~2022-08-09] VITALS: Ht 177.8 cm; Wt 75.7 kg
[2022-08-09] MEDS ORDERED: BUSP10TA23 PO (13:42)
[2022-08-09 13:48] LABS: BASOPHILS % (AUTO) 0.4 % (0.0-2.0); EOSINOPHILS % (AUTO) 0.1 % (1.0-6.0); HEMATOCRIT 45.4 % (41-53); HEMOGLOBIN 15.2 g/dL (13.5-17.5); LYMPHOCYTES # (AUTO) 0.7 K/uL (1.0-4.8); LYMPHOCYTES % (AUTO) 3.8 % (22.0-44.0); MEAN CORPUSCULAR HEMOGLOBIN 33.2 pg (26.0-34.0); MEAN CORPUSCULAR HGB CONC 33.5 G/dL (31.0-37.0); MEAN CORPUSCULAR VOLUME 99 fL (80-100); MONOCYTES # (AUTO) 1.5 K/uL (0.1-1.0); MONOCYTES % (AUTO) 7.6 % (2.0-9.0); NEUTROPHILS # (AUTO) 17.2 K/uL (1.8-7.7); PLATELET COUNT (AUTO) 276 K/uL (150-450); RED BLOOD CELL COUNT(AUTO) 4.59 MIL/uL (4.50-5.90); RED CELL DISTRIBUTION WIDTH 14.4 % (11.5-14.5)
[2022-08-09 13:56] LABS: NEUTROPHILS % (AUTO) 88.1 % (40.0-70.0)
[2022-08-09 14:10] LABS: ANION GAP 5 mmol/L (8-16); CALCIUM, TOTAL 9.3 mg/dL (8.8-10.5); CARBON DIOXIDE 29 mmol/L (22-29); CHLORIDE 102 mmol/L (98-107); CREATININE 0.79 mg/dL (0.60-1.30); GLUCOSE,RANDOM 85 mg/dL (70-110); POTASSIUM 4.1 mmol/L (3.5-5.1); SODIUM SERUM 136 mmol/L (136-145); UREA NITROGEN, BLOOD 7 mg/dL (7-18)
[2022-08-09 14:11] LABS: GLOMERULAR FILTR. RATE CALC > 60 mL/min (>60)
[2022-08-09 14:15] LABS: ALANINE AMINOTRANSFERASE 84 U/L (12-78); ALBUMIN 3.1 g/dL (3.4-5.0); ALKALINE PHOSPHATASE 105 U/L (46-116); ASPARTATE AMINOTRANSFERASE 114 U/L (15-37); BILIRUBIN,TOTAL 0.3 mg/dL (0.1-1.0); TOTAL PROTEIN, SERUM 7.4 g/dL (6.4-8.2)
[2022-08-09] MEDS ORDERED: OLANZapine 5 MG TABLET PO ONE (14:15)
[2022-08-09] MEDS ORDERED: LORazepam 2 MG TABLET PO ONE (14:15)
[2022-08-09] MEDS ORDERED: DiphenhydrAMINE HCL 25 MG CAPSULE PO ONE (14:15)
[2022-08-09] MEDS ORDERED: LOPERAMIDE HCL 2 MG CAPSULE PO PRN ×2 (15:45)
[2022-08-09] MEDS ORDERED: DIAZEPAM 10 MG TABLET PO PRN (15:45)
[2022-08-09] MEDS ORDERED: MAGNESIUM HYDROXIDE SUSPENSION 30 ML UDCUP PO PRN (15:45)
[2022-08-09] MEDS ORDERED: ZOLPIDEM TARTRATE 10 MG TABLET PO PRN (15:45)
[2022-08-09] MEDS ORDERED: OLANZapine 5 MG RAPDIS TABLET PO PRN (15:45)
[2022-08-09] MEDS ORDERED: PROMETHAZINE HCL 25 MG TABLET PO PRN (15:45)
[2022-08-09] MEDS ORDERED: GuaiFENesin/D-METHORPHAN [SUGAR-FREE] 200-20MG/10 ML SYRUP UDCUP PO PRN (15:45)
[2022-08-09] MEDS: FLUoxetine HCL 10 MG CAPSULE PO SCH (16:30)
[2022-08-09] MEDS: DIVALPROEX SODIUM 500 MG ER TABLET PO SCH (16:30)
[2022-08-09] MEDS: GABAPENTIN 300 MG CAPSULE PO SCH ×2 (16:30→20:51)
[2022-08-09] MEDS: ACETAMINOPHEN 325 MG TABLET PO PRN (18:23)
[2022-08-09 18:31] LABS: COVID AG,FIA SOURCE NASAL SWAB
[2022-08-09] MEDS: THIAMINE 100 MG TABLET PO SCH (19:35)
[2022-08-09 20:30] VITALS: BP 130/62
[2022-08-09] MEDS: MELATONIN 5 MG TABLET PO SCH (20:51)
[2022-08-09] MEDS: OLANZapine 10 MG RAPDIS TABLET PO SCH (20:51)
[2022-08-09 21:30] VITALS: BP 127/65
[2022-08-09 22:30] VITALS: BP 116/73
[2022-08-09 23:30] VITALS: BP 123/71
[2022-08-10 00:30] VITALS: BP 130/69
[2022-08-10 04:30] VITALS: BP 129/62
[2022-08-10] MEDS ORDERED: DIAZEPAM 10 MG TABLET PO PRN (07:00)
[2022-08-10] MEDS: THIAMINE 100 MG TABLET PO SCH ×2 (08:32→16:45)
[2022-08-10] MEDS: DIVALPROEX SODIUM 500 MG ER TABLET PO SCH ×3 (08:32→16:45)
[2022-08-10] MEDS: FLUoxetine HCL 10 MG CAPSULE PO SCH ×3 (08:32→16:45)
[2022-08-10] MEDS: OMEGA-3/DHA/EPA/FISH OIL 1,000 MG CAPSULE PO SCH (08:32)
[2022-08-10] MEDS: MULTIVITAMINS WITH MINERALS, THERAPEUTIC TABLET PO SCH (08:32)
[2022-08-10] MEDS: GABAPENTIN 300 MG CAPSULE PO SCH ×4 (08:32→20:27)
[2022-08-10] MEDS: NALTREXONE HCL 50 MG TABLET PO SCH (08:32)
[2022-08-10] MEDS: FOLIC ACID 1 MG TABLET PO SCH (08:32)
[2022-08-10] MEDS: DIAZEPAM 10 MG TABLET PO SCH ×4 (08:33→20:27)
[2022-08-10 12:33] VITALS: BP 133/76
[2022-08-10 16:56] LABS: GLUCOMETER DEV NAME(LOC) POC.BV
[2022-08-10] MEDS: OLANZapine 10 MG RAPDIS TABLET PO SCH (20:27)
[2022-08-10] MEDS: MELATONIN 5 MG TABLET PO SCH (20:27)
[2022-08-10 20:30] VITALS: BP 124/72
[2022-08-11 06:53] LABS: BASOPHILS % (AUTO) 0.2 % (0.0-2.0); EOSINOPHILS % (AUTO) 0 % (1.0-6.0); HEMATOCRIT 46.6 % (41-53); HEMOGLOBIN 15.4 g/dL (13.5-17.5); LYMPHOCYTES # (AUTO) 0.8 K/uL (1.0-4.8); LYMPHOCYTES % (AUTO) 3.4 % (22.0-44.0); MEAN CORPUSCULAR HEMOGLOBIN 33.4 pg (26.0-34.0); MEAN CORPUSCULAR HGB CONC 33.2 G/dL (31.0-37.0); MEAN CORPUSCULAR VOLUME 101 fL (80-100); MONOCYTES # (AUTO) 1.1 K/uL (0.1-1.0); MONOCYTES % (AUTO) 4.8 % (2.0-9.0); NEUTROPHILS # (AUTO) 20.9 K/uL (1.8-7.7); PLATELET COUNT (AUTO) 191 K/uL (150-450); RED BLOOD CELL COUNT(AUTO) 4.63 MIL/uL (4.50-5.90); RED CELL DISTRIBUTION WIDTH 14.3 % (11.5-14.5)
[2022-08-11 06:58] LABS: NEUTROPHILS % (AUTO) 91.6 % (40.0-70.0)
[2022-08-11 07:01] LABS: HEMOGLOBIN A1C 4.7 % (3.8-5.6)
[2022-08-11 07:16] LABS: CARBON DIOXIDE 26 mmol/L (22-29); CHLORIDE 100 mmol/L (98-107); POTASSIUM 4.3 mmol/L (3.5-5.1); SODIUM SERUM 134 mmol/L (136-145)
[2022-08-11 07:17] LABS: ALANINE AMINOTRANSFERASE 38 U/L (12-78); ALBUMIN 2.4 g/dL (3.4-5.0); ALKALINE PHOSPHATASE 153 U/L (46-116); ANION GAP 8 mmol/L (8-16); ASPARTATE AMINOTRANSFERASE 32 U/L (15-37); BILIRUBIN,TOTAL 0.5 mg/dL (0.1-1.0); CALCIUM, TOTAL 9.9 mg/dL (8.8-10.5); CHOLESTEROL 127 mg/dL (131-200); CREATININE 0.93 mg/dL (0.60-1.30); GLUCOSE,RANDOM 84 mg/dL (70-110); HDL CHOLESTEROL 65 mg/dL (40-60); LDL CHOL (CALC.) 44 mg/dL (0-130); THYROID STIMULATING HORMONE 0.69 uIU/mL (0.36-3.74); TOTAL PROTEIN, SERUM 7.4 g/dL (6.4-8.2); TRIGLYCERIDES 89 mg/dL (15-150); UREA NITROGEN, BLOOD 9 mg/dL (7-18)
[2022-08-11 07:19] LABS: GLOMERULAR FILTR. RATE CALC > 60 mL/min (>60)
[2022-08-11] MEDS: DIAZEPAM 10 MG TABLET PO SCH ×4 (08:35→20:39)
[2022-08-11] MEDS: GABAPENTIN 300 MG CAPSULE PO SCH ×4 (08:36→20:39)
[2022-08-11] MEDS: OMEGA-3/DHA/EPA/FISH OIL 1,000 MG CAPSULE PO SCH (08:36)
[2022-08-11] MEDS: MULTIVITAMINS WITH MINERALS, THERAPEUTIC TABLET PO SCH (08:36)
[2022-08-11] MEDS: DIVALPROEX SODIUM 500 MG ER TABLET PO SCH ×3 (08:36→17:10)
[2022-08-11] MEDS: FOLIC ACID 1 MG TABLET PO SCH (08:36)
[2022-08-11] MEDS: NALTREXONE HCL 50 MG TABLET PO SCH (08:36)
[2022-08-11] MEDS: THIAMINE 100 MG TABLET PO SCH ×2 (08:36→17:10)
[2022-08-11] MEDS: FLUoxetine HCL 10 MG CAPSULE PO SCH ×2 (08:36→12:30)
[2022-08-11 10:37] VITALS: BP 135/75
[2022-08-11] MEDS: CIPROFLOXACIN HCL 500 MG TABLET PO SCH ×2 (12:29→17:10)
[2022-08-11 14:54] VITALS: BP 135/75
[2022-08-11] MEDS: ACETAMINOPHEN 325 MG TABLET PO PRN (15:14)
[2022-08-11] MEDS: MELATONIN 5 MG TABLET PO SCH (20:39)
[2022-08-11] MEDS: OLANZapine 10 MG RAPDIS TABLET PO SCH (20:39)
[2022-08-11 23:17] VITALS: BP 128/75
[2022-08-12] MEDS: ACETAMINOPHEN 325 MG TABLET PO PRN ×2 (04:56→20:06)
[2022-08-12 06:53] LABS: HEMOGLOBIN 14.5 g/dL (13.5-17.5); MEAN CORPUSCULAR HEMOGLOBIN 33.2 pg (26.0-34.0); MEAN CORPUSCULAR HGB CONC 32.9 G/dL (31.0-37.0); MEAN CORPUSCULAR VOLUME 101 fL (80-100); PLATELET COUNT (AUTO) 200 K/uL (150-450); RED BLOOD CELL COUNT(AUTO) 4.36 MIL/uL (4.50-5.90); RED CELL DISTRIBUTION WIDTH 14.5 % (11.5-14.5)
[2022-08-12] MEDS ORDERED: DIAZEPAM 5 MG TABLET PO PRN (07:00)
[2022-08-12 08:06] VITALS: BP 115/63
[2022-08-12 08:07] VITALS: BP 115/63
[2022-08-12] MEDS: DIVALPROEX SODIUM 500 MG ER TABLET PO SCH ×3 (08:15→16:32)
[2022-08-12] MEDS: THIAMINE 100 MG TABLET PO SCH ×2 (08:16→16:32)
[2022-08-12] MEDS: FOLIC ACID 1 MG TABLET PO SCH (08:16)
[2022-08-12] MEDS: CIPROFLOXACIN HCL 500 MG TABLET PO SCH ×2 (08:16→16:32)
[2022-08-12] MEDS: MULTIVITAMINS WITH MINERALS, THERAPEUTIC TABLET PO SCH (08:16)
[2022-08-12] MEDS: NALTREXONE HCL 50 MG TABLET PO SCH (08:16)
[2022-08-12] MEDS: GABAPENTIN 300 MG CAPSULE PO SCH ×4 (08:16→20:38)
[2022-08-12] MEDS: OMEGA-3/DHA/EPA/FISH OIL 1,000 MG CAPSULE PO SCH (08:16)
[2022-08-12] MEDS: HydrOXYzine PAMOATE 50 MG CAPSULE PO PRN ×2 (08:17→20:05)
[2022-08-12 08:27] LABS: BAND NEUTROPHILS % (MANUAL) 9 % (0-5); LYMPHOCYTES % (MANUAL) 10 % (22-44); MONOCYTES % (MANUAL) 3 % (2-9); SEGMENTED NEUTROPHILS % 78 % (40-70)
[2022-08-12] MEDS: DIAZEPAM 5 MG TABLET PO SCH ×4 (09:11→20:07)
[2022-08-12 12:36] LABS: GLUCOMETER DEV NAME(LOC) POC.BV
[2022-08-12] MEDS: OLANZapine 10 MG RAPDIS TABLET PO SCH (20:05)
[2022-08-12] MEDS: MELATONIN 5 MG TABLET PO SCH (20:05)
[2022-08-12 20:33] VITALS: BP 107/61
[2022-08-12 20:41] VITALS: BP 107/61
[2022-08-13 06:47] LABS: BASOPHILS % (AUTO) 0.6 % (0.0-2.0); EOSINOPHILS % (AUTO) 1.3 % (1.0-6.0); HEMOGLOBIN 13.4 g/dL (13.5-17.5); LYMPHOCYTES # (AUTO) 1.1 K/uL (1.0-4.8); LYMPHOCYTES % (AUTO) 6.7 % (22.0-44.0); MEAN CORPUSCULAR HEMOGLOBIN 34.1 pg (26.0-34.0); MEAN CORPUSCULAR HGB CONC 34.3 G/dL (31.0-37.0); MEAN CORPUSCULAR VOLUME 99 fL (80-100); MONOCYTES # (AUTO) 2.2 K/uL (0.1-1.0); NEUTROPHILS # (AUTO) 12.3 K/uL (1.8-7.7); NEUTROPHILS % (AUTO) 77.4 % (40.0-70.0); PLATELET COUNT (AUTO) 205 K/uL (150-450); RED BLOOD CELL COUNT(AUTO) 3.92 MIL/uL (4.50-5.90); RED CELL DISTRIBUTION WIDTH 14.2 % (11.5-14.5)
[2022-08-13] MEDS: MULTIVITAMINS WITH MINERALS, THERAPEUTIC TABLET PO SCH (08:04)
[2022-08-13] MEDS: GABAPENTIN 300 MG CAPSULE PO SCH ×4 (08:04→20:33)
[2022-08-13] MEDS: THIAMINE 100 MG TABLET PO SCH ×2 (08:04→16:31)
[2022-08-13] MEDS: DIVALPROEX SODIUM 500 MG ER TABLET PO SCH ×3 (08:04→16:31)
[2022-08-13] MEDS: CIPROFLOXACIN HCL 500 MG TABLET PO SCH ×2 (08:04→16:31)
[2022-08-13] MEDS: OMEGA-3/DHA/EPA/FISH OIL 1,000 MG CAPSULE PO SCH (08:05)
[2022-08-13] MEDS: DIAZEPAM 5 MG TABLET PO PRN ×3 (08:05→19:27)
[2022-08-13] MEDS: NALTREXONE HCL 50 MG TABLET PO SCH (08:05)
[2022-08-13 08:09] VITALS: BP 128/78
[2022-08-13] MEDS: FOLIC ACID 1 MG TABLET PO SCH (08:11)
[2022-08-13] MEDS: OLANZapine 10 MG RAPDIS TABLET PO SCH (20:33)
[2022-08-13] MEDS: MELATONIN 5 MG TABLET PO SCH (20:34)
[2022-08-13 21:12] VITALS: BP 105/69
[2022-08-13 21:13] VITALS: BP 105/69
[2022-08-14] MEDS: NALTREXONE HCL 50 MG TABLET PO SCH (08:16)
[2022-08-14] MEDS: CIPROFLOXACIN HCL 500 MG TABLET PO SCH ×2 (08:16→16:44)
[2022-08-14] MEDS: FOLIC ACID 1 MG TABLET PO SCH (08:16)
[2022-08-14] MEDS: OMEGA-3/DHA/EPA/FISH OIL 1,000 MG CAPSULE PO SCH (08:16)
[2022-08-14] MEDS: MULTIVITAMINS WITH MINERALS, THERAPEUTIC TABLET PO SCH (08:16)
[2022-08-14] MEDS: THIAMINE 100 MG TABLET PO SCH ×2 (08:16→16:44)
[2022-08-14] MEDS: GABAPENTIN 300 MG CAPSULE PO SCH ×4 (08:16→20:15)
[2022-08-14] MEDS: DIVALPROEX SODIUM 500 MG ER TABLET PO SCH ×3 (08:16→16:44)
[2022-08-14] MEDS: HydrOXYzine PAMOATE 50 MG CAPSULE PO PRN (08:17)
[2022-08-14 08:39] VITALS: BP 122/86
[2022-08-14 08:40] VITALS: BP 122/8
[2022-08-14] MEDS ORDERED: IOHEXOL 350 MG/ML 100 ML VIAL ONE (11:21)
[2022-08-14] MEDS ORDERED: SODIUM CHLORIDE 0.9% 100 ML ONE (11:21)
[2022-08-14] MEDS ORDERED: OLAN10TA26 PO (14:17)
[2022-08-14] MEDS ORDERED: NALT50TA PO (14:17)
[2022-08-14] MEDS ORDERED: OMEG-135 PO (14:17)
[2022-08-14] MEDS ORDERED: DISU250T8 PO (14:17)
[2022-08-14] MEDS ORDERED: GABA-1181 PO (14:17)
[2022-08-14] MEDS ORDERED: DIVA-80 PO (14:17)
[2022-08-14] MEDS ORDERED: MELA5TAB40 PO (14:17)
[2022-08-14] MEDS ORDERED: CIPR500T10 PO (14:54)
[2022-08-14 20:14] VITALS: BP 131/68
[2022-08-14] MEDS: OLANZapine 10 MG RAPDIS TABLET PO SCH (20:16)
[2022-08-14] MEDS: MELATONIN 5 MG TABLET PO SCH (20:16)
[2022-08-15 07:09] LABS: HEMOGLOBIN 13.3 g/dL (13.5-17.5); MEAN CORPUSCULAR HEMOGLOBIN 33.9 pg (26.0-34.0); MEAN CORPUSCULAR VOLUME 100 fL (80-100); PLATELET COUNT (AUTO) 282 K/uL (150-450); RED BLOOD CELL COUNT(AUTO) 3.92 MIL/uL (4.50-5.90); RED CELL DISTRIBUTION WIDTH 14.2 % (11.5-14.5)
[2022-08-15 07:27] LABS: ALANINE AMINOTRANSFERASE 29 U/L (12-78); ALBUMIN 1.9 g/dL (3.4-5.0); ALKALINE PHOSPHATASE 90 U/L (46-116); ANION GAP 5 mmol/L (8-16); ASPARTATE AMINOTRANSFERASE 33 U/L (15-37); BILIRUBIN,TOTAL 0.1 mg/dL (0.1-1.0); CALCIUM, TOTAL 9.9 mg/dL (8.8-10.5); CARBON DIOXIDE 28 mmol/L (22-29); CHLORIDE 103 mmol/L (98-107); CREATININE 0.67 mg/dL (0.60-1.30); GLOMERULAR FILTR. RATE CALC > 60 mL/min (>60); GLUCOSE,RANDOM 90 mg/dL (70-110); SODIUM SERUM 136 mmol/L (136-145); TOTAL PROTEIN, SERUM 6.7 g/dL (6.4-8.2); UREA NITROGEN, BLOOD 10 mg/dL (7-18)
[2022-08-15] MEDS ORDERED: CIPR250T26 PO (08:25)
[2022-08-15] MEDS ORDERED: DISU250T8 PO (08:30)
[2022-08-15] MEDS ORDERED: OLAN5TAB94 PO (08:31)
[2022-08-15] MEDS: MULTIVITAMINS WITH MINERALS, THERAPEUTIC TABLET PO SCH (08:55)
[2022-08-15] MEDS: THIAMINE 100 MG TABLET PO SCH (08:55)
[2022-08-15] MEDS: CIPROFLOXACIN HCL 500 MG TABLET PO SCH (08:56)
[2022-08-15] MEDS: NALTREXONE HCL 50 MG TABLET PO SCH (08:56)
[2022-08-15] MEDS: FOLIC ACID 1 MG TABLET PO SCH (08:56)
[2022-08-15] MEDS: DIVALPROEX SODIUM 500 MG ER TABLET PO SCH (08:56)
[2022-08-15] MEDS: OMEGA-3/DHA/EPA/FISH OIL 1,000 MG CAPSULE PO SCH (08:56)
[2022-08-15] MEDS: GABAPENTIN 300 MG CAPSULE PO SCH (08:56)
[2022-08-15] MEDS ORDERED: DISULFIRAM 250 MG TABLET PO SCH (09:00)
[2022-08-15 10:48] LABS: BAND NEUTROPHILS % (MANUAL) 5 % (0-5); LYMPHOCYTES % (MANUAL) 12 % (22-44); MONOCYTES % (MANUAL) 18 % (2-9); SEGMENTED NEUTROPHILS % 65 % (40-70)
== END 2022-08-15 11:05 | disposition home or self-care (01) | DRG 750 ==
LOC: EMS 13:08 → B3A 18:42
PROVIDERS: ADMIT Psychiatry & Neurology Psychiatry; ATTEND Psychiatry & Neurology Psychiatry
DX: F20.0 Paranoid schizophrenia (principal); R45.851 Suicidal ideations; G40.409 Other generalized epilepsy and epileptic syndromes, not intractable, without status epilepticus; E03.9 Hypothyroidism, unspecified; F10.229 Alcohol dependence with intoxication, unspecified; F10.239 Alcohol dependence with withdrawal, unspecified; Z20.822 Contact with and (suspected) exposure to COVID-19; F15.90 Other stimulant use, unspecified, uncomplicated; F17.200 Nicotine dependence, unspecified, uncomplicated; F60.0 Paranoid personality disorder; I10 Essential (primary) hypertension; J44.0 Chronic obstructive pulmonary disease with (acute) lower respiratory infection; Z59.9 Problem related to housing and economic circumstances, unspecified; Z55.9 Problems related to education and literacy, unspecified; Z63.9 Problem related to primary support group, unspecified; Z65.3 Problems related to other legal circumstances; Z91.14 Patient's other noncompliance with medication regimen
CPT/HCPCS: 71046; 71260; 80053; 80061; 80164; 83036; 84439; 84443; 85007; 85025; 85027; 87081; 99285; G0480; J7050; Q9967; 36415-L1; 36415-TC

== ENCOUNTER 2022-09-14 14:08 | Inpatient (IN) | payer MEDICAID, OTHER ==
[~2022-09-14] VITALS: Ht 175.3 cm; Wt 74.1 kg
[~2022-09-14 14:08] MED LIST changes: +CIPR250T26 PO; +CIPR500T10 PO; +DISU250T8 PO; +OLAN5TAB94 PO
[2022-09-14 16:26] LABS: BASOPHILS % (AUTO) 1.3 % (0.0-2.0); EOSINOPHILS % (AUTO) 2.4 % (1.0-6.0); HEMOGLOBIN 13.8 g/dL (13.5-17.5); LYMPHOCYTES # (AUTO) 1.7 K/uL (1.0-4.8); LYMPHOCYTES % (AUTO) 24.4 % (22.0-44.0); MEAN CORPUSCULAR HGB CONC 32.9 G/dL (31.0-37.0); MEAN CORPUSCULAR VOLUME 100 fL (80-100); MONOCYTES # (AUTO) 0.4 K/uL (0.1-1.0); MONOCYTES % (AUTO) 6.1 % (2.0-9.0); NEUTROPHILS # (AUTO) 4.5 K/uL (1.8-7.7); NEUTROPHILS % (AUTO) 65.8 % (40.0-70.0); PLATELET COUNT (AUTO) 296 K/uL (150-450); RED CELL DISTRIBUTION WIDTH 15.8 % (11.5-14.5)
[2022-09-14 16:36] LABS: ANION GAP 9 mmol/L (8-16); CALCIUM, TOTAL 9.1 mg/dL (8.8-10.5); CARBON DIOXIDE 24 mmol/L (22-29); CHLORIDE 108 mmol/L (98-107); CREATININE 0.68 mg/dL (0.60-1.30); GLUCOSE,RANDOM 92 mg/dL (70-110); SODIUM SERUM 141 mmol/L (136-145); UREA NITROGEN, BLOOD 9 mg/dL (7-18)
[2022-09-14 16:36] LABS: AMPHET/METH SCREEN,URINE POSITIVE (NEGATIVE); BARBITURATE SCREEN, URINE NEGATIVE (NEGATIVE); BENZODIAZEPINES SCREEN,URINE NEGATIVE (NEGATIVE); CANNABINOID SCREEN,URINE POSITIVE (NEGATIVE); COCAINE SCREEN,URINE NEGATIVE (NEGATIVE); METHADONE SCREEN, URINE NEGATIVE (NEGATIVE); OPIATE SCREEN,URINE NEGATIVE (NEGATIVE)
[2022-09-14 16:39] LABS: GLOMERULAR FILTR. RATE CALC > 60 mL/min (>60)
[2022-09-14 16:39] LABS: PHENCYCLIDINE SCREEN,URINE NEGATIVE (NEGATIVE)
[2022-09-14 16:44] LABS: ALANINE AMINOTRANSFERASE 28 U/L (12-78); ALKALINE PHOSPHATASE 90 U/L (46-116); ASPARTATE AMINOTRANSFERASE 38 U/L (15-37); BILIRUBIN,TOTAL 0.1 mg/dL (0.1-1.0); TOTAL PROTEIN, SERUM 6.7 g/dL (6.4-8.2)
[2022-09-14] MEDS ORDERED: LORazepam 2 MG TABLET PO PRN (20:45)
[2022-09-14 21:49] LABS: COVID AG,FIA SOURCE NASOPHARYNGEAL
[2022-09-14 22:12] LABS: APPEARANCE,URINE CLEAR (CLEAR); BILIRUBIN,URINE NEGATIVE (NEGATIVE); GLUCOSE, URINE (UA) NEGATIVE (NEGATIVE); KETONES,URINE NEGATIVE (NEGATIVE); LEUKOCYTE ESTERASE ,URINE NEGATIVE (NEGATIVE); NITRATE,URINE NEGATIVE (NEGATIVE); OCCULT BLOOD,URINE NEGATIVE (NEGATIVE); PROTEIN,URINE NEGATIVE (NEGATIVE); SPECIFIC GRAVITIY, URINE 1.019 (1.003-1.030); UROBILINOGEN,URINE <=1.0 mg/dL (<=1.0)
[2022-09-14] MEDS: OLANZapine 5 MG RAPDIS TABLET PO PRN (22:13)
[2022-09-14 22:25] VITALS: BP 121/76
[2022-09-14] MEDS: ZOLPIDEM TARTRATE 10 MG TABLET PO PRN (23:08)
[2022-09-15] MEDS ORDERED: INFLUENZA VIRUS VACCINE QVS 2022-23 (6MO+)/PF 60 MCG/0.5 ML SYRINGE IM. ONE (00:15)
[2022-09-15] MEDS ORDERED: GuaiFENesin/D-METHORPHAN [SUGAR-FREE] 200-20MG/10 ML SYRUP UDCUP PO PRN (07:30)
[2022-09-15] MEDS ORDERED: MAG HYDROX/AL HYDROX/SIMETH ES 30 ML SUSPENSION UDCUP PO PRN (07:30)
[2022-09-15] MEDS ORDERED: PROMETHAZINE HCL 25 MG TABLET PO PRN (07:30)
[2022-09-15] MEDS ORDERED: LOPERAMIDE HCL 2 MG CAPSULE PO PRN ×2 (07:30)
[2022-09-15] MEDS ORDERED: HydrOXYzine PAMOATE 50 MG CAPSULE PO PRN (07:30)
[2022-09-15] MEDS ORDERED: CYANOCOBALAMIN 1,000 MCG/ML VIAL IM ONE (07:30)
[2022-09-15 08:49] VITALS: BP 158/99
[2022-09-15] MEDS: DIVALPROEX SODIUM 500 MG ER TABLET PO SCH ×3 (09:39→16:56)
[2022-09-15] MEDS: FOLIC ACID 1 MG TABLET PO SCH (09:39)
[2022-09-15] MEDS: THIAMINE 100 MG TABLET PO SCH ×2 (09:39→16:56)
[2022-09-15] MEDS: OMEGA-3/DHA/EPA/FISH OIL 1,000 MG CAPSULE PO SCH (09:39)
[2022-09-15] MEDS: GABAPENTIN 300 MG CAPSULE PO SCH ×4 (09:39→20:27)
[2022-09-15] MEDS: MULTIVITAMINS WITH MINERALS, THERAPEUTIC TABLET PO SCH (09:39)
[2022-09-15] MEDS: NALTREXONE HCL 50 MG TABLET PO SCH (09:41)
[2022-09-15] MEDS: BusPIRone HCL 5 MG TABLET PO SCH ×2 (09:41→20:27)
[2022-09-15 09:49] VITALS: BP 161/95
[2022-09-15] MEDS: DIAZEPAM 10 MG TABLET PO PRN ×3 (09:57→17:27)
[2022-09-15 10:49] VITALS: BP 169/98
[2022-09-15 11:49] VITALS: BP 155/90
[2022-09-15 12:49] VITALS: BP 160/92
[2022-09-15 16:47] VITALS: BP 156/96
[2022-09-15] MEDS: MELATONIN 5 MG TABLET PO SCH (20:27)
[2022-09-15] MEDS: OLANZapine 5 MG RAPDIS TABLET PO SCH (20:27)
[2022-09-16] MEDS ORDERED: DIAZEPAM 10 MG TABLET PO PRN (07:00)
[2022-09-16] MEDS: NALTREXONE HCL 50 MG TABLET PO SCH (07:49)
[2022-09-16] MEDS: DIAZEPAM 10 MG TABLET PO SCH ×4 (07:49→20:47)
[2022-09-16] MEDS: MULTIVITAMINS WITH MINERALS, THERAPEUTIC TABLET PO SCH (07:49)
[2022-09-16] MEDS: FOLIC ACID 1 MG TABLET PO SCH (07:49)
[2022-09-16] MEDS: DIVALPROEX SODIUM 500 MG ER TABLET PO SCH ×3 (07:49→16:37)
[2022-09-16] MEDS: GABAPENTIN 300 MG CAPSULE PO SCH ×4 (07:49→20:47)
[2022-09-16] MEDS: OMEGA-3/DHA/EPA/FISH OIL 1,000 MG CAPSULE PO SCH (07:49)
[2022-09-16] MEDS: BusPIRone HCL 5 MG TABLET PO SCH ×2 (07:50→20:47)
[2022-09-16] MEDS: THIAMINE 100 MG TABLET PO SCH ×2 (07:50→16:37)
[2022-09-16 09:24] VITALS: BP 144/95
[2022-09-16 09:27] VITALS: BP 144/95
[2022-09-16 16:40] VITALS: BP 140/79
[2022-09-16] MEDS: OLANZapine 5 MG RAPDIS TABLET PO SCH (20:46)
[2022-09-16] MEDS: MELATONIN 5 MG TABLET PO SCH (20:48)
[2022-09-17 05:15] VITALS: BP 136/82
[2022-09-17] MEDS: ACETAMINOPHEN 325 MG TABLET PO PRN (05:17)
[2022-09-17 08:30] VITALS: BP 118/71
[2022-09-17 08:31] VITALS: BP 118/71
[2022-09-17] MEDS: MULTIVITAMINS WITH MINERALS, THERAPEUTIC TABLET PO SCH (09:01)
[2022-09-17] MEDS: BusPIRone HCL 5 MG TABLET PO SCH ×2 (09:02→20:22)
[2022-09-17] MEDS: GABAPENTIN 300 MG CAPSULE PO SCH ×4 (09:02→20:20)
[2022-09-17] MEDS: THIAMINE 100 MG TABLET PO SCH ×2 (09:02→17:12)
[2022-09-17] MEDS: FOLIC ACID 1 MG TABLET PO SCH (09:02)
[2022-09-17] MEDS: DIVALPROEX SODIUM 500 MG ER TABLET PO SCH ×3 (09:02→17:12)
[2022-09-17] MEDS: NALTREXONE HCL 50 MG TABLET PO SCH (09:02)
[2022-09-17] MEDS: DIAZEPAM 10 MG TABLET PO SCH ×4 (09:02→20:20)
[2022-09-17] MEDS: OMEGA-3/DHA/EPA/FISH OIL 1,000 MG CAPSULE PO SCH (09:02)
[2022-09-17] MEDS: MAGNESIUM HYDROXIDE SUSPENSION 30 ML UDCUP PO PRN (16:22)
[2022-09-17 16:43] VITALS: BP 126/90
[2022-09-17] MEDS: OLANZapine 5 MG RAPDIS TABLET PO SCH (20:20)
[2022-09-17] MEDS: MELATONIN 5 MG TABLET PO SCH (20:20)
[2022-09-18] MEDS: ZOLPIDEM TARTRATE 10 MG TABLET PO PRN (00:33)
[2022-09-18] MEDS ORDERED: DIAZEPAM 5 MG TABLET PO PRN (07:00)
[2022-09-18] MEDS: THIAMINE 100 MG TABLET PO SCH ×2 (07:54→17:41)
[2022-09-18] MEDS: DIVALPROEX SODIUM 500 MG ER TABLET PO SCH ×3 (07:54→17:41)
[2022-09-18] MEDS: MULTIVITAMINS WITH MINERALS, THERAPEUTIC TABLET PO SCH (07:57)
[2022-09-18] MEDS: DIAZEPAM 5 MG TABLET PO SCH ×4 (07:57→20:10)
[2022-09-18] MEDS: NALTREXONE HCL 50 MG TABLET PO SCH (07:57)
[2022-09-18] MEDS: BusPIRone HCL 5 MG TABLET PO SCH ×2 (07:58→20:10)
[2022-09-18] MEDS: FOLIC ACID 1 MG TABLET PO SCH (07:59)
[2022-09-18] MEDS: PANTOPRAZOLE SODIUM 40 MG DR TABLET PO SCH (08:00)
[2022-09-18] MEDS: OMEGA-3/DHA/EPA/FISH OIL 1,000 MG CAPSULE PO SCH (08:01)
[2022-09-18] MEDS: GABAPENTIN 300 MG CAPSULE PO SCH ×4 (08:02→20:10)
[2022-09-18 08:58] VITALS: BP 107/56
[2022-09-18] MEDS: OLANZapine 5 MG RAPDIS TABLET PO SCH (20:09)
[2022-09-18] MEDS: MELATONIN 5 MG TABLET PO SCH (20:10)
[2022-09-19] MEDS: DIAZEPAM 5 MG TABLET PO PRN ×3 (07:09→16:22)
[2022-09-19] MEDS: DIVALPROEX SODIUM 500 MG ER TABLET PO SCH ×3 (08:01→16:15)
[2022-09-19] MEDS: NALTREXONE HCL 50 MG TABLET PO SCH (08:01)
[2022-09-19] MEDS: OMEGA-3/DHA/EPA/FISH OIL 1,000 MG CAPSULE PO SCH (08:01)
[2022-09-19] MEDS: FOLIC ACID 1 MG TABLET PO SCH (08:01)
[2022-09-19] MEDS: BusPIRone HCL 5 MG TABLET PO SCH ×2 (08:01→20:54)
[2022-09-19] MEDS: MULTIVITAMINS WITH MINERALS, THERAPEUTIC TABLET PO SCH (08:01)
[2022-09-19] MEDS: GABAPENTIN 300 MG CAPSULE PO SCH ×4 (08:02→20:54)
[2022-09-19] MEDS: PANTOPRAZOLE SODIUM 40 MG DR TABLET PO SCH (08:02)
[2022-09-19] MEDS: THIAMINE 100 MG TABLET PO SCH ×2 (08:03→16:15)
[2022-09-19 08:30] VITALS: BP 168/93
[2022-09-19] MEDS: MAGNESIUM HYDROXIDE SUSPENSION 30 ML UDCUP PO PRN (09:37)
[2022-09-19 12:13] VITALS: BP 168/93
[2022-09-19] MEDS: ACETAMINOPHEN 325 MG TABLET PO PRN (12:13)
[2022-09-19] MEDS: OLANZapine 5 MG RAPDIS TABLET PO PRN (12:22)
[2022-09-19 13:13] VITALS: BP 147/86
[2022-09-19] MEDS: ZOLPIDEM TARTRATE 10 MG TABLET PO PRN (20:13)
[2022-09-19] MEDS: MELATONIN 5 MG TABLET PO SCH (20:55)
[2022-09-19] MEDS: OLANZapine 5 MG RAPDIS TABLET PO SCH (20:55)
[2022-09-20 06:48] VITALS: BP 135/85
[2022-09-20] MEDS: ACETAMINOPHEN 325 MG TABLET PO PRN ×2 (06:50→12:37)
[2022-09-20 07:21] LABS: COVID AG,FIA SOURCE NASAL SWAB
[2022-09-20 07:50] VITALS: BP 122/70
[2022-09-20 08:26] VITALS: BP 122/70
[2022-09-20] MEDS: MULTIVITAMINS WITH MINERALS, THERAPEUTIC TABLET PO SCH (08:39)
[2022-09-20] MEDS: OMEGA-3/DHA/EPA/FISH OIL 1,000 MG CAPSULE PO SCH (08:39)
[2022-09-20] MEDS: FOLIC ACID 1 MG TABLET PO SCH (08:39)
[2022-09-20] MEDS: THIAMINE 100 MG TABLET PO SCH ×2 (08:39→17:12)
[2022-09-20] MEDS: DIVALPROEX SODIUM 500 MG ER TABLET PO SCH ×3 (08:39→17:12)
[2022-09-20] MEDS: GABAPENTIN 400 MG CAPSULE PO SCH ×3 (08:40→17:12)
[2022-09-20] MEDS: PANTOPRAZOLE SODIUM 40 MG DR TABLET PO SCH (08:40)
[2022-09-20] MEDS: GABAPENTIN 300 MG CAPSULE PO PRN ×2 (08:43→17:12)
[2022-09-20] MEDS: OLANZapine 5 MG RAPDIS TABLET PO PRN ×2 (08:44→17:13)
[2022-09-20] MEDS ORDERED: BusPIRone HCL 5 MG TABLET PO SCH (09:00)
[2022-09-20] MEDS: NALTREXONE HCL 50 MG TABLET PO SCH (09:17)
[2022-09-20] MEDS: MAGNESIUM HYDROXIDE SUSPENSION 30 ML UDCUP PO PRN (09:54)
[2022-09-20 12:37] VITALS: BP 127/77
[2022-09-20 13:37] VITALS: BP 131/78
[2022-09-20] MEDS ORDERED: NICOTINE 21 MG/24 HOUR PATCH TD PRN (14:45)
[2022-09-20 16:09] VITALS: BP 145/85
[2022-09-20] MEDS ORDERED: NALT50TA PO (17:53)
[2022-09-20] MEDS ORDERED: OLAN5TAB94 PO (17:53)
[2022-09-20] MEDS ORDERED: BUSP5TAB20 PO (17:53)
[2022-09-20] MEDS ORDERED: MELA5TAB40 PO (17:53)
[2022-09-20] MEDS ORDERED: DIVA-80 PO (17:53)
[2022-09-20] MEDS ORDERED: GABA-1201 PO (17:53)
[2022-09-21] MEDS ORDERED: PANT-31 PO (11:39)
== END 2022-09-20 08:15 | disposition home or self-care (01) | DRG 750 ==
LOC: EMS 14:11 → 3EC 21:40
PROVIDERS: ADMIT Psychiatry & Neurology Psychiatry; ATTEND Psychiatry & Neurology Psychiatry
DX: F25.0 Schizoaffective disorder, bipolar type (principal); R45.851 Suicidal ideations; G40.409 Other generalized epilepsy and epileptic syndromes, not intractable, without status epilepticus; K21.9 Gastro-esophageal reflux disease without esophagitis; Z20.822 Contact with and (suspected) exposure to COVID-19; E03.9 Hypothyroidism, unspecified; K59.00 Constipation, unspecified; F15.90 Other stimulant use, unspecified, uncomplicated; F10.239 Alcohol dependence with withdrawal, unspecified; Y90.6 Blood alcohol level of 120-199 mg/100 ml; F60.0 Paranoid personality disorder; J44.9 Chronic obstructive pulmonary disease, unspecified; I10 Essential (primary) hypertension; F32.A Depression, unspecified; F17.210 Nicotine dependence, cigarettes, uncomplicated; F12.90 Cannabis use, unspecified, uncomplicated; Z59.00 Homelessness unspecified; Z63.9 Problem related to primary support group, unspecified; Z65.3 Problems related to other legal circumstances; Z55.9 Problems related to education and literacy, unspecified; Z91.199 Patient's noncompliance with other medical treatment and regimen due to unspecified reason
CPT/HCPCS: 80053; 80164; 80307; 81003; 85025; 87081; 93005; 99285; G0480; J3420; Q9967

== ENCOUNTER 2022-10-02 10:49 | Inpatient (IN) | payer MEDICAID, OTHER ==
[~2022-10-02] VITALS: Ht 175.3 cm; Wt 79.0 kg
[~2022-10-02 10:49] MED LIST changes: +BUSP5TAB20 PO; -CIPR250T26 PO; -CIPR500T10 PO; -DISU250T8 PO; -GABA-1181 PO; +GABA-1201 PO; -OLAN10TA26 PO; -OMEG-135 PO; +PANT-31 PO
[2022-10-02 12:49] LABS: APPEARANCE,URINE CLEAR (CLEAR); BILIRUBIN,URINE NEGATIVE (NEGATIVE); GLUCOSE, URINE (UA) NEGATIVE (NEGATIVE); KETONES,URINE NEGATIVE (NEGATIVE); LEUKOCYTE ESTERASE ,URINE TRACE (NEGATIVE); NITRATE,URINE NEGATIVE (NEGATIVE); OCCULT BLOOD,URINE NEGATIVE (NEGATIVE); PH,URINE 6.5 (5.0-8.0); PROTEIN,URINE NEGATIVE (NEGATIVE); SPECIFIC GRAVITIY, URINE 1.016 (1.003-1.030); UROBILINOGEN,URINE <=1.0 mg/dL (<=1.0)
[2022-10-02 13:05] LABS: BACTERIA,URINE None Seen /HPF (None Seen); RBC,URINE None Seen /HPF (0-2); SQUAMOUS EPITHELIAL CELL,UR Few /LPF (None Seen); WBC,URINE 0-2 /HPF (0-5)
[2022-10-02 13:14] LABS: BASOPHILS % (AUTO) 0.7 % (0.0-2.0); HEMATOCRIT 40.8 % (41-53); HEMOGLOBIN 13.6 g/dL (13.5-17.5); LYMPHOCYTES # (AUTO) 1.1 K/uL (1.0-4.8); LYMPHOCYTES % (AUTO) 7.3 % (22.0-44.0); MEAN CORPUSCULAR HEMOGLOBIN 32.9 pg (26.0-34.0); MEAN CORPUSCULAR HGB CONC 33.4 G/dL (31.0-37.0); MEAN CORPUSCULAR VOLUME 99 fL (80-100); MONOCYTES # (AUTO) 1.2 K/uL (0.1-1.0); MONOCYTES % (AUTO) 8.3 % (2.0-9.0); NEUTROPHILS % (AUTO) 82.7 % (40.0-70.0); PLATELET COUNT (AUTO) 353 K/uL (150-450); RED BLOOD CELL COUNT(AUTO) 4.13 MIL/uL (4.50-5.90); RED CELL DISTRIBUTION WIDTH 15.4 % (11.5-14.5)
[2022-10-02 13:14] LABS: AMPHET/METH SCREEN,URINE POSITIVE (NEGATIVE); BARBITURATE SCREEN, URINE NEGATIVE (NEGATIVE); BENZODIAZEPINES SCREEN,URINE NEGATIVE (NEGATIVE); CANNABINOID SCREEN,URINE POSITIVE (NEGATIVE); COCAINE SCREEN,URINE NEGATIVE (NEGATIVE); METHADONE SCREEN, URINE NEGATIVE (NEGATIVE); OPIATE SCREEN,URINE NEGATIVE (NEGATIVE); PHENCYCLIDINE SCREEN,URINE NEGATIVE (NEGATIVE)
[2022-10-02 13:21] LABS: ANION GAP 4 mmol/L (8-16); CARBON DIOXIDE 29 mmol/L (22-29); CHLORIDE 105 mmol/L (98-107); CREATININE 0.82 mg/dL (0.60-1.30); GLOMERULAR FILTR. RATE CALC > 60 mL/min (>60); GLUCOSE,RANDOM 84 mg/dL (70-110); POTASSIUM 4.3 mmol/L (3.5-5.1); SODIUM SERUM 138 mmol/L (136-145); UREA NITROGEN, BLOOD 7 mg/dL (7-18)
[2022-10-02 13:26] LABS: ALANINE AMINOTRANSFERASE 17 U/L (12-78); ALBUMIN 3.1 g/dL (3.4-5.0); ALKALINE PHOSPHATASE 95 U/L (46-116); ASPARTATE AMINOTRANSFERASE 19 U/L (15-37); BILIRUBIN,TOTAL 0.2 mg/dL (0.1-1.0); TOTAL PROTEIN, SERUM 6.9 g/dL (6.4-8.2)
[2022-10-02] MEDS ORDERED: ZOLPIDEM TARTRATE 10 MG TABLET PO PRN (14:30)
[2022-10-02] MEDS ORDERED: ChlordiazePOXIDE HCL 25 MG CAPSULE PO ONE (15:00)
[2022-10-02 17:49] LABS: COVID AG,FIA SOURCE NASAL SWAB
[2022-10-02] MEDS ORDERED: OLANZapine 5 MG RAPDIS TABLET PO PRN (18:30)
[2022-10-02] MEDS ORDERED: LOPERAMIDE HCL 2 MG CAPSULE PO PRN (18:30)
[2022-10-02] MEDS ORDERED: DIAZEPAM 10 MG TABLET PO PRN (18:30)
[2022-10-02] MEDS ORDERED: CYANOCOBALAMIN 1,000 MCG/ML VIAL IM ONE (18:30)
[2022-10-02] MEDS ORDERED: GuaiFENesin/D-METHORPHAN [SUGAR-FREE] 200-20MG/10 ML SYRUP UDCUP PO PRN (18:30)
[2022-10-02] MEDS ORDERED: HydrOXYzine PAMOATE 50 MG CAPSULE PO PRN (18:30)
[2022-10-02] MEDS: LORazepam 2 MG TABLET PO PRN (18:42)
[2022-10-02] MEDS: HALOPERIDOL 5 MG TABLET PO PRN (18:42)
[2022-10-02 18:49] VITALS: BP 131/88
[2022-10-02] MEDS: GABAPENTIN 300 MG CAPSULE PO SCH (20:58)
[2022-10-02] MEDS: OLANZapine 5 MG RAPDIS TABLET PO SCH (20:58)
[2022-10-02] MEDS: MELATONIN 5 MG TABLET PO SCH (20:59)
[2022-10-02] MEDS: DIVALPROEX SODIUM 500 MG ER TABLET PO SCH (20:59)
[2022-10-03] VITALS (7 sets, daily range): BP systolic 130–150; BP diastolic 78–104
[2022-10-03] MEDS: LORazepam 2 MG TABLET PO PRN (07:05)
[2022-10-03] MEDS: FOLIC ACID 1 MG TABLET PO SCH (07:59)
[2022-10-03] MEDS: HALOPERIDOL 5 MG TABLET PO PRN (07:59)
[2022-10-03] MEDS: NALTREXONE HCL 50 MG TABLET PO SCH (07:59)
[2022-10-03] MEDS: MULTIVITAMINS WITH MINERALS, THERAPEUTIC TABLET PO SCH (07:59)
[2022-10-03] MEDS: OMEGA-3/DHA/EPA/FISH OIL 1,000 MG CAPSULE PO SCH (07:59)
[2022-10-03] MEDS: THIAMINE 100 MG TABLET PO SCH ×2 (07:59→17:17)
[2022-10-03] MEDS: GABAPENTIN 300 MG CAPSULE PO SCH ×4 (07:59→20:17)
[2022-10-03] MEDS: DIAZEPAM 10 MG TABLET PO SCH ×4 (08:00→20:19)
[2022-10-03] MEDS: DIAZEPAM 10 MG TABLET PO PRN (10:25)
[2022-10-03] MEDS: IBUPROFEN 600 MG TABLET PO PRN (11:31)
[2022-10-03] MEDS: MELATONIN 5 MG TABLET PO SCH (20:18)
[2022-10-03] MEDS: OLANZapine 5 MG RAPDIS TABLET PO SCH (20:18)
[2022-10-03] MEDS: DIVALPROEX SODIUM 500 MG ER TABLET PO SCH (20:19)
[2022-10-04 02:00] VITALS: BP 135/75
[2022-10-04] MEDS: DIAZEPAM 10 MG TABLET PO PRN (04:32)
[2022-10-04] MEDS: MULTIVITAMINS WITH MINERALS, THERAPEUTIC TABLET PO SCH (08:28)
[2022-10-04] MEDS: NALTREXONE HCL 50 MG TABLET PO SCH (08:28)
[2022-10-04] MEDS: DIAZEPAM 10 MG TABLET PO SCH ×4 (08:28→20:42)
[2022-10-04] MEDS: GABAPENTIN 300 MG CAPSULE PO SCH ×4 (08:28→20:42)
[2022-10-04] MEDS: THIAMINE 100 MG TABLET PO SCH ×2 (08:29→16:55)
[2022-10-04] MEDS: FOLIC ACID 1 MG TABLET PO SCH (08:29)
[2022-10-04 08:39] VITALS: BP 155/91
[2022-10-04] MEDS: OMEGA-3/DHA/EPA/FISH OIL 1,000 MG CAPSULE PO SCH (08:41)
[2022-10-04 10:06] LABS: BASOPHILS % (AUTO) 0.8 % (0.0-2.0); EOSINOPHILS % (AUTO) 2.7 % (1.0-6.0); HEMATOCRIT 41.9 % (41-53); HEMOGLOBIN 14.5 g/dL (13.5-17.5); LYMPHOCYTES # (AUTO) 0.7 K/uL (1.0-4.8); LYMPHOCYTES % (AUTO) 7.9 % (22.0-44.0); MEAN CORPUSCULAR HEMOGLOBIN 33.5 pg (26.0-34.0); MEAN CORPUSCULAR HGB CONC 34.6 G/dL (31.0-37.0); MEAN CORPUSCULAR VOLUME 97 fL (80-100); MONOCYTES # (AUTO) 1.1 K/uL (0.1-1.0); MONOCYTES % (AUTO) 11.9 % (2.0-9.0); NEUTROPHILS % (AUTO) 76.7 % (40.0-70.0); PLATELET COUNT (AUTO) 322 K/uL (150-450); RED BLOOD CELL COUNT(AUTO) 4.32 MIL/uL (4.50-5.90)
[2022-10-04] MEDS: DIVALPROEX SODIUM 500 MG ER TABLET PO SCH (20:42)
[2022-10-04] MEDS: OLANZapine 10 MG RAPDIS TABLET PO SCH (20:42)
[2022-10-04] MEDS: MELATONIN 5 MG TABLET PO SCH (21:04)
[2022-10-04] MEDS ORDERED: DIAZEPAM 10 MG TABLET PO PRN (23:00)
[2022-10-05] MEDS: LORazepam 2 MG TABLET PO PRN (06:51)
[2022-10-05] MEDS ORDERED: DIAZEPAM 5 MG TABLET PO PRN ×2 (07:00)
[2022-10-05 08:00] VITALS: BP 117/75
[2022-10-05] MEDS ORDERED: DIAZEPAM 5 MG TABLET PO SCH (09:00)
[2022-10-05] MEDS: MULTIVITAMINS WITH MINERALS, THERAPEUTIC TABLET PO SCH (09:03)
[2022-10-05] MEDS: OMEGA-3/DHA/EPA/FISH OIL 1,000 MG CAPSULE PO SCH (09:03)
[2022-10-05] MEDS: GABAPENTIN 300 MG CAPSULE PO SCH ×4 (09:03→20:29)
[2022-10-05] MEDS: DIAZEPAM 5 MG TABLET PO SCH ×4 (09:03→20:30)
[2022-10-05] MEDS: THIAMINE 100 MG TABLET PO SCH ×2 (09:04→15:56)
[2022-10-05] MEDS: NALTREXONE HCL 50 MG TABLET PO SCH (09:04)
[2022-10-05] MEDS: FOLIC ACID 1 MG TABLET PO SCH (09:04)
[2022-10-05] MEDS: OLANZapine 10 MG RAPDIS TABLET PO SCH (20:29)
[2022-10-05] MEDS: MELATONIN 5 MG TABLET PO SCH (20:29)
[2022-10-05] MEDS: DIVALPROEX SODIUM 500 MG ER TABLET PO SCH (20:29)
[2022-10-06 04:20] VITALS: BP 124/82
[2022-10-06] MEDS: IBUPROFEN 600 MG TABLET PO PRN (04:24)
[2022-10-06] MEDS ORDERED: DIAZEPAM 5 MG TABLET PO PRN ×2 (07:00)
[2022-10-06 08:00] VITALS: BP 131/89
[2022-10-06] MEDS: THIAMINE 100 MG TABLET PO SCH ×2 (09:05→15:56)
[2022-10-06] MEDS: GABAPENTIN 300 MG CAPSULE PO SCH ×4 (09:05→20:45)
[2022-10-06] MEDS: MULTIVITAMINS WITH MINERALS, THERAPEUTIC TABLET PO SCH (09:05)
[2022-10-06] MEDS: OMEGA-3/DHA/EPA/FISH OIL 1,000 MG CAPSULE PO SCH (09:06)
[2022-10-06] MEDS: FOLIC ACID 1 MG TABLET PO SCH (09:06)
[2022-10-06] MEDS: NALTREXONE HCL 50 MG TABLET PO SCH (09:07)
[2022-10-06] MEDS: LORazepam 2 MG TABLET PO PRN (15:11)
[2022-10-06] MEDS: HALOPERIDOL 5 MG TABLET PO PRN (15:56)
[2022-10-06] MEDS: MELATONIN 5 MG TABLET PO SCH (20:44)
[2022-10-06] MEDS: DIVALPROEX SODIUM 500 MG ER TABLET PO SCH (20:44)
[2022-10-06] MEDS: OLANZapine 10 MG RAPDIS TABLET PO SCH (20:45)
[2022-10-07] MEDS: THIAMINE 100 MG TABLET PO SCH ×2 (07:50→16:10)
[2022-10-07] MEDS: GABAPENTIN 300 MG CAPSULE PO SCH ×4 (07:50→21:05)
[2022-10-07] MEDS: OMEGA-3/DHA/EPA/FISH OIL 1,000 MG CAPSULE PO SCH (07:50)
[2022-10-07] MEDS: MULTIVITAMINS WITH MINERALS, THERAPEUTIC TABLET PO SCH (07:50)
[2022-10-07] MEDS: FOLIC ACID 1 MG TABLET PO SCH (07:50)
[2022-10-07] MEDS: NALTREXONE HCL 50 MG TABLET PO SCH (07:51)
[2022-10-07] MEDS: LORazepam 2 MG TABLET PO PRN ×2 (09:01→17:50)
[2022-10-07 10:00] VITALS: BP 142/82
[2022-10-07] MEDS: HALOPERIDOL 5 MG TABLET PO PRN (10:55)
[2022-10-07] MEDS: NICOTINE 7 MG/24 HOUR PATCH TD PRN (15:37)
[2022-10-07] MEDS: IBUPROFEN 600 MG TABLET PO PRN (16:11)
[2022-10-07 16:12] VITALS: BP 145/80
[2022-10-07] MEDS: DIVALPROEX SODIUM 500 MG ER TABLET PO SCH (21:04)
[2022-10-07] MEDS: OLANZapine 10 MG RAPDIS TABLET PO SCH (21:05)
[2022-10-07] MEDS: MELATONIN 5 MG TABLET PO SCH (21:05)
[2022-10-08 03:38] LABS: COVID AG,FIA SOURCE NASAL SWAB
[2022-10-08] MEDS: OMEGA-3/DHA/EPA/FISH OIL 1,000 MG CAPSULE PO SCH (08:19)
[2022-10-08] MEDS: NALTREXONE HCL 50 MG TABLET PO SCH (08:20)
[2022-10-08] MEDS: FOLIC ACID 1 MG TABLET PO SCH (08:20)
[2022-10-08] MEDS: GABAPENTIN 300 MG CAPSULE PO SCH ×4 (08:20→20:25)
[2022-10-08] MEDS: THIAMINE 100 MG TABLET PO SCH ×2 (08:20→16:54)
[2022-10-08] MEDS: MULTIVITAMINS WITH MINERALS, THERAPEUTIC TABLET PO SCH (08:20)
[2022-10-08] MEDS: NICOTINE 7 MG/24 HOUR PATCH TD PRN (08:23)
[2022-10-08 09:05] VITALS: BP 127/84
[2022-10-08] MEDS: IBUPROFEN 600 MG TABLET PO PRN (09:59)
[2022-10-08] MEDS: LORazepam 2 MG TABLET PO PRN ×2 (09:59→16:53)
[2022-10-08 16:26] VITALS: BP 133/71
[2022-10-08] MEDS: DIVALPROEX SODIUM 500 MG ER TABLET PO SCH (20:25)
[2022-10-08] MEDS: MELATONIN 5 MG TABLET PO SCH (20:25)
[2022-10-08] MEDS: OLANZapine 10 MG RAPDIS TABLET PO SCH (20:25)
[2022-10-09] MEDS: IBUPROFEN 600 MG TABLET PO PRN (03:48)
[2022-10-09 04:00] VITALS: BP 135/85
[2022-10-09] MEDS: LORazepam 2 MG TABLET PO PRN ×2 (06:52→11:53)
[2022-10-09] MEDS ORDERED: MAG HYDROX/AL HYDROX/SIMETH ES 30 ML SUSPENSION UDCUP PO PRN ×2 (08:15)
[2022-10-09] MEDS: THIAMINE 100 MG TABLET PO SCH (08:39)
[2022-10-09] MEDS: MULTIVITAMINS WITH MINERALS, THERAPEUTIC TABLET PO SCH (08:39)
[2022-10-09] MEDS: FOLIC ACID 1 MG TABLET PO SCH (08:39)
[2022-10-09] MEDS: OMEGA-3/DHA/EPA/FISH OIL 1,000 MG CAPSULE PO SCH (08:39)
[2022-10-09] MEDS: GABAPENTIN 300 MG CAPSULE PO SCH ×2 (08:40→12:19)
[2022-10-09] MEDS: NALTREXONE HCL 50 MG TABLET PO SCH (08:40)
[2022-10-09 08:49] VITALS: BP 142/89
[2022-10-09] MEDS: NICOTINE 7 MG/24 HOUR PATCH TD PRN (10:54)
[2022-10-09] MEDS ORDERED: OLAN10TA26 PO ×2 (12:54→15:33)
[2022-10-09] MEDS ORDERED: DIVA-80 PO ×2 (12:54→15:33)
[2022-10-09] MEDS ORDERED: MELA5TAB40 PO ×2 (12:54→15:33)
[2022-10-09] MEDS ORDERED: OMEG-135 PO ×2 (12:54→15:33)
[2022-10-09] MEDS ORDERED: NALT50TA PO ×2 (12:54→15:33)
[2022-10-09] MEDS ORDERED: GABA-1181 PO ×2 (12:54→15:33)
== END 2022-10-09 14:10 | disposition home or self-care (01) | DRG 750 ==
LOC: EMS 10:57 → 3EC 17:09
PROVIDERS: ADMIT Psychiatry & Neurology Psychiatry; ATTEND Psychiatry & Neurology Psychiatry
DX: F25.1 Schizoaffective disorder, depressive type (principal); Z91.199 Patient's noncompliance with other medical treatment and regimen due to unspecified reason; F10.229 Alcohol dependence with intoxication, unspecified; F10.239 Alcohol dependence with withdrawal, unspecified; F32.9 Major depressive disorder, single episode, unspecified; F41.9 Anxiety disorder, unspecified; K21.9 Gastro-esophageal reflux disease without esophagitis; Z55.9 Problems related to education and literacy, unspecified; Z63.9 Problem related to primary support group, unspecified; Z59.9 Problem related to housing and economic circumstances, unspecified; Z65.3 Problems related to other legal circumstances; Z87.891 Personal history of nicotine dependence
CPT/HCPCS: 80053; 80164; 80307; 81001; 85025; 87081; 99285; G0480; J3420; Q9967

== ENCOUNTER 2022-10-12 22:52 | Inpatient (IN) | payer MEDICAID, OTHER ==
[~2022-10-12] VITALS: Ht 170.2 cm; Wt 76.7 kg
[~2022-10-12 22:52] MED LIST changes: -BUSP5TAB20 PO; -DIVA-80 PO; +DIVA500T53 PO; +GABA-1181 PO; -GABA-1201 PO; +OLAN10TA26 PO; -OLAN5TAB94 PO; +OMEG-135 PO; -PANT-31 PO
[2022-10-13 01:44] LABS: APPEARANCE,URINE CLEAR (CLEAR); BILIRUBIN,URINE NEGATIVE (NEGATIVE); GLUCOSE, URINE (UA) NEGATIVE (NEGATIVE); KETONES,URINE TRACE mg/dL (NEGATIVE); LEUKOCYTE ESTERASE ,URINE NEGATIVE (NEGATIVE); NITRATE,URINE NEGATIVE (NEGATIVE); OCCULT BLOOD,URINE NEGATIVE (NEGATIVE); PROTEIN,URINE NEGATIVE (NEGATIVE); SPECIFIC GRAVITIY, URINE 1.023 (1.003-1.030); UROBILINOGEN,URINE <=1.0 mg/dL (<=1.0)
[2022-10-13] MEDS ORDERED: LORazepam 2 MG TABLET PO PRN (01:45)
[2022-10-13] MEDS ORDERED: ZOLPIDEM TARTRATE 10 MG TABLET PO PRN ×3 (01:45→20:30)
[2022-10-13] MEDS ORDERED: OLANZapine 5 MG RAPDIS TABLET PO PRN (01:45)
[2022-10-13 01:46] LABS: BASOPHILS % (AUTO) 1.2 % (0.0-2.0); HEMATOCRIT 38.1 % (41-53); HEMOGLOBIN 12.9 g/dL (13.5-17.5); LYMPHOCYTES % (AUTO) 20.1 % (22.0-44.0); MEAN CORPUSCULAR HEMOGLOBIN 32.7 pg (26.0-34.0); MEAN CORPUSCULAR VOLUME 96 fL (80-100); MONOCYTES # (AUTO) 1.8 K/uL (0.1-1.0); MONOCYTES % (AUTO) 17.7 % (2.0-9.0); NEUTROPHILS # (AUTO) 5.9 K/uL (1.8-7.7); PLATELET COUNT (AUTO) 318 K/uL (150-450); RED BLOOD CELL COUNT(AUTO) 3.96 MIL/uL (4.50-5.90); RED CELL DISTRIBUTION WIDTH 14.5 % (11.5-14.5)
[2022-10-13 01:56] LABS: ANION GAP 7 mmol/L (8-16); CALCIUM, TOTAL 9.7 mg/dL (8.8-10.5); CARBON DIOXIDE 27 mmol/L (22-29); CHLORIDE 104 mmol/L (98-107); CREATININE 0.73 mg/dL (0.60-1.30); GLUCOSE,RANDOM 96 mg/dL (70-110); POTASSIUM 3.9 mmol/L (3.5-5.1); SODIUM SERUM 138 mmol/L (136-145); UREA NITROGEN, BLOOD 20 mg/dL (7-18)
[2022-10-13 01:57] LABS: GLOMERULAR FILTR. RATE CALC > 60 mL/min (>60)
[2022-10-13 01:57] LABS: AMPHET/METH SCREEN,URINE POSITIVE (NEGATIVE); BARBITURATE SCREEN, URINE NEGATIVE (NEGATIVE); BENZODIAZEPINES SCREEN,URINE POSITIVE (NEGATIVE); CANNABINOID SCREEN,URINE POSITIVE (NEGATIVE); COCAINE SCREEN,URINE NEGATIVE (NEGATIVE); METHADONE SCREEN, URINE NEGATIVE (NEGATIVE); OPIATE SCREEN,URINE NEGATIVE (NEGATIVE)
[2022-10-13 01:59] LABS: PHENCYCLIDINE SCREEN,URINE NEGATIVE (NEGATIVE)
[2022-10-13 02:02] LABS: ALANINE AMINOTRANSFERASE 21 U/L (12-78); ALBUMIN 3.2 g/dL (3.4-5.0); ALKALINE PHOSPHATASE 101 U/L (46-116); ASPARTATE AMINOTRANSFERASE 29 U/L (15-37); BILIRUBIN,TOTAL 0.4 mg/dL (0.1-1.0); TOTAL PROTEIN, SERUM 7.4 g/dL (6.4-8.2)
[2022-10-13 02:15] LABS: COVID AG,FIA SOURCE NASAL SWAB
[2022-10-13 03:55] VITALS: BP 123/74
[2022-10-13] MEDS ORDERED: IBUPROFEN 600 MG TABLET PO PRN (12:00)
[2022-10-13] MEDS ORDERED: HydrOXYzine PAMOATE 50 MG CAPSULE PO PRN ×2 (12:00→20:30)
[2022-10-13] MEDS ORDERED: LOPERAMIDE HCL 2 MG CAPSULE PO PRN ×3 (12:00→20:30)
[2022-10-13] MEDS ORDERED: OMEGA-3/DHA/EPA/FISH OIL 1,000 MG CAPSULE PO SCH (12:00)
[2022-10-13] MEDS ORDERED: NICOTINE 7 MG/24 HOUR PATCH TD PRN (12:00)
[2022-10-13] MEDS ORDERED: GuaiFENesin/D-METHORPHAN [SUGAR-FREE] 200-20MG/10 ML SYRUP UDCUP PO PRN ×2 (12:00→20:30)
[2022-10-13] MEDS ORDERED: MAG HYDROX/AL HYDROX/SIMETH ES 30 ML SUSPENSION UDCUP PO PRN ×3 (12:30→20:30)
[2022-10-13 13:10] VITALS: BP 120/69
[2022-10-13] MEDS ORDERED: THIAMINE 100 MG TABLET PO SCH (17:00)
[2022-10-13 20:25] VITALS: BP 111/69
[2022-10-13] MEDS ORDERED: MAGNESIUM HYDROXIDE SUSPENSION 30 ML UDCUP PO PRN (20:30)
[2022-10-13] MEDS ORDERED: PROMETHAZINE HCL 25 MG TABLET PO PRN (20:30)
[2022-10-13] MEDS ORDERED: DIAZEPAM 10 MG TABLET PO PRN (20:30)
[2022-10-13] MEDS ORDERED: CYANOCOBALAMIN 1,000 MCG/ML VIAL IM ONE (20:30)
[2022-10-13] MEDS ORDERED: DIVALPROEX SODIUM 500 MG ER TABLET PO ONE (20:30)
[2022-10-13 21:00] VITALS: BP 106/55
[2022-10-13] MEDS ORDERED: MELATONIN 5 MG TABLET PO SCH (21:00)
[2022-10-13] MEDS: MELATONIN 5 MG TABLET PO SCH (21:11)
[2022-10-13] MEDS: DIVALPROEX SODIUM 500 MG ER TABLET PO SCH (21:11)
[2022-10-13] MEDS: MIRTAZAPINE 15 MG TABLET PO SCH (21:12)
[2022-10-13] MEDS: OLANZapine 5 MG RAPDIS TABLET PO SCH (21:12)
[2022-10-13 22:00] VITALS: BP 111/60
[2022-10-13 23:00] VITALS: BP 108/62
[2022-10-14] VITALS (7 sets, daily range): BP systolic 110–122; BP diastolic 62–72
[2022-10-14] MEDS ORDERED: NALTREXONE HCL 50 MG TABLET PO SCH (09:00)
[2022-10-14] MEDS ORDERED: MULTIVITAMINS WITH MINERALS, THERAPEUTIC TABLET PO SCH (09:00)
[2022-10-14] MEDS: NALTREXONE HCL 50 MG TABLET PO SCH (09:15)
[2022-10-14] MEDS: OMEGA-3/DHA/EPA/FISH OIL 1,000 MG CAPSULE PO SCH (09:15)
[2022-10-14] MEDS: DIAZEPAM 10 MG TABLET PO SCH ×4 (09:16→20:01)
[2022-10-14] MEDS: MULTIVITAMINS WITH MINERALS, THERAPEUTIC TABLET PO SCH (09:16)
[2022-10-14] MEDS: DISULFIRAM 250 MG TABLET PO SCH (09:25)
[2022-10-14] MEDS: FOLIC ACID 1 MG TABLET PO SCH (09:26)
[2022-10-14] MEDS: THIAMINE 100 MG TABLET PO SCH ×2 (09:26→16:17)
[2022-10-14] MEDS: ACETAMINOPHEN 325 MG TABLET PO PRN (09:55)
[2022-10-14] MEDS: MELATONIN 5 MG TABLET PO SCH (20:01)
[2022-10-14] MEDS: OLANZapine 5 MG RAPDIS TABLET PO SCH (20:01)
[2022-10-14] MEDS: MIRTAZAPINE 15 MG TABLET PO SCH (20:01)
[2022-10-14] MEDS: DIVALPROEX SODIUM 500 MG ER TABLET PO SCH (20:06)
[2022-10-15] MEDS: DIAZEPAM 10 MG TABLET PO PRN ×2 (02:27→05:26)
[2022-10-15 07:23] LABS: CHOL/HDL RATIO 2.9 (4.2-7.3); FREE T4 (FREE THYROXINE) 0.88 ng/dL (0.76-1.46); THYROID STIMULATING HORMONE 0.35 uIU/mL (0.36-3.74)
[2022-10-15] MEDS: DIAZEPAM 10 MG TABLET PO SCH ×4 (09:00→20:20)
[2022-10-15] MEDS: THIAMINE 100 MG TABLET PO SCH ×2 (09:17→16:47)
[2022-10-15] MEDS: FOLIC ACID 1 MG TABLET PO SCH (09:17)
[2022-10-15] MEDS: MULTIVITAMINS WITH MINERALS, THERAPEUTIC TABLET PO SCH (09:17)
[2022-10-15] MEDS: NALTREXONE HCL 50 MG TABLET PO SCH (09:17)
[2022-10-15] MEDS: OMEGA-3/DHA/EPA/FISH OIL 1,000 MG CAPSULE PO SCH (09:17)
[2022-10-15] MEDS: DISULFIRAM 250 MG TABLET PO SCH (09:18)
[2022-10-15 09:59] VITALS: BP 130/100
[2022-10-15] MEDS: DIVALPROEX SODIUM 500 MG ER TABLET PO SCH (20:20)
[2022-10-15] MEDS: MIRTAZAPINE 15 MG TABLET PO SCH (20:20)
[2022-10-15] MEDS: OLANZapine 5 MG RAPDIS TABLET PO SCH (20:20)
[2022-10-15] MEDS: MELATONIN 5 MG TABLET PO SCH (20:20)
[2022-10-15 20:29] VITALS: BP 123/74
[2022-10-16] MEDS: FOLIC ACID 1 MG TABLET PO SCH (08:31)
[2022-10-16] MEDS: OMEGA-3/DHA/EPA/FISH OIL 1,000 MG CAPSULE PO SCH (08:31)
[2022-10-16] MEDS: THIAMINE 100 MG TABLET PO SCH ×2 (08:32→16:34)
[2022-10-16] MEDS: NALTREXONE HCL 50 MG TABLET PO SCH (08:32)
[2022-10-16] MEDS: MULTIVITAMINS WITH MINERALS, THERAPEUTIC TABLET PO SCH (08:32)
[2022-10-16] MEDS: DIAZEPAM 5 MG TABLET PO SCH ×4 (08:32→20:08)
[2022-10-16] MEDS: DISULFIRAM 250 MG TABLET PO SCH ×2 (08:33→09:00)
[2022-10-16] MEDS: ACETAMINOPHEN 325 MG TABLET PO PRN (09:41)
[2022-10-16] MEDS: DIAZEPAM 5 MG TABLET PO PRN ×2 (14:02→17:31)
[2022-10-16] MEDS: DIVALPROEX SODIUM 500 MG ER TABLET PO SCH (20:08)
[2022-10-16] MEDS: MIRTAZAPINE 15 MG TABLET PO SCH (20:08)
[2022-10-16] MEDS: MELATONIN 5 MG TABLET PO SCH (20:09)
[2022-10-16 20:22] VITALS: BP 124/72
[2022-10-16] MEDS ORDERED: OLANZapine 10 MG RAPDIS TABLET PO SCH (21:00)
[2022-10-17] MEDS: DIAZEPAM 5 MG TABLET PO PRN (03:36)
[2022-10-17] MEDS ORDERED: DIAZEPAM 5 MG TABLET PO PRN (07:00)
[2022-10-17] MEDS: THIAMINE 100 MG TABLET PO SCH (08:21)
[2022-10-17] MEDS: OMEGA-3/DHA/EPA/FISH OIL 1,000 MG CAPSULE PO SCH (08:21)
[2022-10-17] MEDS: NALTREXONE HCL 50 MG TABLET PO SCH (08:21)
[2022-10-17] MEDS: MULTIVITAMINS WITH MINERALS, THERAPEUTIC TABLET PO SCH (08:21)
[2022-10-17] MEDS: FOLIC ACID 1 MG TABLET PO SCH (08:21)
[2022-10-17] MEDS: DISULFIRAM 250 MG TABLET PO SCH (08:22)
[2022-10-17 08:41] VITALS: BP 126/77
[2022-10-17] MEDS ORDERED: OLAN10TA26 PO (09:33)
[2022-10-17] MEDS ORDERED: NALT50TA PO (09:33)
[2022-10-17] MEDS ORDERED: MELA5TAB40 PO (09:33)
[2022-10-17] MEDS ORDERED: DIVA500T69 PO (09:33)
[2022-10-17] MEDS ORDERED: DISU250T8 PO (09:33)
[2022-10-17] MEDS ORDERED: OMEG-135 PO (09:33)
[2022-10-17] MEDS ORDERED: MIRT-89 PO (09:33)
== END 2022-10-17 14:10 | disposition left against medical advice (07) | DRG 750 ==
LOC: EMS 22:52 → B3A 10-13 03:01
PROVIDERS: ADMIT Psychiatry & Neurology Psychiatry; ATTEND Psychiatry & Neurology Psychiatry
DX: F25.0 Schizoaffective disorder, bipolar type (principal); Z91.199 Patient's noncompliance with other medical treatment and regimen due to unspecified reason; R45.851 Suicidal ideations; D64.9 Anemia, unspecified; I10 Essential (primary) hypertension; J44.9 Chronic obstructive pulmonary disease, unspecified; E03.9 Hypothyroidism, unspecified; F10.20 Alcohol dependence, uncomplicated; F15.90 Other stimulant use, unspecified, uncomplicated; F17.200 Nicotine dependence, unspecified, uncomplicated; K21.9 Gastro-esophageal reflux disease without esophagitis; Z20.822 Contact with and (suspected) exposure to COVID-19; Z55.9 Problems related to education and literacy, unspecified; Z59.9 Problem related to housing and economic circumstances, unspecified; Z63.9 Problem related to primary support group, unspecified; Z65.3 Problems related to other legal circumstances; Z79.899 Other long term (current) drug therapy
CPT/HCPCS: 80053; 80061; 80164; 80307; 81003; 84439; 84443; 85025; 87081; 99285; G0480; J3420; Q9967

== ENCOUNTER 2022-11-30 10:17 | Emergency (ER) | payer MEDICAID, OTHER ==
[~2022-11-30] VITALS: Ht 170.2 cm; Wt 68.2 kg
[~2022-11-30 10:17] MED LIST changes: +DISU250T8 PO; -DIVA500T53 PO; +DIVA500T69 PO; -GABA-1181 PO; +MIRT-89 PO
[2022-11-30 10:51] LABS: BASOPHILS % (AUTO) 0.9 % (0.0-2.0); HEMATOCRIT 40.3 % (41-53); HEMOGLOBIN 13.8 g/dL (13.5-17.5); LYMPHOCYTES # (AUTO) 1.5 K/uL (1.0-4.8); MEAN CORPUSCULAR HEMOGLOBIN 32.8 pg (26.0-34.0); MEAN CORPUSCULAR HGB CONC 34.2 G/dL (31.0-37.0); MEAN CORPUSCULAR VOLUME 96 fL (80-100); MONOCYTES # (AUTO) 1.3 K/uL (0.1-1.0); MONOCYTES % (AUTO) 13.4 % (2.0-9.0); NEUTROPHILS # (AUTO) 6.8 K/uL (1.8-7.7); NEUTROPHILS % (AUTO) 68.7 % (40.0-70.0); PLATELET COUNT (AUTO) 303 K/uL (150-450); RED CELL DISTRIBUTION WIDTH 15.6 % (11.5-14.5)
[2022-11-30 11:02] LABS: ANION GAP 5 mmol/L (8-16); CALCIUM, TOTAL 9.7 mg/dL (8.8-10.5); CARBON DIOXIDE 28 mmol/L (22-29); CHLORIDE 105 mmol/L (98-107); CREATININE 0.68 mg/dL (0.60-1.30); GLOMERULAR FILTR. RATE CALC > 60 mL/min (>60); GLUCOSE,RANDOM 76 mg/dL (70-110); POTASSIUM 4.5 mmol/L (3.5-5.1); SODIUM SERUM 138 mmol/L (136-145); UREA NITROGEN, BLOOD 12 mg/dL (7-18)
[2022-11-30 11:11] LABS: SALICYLATE 1.5 mg/dL (2.8-20.0)
[2022-11-30 11:12] LABS: ALANINE AMINOTRANSFERASE 12 U/L (12-78); ALBUMIN 2.7 g/dL (3.4-5.0); ALKALINE PHOSPHATASE 152 U/L (46-116); ASPARTATE AMINOTRANSFERASE 20 U/L (15-37); BILIRUBIN,TOTAL 0.1 mg/dL (0.1-1.0); TOTAL PROTEIN, SERUM 6.9 g/dL (6.4-8.2)
[2022-11-30 11:13] LABS: ACETAMINOPHEN < 2 mcg/mL (10-30); LIPASE 98 U/L (73-393)
[2022-11-30] MEDS ORDERED: ASPIRIN 325 MG TABLET PO ONE (11:45)
[2022-11-30 13:00] LABS: AMPHET/METH SCREEN,URINE POSITIVE (NEGATIVE); BARBITURATE SCREEN, URINE NEGATIVE (NEGATIVE); BENZODIAZEPINES SCREEN,URINE NEGATIVE (NEGATIVE); CANNABINOID SCREEN,URINE POSITIVE (NEGATIVE); COCAINE SCREEN,URINE NEGATIVE (NEGATIVE); METHADONE SCREEN, URINE NEGATIVE (NEGATIVE); OPIATE SCREEN,URINE NEGATIVE (NEGATIVE); PHENCYCLIDINE SCREEN,URINE NEGATIVE (NEGATIVE)
[2022-11-30] MEDS ORDERED: FOLIC ACID 1 MG TABLET PO SCH (13:00)
[2022-11-30] MEDS ORDERED: THIAMINE 100 MG TABLET PO SCH (13:00)
[2022-11-30] MEDS ORDERED: MULTIVITAMINS WITH MINERALS, THERAPEUTIC TABLET PO SCH (13:00)
[2022-11-30] MEDS ORDERED: BISACODYL 10 MG RECTAL RECTAL SUPPOSITORY PR PRN (13:15)
[2022-11-30] MEDS ORDERED: 0.9% SODIUM CHLORIDE 10 ML SYRINGE IVP PRN (13:15)
[2022-11-30] MEDS ORDERED: DOCUSATE SODIUM 100 MG CAPSULE PO PRN (13:15)
[2022-11-30] MEDS ORDERED: ACETAMINOPHEN 325 MG TABLET PO PRN (13:15)
[2022-11-30 15:47] VITALS: BP 139/71
[2022-11-30] MEDS ORDERED: HEPARIN SODIUM,PORCINE 5,000 UNITS/ML VIAL SQ SCH (16:00)
[2022-12-01] MEDS ORDERED: ASPIRIN 81 MG CHEWABLE TABLET PO SCH (09:00)
== END 2022-11-30 18:03 | disposition left against medical advice (07) ==
LOC: EMS 10:18 → UNDOADMIN 15:43 → AHU 15:43 → EMS 18:03
DX: R74.8 Abnormal levels of other serum enzymes (principal); F10.129 Alcohol abuse with intoxication, unspecified; F25.1 Schizoaffective disorder, depressive type; F15.10 Other stimulant abuse, uncomplicated; F17.210 Nicotine dependence, cigarettes, uncomplicated; F12.90 Cannabis use, unspecified, uncomplicated; Y90.9 Presence of alcohol in blood, level not specified
CPT/HCPCS: 99291; 80053; 83690; 84484; 85025; 71045; 93005; 36415; 80307 ×2; G0480; J1644; G0481

== ENCOUNTER 2023-09-23 22:33 | Inpatient (IN) | payer MEDICAID, OTHER ==
[~2023-09-23] VITALS: Ht 172.7 cm; Wt 85.7 kg
[2023-09-23 23:52] LABS: PH,URINE DRUG SCREEN 5.5 (5.0-8.0)
[2023-09-23 23:57] LABS: ALCOHOL, URINE DRUG SCREEN NEGATIVE (NEGATIVE); AMPHET/METH SCREEN,URINE POSITIVE (NEGATIVE); BARBITURATE SCREEN, URINE NEGATIVE (NEGATIVE); BENZODIAZEPINES SCREEN,URINE NEGATIVE (NEGATIVE); CANNABINOID SCREEN,URINE POSITIVE (NEGATIVE); COCAINE SCREEN,URINE NEGATIVE (NEGATIVE); METHADONE SCREEN, URINE NEGATIVE (NEGATIVE); OPIATE SCREEN,URINE NEGATIVE (NEGATIVE); PHENCYCLIDINE SCREEN,URINE NEGATIVE (NEGATIVE)
[2023-09-24] MEDS ORDERED: LORazepam 2 MG TABLET PO ONE (01:00)
[2023-09-24] MEDS ORDERED: ZOLPIDEM TARTRATE 10 MG TABLET PO PRN (02:00)
[2023-09-24 02:08] LABS: COVID AG,FIA SOURCE NASAL SWAB
[2023-09-24 02:26] LABS: SARS-COV2 (COVID) ANTIGEN,FIA Negative (Negative)
[2023-09-24 03:43] VITALS: BP 116/56; PULSE 67; RESP 16; TEMP 98.2; O2SAT 98
[2023-09-24 03:51] VITALS: BP 116/57; PULSE 67; RESP 16; TEMP 98.2
[2023-09-24 09:27] VITALS: BP 115/75; PULSE 80; RESP 17; TEMP 97.9
[2023-09-24] MEDS ORDERED: CloNIDine HCL 0.1 MG TABLET PO PRN (09:30)
[2023-09-24] MEDS ORDERED: NICOTINE 14 MG/24 HOUR PATCH TD PRN (09:30)
[2023-09-24] MEDS ORDERED: MAG HYDROX/ALUMINUM HYD/SIMETH ES 30 ML SUSPENSION UDCUP PO PRN (09:30)
[2023-09-24] MEDS ORDERED: ONDANSETRON HCL 4 MG TABLET PO PRN (09:30)
[2023-09-24] MEDS ORDERED: DOCUSATE SODIUM 100 MG CAPSULE PO PRN (09:30)
[2023-09-24] MEDS ORDERED: GuaiFENesin/D-METHORPHAN [SUGAR-FREE] 200-20MG/10 ML SYRUP UDCUP PO PRN (09:30)
[2023-09-24] MEDS ORDERED: MAGNESIUM HYDROXIDE SUSPENSION 30 ML UDCUP PO PRN (09:30)
[2023-09-24] MEDS ORDERED: ALBUTEROL SULFATE HFA 90 MCG/PUFF 8 GM INHALER IH PRN (09:30)
[2023-09-24] MEDS ORDERED: LOPERAMIDE HCL 2 MG CAPSULE PO PRN (09:30)
[2023-09-24] MEDS ORDERED: PETROLATUM,WHITE 28 GM JELLY TP PRN (09:30)
[2023-09-24] MEDS ORDERED: ACETAMINOPHEN 325 MG TABLET PO PRN (09:30)
[2023-09-24 17:05] VITALS: RESP 20
[2023-09-24] MEDS: LORazepam 2 MG TABLET PO PRN (17:18)
[2023-09-24] MEDS: IBUPROFEN 400 MG TABLET PO PRN (17:19)
[2023-09-24 18:25] VITALS: RESP 18
[2023-09-24] MEDS: MELATONIN 5 MG TABLET PO SCH (21:16)
[2023-09-24] MEDS: OLANZapine 10 MG TABLET PO SCH (21:16)
[2023-09-24] MEDS: NALTREXONE HCL 50 MG TABLET PO SCH (21:16)
[2023-09-24] MEDS: MIRTAZAPINE 15 MG TABLET PO SCH (21:16)
[2023-09-24] MEDS: DIVALPROEX SODIUM 500 MG DR TABLET PO SCH (21:16)
[2023-09-24 22:45] VITALS: BP 120/78; PULSE 79; RESP 19; TEMP 97.5
[2023-09-25] MEDS: OMEGA-3/DHA/EPA/FISH OIL 1,000 MG CAPSULE PO SCH (08:43)
[2023-09-25 10:56] VITALS: BP 140/80; PULSE 69; RESP 18; TEMP 97.2
[2023-09-25 11:56] VITALS: RESP 18
[2023-09-25] MEDS: IBUPROFEN 400 MG TABLET PO PRN (11:56)
[2023-09-25] MEDS: LORazepam 2 MG TABLET PO PRN (15:01)
[2023-09-25] MEDS: MIRTAZAPINE 15 MG TABLET PO SCH (21:11)
[2023-09-25] MEDS: DIVALPROEX SODIUM 500 MG DR TABLET PO SCH (21:12)
[2023-09-25] MEDS: NALTREXONE HCL 50 MG TABLET PO SCH (21:12)
[2023-09-25] MEDS: MELATONIN 5 MG TABLET PO SCH (21:12)
[2023-09-25] MEDS: OLANZapine 10 MG TABLET PO SCH (21:12)
[2023-09-25 21:39] VITALS: BP 138/87; PULSE 77; RESP 18; TEMP 98.6
[2023-09-26] MEDS: LORazepam 2 MG TABLET PO PRN ×2 (03:14→12:31)
[2023-09-26 10:11] VITALS: RESP 18
[2023-09-26] MEDS: OMEGA-3/DHA/EPA/FISH OIL 1,000 MG CAPSULE PO SCH (10:38)
[2023-09-26] MEDS: HALOPERIDOL 5 MG TABLET PO PRN (12:31)
[2023-09-26] MEDS: NALTREXONE HCL 50 MG TABLET PO SCH (20:57)
[2023-09-26] MEDS: DIVALPROEX SODIUM 500 MG DR TABLET PO SCH (20:57)
[2023-09-26] MEDS: OLANZapine 10 MG TABLET PO SCH (20:57)
[2023-09-26] MEDS: MELATONIN 5 MG TABLET PO SCH (20:57)
[2023-09-26] MEDS: MIRTAZAPINE 15 MG TABLET PO SCH (20:57)
[2023-09-26 21:34] VITALS: BP 140/89; PULSE 85; RESP 18; TEMP 97.6
[2023-09-27] MEDS: LORazepam 2 MG TABLET PO PRN ×2 (07:51→15:56)
[2023-09-27] MEDS: OMEGA-3/DHA/EPA/FISH OIL 1,000 MG CAPSULE PO SCH (07:51)
[2023-09-27] MEDS: HALOPERIDOL 5 MG TABLET PO PRN ×2 (07:51→15:56)
[2023-09-27 11:04] VITALS: BP 134/81; PULSE 66; RESP 18; TEMP 98.2
[2023-09-27] MEDS: IBUPROFEN 400 MG TABLET PO PRN (14:34)
[2023-09-27 15:01] LABS: BASOPHILS % (AUTO) 0.9 % (0.0-2.0); EOSINOPHILS % (AUTO) 2.7 % (1.0-6.0); HEMATOCRIT 45.3 % (41-53); HEMOGLOBIN 15.6 g/dL (13.5-17.5); LYMPHOCYTES # (AUTO) 1.3 K/uL (1.0-4.8); LYMPHOCYTES % (AUTO) 13.5 % (22.0-44.0); MEAN CORPUSCULAR HEMOGLOBIN 32.8 pg (26.0-34.0); MEAN CORPUSCULAR HGB CONC 34.4 G/dL (31.0-37.0); MEAN CORPUSCULAR VOLUME 96 fL (80-100); MONOCYTES % (AUTO) 9.9 % (2.0-9.0); NEUTROPHILS # (AUTO) 7.3 K/uL (1.8-7.7); PLATELET COUNT (AUTO) 301 K/uL (150-450); RED BLOOD CELL COUNT(AUTO) 4.75 MIL/uL (4.50-5.90); RED CELL DISTRIBUTION WIDTH 14.4 % (11.5-14.5)
[2023-09-27 15:20] LABS: ALANINE AMINOTRANSFERASE 16 U/L (12-78); ALBUMIN 3.1 g/dL (3.4-5.0); ALKALINE PHOSPHATASE 100 U/L (46-116); ANION GAP 10 mmol/L (8-16); ASPARTATE AMINOTRANSFERASE 13 U/L (15-37); BILIRUBIN,TOTAL 0.4 mg/dL (0.1-1.0); CALCIUM, TOTAL 9.5 mg/dL (8.8-10.5); CARBON DIOXIDE 25 mmol/L (22-29); CHLORIDE 104 mmol/L (98-107); CREATININE 0.67 mg/dL (0.60-1.30); GLOMERULAR FILTR. RATE CALC > 60 mL/min (>60); GLUCOSE,RANDOM 87 mg/dL (70-110); POTASSIUM 4.4 mmol/L (3.5-5.1); SODIUM SERUM 139 mmol/L (136-145); UREA NITROGEN, BLOOD 12 mg/dL (7-18)
[2023-09-27] MEDS: OLANZapine 10 MG TABLET PO SCH (21:17)
[2023-09-27] MEDS: MELATONIN 5 MG TABLET PO SCH (21:17)
[2023-09-27] MEDS: DIVALPROEX SODIUM 500 MG DR TABLET PO SCH (21:18)
[2023-09-27] MEDS: MIRTAZAPINE 15 MG TABLET PO SCH (21:18)
[2023-09-27] MEDS: NALTREXONE HCL 50 MG TABLET PO SCH (21:18)
[2023-09-27 21:36] VITALS: BP 120/72; PULSE 60; RESP 18; TEMP 98.2
[2023-09-28] MEDS: OMEGA-3/DHA/EPA/FISH OIL 1,000 MG CAPSULE PO SCH (08:44)
[2023-09-28 10:51] VITALS: BP 134/79; PULSE 61; RESP 18; TEMP 97.9
[2023-09-28] MEDS: LORazepam 2 MG TABLET PO PRN (13:11)
[2023-09-28] MEDS: HALOPERIDOL 5 MG TABLET PO PRN (13:11)
[2023-09-28 20:50] VITALS: TEMP 97.9
[2023-09-28] MEDS: OLANZapine 10 MG TABLET PO SCH (21:03)
[2023-09-28] MEDS: DIVALPROEX SODIUM 500 MG DR TABLET PO SCH (21:03)
[2023-09-28] MEDS: MIRTAZAPINE 15 MG TABLET PO SCH (21:03)
[2023-09-28] MEDS: MELATONIN 5 MG TABLET PO SCH (21:04)
[2023-09-28] MEDS: NALTREXONE HCL 50 MG TABLET PO SCH (21:04)
[2023-09-29] MEDS: LORazepam 2 MG TABLET PO PRN ×3 (09:28→20:30)
[2023-09-29] MEDS: HALOPERIDOL 5 MG TABLET PO PRN ×3 (09:28→20:30)
[2023-09-29] MEDS: OMEGA-3/DHA/EPA/FISH OIL 1,000 MG CAPSULE PO SCH (09:28)
[2023-09-29] MEDS: OLANZapine 10 MG TABLET PO SCH (20:00)
[2023-09-29] MEDS: MIRTAZAPINE 15 MG TABLET PO SCH (20:00)
[2023-09-29] MEDS: MELATONIN 5 MG TABLET PO SCH (20:00)
[2023-09-29] MEDS: NALTREXONE HCL 50 MG TABLET PO SCH (20:00)
[2023-09-29] MEDS: DIVALPROEX SODIUM 500 MG DR TABLET PO SCH (20:00)
[2023-09-29 20:11] VITALS: BP 160/78; PULSE 77; RESP 18; TEMP 97.2
[2023-09-30] MEDS: OMEGA-3/DHA/EPA/FISH OIL 1,000 MG CAPSULE PO SCH (08:06)
[2023-09-30] MEDS: LORazepam 2 MG TABLET PO PRN (08:06)
[2023-09-30] MEDS ORDERED: LORazepam 0.5 MG TABLET PO SCH (13:00)
[2023-09-30] MEDS ORDERED: LORazepam 1 MG TABLET PO PRN (14:00)
[2023-09-30 14:34] VITALS: RESP 18
[2023-09-30 14:46] VITALS: RESP 18
[2023-09-30] MEDS: IBUPROFEN 400 MG TABLET PO PRN (14:46)
[2023-09-30] MEDS ORDERED: OLAN10TA74 PO (15:56)
[2023-09-30] MEDS ORDERED: MIRT-89 PO (15:56)
[2023-09-30] MEDS ORDERED: NALT50TA33 PO (15:56)
[2023-09-30] MEDS ORDERED: DIVA-112 PO (15:56)
== END 2023-09-30 18:01 | disposition home or self-care (01) | DRG 750 ==
LOC: EMS 22:35 → 3EI 09-24 03:06
PROVIDERS: ADMIT Psychiatry & Neurology Child & Adolescent Psychiatry; ATTEND Psychiatry & Neurology Child & Adolescent Psychiatry
PROC: GZHZZZZ Group Psychotherapy (ICD-10-PCS; principal; 2023-09-28)
DX: F25.1 Schizoaffective disorder, depressive type (principal); R45.851 Suicidal ideations; R56.9 Unspecified convulsions; F11.10 Opioid abuse, uncomplicated; F12.10 Cannabis abuse, uncomplicated; Z20.822 Contact with and (suspected) exposure to COVID-19; F15.10 Other stimulant abuse, uncomplicated; K21.9 Gastro-esophageal reflux disease without esophagitis; F17.210 Nicotine dependence, cigarettes, uncomplicated; Z79.899 Other long term (current) drug therapy; Z59.00 Homelessness unspecified
CPT/HCPCS: 80053; 80164; 80307; 85025; 99285; Q9967

== ENCOUNTER 2023-10-15 12:29 | Inpatient (IN) | payer MEDICAID, OTHER ==
[~2023-10-15] VITALS: Ht 175.3 cm; Wt 57.2 kg
[~2023-10-15 12:29] MED LIST changes: +DIVA-112 PO; -DIVA500T69 PO; -NALT50TA PO; +NALT50TA33 PO; -OLAN10TA26 PO; +OLAN10TA74 PO
[2023-10-15 15:14] LABS: BASOPHILS % (AUTO) 0.6 % (0.0-2.0); EOSINOPHILS % (AUTO) 1.6 % (1.0-6.0); HEMATOCRIT 37.3 % (41-53); HEMOGLOBIN 12.4 g/dL (13.5-17.5); LYMPHOCYTES # (AUTO) 1.1 K/uL (1.0-4.8); MEAN CORPUSCULAR HGB CONC 33.2 G/dL (31.0-37.0); MEAN CORPUSCULAR VOLUME 96 fL (80-100); MONOCYTES # (AUTO) 0.6 K/uL (0.1-1.0); MONOCYTES % (AUTO) 7.6 % (2.0-9.0); NEUTROPHILS # (AUTO) 5.9 K/uL (1.8-7.7); NEUTROPHILS % (AUTO) 76.2 % (40.0-70.0); PLATELET COUNT (AUTO) 309 K/uL (150-450); RED BLOOD CELL COUNT(AUTO) 3.88 MIL/uL (4.50-5.90); RED CELL DISTRIBUTION WIDTH 14.8 % (11.5-14.5); WHITE BLOOD COUNT (AUTO) 7.7 K/uL (4.5-11.0)
[2023-10-15 15:26] LABS: ANION GAP 7 mmol/L (8-16); CALCIUM, TOTAL 9.2 mg/dL (8.8-10.5); CARBON DIOXIDE 27 mmol/L (22-29); CHLORIDE 103 mmol/L (98-107); CREATININE 0.84 mg/dL (0.60-1.30); GLOMERULAR FILTR. RATE CALC > 60 mL/min (>60); GLUCOSE,RANDOM 104 mg/dL (70-110); POTASSIUM 4.1 mmol/L (3.5-5.1); SODIUM SERUM 137 mmol/L (136-145); UREA NITROGEN, BLOOD 13 mg/dL (7-18)
[2023-10-15 15:31] LABS: ALANINE AMINOTRANSFERASE 25 U/L (12-78); ALBUMIN 2.8 g/dL (3.4-5.0); ALKALINE PHOSPHATASE 108 U/L (46-116); ASPARTATE AMINOTRANSFERASE 32 U/L (15-37); BILIRUBIN,TOTAL 0.4 mg/dL (0.1-1.0); TOTAL PROTEIN, SERUM 6.1 g/dL (6.4-8.2)
[2023-10-15 15:44] LABS: ALCOHOL, BLOOD (SERUM) < 3 mg/dL (0-10)
[2023-10-15 18:31] LABS: COVID AG,FIA SOURCE NASAL SWAB
[2023-10-15 18:57] LABS: SARS-COV2 (COVID) ANTIGEN,FIA Negative (Negative)
[2023-10-15 20:50] LABS: APPEARANCE,URINE CLEAR (CLEAR); BILIRUBIN,URINE NEGATIVE (NEGATIVE); COLOR,URINE LIGHT YELLOW (YELLOW); GLUCOSE, URINE (UA) NEGATIVE (NEGATIVE); KETONES,URINE TRACE mg/dL (NEGATIVE); LEUKOCYTE ESTERASE ,URINE NEGATIVE (NEGATIVE); NITRATE,URINE NEGATIVE (NEGATIVE); OCCULT BLOOD,URINE NEGATIVE (NEGATIVE); PH,URINE 6.5 (5.0-8.0); PH,URINE DRUG SCREEN 6.5 (5.0-8.0); PROTEIN,URINE NEGATIVE (NEGATIVE); SPECIFIC GRAVITIY, URINE 1.022 (1.003-1.030); UROBILINOGEN,URINE <=1.0 mg/dL (<=1.0)
[2023-10-15 21:00] LABS: ALCOHOL, URINE DRUG SCREEN NEGATIVE (NEGATIVE); AMPHET/METH SCREEN,URINE POSITIVE (NEGATIVE); BARBITURATE SCREEN, URINE NEGATIVE (NEGATIVE); BENZODIAZEPINES SCREEN,URINE POSITIVE (NEGATIVE); CANNABINOID SCREEN,URINE POSITIVE (NEGATIVE); COCAINE SCREEN,URINE NEGATIVE (NEGATIVE); METHADONE SCREEN, URINE NEGATIVE (NEGATIVE); OPIATE SCREEN,URINE NEGATIVE (NEGATIVE); PHENCYCLIDINE SCREEN,URINE NEGATIVE (NEGATIVE)
[2023-10-16 02:26] VITALS: BP 106/65; PULSE 65; RESP 18; TEMP 97.8
[2023-10-16] MEDS: LORazepam 2 MG TABLET PO PRN (02:30)
[2023-10-16] MEDS: ZOLPIDEM TARTRATE 10 MG TABLET PO PRN (02:30)
[2023-10-16] MEDS ORDERED: INFLUENZA VIRUS VACCINE QVS 2023-24 (6MO+)/PF 60 MCG/0.5 ML SYRINGE IM. ONE (03:30)
[2023-10-16] MEDS ORDERED: GuaiFENesin/D-METHORPHAN [SUGAR-FREE] 200-20MG/10 ML SYRUP UDCUP PO PRN (07:30)
[2023-10-16] MEDS ORDERED: IBUPROFEN 400 MG TABLET PO PRN (07:30)
[2023-10-16] MEDS ORDERED: PETROLATUM,WHITE 28 GM JELLY TP PRN (07:30)
[2023-10-16] MEDS ORDERED: CloNIDine HCL 0.1 MG TABLET PO PRN (07:30)
[2023-10-16] MEDS ORDERED: ACETAMINOPHEN 325 MG TABLET PO PRN (07:30)
[2023-10-16] MEDS ORDERED: ALBUTEROL SULFATE HFA 90 MCG/PUFF 8 GM INHALER IH PRN (07:30)
[2023-10-16] MEDS ORDERED: LOPERAMIDE HCL 2 MG CAPSULE PO PRN (07:30)
[2023-10-16] MEDS ORDERED: DOCUSATE SODIUM 100 MG CAPSULE PO PRN (07:30)
[2023-10-16] MEDS ORDERED: MAGNESIUM HYDROXIDE SUSPENSION 30 ML UDCUP PO PRN (07:30)
[2023-10-16] MEDS ORDERED: NICOTINE 14 MG/24 HOUR PATCH TD PRN (07:30)
[2023-10-16] MEDS ORDERED: ONDANSETRON HCL 4 MG TABLET PO PRN (07:30)
[2023-10-16] MEDS ORDERED: MAG HYDROX/ALUMINUM HYD/SIMETH ES 30 ML SUSPENSION UDCUP PO PRN (07:30)
[2023-10-16 10:19] VITALS: BP 146/91; PULSE 70; RESP 17; TEMP 98; O2SAT 98
[2023-10-16] MEDS: HALOPERIDOL 5 MG TABLET PO PRN (11:25)
[2023-10-16] MEDS: DIVALPROEX SODIUM 500 MG DR TABLET PO SCH (20:22)
[2023-10-16] MEDS: OLANZapine 10 MG TABLET PO SCH (20:23)
[2023-10-16] MEDS: MELATONIN 5 MG TABLET PO SCH (20:23)
[2023-10-16] MEDS: MIRTAZAPINE 15 MG TABLET PO SCH (20:23)
[2023-10-16 21:51] VITALS: RESP 18; TEMP 97.9
[2023-10-17 08:12] VITALS: BP 128/74; PULSE 60; RESP 18; TEMP 97.6
[2023-10-17 08:13] VITALS: BP 141/89; PULSE 60; RESP 17; TEMP 97.3; O2SAT 100
[2023-10-17] MEDS: DISULFIRAM 250 MG TABLET PO SCH (08:27)
[2023-10-17 22:19] VITALS: RESP 16
[2023-10-18 10:00] VITALS: RESP 17
[2023-10-19 01:18] VITALS: BP 138/86; PULSE 92; RESP 17; TEMP 98.2; O2SAT 100
[2023-10-19 10:20] VITALS: BP 136/96; PULSE 80; RESP 17; TEMP 97.6; O2SAT 98
[2023-10-19 20:27] VITALS: BP 133/93; PULSE 77; RESP 16; TEMP 97.5; O2SAT 97
[2023-10-20 08:07] VITALS: BP 132/81; PULSE 85; RESP 17; TEMP 98; O2SAT 98
[2023-10-20 20:45] VITALS: BP 137/76; PULSE 60; RESP 16; TEMP 97.6; O2SAT 98
[2023-10-21 09:07] VITALS: BP 128/72; PULSE 70; RESP 17; TEMP 98; O2SAT 98
[2023-10-21] MEDS ORDERED: DISU250T8 PO (13:14)
[2023-10-21] MEDS ORDERED: MELA5TAB40 PO (13:14)
[2023-10-21] MEDS ORDERED: MIRT-89 PO (13:14)
[2023-10-21] MEDS ORDERED: OLAN10TA74 PO (13:14)
[2023-10-21] MEDS ORDERED: DIVA-112 PO (13:14)
[2023-10-23] MEDS ORDERED: ASPI-1450 PO (12:50)
[2023-10-23] MEDS ORDERED: ATOR40TA28 PO (12:50)
[2023-10-23] MEDS ORDERED: CARV6 PO (12:50)
== END 2023-10-21 14:45 | disposition home or self-care (01) | DRG 750 ==
LOC: EMS 12:41 → B3A 23:46
PROVIDERS: ADMIT Psychiatry & Neurology Child & Adolescent Psychiatry; ATTEND Psychiatry & Neurology Child & Adolescent Psychiatry
DX: F25.1 Schizoaffective disorder, depressive type (principal); E11.9 Type 2 diabetes mellitus without complications; R45.851 Suicidal ideations; R56.9 Unspecified convulsions; I10 Essential (primary) hypertension; J44.9 Chronic obstructive pulmonary disease, unspecified; K21.9 Gastro-esophageal reflux disease without esophagitis; F15.10 Other stimulant abuse, uncomplicated; F25.0 Schizoaffective disorder, bipolar type; Z20.822 Contact with and (suspected) exposure to COVID-19; N40.0 Benign prostatic hyperplasia without lower urinary tract symptoms; M41.9 Scoliosis, unspecified; M19.90 Unspecified osteoarthritis, unspecified site; D35.00 Benign neoplasm of unspecified adrenal gland; F10.20 Alcohol dependence, uncomplicated; F32.9 Major depressive disorder, single episode, unspecified; Z79.899 Other long term (current) drug therapy; Z87.891 Personal history of nicotine dependence
CPT/HCPCS: 80053; 80164; 80307; 81003; 85025; 99285; G0480; Q9967

== ENCOUNTER 2023-10-21 23:10 | Emergency (ER) | payer MEDICAID, OTHER ==
[~2023-10-21] VITALS: Ht 175.3 cm; Wt 72.7 kg
[2023-10-21 23:13] VITALS: TEMP 98
[2023-10-22 00:33] LABS: ANION GAP 12 mmol/L (8-16); CALCIUM, TOTAL 9.8 mg/dL (8.8-10.5); CARBON DIOXIDE 24 mmol/L (22-29); CHLORIDE 98 mmol/L (98-107); CREATININE 0.78 mg/dL (0.60-1.30); GLOMERULAR FILTR. RATE CALC > 60 mL/min (>60); GLUCOSE,RANDOM 108 mg/dL (70-110); POTASSIUM 4.3 mmol/L (3.5-5.1); SODIUM SERUM 134 mmol/L (136-145); UREA NITROGEN, BLOOD 17 mg/dL (7-18)
[2023-10-22 00:38] LABS: ALANINE AMINOTRANSFERASE 15 U/L (12-78); ALBUMIN 3.3 g/dL (3.4-5.0); ALKALINE PHOSPHATASE 97 U/L (46-116); ASPARTATE AMINOTRANSFERASE 14 U/L (15-37); BILIRUBIN,TOTAL 0.2 mg/dL (0.1-1.0); TOTAL PROTEIN, SERUM 6.6 g/dL (6.4-8.2)
[2023-10-22 00:40] LABS: ALCOHOL, BLOOD (SERUM) 67 mg/dL (0-10)
[2023-10-22 01:12] LABS: BASOPHILS % (AUTO) 0.1 % (0.0-2.0); EOSINOPHILS % (AUTO) 0 % (1.0-6.0); HEMATOCRIT 42.7 % (41-53); HEMOGLOBIN 14.6 g/dL (13.5-17.5); LYMPHOCYTES % (AUTO) 6.9 % (22.0-44.0); MEAN CORPUSCULAR HEMOGLOBIN 32.2 pg (26.0-34.0); MEAN CORPUSCULAR HGB CONC 34.2 G/dL (31.0-37.0); MEAN CORPUSCULAR VOLUME 94 fL (80-100); MONOCYTES # (AUTO) 0.9 K/uL (0.1-1.0); MONOCYTES % (AUTO) 5.8 % (2.0-9.0); NEUTROPHILS # (AUTO) 13.1 K/uL (1.8-7.7); PLATELET COUNT (AUTO) 300 K/uL (150-450); RED BLOOD CELL COUNT(AUTO) 4.54 MIL/uL (4.50-5.90); RED CELL DISTRIBUTION WIDTH 14.8 % (11.5-14.5)
[2023-10-22 01:17] LABS: NEUTROPHILS % (AUTO) 87.2 % (40.0-70.0)
[2023-10-22] MEDS: LORazepam 2 MG TABLET PO ONE (04:03)
[2023-10-22 09:10] VITALS: BP 127/71; PULSE 88; RESP 21
[2023-10-22] MEDS: IBUPROFEN 600 MG TABLET PO ONE (09:13)
[2023-10-23] MEDS ORDERED: CARV6 PO (12:50)
[2023-10-23] MEDS ORDERED: ATOR40TA28 PO (12:50)
[2023-10-23] MEDS ORDERED: ASPI-1450 PO (12:50)
== END 2023-10-22 09:29 | disposition home or self-care (01) ==
LOC: EMS 23:11
DX: F10.229 Alcohol dependence with intoxication, unspecified (principal); F41.9 Anxiety disorder, unspecified; F31.9 Bipolar disorder, unspecified; J44.9 Chronic obstructive pulmonary disease, unspecified; F20.9 Schizophrenia, unspecified; F17.210 Nicotine dependence, cigarettes, uncomplicated; F15.90 Other stimulant use, unspecified, uncomplicated; F12.90 Cannabis use, unspecified, uncomplicated; Z98.890 Other specified postprocedural states; Y90.9 Presence of alcohol in blood, level not specified
CPT/HCPCS: 99285; 80053; 85025; 36415; G0480

== ENCOUNTER 2023-11-13 12:19 | Emergency (ER) | payer OTHER ==
[~2023-11-13] VITALS: Ht 175.3 cm; Wt 79.5 kg
[~2023-11-13 12:19] MED LIST changes: +ASPI-1450 PO; +ATOR40TA28 PO; +CARV6 PO; -NALT50TA33 PO; -OMEG-135 PO
[2023-11-13 12:36] VITALS: BP 158/96; PULSE 86; RESP 18; TEMP 98
[2023-11-13 13:04] LABS: BASOPHILS % (AUTO) 1.1 % (0.0-2.0); EOSINOPHILS % (AUTO) 1.2 % (1.0-6.0); HEMATOCRIT 38.2 % (41-53); HEMOGLOBIN 13.1 g/dL (13.5-17.5); LYMPHOCYTES # (AUTO) 1.6 K/uL (1.0-4.8); LYMPHOCYTES % (AUTO) 12.9 % (22.0-44.0); MEAN CORPUSCULAR HEMOGLOBIN 32.7 pg (26.0-34.0); MEAN CORPUSCULAR HGB CONC 34.4 G/dL (31.0-37.0); MEAN CORPUSCULAR VOLUME 95 fL (80-100); MONOCYTES % (AUTO) 8.2 % (2.0-9.0); NEUTROPHILS # (AUTO) 9.7 K/uL (1.8-7.7); NEUTROPHILS % (AUTO) 76.6 % (40.0-70.0); PLATELET COUNT (AUTO) 369 K/uL (150-450); RED BLOOD CELL COUNT(AUTO) 4.02 MIL/uL (4.50-5.90); RED CELL DISTRIBUTION WIDTH 14.9 % (11.5-14.5); WHITE BLOOD COUNT (AUTO) 12.7 K/uL (4.5-11.0)
[2023-11-13 13:15] LABS: ANION GAP 11 mmol/L (8-16); CARBON DIOXIDE 23 mmol/L (22-29); CHLORIDE 98 mmol/L (98-107); CREATININE 0.74 mg/dL (0.60-1.30); GLOMERULAR FILTR. RATE CALC > 60 mL/min (>60); GLUCOSE,RANDOM 82 mg/dL (70-110); POTASSIUM 3.9 mmol/L (3.5-5.1); SODIUM SERUM 132 mmol/L (136-145); UREA NITROGEN, BLOOD 9 mg/dL (7-18)
[2023-11-13 13:21] LABS: ALANINE AMINOTRANSFERASE 18 U/L (12-78); ALBUMIN 3.6 g/dL (3.4-5.0); ALKALINE PHOSPHATASE 85 U/L (46-116); ASPARTATE AMINOTRANSFERASE 30 U/L (15-37); BILIRUBIN,TOTAL 0.4 mg/dL (0.1-1.0); TOTAL PROTEIN, SERUM 7.6 g/dL (6.4-8.2)
== END 2023-11-13 15:15 | disposition left against medical advice (07) ==
LOC: EMS 12:20
DX: F41.9 Anxiety disorder, unspecified (principal); R44.0 Auditory hallucinations; Z53.21 Procedure and treatment not carried out due to patient leaving prior to being seen by health care provider
CPT/HCPCS: 80053; 85025; 93005; 99281